=== PATIENT | male | born 1955 | race Caucasian/White ===

== ENCOUNTER 2020-08-25 07:53 | Outpatient (REF) | payer MEDICAID, SELFPAY ==
--- NOTE | 2020-08-25 | US_ITS ---
EXAMINATION: US ABDOMEN COMPLETE CLINICAL INFORMATION: Viral hepatitis C. COMPARISON: MRI abdomen without contrast dated 07/18/2016. CT abdomen with intravenous contrast dated 06/14/2016. Ultrasound abdomen complete dated 02/04/2016 and 06/11/2015. X-ray abdomen dated 10/22/2010. TECHNIQUE: Real-time imaging of the abdominal viscera. FINDINGS: PANCREAS: Normal. ABDOMINAL AORTA: The proximal, mid, and distal segments are normal in caliber. INFERIOR VENA CAVA: Visualized portions are normal. LIVER: There is a hypoechoic mass left lower lobe measuring 1.8 x 2.0 x 1.8 cm. There is anechoic cyst right lower lobe measuring 1.0 x 1.1 x 0.8 cm it The liver is normal in size. The liver contour is normal. There is no intrahepatic biliary duct dilatation seen. Normal hepatopedal flow seen in the portal vein. GALLBLADDER: Normal. The gallbladder is physiologically distended without evidence of stones, sludge, polyps, wall thickening or pericholecystic fluid. COMMON BILE DUCT: Normal in caliber measuring 0.35 cm in diameter. RIGHT KIDNEY: Normal. No hydronephrosis. No renal calculi or focal parenchymal lesions. The kidney measures 10.0 cm in maximum dimension. LEFT KIDNEY: There is an echogenic stone mid to lower pole measuring 0.7 x 0.6 x 0.4 cm. No hydronephrosis or focal parenchymal lesions. The kidney measures 10.1 cm in maximum dimension. SPLEEN: Normal. The spleen measures 12.7 cm in maximum dimension. FREE FLUID: None. US/US abdomen complete IMPRESSION: Left hepatic lobe mass measuring 2.0 cm. Also visualized is a small right hepatic lobe cyst. These 2 lesions were not seen on the previous CT abdomen exam from 06/14/2016. Recommend correlation with CT liver with and without contrast. Small echogenic nonobstructive stone mid to lower pole left kidney.
== END 2020-08-25 07:54 | disposition home or self-care (01) ==
LOC: HO.US 07:53
PROVIDERS: Visit Provider General Practice
DX: B18.2 Chronic viral hepatitis C (principal)
CPT/HCPCS: 76700

== ENCOUNTER 2020-09-22 10:20 | Outpatient (REF) | payer MEDICAID, SELFPAY ==
[2020-09-22 18:01] LABS: MANUAL DIFF FLAG NO
[2020-09-22 18:10] LABS: INTERNATIONAL NORM RATIO 1.1 (0.9-1.1); Prothrombin Time 13.4 SEC (10.8-13.0)
[2020-09-22 18:18] LABS: Basophils Absolute Auto 0.1 X10*3/uL (0.0-0.2); Basophils Percent Auto 1.4 % (0-2); Eosinophils Absolute Auto 0.6 X10*3/uL (0.0-0.4); Eosinophils Percent Auto 8.5 % (0-4); Hematocrit 39.5 % (42-52); Hemoglobin 13.4 g/dl (14.0-18.0); Imm Gran Abs Auto 0.03 X10*3/uL (0.00-0.03); Imm Gran Pct Auto 0.4 % (0.0-0.4); Lymphocytes Absolute Auto 2.2 X10*3/uL (1.2-4.9); Lymphocytes Percent Auto 30.5 % (20-40); Mean Corpuscular HGB Conc 33.9 g/dl (31.0-36.0); Mean Corpuscular Hemoglobin 31.8 pg (27.0-33.0); Mean Corpuscular Volume 93.6 fL (80-98); Mean Platelet Volume 12.3 fL (9.4-12.4); Monocytes Absolute Auto 0.7 X10*3/uL (0.1-1.2); Monocytes Percent Auto 9.6 % (2-11); Neutrophils Absolute Auto 3.5 X10*3/uL (2.0-8.3); Neutrophils Percent Auto 49.6 % (45-73); Red Blood Count 4.22 X10*6/uL (4.60-5.80); Red Cell Distribution Width 13.6 % (11.0-16.0); White Blood Count 7.1 X10*3/uL (4.8-10.8)
[2020-09-22 18:39] LABS: Platelet Count 94 X10*3/uL (160-400)
[2020-09-22 18:41] LABS: Alanine Aminotransferase 112 U/L (0-40); Albumin Level 3.1 g/dL (3.5-5.0); Alkaline Phosphatase 182 U/L (39-117); Anion Gap 9 (12-20); Aspartate Amino Transferase 117 U/L (5-37); Bilirubin Total 0.4 mg/dL (0.0-1.0); Blood Urea Nitrogen 13 mg/dL (9-16); Calcium 8.6 mg/dL (8.4-10.2); Carbon Dioxide 29 mmol/L (22-29); Chloride 106 mmol/L (96-108); Estimated Glomerular Filt Rate > 60; Glucose Random 120 mg/dL (60-115); Sodium 140 mmol/L (135-145)
[2020-09-22 18:47] LABS: Ferritin 177 ng/mL (20-250)
[2020-09-22 18:56] LABS: Gamma Glutamyl Transpeptidase 169 U/L (11-51)
[2020-09-23 09:51] LABS: HBS Num1 102.35 mIU/mL (0-7.99); HBc Num1 8.62 S/CO (0.00-0.79); Hepatitis A Antibody IgM 0.47 Index (0-0.79); Hepatitis B Surface Antigen Negative (Negative); ~Hepatitis A Antibody IgM Nonreactive (Nonreactive); ~Hepatitis B Surface Antibody REACTIVE (Nonreactive); ~Hepatitis C Antibody Reactive (Nonreactive)
[2020-09-23 11:32] LABS: Alpha Fetoprotein 25.7 ng/mL (<6.1)
[2020-09-23 12:39] LABS: HBc Num2 8.71 S/CO; HBc Num3 9.24 S/CO; Hepatitis B Core Antibody Reactive (Nonreactive)
[2020-09-23 12:42] LABS: Mitochondrial Antibodies NEGATIVE (NEGATIVE)
[2020-09-23 13:28] LABS: Anti Nuclear Antibody Screen NEGATIVE (NEGATIVE)
[2020-09-24 09:27] LABS: Hepatitis B Core Antibody IgM NON-REACTIVE (NON-REACTIVE)
[2020-09-25 00:27] LABS: Smooth Muscle Antibody <20 U (<20)
== END 2020-09-22 10:21 | disposition home or self-care (01) ==
LOC: HO.LAB 10:20
PROVIDERS: PCP General Practice; Referring Provider General Practice; Visit Provider Nurse Practitioner
DX: B19.20 Unspecified viral hepatitis C without hepatic coma (principal)
CPT/HCPCS: 36415; 80053; 82105; 82728; 82977; 85025; 85610; 86038; 86039; 86255; 86256; 86704; 86705; 86706; 86709; 86803; 87340; 87522

== ENCOUNTER 2020-11-12 09:29 | Outpatient (REF) | payer MEDICAID, SELFPAY ==
[2020-11-12 10:27] LABS: Blood Urea Nitrogen 13 mg/dL (9-16); Estimated Glomerular Filt Rate > 60
== END 2020-11-12 09:30 | disposition home or self-care (01) ==
LOC: HO.CT 09:29
PROVIDERS: PCP General Practice; Visit Provider General Practice
DX: B18.2 Chronic viral hepatitis C (principal); I10 Essential (primary) hypertension
CPT/HCPCS: 36415; 82565; 84520

== ENCOUNTER 2020-12-01 13:22 | Outpatient (REF) | payer MEDICAID, SELFPAY ==
--- NOTE | ~2020-12-01 | CT_ITS ---
EXAMINATION: CT ABDOMEN WITHOUT AND WITH CONTRAST CLINICAL INFORMATION: Hepatitis C. Liver mass. COMPARISON: Previous CT of the abdomen June 2016, MRI of the abdomen July 2016 and abdominal ultrasound August 2020 TECHNIQUE: Contiguous axial thin section helical images of the abdomen were performed before and after the administration of oral contrast and 85 mL of Omnipaque 350 intravenous contrast. The data set was reformatted in the coronal and sagittal planes and reviewed on an independent workstation. This CT examination was performed using dose optimization techniques as appropriate, variously including the following: *Automated exposure control *Adjustment of mA and/or kV according to patient size (this includes techniques or standardized protocols for targeted exams where dose is matched to indication/reason for exam; i.e. extremities or head) *Use of iterative reconstruction technique DLP: 1667 mGy-cm FINDINGS: LUNG BASES: There are small calcified pulmonary nodules that are stable. The lung bases are otherwise clear. LIVER, GALLBLADDER, AND BILIARY TREE: The liver is cirrhotic. There is a new lesion in the lateral segment of the left lobe of the liver. This is low attenuation precontrast. This demonstrates early arterial phase enhancement. This washes out with similar attenuation to the remainder of the liver on venous phase images. This area measures approximately 2 cm. Enhancement characteristics are suggestive of paraseptal or carcinoma. There is a second focus of early arterial phase enhancement seen at the junction of the medial segment of the left lobe and anterior segment of the right lobe. This is slightly low signal on T1-weighted sequences. This demonstrates early arterial phase enhancement. This washes out and is similar in attenuation to the remainder of the liver on out portal venous phase images. This area measures approximately 1 cm axial image 35 series 4. No other focal liver lesion is seen. The gallbladder is upper normal in size. No gallstones are seen. There is a stranding of the pericholecystic fat and small amount of fluid surrounding the gallbladder. There is uncertain whether this is related to liver disease. There is no biliary duct dilatation. PANCREAS: Unremarkable SPLEEN: Unremarkable ADRENAL GLANDS AND KIDNEYS: The adrenal glands are unremarkable. There were small bilateral renal stones, left greater than right. There is a 2 mm stone in the upper to mid right kidney. There are 5 small stones in the left kidney, largest measuring 3 mm in the upper pole. There are small low-attenuation bilateral renal lesions. These are too small to definitely characterize but probably represent small cysts. BOWEL LOOPS: There is diverticulosis of the colon. Visualized bowel is otherwise unremarkable. The appendix is unremarkable. The stomach is unremarkable. LYMPH NODES: There is no enlarged lymph nodes. VASCULAR: The portal veins and splenic vein are patent. There are upper abdominal and paraesophageal varices. There is a small amount of ascites. The abdominal aorta is calcified but normal in caliber. BONES: There is degenerative disc disease at L4-L5. CT/CT abdomen wo/w con IMPRESSION: Cirrhotic-appearing liver. 2 liver lesions suspicious for hepatocellular carcinoma measuring 2 cm in the lateral segment of the left lobe corresponding to abnormality seen by ultrasound and 1 cm in the peripheral medial segment of the left lobe near the junction of the anterior segment of the right lobe. Ascites and varices. Bilateral renal stones. Diverticulosis.
== END 2020-12-01 13:23 | disposition home or self-care (01) ==
LOC: HO.CT 13:22
PROVIDERS: Visit Provider General Practice
DX: B18.2 Chronic viral hepatitis C (principal)
CPT/HCPCS: 74170; Q9967

== ENCOUNTER → 2021-01-19 13:26 | Outpatient (BNVA) | payer MEDICAID, SELFPAY | PROVIDERS: Visit Provider Internal Medicine Gastroenterology ==

== ENCOUNTER 2021-04-23 18:23 | Emergency (ER) | payer MEDICAID, SELFPAY ==
[2021-04-23 18:50] VITALS: BP 138/86; PULSE 61; RESP 16; TEMP 36.1; O2SAT 100; BMI 35.4
[2021-04-23 19:24] LABS: MANUAL DIFF FLAG NO
[2021-04-23 19:26] LABS: Glucose Urine UA NEG (NEG); Leukocyte Esterase Urine 1+ (NEG); Nitrite Urine NEG (NEG); PH 6.5 (5.0-8.0); Specific Gravity - Urine 1.015 (1.005-1.025); UACC Culture Trigger YES; Urine Blood NEG (NEG); Urine Ketones NEG (NEG); Urine Protein NEG (NEG-TRACE)
[2021-04-23 19:27] LABS: Basophils Absolute Auto 0.1 X10*3/uL (0.0-0.2); Eosinophils Absolute Auto 0.5 X10*3/uL (0.0-0.4); Eosinophils Percent Auto 7.7 % (0-4); Hematocrit 38.6 % (42-52); Hemoglobin 12.8 g/dl (14.0-18.0); Imm Gran Abs Auto 0.02 X10*3/uL (0.00-0.03); Imm Gran Pct Auto 0.3 % (0.0-0.4); Lymphocytes Absolute Auto 1.7 X10*3/uL (1.2-4.9); Lymphocytes Percent Auto 26.1 % (20-40); Mean Corpuscular HGB Conc 33.2 g/dl (31.0-36.0); Mean Corpuscular Hemoglobin 31.2 pg (27.0-33.0); Mean Corpuscular Volume 94.1 fL (80-98); Mean Platelet Volume 11.2 fL (9.4-12.4); Monocytes Absolute Auto 0.8 X10*3/uL (0.1-1.2); Monocytes Percent Auto 11.7 % (2-11); Neutrophils Absolute Auto 3.4 X10*3/uL (2.0-8.3); Neutrophils Percent Auto 52.2 % (45-73); Platelet Count 114 X10*3/uL (160-400); Red Cell Distribution Width 14.2 % (11.0-16.0); White Blood Count 6.5 X10*3/uL (4.8-10.8)
[2021-04-23 19:42] LABS: Appearance Urine CLEAR; Color Urine YELLOW; RBC Urine 0-2 /HPF (0); Squamous Epithelial Cell Urine TRACE /LPF
[2021-04-23 19:48] LABS: Alanine Aminotransferase 56 U/L (0-40); Alkaline Phosphatase 170 U/L (39-117); Anion Gap 11 (12-20); Aspartate Amino Transferase 99 U/L (5-37); Bilirubin Direct 0.5 mg/dL (0.0-0.5); Bilirubin Total 1.2 mg/dL (0.0-1.0); Blood Urea Nitrogen 10 mg/dL (9-16); Carbon Dioxide 26 mmol/L (22-29); Chloride 105 mmol/L (96-108); Creatinine Clr Calc Pharmacy 104.4; Estimated Glomerular Filt Rate > 60; Glucose Random 103 mg/dL (60-115); Lipase 19 U/L (8-78); Potassium 4.5 mmol/L (3.3-5.1); Sodium 137 mmol/L (135-145); Total Protein 7.7 g/dL (6.5-8.0)
[2021-04-23 22:02] VITALS: BP 156/86; PULSE 60; RESP 20; TEMP 36.8; O2SAT 97
--- NOTE | 2021-04-23 22:13 | ED.ABDPAIN ---
HPI - Abdominal Pain General Chief Complaint: Abdominal Pain Stated Complaint: severe stomach pain Time Seen by Provider: 04/23/21 22:13 Source: patient Mode of arrival: ambulatory Limitations: no limitations History of Present Illness HPI narrative: 2 weeks of abdominal pain with swelling. Patient told that he has a problem with his liver. Patient has not been drained for ascites. Patient states he is on a diuretic. last CT in November showed cirrhosis and a liver mass. MD elicited complaint: abdominal pain Onset (ago): month(s) Pain Consistency: constant Associated symptoms: denies other symptoms Related Data Home Medications Medication Instructions Recorded Confirmed albuterol sulfate 90 mcg/actuation 2 puff INHALATION Q6H PRN 09/22/20 aerosol inhaler (ProAir HFA) cholecalciferol (vitamin D3) 25 25 mcg PO DAILY 09/22/20 mcg (1,000 unit) capsule levothyroxine 200 mcg capsule 200 mcg PO DAILY 09/22/20 lisinopril 10 mg tablet 10 mg PO DAILY 09/22/20 omeprazole 20 mg capsule,delayed 20 mg PO QAM cap 09/22/20 09/22/20 release Previous Rx's Medication Instructions Recorded polyethylene glycol 3350 17 238 g PO ONCE #238 g 01/19/21 gram/dose oral powder (Miralax) furosemide 20 mg tablet (Lasix) 20 mg PO DAILY #30 tab 04/23/21 spironolactone 50 mg tablet 50 mg PO DAILY #30 tab 04/23/21 (Aldactone) Allergies Allergy/AdvReac Type Severity Reaction Status Date / Time No Known Allergies Allergy Verified 09/22/20 10:21 [No Known Allergies*] Review of Systems Constitutional: Reports no additional constitutional complaints Eyes: Reports no additional eye complaints Denies dizziness Cardiovascular: Reports no additional cardiovascular complaints Respiratory: Reports as per HPI Gastrointestinal: Reports no additional gastrointestinal complaints Musculoskeletal: Reports no additional musculoskeletal complaints Skin/Breast: Denies rash Reports system reviewed and no additional complaints, except as documented, Denies dizziness and Denies Sensory deficit (Neuro) Psychiatric: Denies anxiety Physical Exam Vital Signs: Vital Signs: Last Vital Signs Temp 98.2 F 04/23/21 22:02 Pulse 60 04/23/21 22:02 Resp 20 04/23/21 22:02 BP 156/86 H 04/23/21 22:02 Pulse Ox 97 04/23/21 22:02 Body Mass Index 35.4 Const: Other: Male looking older than stated age, in no acute distress. Now with swollen abdomen. Nutritional Appearance: obese Orientation/consciousness: oriented to person and patient oriented x3 Limitations: no limitations HENMT: Head: Yes normal to inspection Ears: external ears normal General nose exam: Normal external nose present Mouth: Normal oral and palatal mucosa present and oropharynx normal Throat: Yes posterior oropharynx normal Eyes: General: appearance normal, both eyes and all related structures Neck: Other: supple Neck: Yes normal visual inspection Chest: Chest palpation & inspection: normal inspection of the chest Resp: Auscultation: clear to auscultation bilaterally Cardio: Jugular venous distension: no JVD Rate: regular rate Rhythm: regular rhythm Heart sounds: S1 normal heart sound present and S2 normal heart sound present GI: Other: large abdomen with ascites, fluid shift. Palpation (GI): Soft to palpation, nontender and No hepatosplenomegaly present Auscultation: normal bowel sounds : General: Yes no CVA tenderness Back/Spine/Pelvis: Back: no CVA tenderness Skin: General skin exam: no rashes or lesions noted Neuro: General: oriented to person and patient oriented x3 Cranial nerves: Yes CN's II-XII intact bilaterally Motor exam (neuro): 5/5 motor strength present throughout Sensory Exam: No Sensory deficit (Neuro) Extrem: General: Yes normal to inspection Psych: Appearance: grossly normal Course Reevaluation(s) Reevaluation #1: Bedside ultrasound shows ascites Time: 22:25 Reevaluation #2: will start patient on lasix and aldactone for his ascites Time: 22:26 Reevaluation #3: chronic liver inflammation will not start abx for 10-14 wbc, will allow urine to be cultured Time: 22:28 MDM - Abdominal Pain Lab Data Result diagrams: 04/23/21 19:18 04/23/21 19:18 Labs: Lab Results 04/23/21 04/23/21 04/23/21 Range/Units 19:18 19:18 19:18 WBC 6.5 (4.8-10.8) X10*3/uL RBC 4.10 L (4.60-5.80) X10*6/uL Hgb 12.8 L (14.0-18.0) g/dl Hct 38.6 L (42-52) % MCV 94.1 (80-98) fL MCH 31.2 (27.0-33.0) pg MCHC 33.2 (31.0-36.0) g/dl RDW 14.2 (11.0-16.0) % Plt Count 114 L (160-400) X10*3/uL MPV 11.2 (9.4-12.4) fL Immature Gran % (Auto) 0.3 (0.0-0.4) % Neut % (Auto) 52.2 (45-73) % Lymph % (Auto) 26.1 (20-40) % Stewart % (Auto) 11.7 H (2-11) % Eos % (Auto) 7.7 H (0-4) % Baso % (Auto) 2.0 (0-2) % Lymph # (Auto) 1.7 (1.2-4.9) X10*3/uL Stewart # (Auto) 0.8 (0.1-1.2) X10*3/uL Eos # (Auto) 0.5 H (0.0-0.4) X10*3/uL Baso # (Auto) 0.1 (0.0-0.2) X10*3/uL Abs Immat Gran (auto) 0.02 (0.00-0.03) X10*3/uL Absolute Neuts (auto) 3.4 (2.0-8.3) X10*3/uL Absolute Nucleated RBC 0.000 (0.0-0.012) X10*3/uL Nucleated RBC % (auto) 0.0 (0.0-0.2) /100WBC Sodium 137 (135-145) mmol/L Potassium 4.5 (3.3-5.1) mmol/L Chloride 105 (96-108) mmol/L Carbon Dioxide 26 (22-29) mmol/L Anion Gap 11 L (12-20) BUN 10 (9-16) mg/dL Creatinine 0.88 (0.5-1.4) mg/dL Estim Creat Clear Calc 104.4 Estimated GFR > 60 Random Glucose 103 (60-115) mg/dL Calcium 9.0 (8.4-10.2) mg/dL Total Bilirubin 1.2 H (0.0-1.0) mg/dL Direct Bilirubin 0.5 (0.0-0.5) mg/dL AST 99 H (5-37) U/L ALT 56 H (0-40) U/L Alkaline Phosphatase 170 H (39-117) U/L Total Protein 7.7 (6.5-8.0) g/dL Albumin 3.0 L (3.5-5.0) g/dL Lipase 19 (8-78) U/L Urine Color YELLOW Urine Appearance CLEAR Urine pH 6.5 (5.0-8.0) Ur Specific [place] 1.015 (1.005-1.025) Urine Protein NEG (NEG-TRACE) MG/DL Urine Glucose (UA) NEG (NEG) MG/DL Urine Ketones NEG (NEG) MG/DL Urine Blood NEG (NEG) Urine Nitrite NEG (NEG) Ur Leukocyte Esterase 1+ H (NEG) Urine RBC 0-2 (0) /HPF Urine WBC 10-14 H (0-4) /HPF Ur Squamous Epith Cells TRACE /LPF Urine Bacteria NONE /LPF Discharge Plan Discharge Clinical Impression: Liver mass Abdominal ascites Qualifiers: Ascites type: due to alcoholic cirrhosis Qualified Code(s): K70.31 - Alcoholic cirrhosis of liver with ascites Patient Disposition: Home, Self-Care Instructions: Ascites (ED) Prescriptions: New furosemide [Lasix] 20 mg tablet 20 mg PO DAILY Qty: 30 RF: 0 spironolactone [Aldactone] 50 mg tablet 50 mg PO DAILY Qty: 30 RF: 0 No Action polyethylene glycol 3350 [Miralax] 17 gram/dose powder 238 g PO ONCE Qty: 238 RF: 0 cholecalciferol (vitamin D3) 25 mcg (1,000 unit) capsule 25 mcg PO DAILY RF: 0 levothyroxine 200 mcg capsule 200 mcg PO DAILY RF: 0 lisinopril 10 mg tablet 10 mg PO DAILY RF: 0 omeprazole 20 mg capsule,delayed release(DR/EC) 20 mg PO QAM RF: 0 albuterol sulfate [ProAir HFA] 90 mcg/actuation HFA aerosol inhaler 2 puff inhalation Q6H PRNRF: 0 Referrals: Physician,Unknown [Primary Care Provider] - 5 days (Must follow up with [facility] for liver ascites and cirrhosis) [facility] Past Medical History Surgical History No history of previous surgery Family History Family History Other No known health problems Social History Social History Alcohol intake: current Alcohol intake frequency: does not drink Substance Use Type: Marijuana
== END 2021-04-23 23:34 | disposition home or self-care (01) ==
LOC: HO.ED 22:37
PROVIDERS: Emergency Provider Emergency Medicine
DX: K70.31 Alcoholic cirrhosis of liver with ascites (principal); R16.0 Hepatomegaly, not elsewhere classified; R10.9 Unspecified abdominal pain; I10 Essential (primary) hypertension; B19.20 Unspecified viral hepatitis C without hepatic coma; Z79.899 Other long term (current) drug therapy
CPT/HCPCS: 36415; 80053; 81001; 82248; 83690; 85025; 87086; 99283

== ENCOUNTER 2021-06-10 09:04 | Day surgery (SDC) | payer MEDICAID, SELFPAY ==
--- NOTE | 2021-06-09 10:33 | HO.ANESPROP2 ---
Documented by User: Ada Fonseca NP 06/09/21 10:36 HPI - Anesthesia Eval Consult details Narrative: 65yo M for Upper Endoscopy and Colonoscopy End Stage Liver Disease (ETOH, Hep C) - Transplant candidate per [facility] 05/2021 appt with cirrhosis, ascites, thrombocytopenia, possible hepatocellular carcinoma PMFSH Active Problems Active Problems: All Active Problems (Updated 06/04/21 @ 13:37 by Vy Jasso, RN) Hepatitis C (Acute) HTN (hypertension), benign (Acute) High cholesterol (Acute) Cardiac arrhythmia (Acute) Asthma (Acute) Hypothyroid (Acute) H/O ETOH abuse (Acute) Anemia (Acute) Liver mass (Acute) Past Medical History Medical History (Updated 06/04/21 @ 13:37 by Vy Jasso RN) Allergic rhinitis Anemia Asthma Cirrhosis GERD (gastroesophageal reflux disease) Hepatitis C History of alcohol abuse History of kidney stones HTN (hypertension) Hypothyroid Liver mass Family History Family History Other No known health problems Surgical History Surgical History No history of previous surgery Social History Social History Alcohol intake: current Alcohol intake frequency: does not drink Substance Use Type: Marijuana Advance Directives: No Advance Directives Information Provided: Yes Meds Allergies Allergy/AdvReac Type Severity Reaction Status Date / Time No Known Allergies Allergy Verified 06/04/21 13:39 [No Known Allergies*] Home Medications Medication Instructions Recorded Confirmed Last Taken Type albuterol sulfate 90 mcg/actuation 2 puff INHALATION Q6H PRN 09/22/20 06/04/21 Unknown History aerosol inhaler (ProAir HFA) cholecalciferol (vitamin D3) 25 25 mcg PO DAILY 09/22/20 06/04/21 Unknown History mcg (1,000 unit) capsule levothyroxine 200 mcg capsule 200 mcg PO DAILY 09/22/20 06/04/21 Unknown History lisinopril 10 mg tablet 10 mg PO DAILY 09/22/20 06/04/21 Unknown History omeprazole 20 mg capsule,delayed 20 mg PO QAM cap 09/22/20 06/04/21 Unknown History release Exam Exam Date and Time: June 09, 2021 1033 Pertinent Lab Results Pertinent Lab Results: Laboratory Tests 04/23/21 04/23/21 19:18 19:18 WBC 6.5 Hgb 12.8 L Hct 38.6 L Plt Count 114 L Sodium 137 Potassium 4.5 Chloride 105 Carbon Dioxide 26 BUN 10 Creatinine 0.88 Assessment and Plan Assessment Anesthesia Assessment: Chart Reviewed Documented by User: Gabbie Marcial MD 06/10/21 09:26 [facility] Past Medical History Medical History (Updated 06/04/21 @ 13:37 by Vy Jasso RN) Allergic rhinitis Anemia Asthma Cirrhosis GERD (gastroesophageal reflux disease) Hepatitis C History of alcohol abuse History of kidney stones HTN (hypertension) Hypothyroid Liver mass Family History Family History Other No known health problems Surgical History Surgical History No history of previous surgery Social History Social History Alcohol intake: current Alcohol intake frequency: does not drink Substance Use Type: Marijuana Advance Directives: No Advance Directives Information Provided: Yes Meds Allergies Allergy/AdvReac Type Severity Reaction Status Date / Time No Known Allergies Allergy Verified 06/04/21 13:39 [No Known Allergies*] Home Medications Medication Instructions Recorded Confirmed Last Taken Type albuterol sulfate 90 mcg/actuation 2 puff INHALATION Q6H PRN 09/22/20 06/04/21 Unknown History aerosol inhaler (ProAir HFA) cholecalciferol (vitamin D3) 25 25 mcg PO DAILY 09/22/20 06/04/21 Unknown History mcg (1,000 unit) capsule levothyroxine 200 mcg capsule 200 mcg PO DAILY 09/22/20 06/04/21 Unknown History lisinopril 10 mg tablet 10 mg PO DAILY 09/22/20 06/04/21 Unknown History omeprazole 20 mg capsule,delayed 20 mg PO QAM cap 09/22/20 06/04/21 Unknown History release Exam Airway Mallampati Class: II TM Dist: >3cm Neck ROM: Full Loose/Missing/Broken Teeth: Yes, Upper and Lower
[2021-06-10 09:41] VITALS: BP 161/90; PULSE 70; RESP 16; TEMP 36.6; O2SAT 97; BMI 34.7
--- NOTE | 2021-06-10 09:41 | MHC.SHP ---
Pre-Procedural Eval Section A Date of Service: 06/10/21 Section B Chief Complaint: hepatomegaly, Details of Present Illness: cirrhosis and colon screening Relevant Family History (Specify if Yes): No Relevant Social History: Alcohol Use (ex alcohol abuse) Present Medications: see Short Stay Collaborative assessment Medical History: Significant History (Allergic rhinitis Anemia Asthma Cirrhosis GERD (gastroesophageal reflux disease) Hepatitis C History of alcohol abuse History of kidney stones HTN (hypertension) Hypothyroid Liver mass) History of Previous Operations: No relevant previous surgery Allergies: Allergies Allergy/AdvReac Type Severity Reaction Status Date / Time No Known Allergies Allergy Verified 06/04/21 13:39 [No Known Allergies*] Review of Systems Sugical H&P ROS: Negative: Constitution, Cardiovascular, Respiratory, Neurological, Psychiatric, Hem-Onc, Allergic/Immunologic, Gastrointestinal, Genitourinary, Musculoskeletal, Integumentary, Endocrine and Eyes/Ears/Nose/Throat Exam Surgical H&P Exam: Normal: HEENT, Normal: Heart, Normal: Lungs, Normal: Extremities, Normal: Abdomen, Normal: Skin and Normal: Neurological Plan Diagnosis/Plan: Unchanged I have reviewed the history and physical and performed a pertinent physical examination on my patient. No changes have occurred unless specified.
--- NOTE | 2021-06-10 09:43 | P.OP_ITS ---
Operative Note Operative Note Date of Service: 06/10/21 Narrative: Operative Information Procedure Description: EGD, Colonoscopy FLEXIBLE TRANSORAL UPPER GASTROINTESTINAL ENDOSCOPY AND COLONOSCOPY PROCEDURE NOTE UPPER ENDOSCOPY Consent: Indications for the procedure and potential complications of bleeding, perforation, reaction to medications and missed diagnosis were discussed with the patient and informed consent was obtained. Instrument: Olympus GIF H 190 J mid size upper endoscope Monitoring: Vital signs and clinical assessment, continuous EKG monitoring, Pulse oximetry, Carbon Dioxide monitoring and blood pressure monitoring were done throughout the procedure. Procedure: The patient was placed in the left lateral decubitis position and pre-procedure medications were administered and a bite block was placed. The endoscope was inserted into the mouth and advanced under direct vision to the third part of duodenum. A careful inspection was made as the upper endoscope was withdrawn including a retroflexed examination of the proximal stomach; Findings and interventions are described below. Findings: Larynx:normal Esophagus: GE junction at 36 cm, diaphragm hiatus at 36 cm, x 2 large columns of grade III varices noted. no high risk stigmata noted x 4 bands were applied. Stomach: Mosaic pattern consistent with portal hypertensive gastropathy. Biopsies were obtained to exclude h pylori. Grade 2 flap valve on retroflexed examination of the cardia. No gastric varices seen. Duodenum: Normal bulb and descending duodenum, Intervention: Biopsies as noted above, variceal banding COLONOSCOPY Instrument: Olympus variable stiffness pediatric scope 190L Colonoscopy Monitoring: Vital signs and clinical assessment, continuous EKG monitoring, Pulse oximetry, Carbon Dioxide monitoring and blood pressure monitoring were done throughout the procedure. Colon withdrawal time was [] minutes. Procedure: The patient was placed in the left lateral decubitis position and pre-procedure medications were administered. After a digital rectal examination of the ano-rectum, the video colonoscope was inserted into the rectum and advanced through the colon to the cecum/TI. The colonoscope was slowly withdrawn in a retrograde panoramic fashion and the colon mucosa was carefully examined including a retroflexed view of the rectum. Findings and interventions are described below. Procedure Difficulty: Findings: Terminal Ileum-normal Severe mckinley diverticulosis thru out colon Cecum: x 2 sessile polyps 6-8 mm removed with forceps Ascending Colon: normal Transverse Colon -normal Descending Colon:normal Sigmoid Colon: 5-7 mm sessile polyp removed with forceps Rectum: Retroflexion with moderate sized internal hemorrhoids, grade II Anorectum - internal hemorrhoids seen at anal verge Colon preparation: [place] Bowel Preparation Scale Right colon; 2 Transverse colon: 2 Left colon; 2 (0 = Unprepared colon segment with mucosa not seen due to solid stool that c annot be cleared. 1 = Portion of mucosa of the colon segment seen, but other areas of the colon segment not well seen due to staining, residual stool and/or opaque liquid. 2 = Minor amount of residual staining, small fragments of stool and/or opaque liquid, but mucosa of colon segment seen well. 3 = Entire mucosa of colon segment seen well with no residual staining, small fragments of stool or opaque liquid) Impression and Post Procedure Diagnosis: Endoscopy Findings: esophageal varices portal hypertensive gastropathy Colonoscopy Findings: polyps internal hemorrhoids diverticular disease Plan: Await Pathology results Repeat Colonoscopy in 5 years if pre cancerous polyps, 10 yrs if benign or earlier if clinically indicated High fiber diet leaflet avoid straining at stool, epsom salts and sitz bath, anusol supps or cream repeat EGD in 2-4 weeks, hold on beta blockers due to asthma commence PPI and carafate to reduce risk of post banding ulceration if H pylori pos then treat Above findings were reviewed with the patient and relevant handouts were provided if indicated.
--- NOTE | 2021-06-10 09:43 | P.BOP_ITS ---
Brief Operative Note Date of Service: 06/10/21 Post-op diagnosis: same Procedure: see op note Surgeon: Luis F Ahuja MD Anesthesia: MAC Was an Printing Table Worker used for this Procedure?: No Estimated blood loss (mL): 0 Condition: stable Disposition: PACU
[2021-06-10] MEDS: Lactated Ringers 1,000 ML 50 ML IVCONT (09:47)
[2021-06-10 10:22] VITALS: BP 104/65; PULSE 76; RESP 18; TEMP 36.1; O2SAT 98
[2021-06-10 10:47] VITALS: BP 135/85; PULSE 64; RESP 16; TEMP 36.1; O2SAT 98
== END 2021-06-10 11:00 | disposition home or self-care (01) ==
PROVIDERS: PCP Internal Medicine; Visit Provider Internal Medicine Gastroenterology
PROC: (CPT 45380; principal; 2021-06-10 10:10)
DX: Z12.11 Encounter for screening for malignant neoplasm of colon (principal); K63.5 Polyp of colon; K57.30 Diverticulosis of large intestine without perforation or abscess without bleeding; K64.1 Second degree hemorrhoids; I85.00 Esophageal varices without bleeding; R16.0 Hepatomegaly, not elsewhere classified; K74.60 Unspecified cirrhosis of liver; B19.20 Unspecified viral hepatitis C without hepatic coma; K76.6 Portal hypertension; F10.10 Alcohol abuse, uncomplicated; K31.89 Other diseases of stomach and duodenum; K44.9 Diaphragmatic hernia without obstruction or gangrene; K21.9 Gastro-esophageal reflux disease without esophagitis; I10 Essential (primary) hypertension; J45.909 Unspecified asthma, uncomplicated; Z79.899 Other long term (current) drug therapy
CPT/HCPCS: 45380; 43244; 43239; 88305; 88342

== ENCOUNTER → 2021-06-15 11:52 | Outpatient (BNVA) | payer MEDICAID, SELFPAY | PROVIDERS: Visit Provider Internal Medicine Gastroenterology ==

== ENCOUNTER → 2021-08-05 09:55 | Day surgery (SDC) | payer MEDICAID, SELFPAY ==
[2021-07-27 15:22] VITALS: BMI 34.7
--- NOTE | 2021-08-04 10:11 | P.CONAN_ITS ---
HPI - Anesthesia Eval Consult details Narrative: Cancelled 08/05/21 - needs paracentesis 1-2 days prior to EGD 65yo M for Upper Endoscopy with Variceal Band s/p EGD and [place] 06/2021 with MAC End Stage Liver Disease (ETOH, Hep C) - Transplant candidate per [facility] 05/2021 appt with cirrhosis, ascites, thrombocytopenia, possible hepatocellular carcinoma PMFSH Active Problems Active Problems: All Active Problems (Updated 06/04/21 @ 13:37 by Vy Jasso RN) Hepatitis C (Acute) HTN (hypertension), benign (Acute) High cholesterol (Acute) Cardiac arrhythmia (Acute) Asthma (Acute) Hypothyroid (Acute) H/O ETOH abuse (Acute) Anemia (Acute) Liver mass (Acute) Past Medical History Medical History Allergic rhinitis Anemia Asthma Cirrhosis GERD (gastroesophageal reflux disease) Hepatitis C History of alcohol abuse History of kidney stones HTN (hypertension) Hypothyroid Liver mass Family History Family History Other No known health problems Surgical History Surgical History History of esophagogastroduodenoscopy (EGD) Hx of colonoscopy No history of previous surgery Social History Social History Alcohol intake: current Alcohol intake frequency: does not drink Patient Tobacco Use Status: Never used Tobacco Substance Use Type: Marijuana Advance Directives: No Advance Directives Information Provided: Yes Advance Directives on File: No Meds Allergies Allergy/AdvReac Type Severity Reaction Status Date / Time No Known Allergies Allergy Verified 08/05/21 10:16 [No Known Allergies*] Home Medications Medication Instructions Recorded Confirmed Last Taken Type albuterol sulfate 90 mcg/actuation 2 puff INHALATION Q6H PRN 09/22/20 06/18/21 Unknown History aerosol inhaler (ProAir HFA) cholecalciferol (vitamin D3) 25 25 mcg PO DAILY 09/22/20 06/18/21 Unknown History mcg (1,000 unit) capsule levothyroxine 200 mcg capsule 200 mcg PO DAILY 09/22/20 06/18/21 Unknown History lisinopril 10 mg tablet 10 mg PO DAILY 09/22/20 06/18/21 Unknown History omeprazole 20 mg capsule,delayed 20 mg PO QAM cap 09/22/20 06/18/21 Unknown History release Exam Exam Date and Time: August 04, 2021 1011 Height,Weight and Vital Signs: Height 5 ft 7 in Weight 100.698 kg Pertinent Lab Results Pertinent Lab Results: Laboratory Tests ? 04/23/21 04/23/21 ? 19:18 19:18 WBC ?6.5 ? Hgb ?12.8 L ? Hct ?38.6 L ? Plt Count ?114 L ? Sodium ? ?137 Potassium ? ?4.5 Chloride ? ?105 Carbon Dioxide ? ?26 BUN ? ?10 Creatinine ? ?0.88 Assessment and Plan Assessment Anesthesia Assessment: Chart Reviewed
[2021-08-05 10:27] VITALS: BP 136/93; PULSE 67; RESP 20; TEMP 36.6; O2SAT 97
== END ==
PROVIDERS: PCP Internal Medicine; Visit Provider Internal Medicine Gastroenterology
DX: I83.90 Asymptomatic varicose veins of unspecified lower extremity (principal); Z53.8 Procedure and treatment not carried out for other reasons

== ENCOUNTER 2021-08-13 16:47 | Emergency (ER) | payer MEDICAID, SELFPAY ==
--- NOTE | 2021-08-13 | ECG_ITS ---
Test Reason : ABDOMINAL PAIN Blood Pressure : / mmHG Vent. Rate : 058 BPM Atrial Rate : 058 BPM P-R Int : 180 ms QRS Dur : 096 ms QT Int : 502 ms P-R-T Axes : 098 -36 013 degrees QTc Int : 492 ms Sinus bradycardia Left axis deviation Pulmonary disease pattern Prolonged QT Abnormal ECG When compared with ECG of 22-JUN-2014 09:32, T wave amplitude has decreased in Anterolateral leads QT has lengthened Referred By: Generic ED Physician Electronically Signed By:Primo Guadarrama
--- NOTE | ~2021-08-13 | XR_ITS ---
EXAMINATION: XR chest 1V CLINICAL INFORMATION: Shortness of breath COMPARISON: 06/22/2014 TECHNIQUE: XR chest 1V Tubes and lines: None Lungs and pleura: Both lungs are clear. Heart and mediastinum: The mediastinum is within normal limits.. Bones/soft tissue: Skeletal structures included are normal for patient's age. XR/XR chest 1V IMPRESSION: No radiographic evidence of acute cardiopulmonary disease.
[2021-08-13 18:13] VITALS: BP 132/75; PULSE 62; RESP 20; O2SAT 100; BMI 30.7
--- NOTE | 2021-08-13 19:16 | ED_ITS ---
HPI - Abdominal Pain General Chief Complaint: Abdominal Pain Stated Complaint: Lower left sided abdominal pain Time Seen by Provider: 08/13/21 19:15 Source: patient and family Mode of arrival: ambulatory Limitations: no limitations History of Present Illness HPI narrative: Patient has alcoholic cirrhosis with ascites comes here for increased shortness of breath and increased abdominal distention for last few days patient on furosemide and spironolactone is not helping him patient never had paracentesis in the past no fever no chills no cough no melena no fever no chills Related Data Home Medications Medication Instructions Recorded Confirmed albuterol sulfate 90 mcg/actuation 2 puff INHALATION Q6H PRN 09/22/20 06/18/21 aerosol inhaler (ProAir HFA) cholecalciferol (vitamin D3) 25 25 mcg PO DAILY 09/22/20 06/18/21 mcg (1,000 unit) capsule levothyroxine 200 mcg capsule 200 mcg PO DAILY 09/22/20 06/18/21 lisinopril 10 mg tablet 10 mg PO DAILY 09/22/20 06/18/21 omeprazole 20 mg capsule,delayed 20 mg PO QAM cap 09/22/20 06/18/21 release Previous Rx's Medication Instructions Recorded furosemide 20 mg tablet (Lasix) 20 mg PO DAILY #30 tab 04/23/21 spironolactone 50 mg tablet 50 mg PO DAILY #30 tab 04/23/21 (Aldactone) bisacodyl 5 mg tablet,delayed 10 mg PO ONCE 1 Days #2 tab 06/09/21 release (Dulcolax (bisacodyl)) polyethylene glycol 3350 17 238 g PO ONCE 1 Days #238 g 06/09/21 gram/dose oral powder (Miralax) sucralfate 100 mg/mL oral 10 ml PO BID #420 ml 06/10/21 suspension (Carafate) Allergies Allergy/AdvReac Type Severity Reaction Status Date / Time No Known Allergies Allergy Verified 08/05/21 10:16 [No Known Allergies*] Review of Systems Review of Systems Yes all other systems are reviewed and are negative Physical Exam Vital Signs: Vital Signs: Last Vital Signs Pulse 63 08/13/21 22:45 Resp 16 08/13/21 22:00 BP 137/62 08/13/21 22:45 Pulse Ox 100 08/13/21 22:45 BMI result Body Mass Index 30.7 Appearance: Alert. Oriented X3. No acute distress. Eyes: No pallor or icterus ENT: Pharynx normal. Oral Mucosa moist Neck: Normal inspection. Neck supple. CVS: Normal heart rate and rhythm. Pulses normal. Respiratory: No respiratory distress. Equal air entry bilateral, no wheezing/rales/rhonchi Abdomen: Soft tense ascites no rebound tenderness or guarding Bowel sounds are present, no mass palpable, no CVA tenderness Skin: Skin warm and dry. Normal skin color. Normal skin turgor. Extremities: No lower extremity edema. No calf tenderness Neuro: Oriented X 3. No motor deficit. No sensory deficit Procedures Paracentesis Time Out Performed: Yes Indication: Ascites Procedure: therapeutic paracentesis Location: RLQ Local Anesthetic: lidocaine 2% Amount of anesthesia used (mL): 1 Bedside Ultrasound Used: yes, Ascites confirmed and location marked Preparation: sterile prep and drape Amount of fluid obtained (mL): 4,000 Fluid: clear and sent to lab for analysis Size of Needle Used: 7 Post Procedure Exam: awake, alert Patient Tolerated Procedure: well Complications: none MDM - Abdominal Pain MDM Narrative Medical decision making narrative: Patient with ascites secondary to alcoholic cirrhosis status post paracentesis 4 L was removed patient tolerated the procedure well feeling much better discharge the patient home Lab Data Attestation: I reviewed the patient's lab results. Result diagrams: 08/13/21 19:34 Labs: Lab Results 08/13/21 08/13/21 08/13/21 Range/Units 19:34 19:34 19:34 PT 13.1 H (9.9-13.0) SEC INR 1.2 H (0.9-1.1) APTT 38.6 H (24.1-38.0) SEC Sodium 134 L (135-145) mmol/L Potassium 3.6 (3.3-5.1) mmol/L Chloride 102 (96-108) mmol/L Carbon Dioxide 27 (22-29) mmol/L Anion Gap 9 L (12-20) BUN 10 (9-16) mg/dL Creatinine 1.06 (0.5-1.4) mg/dL Estim Creat Clear Calc 85.8 Estimated GFR > 60 Random Glucose 123 H (60-115) mg/dL Calcium 8.6 (8.4-10.2) mg/dL Total Bilirubin 0.6 (0.0-1.0) mg/dL Direct Bilirubin 0.4 (0.0-0.5) mg/dL AST 85 H (5-37) U/L ALT 45 H (0-40) U/L Alkaline Phosphatase 153 H (39-117) U/L B-Natriuretic Peptide 44 (<100) pg/mL Total Protein 7.2 (6.5-8.0) g/dL Albumin 2.5 L (3.5-5.0) g/dL Lipase 19 (8-78) U/L Urine Color Urine Appearance Urine pH (5.0-8.0) Ur Specific [place] (1.005-1.025) Urine Protein (NEG-TRACE) MG/DL Urine Glucose (UA) (NEG) MG/DL Urine Ketones (NEG) MG/DL Urine Blood (NEG) Urine Nitrite (NEG) Ur Leukocyte Esterase (NEG) Peritoneal WBC X10*3/uL Peritoneal RBC X10*6/uL [place] Neutrophils % Periton Lymphocytes % Peritoneal Monocytes % Peritoneal Other Cells % COVID-19 (JELANI) (Negative) COVID-19 Clin Com 08/13/21 08/13/21 08/13/21 Range/Units 19:35 19:36 20:42 PT (9.9-13.0) SEC INR (0.9-1.1) APTT (24.1-38.0) SEC Sodium (135-145) mmol/L Potassium (3.3-5.1) mmol/L Chloride (96-108) mmol/L Carbon Dioxide (22-29) mmol/L Anion Gap (12-20) BUN (9-16) mg/dL Creatinine (0.5-1.4) mg/dL Estim Creat Clear Calc Estimated GFR Random Glucose (60-115) mg/dL Calcium (8.4-10.2) mg/dL Total Bilirubin (0.0-1.0) mg/dL Direct Bilirubin (0.0-0.5) mg/dL AST (5-37) U/L ALT (0-40) U/L Alkaline Phosphatase (39-117) U/L B-Natriuretic Peptide (<100) pg/mL Total Protein (6.5-8.0) g/dL Albumin (3.5-5.0) g/dL Lipase (8-78) U/L Urine Color DK YELLOW Urine Appearance HAZY Urine pH 6.0 (5.0-8.0) Ur Specific [place] >= 1.030 H (1.005-1.025) Urine Protein TRACE (NEG-TRACE) MG/DL Urine Glucose (UA) NEG (NEG) MG/DL Urine Ketones 5 (NEG) MG/DL Urine Blood NEG (NEG) Urine Nitrite NEG (NEG) Ur Leukocyte Esterase NEG (NEG) Peritoneal WBC 0.338 X10*3/uL Peritoneal RBC 0.002 X10*6/uL [place] Neutrophils 6 % [place]iton Lymphocytes 76 % Peritoneal Monocytes 16 % Peritoneal Other Cells 2 % COVID-19 (JELANI) Negative (Negative) COVID-19 Clin Com See Note Discharge Plan Discharge Clinical Impression: Alcoholic cirrhosis of liver with ascites Patient Disposition: Home, Self-Care Instructions: Cirrhosis (ED), Ascites (ED) Additional Instructions: Continue taking medications and follow with community liaison officer as scheduled Prescriptions: No Action bisacodyl [Dulcolax (bisacodyl)] 5 mg tablet,delayed release (DR/EC) 10 mg PO ONCE 1 Days Qty: 2 RF: 0 polyethylene glycol 3350 [Miralax] 17 gram/dose powder 238 g PO ONCE 1 Days Qty: 238 RF: 0 furosemide [Lasix] 20 mg tablet 20 mg PO DAILY Qty: 30 RF: 0 spironolactone [Aldactone] 50 mg tablet 50 mg PO DAILY Qty: 30 RF: 0 sucralfate [Carafate] 100 mg/mL suspension 10 ml PO BID Qty: 420 RF: 0 cholecalciferol (vitamin D3) 25 mcg (1,000 unit) capsule 25 mcg PO DAILY RF: 0 levothyroxine 200 mcg capsule 200 mcg PO DAILY RF: 0 lisinopril 10 mg tablet 10 mg PO DAILY RF: 0 omeprazole 20 mg capsule,delayed release(DR/EC) 20 mg PO QAM RF: 0 albuterol sulfate [ProAir HFA] 90 mcg/actuation HFA aerosol inhaler 2 puff inhalation Q6H PRN (Reason: Wheezing) RF: 0 Interventions: ED Discharge Assessment Last Done: 08/13/21 22:33 Discharge Date/Time: 08/13/21 22:46 [facility] Past Medical History Medical History Allergic rhinitis Anemia Asthma Cirrhosis GERD (gastroesophageal reflux disease) Hepatitis C History of alcohol abuse History of kidney stones HTN (hypertension) Hypothyroid Liver mass Surgical History History of esophagogastroduodenoscopy (EGD) Hx of colonoscopy No history of previous surgery Family History Family History Other No known health problems Social History Social History Alcohol intake: current Alcohol intake frequency: does not drink Patient Tobacco Use Status: Never used Tobacco Substance Use Type: Marijuana Advance Directives: No Advance Directives Information Provided: Yes
[2021-08-13 19:46] LABS: Appearance Urine HAZY; Color Urine DK YELLOW; Glucose Urine UA NEG (NEG); Leukocyte Esterase Urine NEG (NEG); Nitrite Urine NEG (NEG); Specific Gravity - Urine >= 1.030 (1.005-1.025); Urine Blood NEG (NEG); Urine Ketones 5 MG/DL (NEG); Urine Protein TRACE MG/DL (NEG-TRACE)
[2021-08-13 19:53] LABS: INTERNATIONAL NORM RATIO 1.2 (0.9-1.1); Prothrombin Time 13.1 SEC (9.9-13.0)
[2021-08-13 19:55] LABS: Partial Thromboplastin Time 38.6 SEC (24.1-38.0)
[2021-08-13 20:00] VITALS: BP 143/62; PULSE 60; RESP 16; O2SAT 98
[2021-08-13 20:02] LABS: Alanine Aminotransferase 45 U/L (0-40); Albumin Level 2.5 g/dL (3.5-5.0); Alkaline Phosphatase 153 U/L (39-117); Anion Gap 9 (12-20); Aspartate Amino Transferase 85 U/L (5-37); Bilirubin Direct 0.4 mg/dL (0.0-0.5); Bilirubin Total 0.6 mg/dL (0.0-1.0); Blood Urea Nitrogen 10 mg/dL (9-16); Calcium 8.6 mg/dL (8.4-10.2); Carbon Dioxide 27 mmol/L (22-29); Chloride 102 mmol/L (96-108); Creatinine Clr Calc Pharmacy 85.8; Estimated Glomerular Filt Rate > 60; Glucose Random 123 mg/dL (60-115); Lipase 19 U/L (8-78); Potassium 3.6 mmol/L (3.3-5.1); Sodium 134 mmol/L (135-145); Total Protein 7.2 g/dL (6.5-8.0)
[2021-08-13 20:07] LABS: B Type Natriuretic Peptide 44 pg/mL (<100)
[2021-08-13 20:09] LABS: COVID-19 Test Negative (Negative); IDNOW Serial# 08D9AD1C
[2021-08-13] MEDS: Lidocaine HCl 2 % MPF 5 ML VIAL INFILTRATI (20:21)
[2021-08-13] MEDS: Albumin Human 25 % 100 ML IV ×2 (20:22→21:41)
--- NOTE | 2021-08-13 20:37 | PC.NURSE ---
Dr. White performed paracentesis at bedside with this nurse to assist. Patient and pt's daughter gave verbal consent to provider for procedure. This RN asking for written consent but none completed at this time. Patient tolerated well
[2021-08-13 20:55] LABS: MN% 85.5 %; PMN% 14.5 %; RBC Peritoneal Fluid 0.002 X10*6/uL; WBC Peritoneal Fluid 0.338 X10*3/uL
[2021-08-13 21:22] VITALS: BP 128/68; PULSE 61; RESP 16; O2SAT 99
--- NOTE | 2021-08-13 21:23 | PC.NURSE ---
total of 4 liters removed via paracentisis, patient requesting to go home. family at bedside, discussing disposition with provider
[2021-08-13 21:38] LABS: BF Shift QC OK YES; Lymphocyte Peritoneal Fl 76 %; Monocytes Peritoneal Fl 16 %; Neutrophils Peritoneal Fluid 6 %
[2021-08-13 21:39] LABS: Other Peritioneal Fl 2 %
[2021-08-13 22:00] VITALS: BP 128/67; PULSE 61; RESP 16; O2SAT 100
[2021-08-13 22:45] VITALS: BP 137/62; PULSE 63; O2SAT 100
[2021-08-14 07:44] LABS: Total Protein Peritoneal Fluid 1.8
== END 2021-08-13 22:46 | disposition home or self-care (01) ==
PROVIDERS: Emergency Provider Internal Medicine
DX: K70.31 Alcoholic cirrhosis of liver with ascites (principal); R10.32 Left lower quadrant pain; R06.02 Shortness of breath; F12.90 Cannabis use, unspecified, uncomplicated; Z20.822 Contact with and (suspected) exposure to COVID-19; Z79.899 Other long term (current) drug therapy
CPT/HCPCS: 36415; 49083; 71045; 80048; 80076; 81003; 83690; 83880; 84157; 85610; 85730; 87071; 87073; 87205; 87635; 89051; 93005; 96365; 96366; 99284; P9047

== ENCOUNTER 2021-08-26 13:19 | Emergency (ER) | payer MEDICAID, SELFPAY ==
--- NOTE | ~2021-08-26 | US_ITS ---
EXAMINATION: ULTRASOUND-GUIDED PARACENTESIS. Portable. CLINICAL INFORMATION: Large ascites. COMPARISON: None TECHNIQUE: Following explaining ultrasound guidance paracentesis procedure, benefits and risk, a written consent was obtained. Patient was placed supine on ED stretcher and preliminary ultrasound imaging was obtained. An optimal site was selected and marked along the right lower quadrant. The area marked was cleaned and draped in usual sterile manner. 1% lidocaine was injected at puncture site. Through a small skin incision a 5 [place] JamOrigineh catheter was advanced into the peritoneal space. After observing fluid return, stylet was withdrawn and catheter connected to vacuum bottle. After obtaining all fluid and observing no more fluid return, catheter was withdrawn and complete hemostasis achieved at puncture site. Patient tolerated procedure extremely well. FINDINGS: There is a large amount of ascites fluid seen in the abdomen. Approximately 12 L of clear yellowish fluid was drained from the right lower quadrant. Part of this fluid was sent to lab as per referring physician's orders. US/US paracentesis abd w/image IMPRESSION: Successful ultrasound-guided portable paracentesis performed without immediate complications.
[2021-08-26 13:38] VITALS: BP 164/101; BP 171/100; PULSE 84; PULSE 87; RESP 88; TEMP 36.8; O2SAT 100; O2SAT 99; BMI 35.5
--- NOTE | 2021-08-26 14:09 | ED.ABDPAIN ---
HPI - Abdominal Pain General Chief Complaint: Abdominal Pain Stated Complaint: ABDOMEN DISTENTION Time Seen by Provider: 08/26/21 14:07 Source: patient and EMS Mode of arrival: EMS Limitations: no limitations History of Present Illness HPI narrative: 66 yo male with history of hepatitis C/ETOH cirrhosis with ascites s/p large volume paracentesis here on 08/13 who presents back to the ER increasing abdominal distention and abdominal pain. He reports when he lays down he is short of breath because his abdomen goes up into his chest. He also reports the site where he was drained 2 weeks ago continues to leak intermittently. He denies any fever or chills. No pain in his abdomen when he walks. 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 MD elicited complaint: abdominal pain Pertinent past history: other (Liver cirrhosis with ascites) Onset (ago): day(s) Pain Consistency: constant Location: diffuse Severity: moderate Quality: aching Radiation: none Migration to: no migration Exacerbating factors: other (Lying down) Relieving factors: nothing Context: history of similar episodes Associated symptoms: denies other symptoms Related Data Home Medications Medication Instructions Recorded Confirmed albuterol sulfate 90 mcg/actuation 2 puff INHALATION Q6H PRN 09/22/20 06/18/21 aerosol inhaler (ProAir HFA) cholecalciferol (vitamin D3) 25 25 mcg PO DAILY 09/22/20 06/18/21 mcg (1,000 unit) capsule levothyroxine 200 mcg capsule 200 mcg PO DAILY 09/22/20 06/18/21 lisinopril 10 mg tablet 10 mg PO DAILY 09/22/20 06/18/21 omeprazole 20 mg capsule,delayed 20 mg PO QAM cap 09/22/20 06/18/21 release Previous Rx's Medication Instructions Recorded furosemide 20 mg tablet (Lasix) 20 mg PO DAILY #30 tab 04/23/21 spironolactone 50 mg tablet 50 mg PO DAILY #30 tab 04/23/21 (Aldactone) bisacodyl 5 mg tablet,delayed 10 mg PO ONCE 1 Days #2 tab 06/09/21 release (Dulcolax (bisacodyl)) polyethylene glycol 3350 17 238 g PO ONCE 1 Days #238 g 06/09/21 gram/dose oral powder (Miralax) sucralfate 100 mg/mL oral 10 ml PO BID #420 ml 06/10/21 suspension (Carafate) furosemide 40 mg tablet (Lasix) 40 mg PO DAILY #20 tab 08/26/21 Allergies Allergy/AdvReac Type Severity Reaction Status Date / Time No Known Allergies Allergy Verified 08/05/21 10:16 [No Known Allergies*] Review of Systems Review of Systems Constitutional: No Fever, No Chills ENT/Mouth: No sore throat, No Rhinorrhea, No Swallowing Difficulty Cardiovascular: No Chest Pain, No SOB, No Orthopnea, No Edema Respiratory: No Cough, No Sputum, No Wheezing, No dyspnea Gastrointestinal: No Nausea, No Vomiting, No Diarrhea, + abdominal Pain, No Hematochezia, No Melena Genitourinary: No Dysuria, No Urinary Frequency, No Hematuria Musculoskeletal: No joint pain, No Myalgias Skin: No Skin Lesions, No rash Neuro: No Weakness, No Numbness, No Dizziness, No Headache Psych: No Anxiety/Panic, No Depression Heme/Lymph: No Bruising, No Lymphadenopathy Endocrine: No Polyuria, No Polydipsia Physical Exam Vital Signs: Vital Signs: Last Vital Signs Temp 97.4 F 08/26/21 14:33 Pulse 87 08/26/21 14:33 Resp 13 08/26/21 14:33 BP 145/88 H 08/26/21 14:33 Pulse Ox 99 08/26/21 14:33 BMI result Body Mass Index 35.5 Appearance: Alert, appears older than stated age, cachectic. Oriented X3. No acute distress. Eyes: Pupils equal, round and reactive to light. ENT: Pharynx normal. Neck: Normal inspection. Neck supple. CVS: Normal heart rate and rhythm. Pulses normal. Respiratory: No respiratory distress. Breath sounds normal. Abdomen: Protuberant severely distended, firm abdomen that extends up into his chest. No exquisite tenderness, no guarding, no rebound. There is a punctate hole in the right lower quadrant where his previous paracentesis was performed with 1 drop of clear ascitic fluid is seen draining from it. No tenderness, no surrounding erythema or warmth. Skin: Skin warm and dry. Normal skin color. Normal skin turgor. No rashes. Extremities: No lower extremity edema. Thin and frail. Neuro: Oriented X 3. No motor deficit. No sensory deficit. Course Course Course Narrative: 66-year-old male with a history of cirrhosis (hep C and ETOH) with large volume ascites, esophageal varices who had a large volume paracentesis yielding 4 L of fluid on 08/13 presents to the ER with re-accumulation of the fluid. His abdomen is severely distended and tense. He has no peritoneal signs or concern for SBP. He needs a large volume therapeutic paracentesis today for shortness of breath and discomfort. Will consult IR. Will check coags and platelets. Reevaluation(s) Reevaluation #1: Coags are okay, and platelets are 158. to perform large volume paracentesis at the bedside, anticipates 8-10 L to be removed. 100g Albumin ordered. Attempted to call the son at 16:45 her request however there was no answer. Will try again later. Reevaluation #2: Dr. Lizarraga at the bedside to perform the procedure. IV albumin infusing. Will closely monitor hemodynamics while getting paracentesis. Fluid studies have been ordered. Signed out to night provider. Consultations Consultation #1: IR - Dr. Lizarraga MDM - Abdominal Pain Lab Data Result diagrams: 08/26/21 14:32 08/26/21 14:32 Labs: Lab Results 08/26/21 08/26/21 08/26/21 Range/Units 14:25 14:28 14:32 WBC 7.3 (4.8-10.8) X10*3/uL RBC 3.96 L (4.60-5.80) X10*6/uL Hgb 12.8 L (14.0-18.0) g/dl Hct 37.7 L (42.0-52.0) % MCV 95.2 (80.0-98.0) fL MCH 32.3 (27.0-33.0) pg MCHC 34.0 (31.0-36.0) g/dl RDW 13.9 (11.0-16.0) % Plt Count 158 L (160-400) X10*3/uL MPV 10.3 (9.4-12.4) fL Immature Gran % (Auto) 0.7 H (0.0-0.4) % Neut % (Auto) 63.4 (45-73) % Lymph % (Auto) 18.3 L (20-40) % [place] % (Auto) 12.4 H (2-11) % Eos % (Auto) 3.6 (0-4) % Baso % (Auto) 1.6 (0-2) % Lymph # (Auto) 1.3 (1.2-4.9) X10*3/uL [place] # (Auto) 0.9 (0.1-1.2) X10*3/uL Eos # (Auto) 0.3 (0.0-0.4) X10*3/uL Baso # (Auto) 0.1 (0.0-0.2) X10*3/uL Abs Immat Gran (auto) 0.05 H (0.00-0.03) X10*3/uL Absolute Neuts (auto) 4.6 (2.0-8.3) x10*3/uL Absolute Nucleated RBC 0.000 (0.0-0.012) X10*3/uL Nucleated RBC % (auto) 0.0 (0.0-0.2) /100WBC PT (9.9-13.0) SEC INR (0.9-1.1) APTT (24.1-38.0) SEC Sodium (135-145) mmol/L Potassium (3.3-5.1) mmol/L Chloride (96-108) mmol/L Carbon Dioxide (22-29) mmol/L Anion Gap (12-20) BUN (9-16) mg/dL Creatinine (0.5-1.4) mg/dL Estim Creat Clear Calc Estimated GFR Random Glucose (60-115) mg/dL Calcium (8.4-10.2) mg/dL Magnesium (1.6-2.6) mg/dL Total Bilirubin (0.0-1.0) mg/dL Direct Bilirubin (0.0-0.5) mg/dL AST (5-37) U/L ALT (0-40) U/L Alkaline Phosphatase (39-117) U/L Total Protein (6.5-8.0) g/dL Albumin (3.5-5.0) g/dL Urine Color YELLOW Urine Appearance CLEAR Urine pH 6.0 (5.0-8.0) Ur Specific [place] >= 1.030 H (1.005-1.025) Urine Protein TRACE (NEG-TRACE) MG/DL Urine Glucose (UA) NEG (NEG) MG/DL Urine Ketones NEG (NEG) MG/DL Urine Blood NEG (NEG) Urine Nitrite NEG (NEG) Ur Leukocyte Esterase NEG (NEG) COVID-19 (JELANI) Negative (Negative) COVID-19 Clin Com See Note 08/26/21 08/26/21 Range/Units 14:32 14:32 WBC (4.8-10.8) X10*3/uL RBC (4.60-5.80) X10*6/uL Hgb (14.0-18.0) g/dl Hct (42.0-52.0) % MCV (80.0-98.0) fL MCH (27.0-33.0) pg MCHC (31.0-36.0) g/dl RDW (11.0-16.0) % Plt Count (160-400) X10*3/uL MPV (9.4-12.4) fL Immature Gran % (Auto) (0.0-0.4) % Neut % (Auto) (45-73) % Lymph % (Auto) (20-40) % [place] % (Auto) (2-11) % Eos % (Auto) (0-4) % Baso % (Auto) (0-2) % Lymph # (Auto) (1.2-4.9) X10*3/uL [place] # (Auto) (0.1-1.2) X10*3/uL Eos # (Auto) (0.0-0.4) X10*3/uL Baso # (Auto) (0.0-0.2) X10*3/uL Abs Immat Gran (auto) (0.00-0.03) X10*3/uL Absolute Neuts (auto) (2.0-8.3) x10*3/uL Absolute Nucleated RBC (0.0-0.012) X10*3/uL Nucleated RBC % (auto) (0.0-0.2) /100WBC PT 12.9 (9.9-13.0) SEC INR 1.1 (0.9-1.1) APTT 37.5 (24.1-38.0) SEC Sodium 136 (135-145) mmol/L Potassium 3.7 (3.3-5.1) mmol/L Chloride 100 (96-108) mmol/L Carbon Dioxide 29 (22-29) mmol/L Anion Gap 11 L (12-20) BUN 12 (9-16) mg/dL Creatinine 0.90 (0.5-1.4) mg/dL Estim Creat Clear Calc 100.9 Estimated GFR > 60 Random Glucose 107 (60-115) mg/dL Calcium 9.2 D (8.4-10.2) mg/dL Magnesium 2.0 (1.6-2.6) mg/dL Total Bilirubin 1.1 H (0.0-1.0) mg/dL Direct Bilirubin 0.6 H (0.0-0.5) mg/dL AST 68 H (5-37) U/L ALT 36 (0-40) U/L Alkaline Phosphatase 140 H (39-117) U/L Total Protein 8.4 H (6.5-8.0) g/dL Albumin 3.0 L (3.5-5.0) g/dL Urine Color Urine Appearance Urine pH (5.0-8.0) Ur Specific [place] (1.005-1.025) Urine Protein (NEG-TRACE) MG/DL Urine Glucose (UA) (NEG) MG/DL Urine Ketones (NEG) MG/DL Urine Blood (NEG) Urine Nitrite (NEG) Ur Leukocyte Esterase (NEG) COVID-19 (JELANI) (Negative) COVID-19 Clin Com Discharge Plan Discharge Clinical Impression: Abdominal ascites Qualifiers: Ascites type: other type Qualified Code(s): R18.8 - Other ascites Patient Disposition: Home, Self-Care Instructions: Cirrhosis (ED), Ascites (ED), Paracentesis (DC) Additional Instructions: It is very important that you follow-up with your restaurant worker/liver doctor as soon as possible. Your ascitic abdominal fluid will most likely recollect. It is very important that you take your prescribed furosemide and spironolactone to help prevent fluid re-collection. Recommend increasing your furosemide dose to 40 mg per day. Prescription for this has been sent to your pharmacy. You may benefit from scheduled paracentesis/drainage procedures through your doctor. If you develop new or worsening symptoms call 911 or come back to the ER for further evaluation. Prescriptions: New furosemide [Lasix] 40 mg tablet 40 mg PO DAILY Qty: 20 RF: 0 No Action bisacodyl [Dulcolax (bisacodyl)] 5 mg tablet,delayed release (DR/EC) 10 mg PO ONCE 1 Days Qty: 2 RF: 0 polyethylene glycol 3350 [Miralax] 17 gram/dose powder 238 g PO ONCE 1 Days Qty: 238 RF: 0 furosemide [Lasix] 20 mg tablet 20 mg PO DAILY Qty: 30 RF: 0 spironolactone [Aldactone] 50 mg tablet 50 mg PO DAILY Qty: 30 RF: 0 sucralfate [Carafate] 100 mg/mL suspension 10 ml PO BID Qty: 420 RF: 0 cholecalciferol (vitamin D3) 25 mcg (1,000 unit) capsule 25 mcg PO DAILY RF: 0 levothyroxine 200 mcg capsule 200 mcg PO DAILY RF: 0 lisinopril 10 mg tablet 10 mg PO DAILY RF: 0 omeprazole 20 mg capsule,delayed release(DR/EC) 20 mg PO QAM RF: 0 albuterol sulfate [ProAir HFA] 90 mcg/actuation HFA aerosol inhaler 2 puff inhalation Q6H PRN (Reason: Wheezing) RF: 0 PMFSH Past Medical History Medical History Allergic rhinitis Anemia Asthma Cirrhosis GERD (gastroesophageal reflux disease) Hepatitis C History of alcohol abuse History of kidney stones HTN (hypertension) Hypothyroid Liver mass Surgical History History of esophagogastroduodenoscopy (EGD) Hx of colonoscopy No history of previous surgery Family History Family History Other No known health problems Social History Social History Alcohol intake: current Alcohol intake frequency: does not drink Patient Tobacco Use Status: Never used Tobacco Substance Use Type: Marijuana Advance Directives: No Advance Directives Information Provided: Yes
[2021-08-26 14:33] VITALS: BP 145/88; PULSE 87; RESP 13; TEMP 36.3; O2SAT 99
[2021-08-26 14:43] LABS: MANUAL DIFF FLAG NO
[2021-08-26 14:45] LABS: Appearance Urine CLEAR; Color Urine YELLOW; Glucose Urine UA NEG (NEG); Leukocyte Esterase Urine NEG (NEG); Nitrite Urine NEG (NEG); Specific Gravity - Urine >= 1.030 (1.005-1.025); Urine Blood NEG (NEG); Urine Ketones NEG (NEG); Urine Protein TRACE MG/DL (NEG-TRACE)
[2021-08-26 14:48] LABS: Basophils Absolute Auto 0.1 X10*3/uL (0.0-0.2); Basophils Percent Auto 1.6 % (0-2); Eosinophils Absolute Auto 0.3 X10*3/uL (0.0-0.4); Eosinophils Percent Auto 3.6 % (0-4); Hematocrit 37.7 % (42.0-52.0); Hemoglobin 12.8 g/dl (14.0-18.0); Imm Gran Abs Auto 0.05 X10*3/uL (0.00-0.03); Imm Gran Pct Auto 0.7 % (0.0-0.4); Lymphocytes Absolute Auto 1.3 X10*3/uL (1.2-4.9); Lymphocytes Percent Auto 18.3 % (20-40); Mean Corpuscular Hemoglobin 32.3 pg (27.0-33.0); Mean Corpuscular Volume 95.2 fL (80.0-98.0); Mean Platelet Volume 10.3 fL (9.4-12.4); Monocytes Absolute Auto 0.9 X10*3/uL (0.1-1.2); Monocytes Percent Auto 12.4 % (2-11); Neutrophils Absolute Auto 4.6 x10*3/uL (2.0-8.3); Neutrophils Percent Auto 63.4 % (45-73); Platelet Count 158 X10*3/uL (160-400); Red Blood Count 3.96 X10*6/uL (4.60-5.80); Red Cell Distribution Width 13.9 % (11.0-16.0); White Blood Count 7.3 X10*3/uL (4.8-10.8)
[2021-08-26 14:50] LABS: INTERNATIONAL NORM RATIO 1.1 (0.9-1.1); Prothrombin Time 12.9 SEC (9.9-13.0)
[2021-08-26 14:52] LABS: Partial Thromboplastin Time 37.5 SEC (24.1-38.0)
[2021-08-26 14:57] LABS: Alanine Aminotransferase 36 U/L (0-40); Alkaline Phosphatase 140 U/L (39-117); Anion Gap 11 (12-20); Aspartate Amino Transferase 68 U/L (5-37); Bilirubin Direct 0.6 mg/dL (0.0-0.5); Bilirubin Total 1.1 mg/dL (0.0-1.0); Blood Urea Nitrogen 12 mg/dL (9-16); Calcium 9.2 mg/dL (8.4-10.2); Carbon Dioxide 29 mmol/L (22-29); Chloride 100 mmol/L (96-108); Creatinine Clr Calc Pharmacy 100.9; Estimated Glomerular Filt Rate > 60; Glucose Random 107 mg/dL (60-115); Potassium 3.7 mmol/L (3.3-5.1); Sodium 136 mmol/L (135-145); Total Protein 8.4 g/dL (6.5-8.0)
[2021-08-26 15:00] LABS: COVID-19 Test Negative (Negative)
[2021-08-26] MEDS: Albumin Human 25 % 100 ML IV ×4 (16:31→21:29)
[2021-08-26] MEDS: Lidocaine HCl 1 % MPF 5 ML VIAL 6 ML SUBCUT (18:29)
[2021-08-26 18:43] LABS: MN% 89.8 %; PMN% 10.2 %; RBC Peritoneal Fluid < 0.002 X10*6/uL; WBC Peritoneal Fluid 0.289 X10*3/uL
[2021-08-26 19:25] LABS: Eosinophils Peritoneal Fl 1 %; Lymphocyte Peritoneal Fl 17 %; Monocytes Peritoneal Fl 72 %; Neutrophils Peritoneal Fluid 10 %
[2021-08-26 19:26] LABS: BF Shift QC OK YES; Other Peritioneal Fl 5 %
[2021-08-26 22:54] VITALS: BP 133/76; PULSE 68; RESP 18; TEMP 36.7; O2SAT 99
== END 2021-08-26 23:06 | disposition home or self-care (01) ==
PROVIDERS: Physician Assistant; Emergency Provider Emergency Medicine
DX: R18.8 Other ascites (principal); K74.60 Unspecified cirrhosis of liver; B19.20 Unspecified viral hepatitis C without hepatic coma; I10 Essential (primary) hypertension; Z20.822 Contact with and (suspected) exposure to COVID-19
CPT/HCPCS: 36415; 49083; 80048; 80076; 81003; 83735; 85025; 85610; 85730; 87071; 87073; 87205; 87635; 89051; 96365; 96366; 99284; P9047

== ENCOUNTER 2021-09-13 06:13 | Emergency (ER) | payer MEDICAID, SELFPAY ==
--- NOTE | 2021-09-13 | ECG_ITS ---
Test Reason : bradycardia Blood Pressure : / mmHG Vent. Rate : 043 BPM Atrial Rate : 043 BPM P-R Int : 172 ms QRS Dur : 096 ms QT Int : 540 ms P-R-T Axes : 090 -34 011 degrees QTc Int : 456 ms Artifact in tracing Marked sinus bradycardia Left axis deviation Abnormal ECG When compared with ECG of 13-AUG-2021 19:41, No significant change was found Referred By: Generic ED Physician Electronically Signed By:LUIS ALEX
[2021-09-13 06:26] VITALS: BP 142/82; PULSE 48; RESP 22; TEMP 36.9; O2SAT 100; BMI 31.5
--- NOTE | 2021-09-13 06:50 | ED.ABDPAIN ---
HPI - Abdominal Pain General Chief Complaint: Abdominal Pain Stated Complaint: abd pain Time Seen by Provider: 09/13/21 06:35 Source: patient Mode of arrival: ambulatory History of Present Illness HPI narrative: This is a very pleasant 66 years old the patient with history of alcoholic liver disease recurrent ascites, presented to emergency room with chief complaint of abdominal distention denies any fever chills vomiting Pertinent past history: other (alcoholic liver disease) Onset (ago): week(s) (1) Pain Consistency: constant Location: diffuse Quality: cramping Radiation: none Migration to: no migration Related Data Home Medications Medication Instructions Recorded Confirmed albuterol sulfate 90 mcg/actuation 2 puff INHALATION Q6H PRN 09/22/20 06/18/21 aerosol inhaler (ProAir HFA) cholecalciferol (vitamin D3) 25 25 mcg PO DAILY 09/22/20 06/18/21 mcg (1,000 unit) capsule levothyroxine 200 mcg capsule 200 mcg PO DAILY 09/22/20 06/18/21 lisinopril 10 mg tablet 10 mg PO DAILY 09/22/20 06/18/21 omeprazole 20 mg capsule,delayed 20 mg PO QAM cap 09/22/20 06/18/21 release Previous Rx's Medication Instructions Recorded furosemide 20 mg tablet (Lasix) 20 mg PO DAILY #30 tab 04/23/21 spironolactone 50 mg tablet 50 mg PO DAILY #30 tab 04/23/21 (Aldactone) bisacodyl 5 mg tablet,delayed 10 mg PO ONCE 1 Days #2 tab 06/09/21 release (Dulcolax (bisacodyl)) polyethylene glycol 3350 17 238 g PO ONCE 1 Days #238 g 06/09/21 gram/dose oral powder (Miralax) sucralfate 100 mg/mL oral 10 ml PO BID #420 ml 06/10/21 suspension (Carafate) furosemide 40 mg tablet (Lasix) 40 mg PO DAILY #20 tab 08/26/21 Allergies Allergy/AdvReac Type Severity Reaction Status Date / Time No Known Allergies Allergy Verified 08/05/21 10:16 [No Known Allergies*] Review of Systems Review of Systems Yes all other systems are reviewed and are negative Constitutional: Reports no additional constitutional complaints Cardiovascular: Reports no additional cardiovascular complaints Respiratory: Reports no additional respiratory complaints Gastrointestinal: Reports other (Abdominal distention, no vomiting no diarrhea) Physical Exam Vital Signs: Vital Signs: Last Vital Signs Temp 97.8 F 09/13/21 10:17 Pulse 52 09/13/21 10:17 Resp 18 09/13/21 10:17 BP 119/59 L 09/13/21 10:17 Pulse Ox 100 09/13/21 10:05 BMI result Body Mass Index 31.5 Const: Other: He looks well is not toxic-appearing General: cooperative Nutritional Appearance: well nourished Orientation/consciousness: oriented to person and patient oriented x3 Limitations: no limitations HENMT: Head: Yes normal to inspection Face and sinus: Yes normal facial exam Mouth: Normal oral and palatal mucosa present Throat: Yes posterior oropharynx normal Neck: Other: Neck is supple no stiffness Chest: Chest palpation & inspection: normal inspection of the chest Resp: Effort & Inspection: normal respiratory effort Auscultation: clear to auscultation bilaterally Cardio: Jugular venous distension: no JVD Rhythm: regular rhythm GI: Other: Ascites is present no tenderness no peritoneal signs Inspection: Yes other (Ascites) : General: Yes no CVA tenderness Back/Spine/Pelvis: Back: no CVA tenderness Skin: General skin exam: no rashes or lesions noted, elasticity normal, turgor normal and atrophy Lesions: no lesions Rashes: no rashes Neuro: General: oriented to person and patient oriented x3 Procedures Paracentesis Time Out Performed: Yes Indication: Ascites Procedure: therapeutic paracentesis Location: RLQ Local Anesthetic: lidocaine 2% Amount of anesthesia used (mL): 4 Fluid: clear Patient Tolerated Procedure: well Additional Comments: 5 Fr Yueh catheter inserted in the Rt lower quadrant under US guided curvilnear probe. Obtained 11 liter of ascitic fluids,will give pt IV albumin and monitor pt for few hours Course Reevaluation(s) Reevaluation #1: large volume paracentesis perfomed ,pt is feeling better,albumine given,BP OK,got up to the bathroom OK MDM - Abdominal Pain Lab Data Result diagrams: 09/13/21 06:51 09/13/21 06:51 Labs: Lab Results 09/13/21 09/13/21 09/13/21 Range/Units 06:51 06:51 06:51 WBC 7.4 (4.8-10.8) X10*3/uL RBC 3.78 L (4.60-5.80) X10*6/uL Hgb 12.0 L (14.0-18.0) g/dl Hct 34.8 L (42.0-52.0) % MCV 92.1 (80.0-98.0) fL MCH 31.7 (27.0-33.0) pg MCHC 34.5 (31.0-36.0) g/dl RDW 13.9 (11.0-16.0) % Plt Count 159 L (160-400) X10*3/uL MPV 10.5 (9.4-12.4) fL Immature Gran % (Auto) 0.8 H (0.0-0.4) % Neut % (Auto) 57.4 (45-73) % Lymph % (Auto) 19.7 L (20-40) % [place] % (Auto) 15.2 H (2-11) % Eos % (Auto) 4.6 H (0-4) % Baso % (Auto) 2.3 H (0-2) % Lymph # (Auto) 1.5 (1.2-4.9) X10*3/uL [place] # (Auto) 1.1 (0.1-1.2) X10*3/uL Eos # (Auto) 0.3 (0.0-0.4) X10*3/uL Baso # (Auto) 0.2 (0.0-0.2) X10*3/uL Abs Immat Gran (auto) 0.06 H (0.00-0.03) X10*3/uL Absolute Neuts (auto) 4.3 (2.0-8.3) x10*3/uL Absolute Nucleated RBC 0.000 (0.0-0.012) X10*3/uL Nucleated RBC % (auto) 0.0 (0.0-0.2) /100WBC PT 13.1 H (9.9-13.0) SEC INR 1.2 H (0.9-1.1) APTT 37.1 (24.1-38.0) SEC VBG pH (7.32-7.43) VBG pCO2 mmHg VBG pO2 mmHg VBG HCO3 (22-26) mmol/L VBG O2 Saturation % VBG Base Excess mmol/L Sodium 134 L (135-145) mmol/L Potassium 4.1 (3.3-5.1) mmol/L Chloride 100 (96-108) mmol/L Carbon Dioxide 30 H (22-29) mmol/L Anion Gap 8 L (12-20) BUN 19 H D (9-16) mg/dL Creatinine 1.34 (0.5-1.4) mg/dL Estim Creat Clear Calc 65.9 Estimated GFR 54 Random Glucose 115 (60-115) mg/dL Calcium 9.2 (8.4-10.2) mg/dL Magnesium 2.4 (1.6-2.6) mg/dL Total Bilirubin 0.8 (0.0-1.0) mg/dL AST 67 H (5-37) U/L ALT 39 (0-40) U/L Alkaline Phosphatase 131 H (39-117) U/L Ammonia (13-55) umol/L Total Protein 7.6 (6.5-8.0) g/dL Albumin 2.7 L (3.5-5.0) g/dL Peritoneal pH Peritoneal WBC X10*3/uL Peritoneal RBC X10*6/uL Periton Neutrophils % Periton Lymphocytes % Peritoneal Other Cells % Peritoneal Tot Protein Peritoneal Albumin Peritoneal LDH Peritoneal Glucose 09/13/21 09/13/21 09/13/21 Range/Units 06:54 07:31 07:31 WBC (4.8-10.8) X10*3/uL RBC (4.60-5.80) X10*6/uL Hgb (14.0-18.0) g/dl Hct (42.0-52.0) % MCV (80.0-98.0) fL MCH (27.0-33.0) pg MCHC (31.0-36.0) g/dl RDW (11.0-16.0) % Plt Count (160-400) X10*3/uL MPV (9.4-12.4) fL Immature Gran % (Auto) (0.0-0.4) % Neut % (Auto) (45-73) % Lymph % (Auto) (20-40) % [place] % (Auto) (2-11) % Eos % (Auto) (0-4) % Baso % (Auto) (0-2) % Lymph # (Auto) (1.2-4.9) X10*3/uL [place] # (Auto) (0.1-1.2) X10*3/uL Eos # (Auto) (0.0-0.4) X10*3/uL Baso # (Auto) (0.0-0.2) X10*3/uL Abs Immat Gran (auto) (0.00-0.03) X10*3/uL Absolute Neuts (auto) (2.0-8.3) x10*3/uL Absolute Nucleated RBC (0.0-0.012) X10*3/uL Nucleated RBC % (auto) (0.0-0.2) /100WBC PT (9.9-13.0) SEC INR (0.9-1.1) APTT (24.1-38.0) SEC VBG pH 7.42 (7.32-7.43) VBG pCO2 43 mmHg VBG pO2 36 mmHg VBG HCO3 28 H (22-26) mmol/L VBG O2 Saturation 51.0 % VBG Base Excess 3.9 mmol/L Sodium (135-145) mmol/L Potassium (3.3-5.1) mmol/L Chloride (96-108) mmol/L Carbon Dioxide (22-29) mmol/L Anion Gap (12-20) BUN (9-16) mg/dL Creatinine (0.5-1.4) mg/dL Estim Creat Clear Calc Estimated GFR Random Glucose (60-115) mg/dL Calcium (8.4-10.2) mg/dL Magnesium (1.6-2.6) mg/dL Total Bilirubin (0.0-1.0) mg/dL AST (5-37) U/L ALT (0-40) U/L Alkaline Phosphatase (39-117) U/L Ammonia (13-55) umol/L Total Protein (6.5-8.0) g/dL Albumin (3.5-5.0) g/dL Peritoneal pH Peritoneal WBC 0.360 X10*3/uL Peritoneal RBC < 0.002 X10*6/uL Periton Neutrophils 9 % Periton Lymphocytes 74 % Peritoneal Other Cells 17 % Peritoneal Tot Protein 1.5 Peritoneal Albumin 0.6 Peritoneal LDH 48 Peritoneal Glucose 114 01/10/22 01/10/22 Range/Units 07:31 07:44 WBC (4.8-10.8) X10*3/uL RBC (4.60-5.80) X10*6/uL Hgb (14.0-18.0) g/dl Hct (42.0-52.0) % MCV (80.0-98.0) fL MCH (27.0-33.0) pg MCHC (31.0-36.0) g/dl RDW (11.0-16.0) % Plt Count (160-400) X10*3/uL MPV (9.4-12.4) fL Immature Gran % (Auto) (0.0-0.4) % Neut % (Auto) (45-73) % Lymph % (Auto) (20-40) % [place] % (Auto) (2-11) % Eos % (Auto) (0-4) % Baso % (Auto) (0-2) % Lymph # (Auto) (1.2-4.9) X10*3/uL [place] # (Auto) (0.1-1.2) X10*3/uL Eos # (Auto) (0.0-0.4) X10*3/uL Baso # (Auto) (0.0-0.2) X10*3/uL Abs Immat Gran (auto) (0.00-0.03) X10*3/uL Absolute Neuts (auto) (2.0-8.3) x10*3/uL Absolute Nucleated RBC (0.0-0.012) X10*3/uL Nucleated RBC % (auto) (0.0-0.2) /100WBC PT (9.9-13.0) SEC INR (0.9-1.1) APTT (24.1-38.0) SEC VBG pH (7.32-7.43) VBG pCO2 mmHg VBG pO2 mmHg VBG HCO3 (22-26) mmol/L VBG O2 Saturation % VBG Base Excess mmol/L Sodium (135-145) mmol/L Potassium (3.3-5.1) mmol/L Chloride (96-108) mmol/L Carbon Dioxide (22-29) mmol/L Anion Gap (12-20) BUN (9-16) mg/dL Creatinine (0.5-1.4) mg/dL Estim Creat Clear Calc Estimated GFR Random Glucose (60-115) mg/dL Calcium (8.4-10.2) mg/dL Magnesium (1.6-2.6) mg/dL Total Bilirubin (0.0-1.0) mg/dL AST (5-37) U/L ALT (0-40) U/L Alkaline Phosphatase (39-117) U/L Ammonia 32 (13-55) umol/L Total Protein (6.5-8.0) g/dL Albumin (3.5-5.0) g/dL Peritoneal pH 7.62 Peritoneal WBC X10*3/uL Peritoneal RBC X10*6/uL Periton Neutrophils % Periton Lymphocytes % Peritoneal Other Cells % Peritoneal Tot Protein Peritoneal Albumin Peritoneal LDH Peritoneal Glucose Discharge Plan Discharge Clinical Impression: Ascites Patient Disposition: Home, Self-Care Instructions: Ascites (ED), Paracentesis (DC) Prescriptions: No Action bisacodyl [Dulcolax (bisacodyl)] 5 mg tablet,delayed release (DR/EC) 10 mg PO ONCE 1 Days Qty: 2 RF: 0 polyethylene glycol 3350 [Miralax] 17 gram/dose powder 238 g PO ONCE 1 Days Qty: 238 RF: 0 furosemide [Lasix] 20 mg tablet 20 mg PO DAILY Qty: 30 RF: 0 spironolactone [Aldactone] 50 mg tablet 50 mg PO DAILY Qty: 30 RF: 0 sucralfate [Carafate] 100 mg/mL suspension 10 ml PO BID Qty: 420 RF: 0 furosemide [Lasix] 40 mg tablet 40 mg PO DAILY Qty: 20 RF: 0 cholecalciferol (vitamin D3) 25 mcg (1,000 unit) capsule 25 mcg PO DAILY RF: 0 levothyroxine 200 mcg capsule 200 mcg PO DAILY RF: 0 lisinopril 10 mg tablet 10 mg PO DAILY RF: 0 omeprazole 20 mg capsule,delayed release(DR/EC) 20 mg PO QAM RF: 0 albuterol sulfate [ProAir HFA] 90 mcg/actuation HFA aerosol inhaler 2 puff inhalation Q6H PRN (Reason: Wheezing) RF: 0 Referrals: [facility] [Primary Care Provider] - 2 days Interventions: ED Discharge Assessment Last Done: 09/13/21 11:09 Discharge Date/Time: 09/13/21 11:10 PMFSH Past Medical History Medical History Allergic rhinitis Anemia Asthma Cirrhosis GERD (gastroesophageal reflux disease) Hepatitis C History of alcohol abuse History of kidney stones HTN (hypertension) Hypothyroid Liver mass Surgical History History of esophagogastroduodenoscopy (EGD) Hx of colonoscopy No history of previous surgery Family History Family History Other No known health problems Social History Social History Alcohol intake: former Patient Tobacco Use Status: Never used Tobacco Substance Use Type: Marijuana Advance Directives: No Advance Directives Information Provided: Yes
[2021-09-13 06:59] LABS: MANUAL DIFF FLAG NO
[2021-09-13 07:00] LABS: Venous Blood Gas Refer to POC result
[2021-09-13 07:01] LABS: VBG Base Excess 3.9 mmol/L; VBG HCO3 28 mmol/L (22-26); VBG pCO2 43 mmHg; VBG pH 7.42 (7.32-7.43); VBG pO2 36 mmHg
[2021-09-13 07:04] LABS: Basophils Absolute Auto 0.2 X10*3/uL (0.0-0.2); Basophils Percent Auto 2.3 % (0-2); Eosinophils Absolute Auto 0.3 X10*3/uL (0.0-0.4); Eosinophils Percent Auto 4.6 % (0-4); Hematocrit 34.8 % (42.0-52.0); Imm Gran Abs Auto 0.06 X10*3/uL (0.00-0.03); Imm Gran Pct Auto 0.8 % (0.0-0.4); Lymphocytes Absolute Auto 1.5 X10*3/uL (1.2-4.9); Lymphocytes Percent Auto 19.7 % (20-40); Mean Corpuscular HGB Conc 34.5 g/dl (31.0-36.0); Mean Corpuscular Hemoglobin 31.7 pg (27.0-33.0); Mean Corpuscular Volume 92.1 fL (80.0-98.0); Mean Platelet Volume 10.5 fL (9.4-12.4); Monocytes Absolute Auto 1.1 X10*3/uL (0.1-1.2); Monocytes Percent Auto 15.2 % (2-11); Neutrophils Absolute Auto 4.3 x10*3/uL (2.0-8.3); Neutrophils Percent Auto 57.4 % (45-73); Platelet Count 159 X10*3/uL (160-400); Red Blood Count 3.78 X10*6/uL (4.60-5.80); Red Cell Distribution Width 13.9 % (11.0-16.0); White Blood Count 7.4 X10*3/uL (4.8-10.8)
[2021-09-13 07:07] LABS: INTERNATIONAL NORM RATIO 1.2 (0.9-1.1); Prothrombin Time 13.1 SEC (9.9-13.0)
[2021-09-13] MEDS: Lidocaine HCl 2 % MPF 5 ML VIAL INFILTRATI (07:20)
[2021-09-13 07:21] LABS: Alanine Aminotransferase 39 U/L (0-40); Albumin Level 2.7 g/dL (3.5-5.0); Alkaline Phosphatase 131 U/L (39-117); Anion Gap 8 (12-20); Aspartate Amino Transferase 67 U/L (5-37); Bilirubin Total 0.8 mg/dL (0.0-1.0); Blood Urea Nitrogen 19 mg/dL (9-16); Calcium 9.2 mg/dL (8.4-10.2); Carbon Dioxide 30 mmol/L (22-29); Chloride 100 mmol/L (96-108); Creatinine Clr Calc Pharmacy 65.9; Estimated Glomerular Filt Rate 54; Glucose Random 115 mg/dL (60-115); Magnesium 2.4 mg/dL (1.6-2.6); Potassium 4.1 mmol/L (3.3-5.1); Sodium 134 mmol/L (135-145); Total Protein 7.6 g/dL (6.5-8.0)
[2021-09-13 07:41] LABS: Partial Thromboplastin Time 37.1 SEC (24.1-38.0)
[2021-09-13 07:42] LABS: MN% 90.5 %; PMN% 9.5 %
--- NOTE | 2021-09-13 07:43 | PC.NURSE ---
pt alert and oriented, afebrile. HR low to med 40s. pt unsure if bradycardia is new onset. Paracentesis done by Dr. Moran, fluid drainage without difficulty, pt tolerating well, he denies pain. will continue to monitor.
[2021-09-13 07:44] LABS: RBC Peritoneal Fluid < 0.002 X10*6/uL
[2021-09-13 08:00] VITALS: BP 119/62; PULSE 43; RESP 18; TEMP 36.5; O2SAT 100
[2021-09-13] MEDS: Albumin Human 25 % 100 ML IV ×2 (08:00→09:12)
[2021-09-13 08:02] LABS: Ammonia 32 umol/L (13-55)
[2021-09-13 08:05] LABS: BF Shift QC OK YES; Lymphocyte Peritoneal Fl 74 %; Neutrophils Peritoneal Fluid 9 %; Other Peritioneal Fl 17 %
--- NOTE | 2021-09-13 08:11 | PC.NURSE ---
pt's HR remains low to mid 40s, vss. denies pain, pt tolerating procedure well. will continue to monitor.
[2021-09-13 08:57] VITALS: BP 116/61; PULSE 49; RESP 16; O2SAT 100
[2021-09-13 09:38] VITALS: PULSE 56; RESP 17; O2SAT 100
[2021-09-13 10:05] VITALS: BP 122/56; PULSE 49; RESP 16; O2SAT 100
[2021-09-13 10:17] VITALS: BP 119/59; PULSE 52; RESP 18; TEMP 36.6
--- NOTE | 2021-09-13 11:02 | PC.NURSE ---
13L of fluid removed, pt's vss, HR 48-50, afebrile. denies pain. no complaints. pt medically cleared for discharge.
[2021-09-13 11:19] LABS: Albumin Peritoneal Fluid 0.6; LDH Peritoneal Fluid 48; Total Protein Peritoneal Fluid 1.5
[2021-09-13 11:20] LABS: Glucose Peritoneal Fluid 114; pH Peritoneal Fluid 7.62
== END 2021-09-13 11:10 | disposition home or self-care (01) ==
PROVIDERS: Student in an Organized Health Care Education/Training Program; Emergency Provider Emergency Medicine
DX: K70.31 Alcoholic cirrhosis of liver with ascites (principal); B19.20 Unspecified viral hepatitis C without hepatic coma; F10.21 Alcohol dependence, in remission
CPT/HCPCS: 36415; 49083; 80053; 82042; 82140; 82803; 82945; 83615; 83735; 83986; 84157; 85025; 85610; 85730; 87070; 87073; 87205; 89051; 93005; 96365; 96366; 99285; P9047

== ENCOUNTER → 2021-09-23 09:58 | Outpatient (BNVA) | payer MEDICAID, SELFPAY | PROVIDERS: Visit Provider Surgery | DX: K40.90 Unilateral inguinal hernia, without obstruction or gangrene, not specified as recurrent (principal) | CPT/HCPCS: 99202 ==

== ENCOUNTER 2021-09-24 12:05 | Day surgery (SDC) | payer MEDICAID, SELFPAY ==
--- NOTE | ~2021-09-24 | US_ITS ---
EXAMINATION: ULTRASOUND-GUIDED PARACENTESIS CLINICAL INFORMATION: Alcohol abuse. COMPARISON: None TECHNIQUE: Following explaining ultrasound-guided paracentesis procedure, benefits, risks, a written consent was obtained. Patient was placed supine on ultrasound stretcher and preliminary ultrasound imaging was obtained through the abdomen. An optimal site was selected along the right lower quadrant and marked. The marked site was cleaned and draped in usual sterile manner. 1% lidocaine was injected at puncture site. Through a small skin incision a 5-[place] DigitalVision catheter was advanced into the peritoneal space. After observing fluid return, stylet was withdrawn and catheter connected to vacuum bottle via connecting cannula. After obtaining 13.9 L of fluid, the needle was withdrawn and complete hemostasis achieved at puncture site. Patient tolerated procedure extremely well. FINDINGS: Large amount of free fluid in the pelvis. No solid lesions seen. Approximately 13.9 L of clear yellowish fluid was drained. US/US paracentesis abd w/image IMPRESSION: Successful ultrasound-guided therapeutic paracentesis performed with approximately 13.9 L of fluid removed. None of this fluid was sent to lab.
[2021-09-24 12:38] VITALS: BMI 33.4
[2021-09-24] MEDS: Lidocaine HCl 1 % MPF 5 ML VIAL 4 ML SUBCUT (15:03)
[2021-09-24 15:14] VITALS: BP 129/83; PULSE 93; RESP 18; O2SAT 100
[2021-09-24 15:27] VITALS: BP 124/90; PULSE 80; RESP 18; O2SAT 100
== END 2021-09-24 15:50 | disposition home or self-care (01) ==
PROVIDERS: Radiology Diagnostic Radiology; Visit Provider Internal Medicine Gastroenterology
DX: R18.8 Other ascites (principal); F10.11 Alcohol abuse, in remission; F12.90 Cannabis use, unspecified, uncomplicated; K74.69 Other cirrhosis of liver; B19.20 Unspecified viral hepatitis C without hepatic coma; K40.90 Unilateral inguinal hernia, without obstruction or gangrene, not specified as recurrent; I10 Essential (primary) hypertension; D64.9 Anemia, unspecified; E03.9 Hypothyroidism, unspecified; J45.909 Unspecified asthma, uncomplicated; K21.9 Gastro-esophageal reflux disease without esophagitis
CPT/HCPCS: 49083; P9047

== ENCOUNTER 2021-10-02 13:45 | Emergency (ER) | payer MEDICAID, SELFPAY ==
[2021-10-02] VITALS (8 sets, daily range): BP systolic 122–160; BP diastolic 67–85; PULSE 45–60; RESP 15–18; TEMP 36.7; O2SAT 98–100; BMI 30.7
--- NOTE | 2021-10-02 13:59 | ED_ITS ---
HPI - General Adult General Chief complaint: Abdominal Pain Stated complaint: abdominal distention Time Seen by Provider: 10/02/21 13:59 History of Present Illness HPI narrative: Patient with history of liver failure and multiple episodes of ascites requiring drainage presents for abdominal distension and discomfort and thinks he needs to get it drained again, there is no fever no vomiting no significant abdominal pain and it feels the same as it did in the past Related Data Home Medications Medication Instructions Recorded Confirmed albuterol sulfate 90 2 puff INHALATION Q6H PRN 09/22/20 09/23/21 mcg/actuation aerosol inhaler (ProAir HFA) cholecalciferol (vitamin D3) 25 mcg PO DAILY 09/22/20 09/23/21 25 mcg (1,000 unit) capsule levothyroxine 200 mcg capsule 200 mcg PO DAILY 09/22/20 09/23/21 lisinopril 10 mg tablet 10 mg PO DAILY 09/22/20 09/23/21 omeprazole 20 mg 20 mg PO QAM cap 09/22/20 09/23/21 capsule,delayed release Previous Rx's Medication Instructions Recorded furosemide 20 mg tablet (Lasix) 20 mg PO DAILY #30 tab 04/23/21 spironolactone 50 mg tablet 50 mg PO DAILY #30 tab 04/23/21 (Aldactone) bisacodyl 5 mg tablet,delayed 10 mg PO ONCE 1 Days #2 tab 06/09/21 release (Dulcolax (bisacodyl)) polyethylene glycol 3350 17 238 g PO ONCE 1 Days #238 g 06/09/21 gram/dose oral powder (Miralax) sucralfate 100 mg/mL oral 10 ml PO BID #420 ml 06/10/21 suspension (Carafate) furosemide 40 mg tablet (Lasix) 40 mg PO DAILY #20 tab 08/26/21 Allergies Allergy/AdvReac Type Severity Reaction Status Date / Time No Known Allergies Allergy Verified 09/23/21 10:13 [No Known Allergies*] Review of Systems Verdana 4l Review of Systems: Verdana 4d Verdana 4d Positive for abdominal distension and discomfort Negatives are no fever no chills no dizziness no weakness no vomiting no dysuria no chest pain no shortness of breath no headache Verdana 4d Yes all other systems are reviewed and are negativenegative [facility] Past Medical History Source: nursing notes reviewed Medical History (Updated 10/02/21 @ 17:34 by ALFONZO Rascon) Allergic rhinitis Anemia Asthma Cirrhosis Constipation GERD (gastroesophageal reflux disease) Hepatitis C History of alcohol abuse History of kidney stones HTN (hypertension) Hypothyroid Left inguinal hernia Liver mass Surgical History History of esophagogastroduodenoscopy (EGD) Hx of colonoscopy No history of previous surgery Family History Family History Other No known health problems Social History Social History Alcohol intake: former Patient Tobacco Use Status: Never used Tobacco Use of substances other than those prescribed or required for medical reasons: No Substance Use Type: Marijuana Advance Directives: No Advance Directives Information Provided: No Physical Exam Verdana 4l Vital Signs: Verdana 4d Verdana 4d Vital Signs: Verdana 4d Verdana 4Bd Last Vital Signs Verdana 4d Patient Accounts Manager New 4d Patient Accounts Manager New 4d Temp 98.1 F 10/02/21 15:47 Patient Accounts Manager New 4d Pulse 46 L 10/02/21 15:47 Patient Accounts Manager New 4d Resp 16 10/02/21 15:47 BP 122/67 10/02/21 15:47 Pulse Ox 99 10/02/21 15:47 BMI result Body Mass Index 30.7 General appearance is no acute distress the patient is A&O x3 and cooperative The head is normocephalic atraumatic Pupils equal round reactive to light Extraocular motions intact The neck is supple The pharynx mucous membranes are moist no redness swelling or exudate Neck is supple The chest is clear to auscultation The abdomen is distended but nontender no rebound no guarding Extremities full range of motion x4 Neuro interaction both expression and comprehension are normal, gait and balance are normal Course Course Course Narrative: Dr. Moran did the paracentesis of the ascites using ultrasound guidance in the right lower quadrant, he inserted of 5 Lao needle under ultrasound guidance and drained 10 L of fluid , there were no complications Coags were checked and were within normal limits, platelets were 180 within normal limits Creatinine was elevated at 1.45, bilirubin was normal Patient was able to ambulate comfortably after being observed for an hour and a half and was discharged Medical Decision Making Lab Data Result diagrams: 10/02/21 15:03 10/02/21 15:03 Labs: Lab Results 10/02/21 10/02/21 10/02/21 Range/Units 15:03 15:03 15:03 WBC 9.3 (4.8-10.8) X10*3/uL RBC 4.14 L (4.60-5.80) X10*6/uL Hgb 13.0 L (14.0-18.0) g/dl Hct 37.9 L (42.0-52.0) % MCV 91.5 (80.0-98.0) fL MCH 31.4 (27.0-33.0) pg MCHC 34.3 (31.0-36.0) g/dl RDW 14.6 (11.0-16.0) % Plt Count 180 (160-400) X10*3/uL MPV 10.4 (9.4-12.4) fL Immature Gran % (Auto) 1.2 H (0.0-0.4) % Neut % (Auto) 55.8 (45-73) % Lymph % (Auto) 23.0 (20-40) % [place] % (Auto) 13.7 H (2-11) % Eos % (Auto) 4.4 H (0-4) % Baso % (Auto) 1.9 (0-2) % Lymph # (Auto) 2.2 (1.2-4.9) X10*3/uL [place] # (Auto) 1.3 H (0.1-1.2) X10*3/uL Eos # (Auto) 0.4 (0.0-0.4) X10*3/uL Baso # (Auto) 0.2 (0.0-0.2) X10*3/uL Abs Immat Gran (auto) 0.11 H (0.00-0.03) X10*3/uL Absolute Neuts (auto) 5.2 (2.0-8.3) x10*3/uL Absolute Nucleated RBC 0.000 (0.0-0.012) X10*3/uL Nucleated RBC % (auto) 0.0 (0.0-0.2) /100WBC PT 12.0 (9.9-13.0) SEC INR 1.1 (0.9-1.1) APTT 35.1 (24.1-38.0) SEC Sodium 136 (135-145) mmol/L Potassium 4.4 (3.3-5.1) mmol/L Chloride 105 (96-108) mmol/L Carbon Dioxide 26 (22-29) mmol/L Anion Gap 9 L (12-20) BUN 24 H (9-16) mg/dL Creatinine 1.45 H (0.5-1.4) mg/dL Estim Creat Clear Calc 60.1 Estimated GFR 49 Random Glucose 105 (60-115) mg/dL Calcium 9.3 (8.4-10.2) mg/dL Total Bilirubin 0.8 (0.0-1.0) mg/dL Direct Bilirubin 0.4 (0.0-0.5) mg/dL AST 71 H (5-37) U/L ALT 45 H (0-40) U/L Alkaline Phosphatase 139 H (39-117) U/L Total Protein 7.4 (6.5-8.0) g/dL Albumin 2.5 L (3.5-5.0) g/dL Peritoneal WBC X10*3/uL Peritoneal RBC X10*6/uL Periton Neutrophils % Periton Lymphocytes % Peritoneal Monocytes % 10/02/21 Range/Units 16:14 WBC (4.8-10.8) X10*3/uL RBC (4.60-5.80) X10*6/uL Hgb (14.0-18.0) g/dl Hct (42.0-52.0) % MCV (80.0-98.0) fL MCH (27.0-33.0) pg MCHC (31.0-36.0) g/dl RDW (11.0-16.0) % Plt Count (160-400) X10*3/uL MPV (9.4-12.4) fL Immature Gran % (Auto) (0.0-0.4) % Neut % (Auto) (45-73) % Lymph % (Auto) (20-40) % [place] % (Auto) (2-11) % Eos % (Auto) (0-4) % Baso % (Auto) (0-2) % Lymph # (Auto) (1.2-4.9) X10*3/uL [place] # (Auto) (0.1-1.2) X10*3/uL Eos # (Auto) (0.0-0.4) X10*3/uL Baso # (Auto) (0.0-0.2) X10*3/uL Abs Immat Gran (auto) (0.00-0.03) X10*3/uL Absolute Neuts (auto) (2.0-8.3) x10*3/uL Absolute Nucleated RBC (0.0-0.012) X10*3/uL Nucleated RBC % (auto) (0.0-0.2) /100WBC PT (9.9-13.0) SEC INR (0.9-1.1) APTT (24.1-38.0) SEC Sodium (135-145) mmol/L Potassium (3.3-5.1) mmol/L Chloride (96-108) mmol/L Carbon Dioxide (22-29) mmol/L Anion Gap (12-20) BUN (9-16) mg/dL Creatinine (0.5-1.4) mg/dL Estim Creat Clear Calc Estimated GFR Random Glucose (60-115) mg/dL Calcium (8.4-10.2) mg/dL Total Bilirubin (0.0-1.0) mg/dL Direct Bilirubin (0.0-0.5) mg/dL AST (5-37) U/L ALT (0-40) U/L Alkaline Phosphatase (39-117) U/L Total Protein (6.5-8.0) g/dL Albumin (3.5-5.0) g/dL Peritoneal WBC 0.173 X10*3/uL Peritoneal RBC < 0.002 X10*6/uL Periton Neutrophils 8 % Periton Lymphocytes 75 % Peritoneal Monocytes 17 % Discharge Plan Discharge Clinical Impression: Ascites Patient Disposition: Home, Self-Care Additional Instructions: We drained fluid from your abdomen and you were very improved We checked labs and noticed that your creatinine which is a kidney test was mildly elevated 1.45, this should be recheck routinely with your doctor Return to the ER any time any worse condition or any concerns Follow with your clinical operations specialist and primary doctor for your ascites Date may be able to schedule you for drainage if this continues to happen frequently Prescriptions: No Action bisacodyl [Dulcolax (bisacodyl)] 5 mg tablet,delayed release (DR/EC) 10 mg PO ONCE 1 Days Qty: 2 0RF Rx Instructions: take orally as directed prior to colonoscopy polyethylene glycol 3350 [Miralax] 17 gram/dose powder 238 g PO ONCE 1 Days Qty: 238 0RF Rx Instructions: take orally as directed prior to colonoscopy furosemide [Lasix] 20 mg tablet 20 mg PO DAILY Qty: 30 0RF spironolactone [Aldactone] 50 mg tablet 50 mg PO DAILY Qty: 30 0RF sucralfate [Carafate] 100 mg/mL suspension 10 ml PO BID Qty: 420 0RF Rx Instructions: for 2 weeks furosemide [Lasix] 40 mg tablet 40 mg PO DAILY Qty: 20 0RF cholecalciferol (vitamin D3) 25 mcg (1,000 unit) capsule 25 mcg PO DAILY 0RF levothyroxine 200 mcg capsule 200 mcg PO DAILY 0RF lisinopril 10 mg tablet 10 mg PO DAILY 0RF omeprazole 20 mg capsule,delayed release(DR/EC) 20 mg PO QAM 0RF albuterol sulfate [ProAir HFA] 90 mcg/actuation HFA aerosol inhaler 2 puff inhalation Q6H PRN (Reason: Wheezing) 0RF
[2021-10-02 15:09] LABS: MANUAL DIFF FLAG NO
--- NOTE | 2021-10-02 15:10 | PC.NURSE ---
pt a&ox3, HR trending in 40s, other vss, attached awake overnight monitor, Dr Moran to bedside for paracentesis fluid draining from abdomen, pt toletrating well, will continue to monitor.
[2021-10-02 15:11] LABS: Basophils Absolute Auto 0.2 X10*3/uL (0.0-0.2); Basophils Percent Auto 1.9 % (0-2); Eosinophils Absolute Auto 0.4 X10*3/uL (0.0-0.4); Eosinophils Percent Auto 4.4 % (0-4); Hematocrit 37.9 % (42.0-52.0); Imm Gran Abs Auto 0.11 X10*3/uL (0.00-0.03); Imm Gran Pct Auto 1.2 % (0.0-0.4); Lymphocytes Absolute Auto 2.2 X10*3/uL (1.2-4.9); Mean Corpuscular HGB Conc 34.3 g/dl (31.0-36.0); Mean Corpuscular Hemoglobin 31.4 pg (27.0-33.0); Mean Corpuscular Volume 91.5 fL (80.0-98.0); Mean Platelet Volume 10.4 fL (9.4-12.4); Monocytes Absolute Auto 1.3 X10*3/uL (0.1-1.2); Monocytes Percent Auto 13.7 % (2-11); Neutrophils Absolute Auto 5.2 x10*3/uL (2.0-8.3); Neutrophils Percent Auto 55.8 % (45-73); Platelet Count 180 X10*3/uL (160-400); Red Blood Count 4.14 X10*6/uL (4.60-5.80); Red Cell Distribution Width 14.6 % (11.0-16.0); White Blood Count 9.3 X10*3/uL (4.8-10.8)
[2021-10-02] MEDS: Lidocaine HCl 1 % MPF 5 ML VIAL SUBCUT (15:19)
[2021-10-02 15:21] LABS: INTERNATIONAL NORM RATIO 1.1 (0.9-1.1)
[2021-10-02 15:23] LABS: Partial Thromboplastin Time 35.1 SEC (24.1-38.0)
[2021-10-02 15:32] LABS: Alanine Aminotransferase 45 U/L (0-40); Albumin Level 2.5 g/dL (3.5-5.0); Alkaline Phosphatase 139 U/L (39-117); Anion Gap 9 (12-20); Aspartate Amino Transferase 71 U/L (5-37); Bilirubin Direct 0.4 mg/dL (0.0-0.5); Bilirubin Total 0.8 mg/dL (0.0-1.0); Blood Urea Nitrogen 24 mg/dL (9-16); Calcium 9.3 mg/dL (8.4-10.2); Carbon Dioxide 26 mmol/L (22-29); Chloride 105 mmol/L (96-108); Creatinine Clr Calc Pharmacy 60.1; Estimated Glomerular Filt Rate 49; Glucose Random 105 mg/dL (60-115); Potassium 4.4 mmol/L (3.3-5.1); Sodium 136 mmol/L (135-145); Total Protein 7.4 g/dL (6.5-8.0)
[2021-10-02] MEDS: Albumin Human 25 % 100 ML IV (16:07)
[2021-10-02 16:22] LABS: MN% 90.7 %; PMN% 9.3 %; WBC Peritoneal Fluid 0.173 X10*3/uL
[2021-10-02 16:23] LABS: RBC Peritoneal Fluid < 0.002 X10*6/uL
[2021-10-02 17:19] LABS: BF Shift QC OK YES; Lymphocyte Peritoneal Fl 75 %; Man Diluent Bkgrd OK YES; Neutrophils Peritoneal Fluid 8 %
[2021-10-02 17:20] LABS: Monocytes Peritoneal Fl 17 %
== END 2021-10-02 17:50 | disposition home or self-care (01) ==
PROVIDERS: Physician Assistant Medical; Emergency Provider Emergency Medicine
DX: R18.8 Other ascites (principal); R14.0 Abdominal distension (gaseous); I10 Essential (primary) hypertension; E78.5 Hyperlipidemia, unspecified; F10.11 Alcohol abuse, in remission; B19.20 Unspecified viral hepatitis C without hepatic coma; K74.60 Unspecified cirrhosis of liver; F12.90 Cannabis use, unspecified, uncomplicated
CPT/HCPCS: 36415; 49083; 80048; 80076; 85025; 85610; 85730; 87070; 87073; 87205; 89051; 96365; 99284; 99285; P9047

== ENCOUNTER 2021-10-13 06:29 | Emergency (ER) | payer MEDICAID, SELFPAY ==
--- NOTE | 2021-10-13 06:38 | ED.GENADULT ---
HPI - General Adult General Chief complaint: Abdominal Pain Stated complaint: FLUIS IN ABD DUE TO ASCITES PER EMS,SOB Time Seen by Provider: 10/13/21 06:31 Source: patient and EMS Mode of arrival: EMS Limitations: no limitations History of Present Illness HPI narrative: Patient comes to the emergency room by ambulance complaining of ascites. Patient states that he gets his abdomen drained every 2 weeks. He is scheduled to get a paracentesis in 2 days. But overnight, patient states that he could not breathe due to the weight of the fluid in his abdomen. Otherwise, patient has no complaints, denies abdominal pain. Related Data Home Medications Medication Instructions Recorded Confirmed albuterol sulfate 90 mcg/actuation 2 puff INHALATION Q6H PRN 09/22/20 09/23/21 aerosol inhaler (ProAir HFA) cholecalciferol (vitamin D3) 25 25 mcg PO DAILY 09/22/20 09/23/21 mcg (1,000 unit) capsule levothyroxine 200 mcg capsule 200 mcg PO DAILY 09/22/20 09/23/21 lisinopril 10 mg tablet 10 mg PO DAILY 09/22/20 09/23/21 omeprazole 20 mg capsule,delayed 20 mg PO QAM cap 09/22/20 09/23/21 release Previous Rx's Medication Instructions Recorded furosemide 20 mg tablet (Lasix) 20 mg PO DAILY #30 tab 04/23/21 spironolactone 50 mg tablet 50 mg PO DAILY #30 tab 04/23/21 (Aldactone) bisacodyl 5 mg tablet,delayed 10 mg PO ONCE 1 Days #2 tab 06/09/21 release (Dulcolax (bisacodyl)) polyethylene glycol 3350 17 238 g PO ONCE 1 Days #238 g 06/09/21 gram/dose oral powder (Miralax) sucralfate 100 mg/mL oral 10 ml PO BID #420 ml 06/10/21 suspension (Carafate) furosemide 40 mg tablet (Lasix) 40 mg PO DAILY #20 tab 08/26/21 Allergies Allergy/AdvReac Type Severity Reaction Status Date / Time No Known Allergies Allergy Verified 09/23/21 10:13 [No Known Allergies*] Review of Systems Review of Systems: Constitutional : No Weight loss, No Fever, No Chills, No Night Sweats, No Fatigue, No Malaise ENT/Mouth : No Hearing loss, No Ear Pain, No Nasal Congestion, No Sinus Pain, No Hoarseness, No sore throat, No Rhinorrhea, No Swallowing Difficulty Eyes: No Eye Pain, No Swelling, No Redness, No Foreign Body, No Discharge, No Vision Changes Cardiovascular : No Chest Pain, No SOB, No Dyspnea on Exertion, No Orthopnea, No Edema, No Palpitations Respiratory : No Cough, No Sputum, No Wheezing, No Smoke Exposure, No Dyspnea Gastrointestinal : No Nausea, No Vomiting, No Diarrhea, No Constipation, complaining of abdominal distention/ascites, no pain, No Hematochezia, No Melena Genitourinary : no irregular bleeding, No Dysuria, No Urinary Frequency, No Hematuria, No Urinary Incontinence, No Urgency, No Flank Pain, No Urinary Flow Changes, No Hesitancy Musculoskeletal : No joint pain, No Myalgias, No Joint Swelling Skin : No Skin Lesions, No rash Neuro : No Weakness, No Numbness, No Paresthesias, No Loss of Consciousness, No Dizziness, No Headache Psych : No Anxiety/Panic, No Depression, No SI/HI/AH/VH, No Social Issues, Heme/Lymph: No Bruising, No Bleeding,No Lymphadenopathy Endocrine : No Polyuria, No Polydipsia, No Temperature Intolerance PMFSH Past Medical History Medical History Allergic rhinitis Anemia Asthma Cirrhosis Constipation GERD (gastroesophageal reflux disease) Hepatitis C History of alcohol abuse History of kidney stones HTN (hypertension) Hypothyroid Left inguinal hernia Liver mass Surgical History History of esophagogastroduodenoscopy (EGD) Hx of colonoscopy No history of previous surgery Family History Family History Other No known health problems Social History Social History Alcohol intake: former Patient Tobacco Use Status: Never used Tobacco Substance Use Type: Marijuana Advance Directives: No Advance Directives Information Provided: No Physical Exam Vital Signs: Vital Signs: Last Vital Signs Temp 98.4 F 10/13/21 06:43 Pulse 54 10/13/21 09:21 Resp 18 10/13/21 12:28 BP 131/72 10/13/21 12:28 Pulse Ox 100 02/09/22 09:21 BMI result Body Mass Index 34.0 Const: Other: Appearance: Alert. Oriented X3. No acute distress. Eyes: Pupils equal, round and reactive to light. ENT: Pharynx normal. Neck: Normal inspection. Neck supple. No lymph nodes noted. No crepitus CVS: Normal heart rate and rhythm. Pulses normal. Normal S1 and S2 Respiratory: No respiratory distress. Breath sounds normal. No Wheezing. No rales Abdomen: Distended, significant amount of ascites Skin: Skin warm and dry. Normal skin color. Normal skin turgor. Extremities: No lower extremity edema. No lower extremity edema. No Lacerations. No Rash Neuro: Oriented X 3. No motor deficit. No sensory deficit. Moving all extermities. No slurred speech. Course Course Course Narrative: 11 L were extracted (10 bottles, 1100mL each), patient was given 2 doses of albumin, blood pressure stable in the 130 systolic, patient is asymptomatic, states that he feels much better, no chest pain, no shortness of breath. Starting next week, patient will have paracentesis done every week Patient 8, good p.o. intake, tolerated well. Procedures Paracentesis Time Out Performed: Yes Indication: Ascites Procedure: therapeutic paracentesis Location: RLQ Local Anesthetic: lidocaine 2% Amount of anesthesia used (mL): 15 Bedside Ultrasound Used: yes, Ascites confirmed and location marked Preparation: sterile prep and drape Amount of fluid obtained (mL): 11,000 Fluid: clear Post Procedure Exam: awake, alert, normal BP, normal HR and normal SpO2 Patient Tolerated Procedure: well and no complications Complications: none Medical Decision Making Lab Data Result diagrams: 10/13/21 06:55 10/13/21 06:55 Labs: Lab Results 10/13/21 10/13/21 10/13/21 Range/Units 06:55 06:55 06:55 WBC 6.7 (4.8-10.8) X10*3/uL RBC 3.84 L (4.60-5.80) X10*6/uL Hgb 12.1 L (14.0-18.0) g/dl Hct 35.6 L (42.0-52.0) % MCV 92.7 (80.0-98.0) fL MCH 31.5 (27.0-33.0) pg MCHC 34.0 (31.0-36.0) g/dl RDW 14.8 (11.0-16.0) % Plt Count 118 L D (160-400) X10*3/uL MPV 10.7 (9.4-12.4) fL Immature Gran % (Auto) 0.9 H (0.0-0.4) % Neut % (Auto) 59.9 (45-73) % Lymph % (Auto) 18.5 L (20-40) % Esmeralda % (Auto) 12.5 H (2-11) % Eos % (Auto) 6.4 H (0-4) % Baso % (Auto) 1.8 (0-2) % Lymph # (Auto) 1.3 (1.2-4.9) X10*3/uL Esmeralda # (Auto) 0.8 (0.1-1.2) X10*3/uL Eos # (Auto) 0.4 (0.0-0.4) X10*3/uL Baso # (Auto) 0.1 (0.0-0.2) X10*3/uL Abs Immat Gran (auto) 0.06 H (0.00-0.03) X10*3/uL Absolute Neuts (auto) 4.0 (2.0-8.3) x10*3/uL Absolute Nucleated RBC 0.000 (0.0-0.012) X10*3/uL Nucleated RBC % (auto) 0.0 (0.0-0.2) /100WBC PT 12.6 (9.9-13.0) SEC INR 1.1 (0.9-1.1) Sodium 134 L (135-145) mmol/L Potassium 3.6 (3.3-5.1) mmol/L Chloride 104 (96-108) mmol/L Carbon Dioxide 25 (22-29) mmol/L Anion Gap 9 L (12-20) BUN 24 H (9-16) mg/dL Creatinine 1.21 (0.5-1.4) mg/dL Estim Creat Clear Calc 75.7 Estimated GFR > 60 Random Glucose 172 H D (60-115) mg/dL Calcium 8.8 (8.4-10.2) mg/dL Total Bilirubin 1.3 H (0.0-1.0) mg/dL Direct Bilirubin 0.5 (0.0-0.5) mg/dL AST 100 H (5-37) U/L ALT 61 H (0-40) U/L Alkaline Phosphatase 149 H (39-117) U/L Total Protein 7.2 (6.5-8.0) g/dL Albumin 2.5 L (3.5-5.0) g/dL Peritoneal WBC X10*3/uL Peritoneal RBC X10*6/uL Periton Neutrophils % Periton Lymphocytes % Peritoneal Monocytes % Peritoneal Other Cells % Peritoneal Tot Protein 10/13/21 10/13/21 10/13/21 Range/Units 06:55 12:23 12:23 WBC (4.8-10.8) X10*3/uL RBC (4.60-5.80) X10*6/uL Hgb (14.0-18.0) g/dl Hct (42.0-52.0) % MCV (80.0-98.0) fL MCH (27.0-33.0) pg MCHC (31.0-36.0) g/dl RDW (11.0-16.0) % Plt Count (160-400) X10*3/uL MPV (9.4-12.4) fL Immature Gran % (Auto) (0.0-0.4) % Neut % (Auto) (45-73) % Lymph % (Auto) (20-40) % Esmeralda % (Auto) (2-11) % Eos % (Auto) (0-4) % Baso % (Auto) (0-2) % Lymph # (Auto) (1.2-4.9) X10*3/uL Esmeralda # (Auto) (0.1-1.2) X10*3/uL Eos # (Auto) (0.0-0.4) X10*3/uL Baso # (Auto) (0.0-0.2) X10*3/uL Abs Immat Gran (auto) (0.00-0.03) X10*3/uL Absolute Neuts (auto) (2.0-8.3) x10*3/uL Absolute Nucleated RBC (0.0-0.012) X10*3/uL Nucleated RBC % (auto) (0.0-0.2) /100WBC PT (9.9-13.0) SEC INR (0.9-1.1) Sodium (135-145) mmol/L Potassium (3.3-5.1) mmol/L Chloride (96-108) mmol/L Carbon Dioxide (22-29) mmol/L Anion Gap (12-20) BUN (9-16) mg/dL Creatinine (0.5-1.4) mg/dL Estim Creat Clear Calc Estimated GFR Random Glucose 170 H (60-115) mg/dL Calcium (8.4-10.2) mg/dL Total Bilirubin (0.0-1.0) mg/dL Direct Bilirubin (0.0-0.5) mg/dL AST (5-37) U/L ALT (0-40) U/L Alkaline Phosphatase (39-117) U/L Total Protein (6.5-8.0) g/dL Albumin (3.5-5.0) g/dL Peritoneal WBC 0.212 X10*3/uL Peritoneal RBC < 0.002 X10*6/uL Periton Neutrophils 4 % Periton Lymphocytes 44 % Peritoneal Monocytes 5 % Peritoneal Other Cells 47 % Peritoneal Tot Protein Cancelled Discharge Plan Discharge Clinical Impression: Ascites Patient Disposition: Home, Self-Care Instructions: Ascites (ED), Paracentesis (DC) Additional Instructions: Please follow-up with your primary care physician tomorrow. If you have any worsening or new symptoms, please return to the emergency room or call 911 Prescriptions: No Action bisacodyl [Dulcolax (bisacodyl)] 5 mg tablet,delayed release (DR/EC) 10 mg PO ONCE 1 Days Qty: 2 0RF Rx Instructions: take orally as directed prior to colonoscopy polyethylene glycol 3350 [Miralax] 17 gram/dose powder 238 g PO ONCE 1 Days Qty: 238 0RF Rx Instructions: take orally as directed prior to colonoscopy furosemide [Lasix] 20 mg tablet 20 mg PO DAILY Qty: 30 0RF spironolactone [Aldactone] 50 mg tablet 50 mg PO DAILY Qty: 30 0RF sucralfate [Carafate] 100 mg/mL suspension 10 ml PO BID Qty: 420 0RF Rx Instructions: for 2 weeks furosemide [Lasix] 40 mg tablet 40 mg PO DAILY Qty: 20 0RF cholecalciferol (vitamin D3) 25 mcg (1,000 unit) capsule 25 mcg PO DAILY 0RF levothyroxine 200 mcg capsule 200 mcg PO DAILY 0RF lisinopril 10 mg tablet 10 mg PO DAILY 0RF omeprazole 20 mg capsule,delayed release(DR/EC) 20 mg PO QAM 0RF albuterol sulfate [ProAir HFA] 90 mcg/actuation HFA aerosol inhaler 2 puff inhalation Q6H PRN (Reason: Wheezing) 0RF
[2021-10-13 06:43] VITALS: BP 167/91; BP 170/90; PULSE 53; PULSE 88; RESP 18; TEMP 36.9; O2SAT 100; O2SAT 99; BMI 34.0
[2021-10-13 07:04] LABS: MANUAL DIFF FLAG NO
[2021-10-13 07:11] LABS: INTERNATIONAL NORM RATIO 1.1 (0.9-1.1); Prothrombin Time 12.6 SEC (9.9-13.0)
[2021-10-13 07:13] LABS: Glucose Random 170 mg/dL (60-115)
[2021-10-13 07:15] LABS: Basophils Absolute Auto 0.1 X10*3/uL (0.0-0.2); Basophils Percent Auto 1.8 % (0-2); Eosinophils Absolute Auto 0.4 X10*3/uL (0.0-0.4); Eosinophils Percent Auto 6.4 % (0-4); Hematocrit 35.6 % (42.0-52.0); Hemoglobin 12.1 g/dl (14.0-18.0); Imm Gran Abs Auto 0.06 X10*3/uL (0.00-0.03); Imm Gran Pct Auto 0.9 % (0.0-0.4); Lymphocytes Absolute Auto 1.3 X10*3/uL (1.2-4.9); Lymphocytes Percent Auto 18.5 % (20-40); Mean Corpuscular Hemoglobin 31.5 pg (27.0-33.0); Mean Corpuscular Volume 92.7 fL (80.0-98.0); Mean Platelet Volume 10.7 fL (9.4-12.4); Monocytes Absolute Auto 0.8 X10*3/uL (0.1-1.2); Monocytes Percent Auto 12.5 % (2-11); Neutrophils Percent Auto 59.9 % (45-73); Platelet Count 118 X10*3/uL (160-400); Red Blood Count 3.84 X10*6/uL (4.60-5.80); Red Cell Distribution Width 14.8 % (11.0-16.0); White Blood Count 6.7 X10*3/uL (4.8-10.8)
[2021-10-13 07:24] LABS: Alanine Aminotransferase 61 U/L (0-40); Albumin Level 2.5 g/dL (3.5-5.0); Alkaline Phosphatase 149 U/L (39-117); Anion Gap 9 (12-20); Aspartate Amino Transferase 100 U/L (5-37); Bilirubin Direct 0.5 mg/dL (0.0-0.5); Bilirubin Total 1.3 mg/dL (0.0-1.0); Blood Urea Nitrogen 24 mg/dL (9-16); Calcium 8.8 mg/dL (8.4-10.2); Carbon Dioxide 25 mmol/L (22-29); Chloride 104 mmol/L (96-108); Creatinine Clr Calc Pharmacy 75.7; Estimated Glomerular Filt Rate > 60; Glucose Random 172 mg/dL (60-115); Potassium 3.6 mmol/L (3.3-5.1); Sodium 134 mmol/L (135-145); Total Protein 7.2 g/dL (6.5-8.0)
[2021-10-13] MEDS: Lidocaine HCl 2 % MPF 5 ML VIAL 10 ML INFILTRATI (08:58)
[2021-10-13 09:21] VITALS: BP 159/90; PULSE 54; RESP 14; O2SAT 100
[2021-10-13] MEDS: Lidocaine HCl 1 % 20 ML VIAL SUBCUT (09:58)
[2021-10-13] MEDS: Albumin Human 25 % 100 ML IV ×2 (10:27→11:09)
[2021-10-13 12:28] VITALS: BP 131/72; RESP 18
[2021-10-13 13:24] LABS: MN% 91.6 %; PMN% 8.4 %; WBC Peritoneal Fluid 0.212 X10*3/uL
[2021-10-13 13:25] LABS: RBC Peritoneal Fluid < 0.002 X10*6/uL
[2021-10-13 13:59] LABS: BF Shift QC OK YES; Lymphocyte Peritoneal Fl 44 %; Monocytes Peritoneal Fl 5 %; Neutrophils Peritoneal Fluid 4 %; Other Peritioneal Fl 47 %
[2021-10-14 08:21] LABS: Total Protein Peritoneal Fluid 0.9
[2021-10-14 08:22] LABS: LDH Peritoneal Fluid 41
[2021-10-14 08:23] LABS: Glucose Peritoneal Fluid 121
== END 2021-10-13 14:36 | disposition home or self-care (01) ==
PROVIDERS: Emergency Provider Emergency Medicine
DX: R18.8 Other ascites (principal); I10 Essential (primary) hypertension; E78.5 Hyperlipidemia, unspecified; K74.60 Unspecified cirrhosis of liver; B19.20 Unspecified viral hepatitis C without hepatic coma; F10.11 Alcohol abuse, in remission; R16.0 Hepatomegaly, not elsewhere classified
CPT/HCPCS: 36415; 49083; 80048; 80076; 82945; 82947; 83615; 84157; 85025; 85610; 87071; 87073; 87205; 89051; 96365; 96366; 99284; 99285; P9047

== ENCOUNTER 2021-10-15 10:19 | Outpatient (REF) | payer MEDICAID, SELFPAY ==
[2021-10-15 10:43] LABS: COVID-19 Test Negative (Negative)
== END 2021-10-15 10:20 | disposition home or self-care (01) ==
LOC: HO.LAB 10:19
PROVIDERS: Visit Provider Internal Medicine
DX: Z20.822 Contact with and (suspected) exposure to COVID-19 (principal)
CPT/HCPCS: 87635; C9803

== ENCOUNTER 2021-10-22 10:23 | Day surgery (SDC) | payer MEDICAID, SELFPAY ==
--- NOTE | ~2021-10-22 | US_ITS ---
EXAMINATION: ULTRASOUND-GUIDED PARACENTESIS CLINICAL INFORMATION: Hepatic cirrhosis with ascites COMPARISON: September 24, 2021 TECHNIQUE: Paracentesis with ultrasound guidance FINDINGS: Informed consent was obtained from the patient prior to the procedure. During this process, the procedure and potential alternatives were explained, along with the intended outcome and benefits. The risks of the procedure, as well as the risk of not doing the procedure, were discussed. The patient was given the opportunity to ask questions regarding the procedure and appeared competent to make medical decisions. A signed consent form which documents this discussion was placed in the medical record. Using sterile technique and ultrasound guidance a 5 [place] Yueh needle was directed into the right. No space with a total of 8.2 L of clear yellow fluid being removed. Patient tolerated procedure without difficulty. US/US paracentesis abd w/image IMPRESSION: Paracentesis with removal of 8.2 L of clear yellow fluid.
[2021-10-22 10:29] VITALS: BMI 29.4
[2021-10-22 11:17] LABS: Albumin Level 2.9 g/dL (3.5-5.0)
[2021-10-22 11:21] LABS: Prothrombin Time 11.5 SEC (9.9-13.0)
[2021-10-22 11:24] LABS: Partial Thromboplastin Time 34.8 SEC (24.1-38.0)
[2021-10-22 11:26] LABS: Basophils Absolute Auto 0.2 X10*3/uL (0.0-0.2); Basophils Percent Auto 1.7 % (0-2); Eosinophils Absolute Auto 0.4 X10*3/uL (0.0-0.4); Eosinophils Percent Auto 4.5 % (0-4); Hematocrit 36.5 % (42.0-52.0); Hemoglobin 12.7 g/dl (14.0-18.0); Imm Gran Abs Auto 0.38 X10*3/uL (0.00-0.03); Imm Gran Pct Auto 4.1 % (0.0-0.4); Lymphocytes Absolute Auto 1.3 X10*3/uL (1.2-4.9); Lymphocytes Percent Auto 14.4 % (20-40); MANUAL DIFF FLAG SCAN; Mean Corpuscular HGB Conc 34.8 g/dl (31.0-36.0); Mean Corpuscular Hemoglobin 31.8 pg (27.0-33.0); Mean Corpuscular Volume 91.3 fL (80.0-98.0); Mean Platelet Volume 10.6 fL (9.4-12.4); Monocytes Absolute Auto 1.6 X10*3/uL (0.1-1.2); Monocytes Percent Auto 17.3 % (2-11); Neutrophils Absolute Auto 5.4 x10*3/uL (2.0-8.3); Platelet Count 155 X10*3/uL (160-400); SCAN SMEAR FLAG 1; White Blood Count 9.3 X10*3/uL (4.8-10.8)
[2021-10-22 12:04] LABS: SLIDE REVIEW VERIFIED
[2021-10-22] MEDS: Lidocaine HCl 1 % MPF 5 ML VIAL SUBCUT (14:04)
[2021-10-22 14:20] VITALS: BP 138/84; PULSE 66; RESP 16; TEMP 37.6; O2SAT 100
[2021-10-22 14:35] VITALS: BP 145/89; PULSE 66; RESP 16; O2SAT 100
[2021-10-22 14:50] VITALS: BP 143/84; PULSE 66; RESP 16; O2SAT 100
[2021-10-22 15:05] VITALS: BP 127/70; PULSE 69; RESP 16; O2SAT 100
[2021-10-22 15:20] VITALS: BP 133/80; PULSE 69; RESP 16; O2SAT 100
[2021-10-22 15:40] VITALS: BP 129/78; PULSE 69; RESP 16; TEMP 37.7; O2SAT 100
== END 2021-10-22 15:42 | disposition home or self-care (01) ==
PROVIDERS: PCP Internal Medicine; Visit Provider Radiology Diagnostic Radiology
DX: R18.8 Other ascites (principal); K74.60 Unspecified cirrhosis of liver; B19.20 Unspecified viral hepatitis C without hepatic coma; I10 Essential (primary) hypertension; J45.909 Unspecified asthma, uncomplicated; Z79.899 Other long term (current) drug therapy
CPT/HCPCS: 36415; 49083; 82040; 85025; 85610; 85730; P9047

== ENCOUNTER 2021-10-29 09:30 | Day surgery (SDC) | payer MEDICAID, SELFPAY ==
--- NOTE | ~2021-10-29 | US_ITS ---
EXAMINATION: US GUIDED PARACENTESIS ABDOMEN CLINICAL INFORMATION: Viral hepatitis C without hepatic coma. COMPARISON: None TECHNIQUE: Following explaining the ultrasound-guided paracentesis procedure, the benefits and risks, a written consent was obtained. The patient was placed supine on the ultrasound stretcher and preliminary ultrasound imaging was obtained through the abdomen. An optimal site was selected along the right lower quadrant and marked. The marked site was cleaned and draped in the usual sterile manner. 1% lidocaine was injected at the puncture site. Through a small skin incision, a 5-Azeri short Yueh catheter followed by a long Yueh catheter was inserted into the right lower quadrant peritoneal space. After observing fluid return, the stylet was withdrawn and the catheter connected to a vacuum bottle via a connecting cannula. After obtaining all the fluid and observing no more fluid remaining, the catheter was removed and complete hemostasis was achieved at the puncture site. A simple Band-Aid was applied post procedure. The patient tolerated the procedure extremely well. FINDINGS: On preliminary ultrasound imaging, there is moderate to large free fluid. 7.5 liters of clear, yellowish fluid was drained from the right lower quadrant initially with a short 5-Azeri 7 cm Yueh catheter followed by a 5-Azeri 10 cm long Yueh catheter. The patient did have moderate edema in the right lower abdomen hence the change. US/US paracentesis abd w/image IMPRESSION: Successful ultrasound-guided paracentesis performed with approximately 7.5 liters of clear, yellowish fluid drained.
[2021-10-29 09:47] VITALS: BMI 29.9
[2021-10-29] MEDS: Lidocaine HCl 1 % MPF 5 ML VIAL SUBCUT (12:12)
[2021-10-29 12:20] VITALS: BP 130/83; PULSE 70; RESP 18; TEMP 37.1; O2SAT 99
[2021-10-29 12:50] VITALS: BP 128/82; PULSE 67; RESP 20; O2SAT 100
[2021-10-29 13:20] VITALS: BP 136/86; PULSE 67; RESP 20; O2SAT 100
[2021-10-29 13:50] VITALS: BP 124/78; PULSE 68; RESP 18; O2SAT 100
[2021-10-29 14:25] VITALS: BP 135/84; PULSE 68; RESP 18; TEMP 36.9; O2SAT 100
== END 2021-10-29 14:37 | disposition home or self-care (01) ==
PROVIDERS: Radiology Diagnostic Radiology; PCP General Practice; Visit Provider Internal Medicine Gastroenterology
DX: R18.8 Other ascites (principal); R06.02 Shortness of breath; K74.60 Unspecified cirrhosis of liver; I10 Essential (primary) hypertension; J45.909 Unspecified asthma, uncomplicated; B19.20 Unspecified viral hepatitis C without hepatic coma; Z79.899 Other long term (current) drug therapy; F12.90 Cannabis use, unspecified, uncomplicated
CPT/HCPCS: 49083; C1729; P9047

== ENCOUNTER 2021-11-03 17:18 | Inpatient (IN) | payer MEDICAID, SELFPAY ==
--- NOTE | ~2021-11-03 | MR_ITS ---
EXAMINATION: MR BRAIN WITHOUT CONTRAST CLINICAL INFORMATION: Dizziness. COMPARISON: CT head from 11/03/2021. TECHNIQUE: MRI of the brain was obtained using routine sequences without contrast. FINDINGS: Moderately motion degraded exam. No focal restricted diffusion is demonstrated to suggest acute or subacute cerebral ischemia. No evidence of acute or chronic hemorrhagic products on heme-sensitive imaging. Basal ganglia mineralization. Scattered periventricular and deep white matter T2 FLAIR hyperintensities consistent with mild underlying microangiopathy. Proportional prominence of the ventricles and sulcal spaces without evidence of obstructive hydrocephalus. No abnormal mass effect. No midline shift. Normal appearance of the pituitary gland. Normal positioning of the cerebellar tonsils. Increased signal within the left ICA suggestive of slowed flow versus chronic occlusion. Otherwise, normal arterial and venous vascular flow voids are present. Normal, homogeneous marrow signal. Mild mucosal thickening of the paranasal sinuses. No signal abnormalities within the mastoids. MR/MR head/brain wo con IMPRESSION: 1. No acute intracranial abnormalities. 2. Mild underlying microangiopathy and generalized cerebral volume loss. 3. Lack of the normal flow-void within the left ICA suggestive of slowed flow versus chronic occlusion.
--- NOTE | ~2021-11-03 | US_ITS ---
EXAMINATION: US SCROTUM CLINICAL INFORMATION: Swelling. COMPARISON: None TECHNIQUE: A sonogram of the scrotum was performed assessing chicas-scale appearance and color Doppler flow. Spectral Doppler analysis of the arterial and venous flow were performed in the testes bilaterally. FINDINGS: RIGHT: Right testicle measures 3.1 x 3.3 x 3.2 cm, volume 17 mL. There are small calcifications. No focal testicular parenchymal lesions are visualized. Spectral Doppler analysis of the arterial and venous flow is normal in the right testis. There is a large right hydrocele. Right epididymal head is normal in size. No right varicocele is seen. Right epididymal Doppler flow is normal. LEFT: Left testicle measures 2.8 x 2.2 x 2.7 cm, volume 8.7 mL. There are small left calcifications No focal testicular parenchymal lesions are visualized. Spectral Doppler analysis of the arterial and venous flow is normal in the left testis. There is a large left hydrocele. Left epididymal head is normal in size. No left varicocele is seen. Left epididymal Doppler flow is normal. US/US scrotum IMPRESSION: Small bilateral testicular calcifications suggestive of microlithiasis. Large bilateral hydroceles.
--- NOTE | ~2021-11-03 | XR_ITS ---
EXAMINATION: XR CHEST CLINICAL INFORMATION: Dizziness COMPARISON: 08/13/2021 TECHNIQUE: Frontal view of the chest was obtained. FINDINGS: No significant abnormality is noted involving the heart, lungs, mediastinum, bony thorax or soft tissues. XR/XR chest 1V IMPRESSION: Unremarkable examination.
--- NOTE | ~2021-11-03 | US_ITS ---
EXAMINATION: ULTRASOUND-GUIDED PARACENTESIS CLINICAL INFORMATION: Ascites. COMPARISON: 10/29/2021. TECHNIQUE: Ultrasound-guided paracentesis. FINDINGS: Informed consent was obtained from the patient prior to the procedure. During this process, the procedure and potential alternatives were explained, along with the intended outcome and benefits. The risks of the procedure, as well as the risk of not doing the procedure, were discussed. The patient was given the opportunity to ask questions regarding the procedure and appeared competent to make medical decisions. A signed consent form which documents this discussion was placed in the medical record. Using sterile technique and ultrasound findings a spot in the right lower abdomen was identified with no evidence of inferior epigastric vessels being present. A 5 Kyr[place] Yueh catheter was then placed into the peritoneal space with a total of 8.5 L of clear yellow fluid being drained. Samples were sent for laboratory studies. Patient tolerated procedure without difficulty. US/US paracentesis abd w/image IMPRESSION: Paracentesis with removal of 8.5 L of clear yellow fluid.
--- NOTE | ~2021-11-03 | CT_ITS ---
EXAMINATION: CT HEAD WITHOUT CONTRAST CLINICAL INFORMATION: Dizziness COMPARISON: None TECHNIQUE: Contiguous axial imaging was performed from the skull base to vertex without intravenous administration of contrast. This CT examination was performed using dose optimization techniques as appropriate, variously including the following: *Automated exposure control *Adjustment of mA and/or kV according to patient size (this includes techniques or standardized protocols for targeted exams where dose is matched to indication/reason for exam; i.e. extremities or head) *Use of iterative reconstruction technique DLP: 602 mGy-cm FINDINGS: There is no evidence of acute intracranial hemorrhage or territorial infarction. No abnormal mass effect or midline shift is seen. [place] to white matter differentiation is well preserved. No extra-axial fluid collections are identified. The ventricles are normal in size. There is no abnormal attenuation within the brain parenchyma. The osseous structures and soft tissues are normal. The mastoid air cells and visualized portions of the paranasal sinuses are well aerated. CT/CT head/brain wo con IMPRESSION: No acute intracranial process seen.
[2021-11-03 17:26] VITALS: BP 133/76; PULSE 45; RESP 16; TEMP 36.6; O2SAT 100
[2021-11-03 17:29] VITALS: BP 116/69; BP 133/76; PULSE 45; PULSE 46; RESP 16; TEMP 36.7; O2SAT 100; O2SAT 95; BMI 30.3
--- NOTE | 2021-11-03 17:52 | ECG_ITS ---
Test Reason : DIZZY Blood Pressure : / mmHG Vent. Rate : 044 BPM Atrial Rate : 044 BPM P-R Int : 190 ms QRS Dur : 090 ms QT Int : 558 ms P-R-T Axes : 056 -41 -12 degrees QTc Int : 477 ms Marked sinus bradycardia Left axis deviation Minimal voltage criteria for LVH, may be normal variant ( R in aVL ) Abnormal ECG When compared with ECG of 13-SEP-2021 06:25, No significant change was found Referred By: Jamshid Zamorano Electronically Signed By:Primo Guadarrama
--- NOTE | 2021-11-03 17:55 | ED_ITS ---
HPI - Dizziness General Chief Complaint: Dizziness Stated Complaint: DIZZY X'S 2 DAYS Time Seen by Provider: 11/03/21 17:50 Source: patient and EMS Mode of arrival: EMS Limitations: no limitations History of Present Illness HPI Narrative: Came in for evaluation of vomiting for 3 days and dizziness for 1 day. This is a 66-year-old male with history of alcoholic liver cirrhosis and reoccurring ascites that require a weekly drainage, presented today for 3 days of vomiting, and today when he woke up was complaining of feeling dizzy and the room spinning around him and difficulty walking with balance gait. Patient otherwise declined headache, no blurry vision, no weakness, no numbness. Also decline abdominal pain, patient recently had paracenteses with removal of 8 L of fluid. Related Data Home Medications Medication Instructions Recorded Confirmed albuterol sulfate 90 mcg/actuation 2 puff INHALATION Q6H PRN 09/22/20 11/03/21 aerosol inhaler (ProAir HFA) levothyroxine 200 mcg capsule 200 mcg PO DAILY 09/22/20 11/03/21 lisinopril 10 mg tablet 10 mg PO DAILY 09/22/20 11/03/21 omeprazole 20 mg capsule,delayed 20 mg PO QAM cap 09/22/20 11/03/21 release ivermectin 3 mg tablet See Rx Instructions .ROUTE .COMPLEX 11/03/21 11/03/21 propranolol 60 mg capsule,24 1 cap PO BEDTIME 11/03/21 11/03/21 hr,extended release spironolactone 50 mg tablet 100 mg PO DAILY 11/03/21 11/03/21 (Aldactone) Previous Rx's Medication Instructions Recorded furosemide 40 mg tablet (Lasix) 40 mg PO DAILY #20 tab 08/26/21 Allergies Allergy/AdvReac Type Severity Reaction Status Date / Time No Known Allergies Allergy Verified 11/03/21 17:29 [No Known Allergies*] Review of Systems Review of Systems: All other systems are reviewed and are negative Constitutional: Reports as per HPI and Reports no additional constitutional complaints Eyes: Reports as per HPI and Reports no additional eye complaints Reports system reviewed and no additional complaints, except as documented Cardiovascular: Reports as per HPI and Reports no additional cardiovascular complaints Respiratory: Reports as per HPI and Reports no additional respiratory complaints Gastrointestinal: Reports as per HPI and Reports no additional gastrointestinal complaints Genitourinary: Reports no additional female genitourinary complaints Musculoskeletal: Reports no additional musculoskeletal complaints Skin/Breast: Reports system reviewed and no additional complaints, except as docu Psychiatric: Reports no additional psychiatric complaints Endocrine: Reports no additional endocrine complaints Hematologic/Lymphatic: Reports no additional hematologic/lymphatic complaints Allergic/Immunologic: Reports no additional allergic/immunologic complaints Reports system reviewed and no additional complaints, except as documented and Reports Abnormal speech present [facility] Past Medical History Medical History Allergic rhinitis Anemia Asthma Cirrhosis Constipation GERD (gastroesophageal reflux disease) Hepatitis C History of alcohol abuse History of kidney stones HTN (hypertension) Hypothyroid Left inguinal hernia Liver mass Surgical History History of esophagogastroduodenoscopy (EGD) Hx of colonoscopy No history of previous surgery Family History Family History Other No known health problems Social History Social History Alcohol intake: former Patient Tobacco Use Status: Never used Tobacco Substance Use Type: Marijuana Advance Directives: No Advance Directives Information Provided: No Physical Exam Vital Signs: Vital Signs: Last Vital Signs Temp 98.0 F 11/03/21 17:29 Pulse 58 11/03/21 21:42 Resp 16 11/03/21 21:42 BP 122/65 11/03/21 21:42 Pulse Ox 99 11/03/21 21:42 BMI result Body Mass Index 30.3 Vital signs have been reviewed as appeared to be correct. Blood pressure normal. Heart rate normal. Respiration rate normal. Temperature normal. Oxygen saturation normal. Appearance: Alert. Oriented X3. No acute distress. Head: Normal external exam. Normocephalic. Atraumatic. No Loya signs noted. No raccoon eyes noted Eyes: PERRLA. EOMI. Conjunctiva and sclera normal. Eyelids normal. ENT: TM's Normal. Pharynx normal. Uvula midline. Moist mucous membranes. No trismus noted. No drooling noted. No muffled voice noted. Neck: Normal inspection. Neck supple. FROM. No adenopathy. Thyroid Normal. No meningeal signs. No neck mass noted. CVS: Normal heart rate and rhythm. Heart sound normal. No murmurs noted. Pulses normal throughout. Respiratory: No respiratory distress. Painless inspiration. Breath sounds normal. No wheezes/rales/rhonchi noted. Chest nontender. No accessory muscle usage noted or decreased air movement noted. Abdomen: Soft and nontender. Bowel sounds normal in all 4 quadrants. No distention noted. No organomegaly noted. No visible injury noted. Back: No CVA tenderness. Full range of motion noted. Skin: Skin warm and dry. Normal skin color. Normal skin turgor. No rashes/lesions/lacerations noted. Extremities: No lower extremity edema. Extremities exhibit normal range of motion. Extremities nontender. Neuro: Oriented X 3. Cranial nerve exam: II-XII are grossly intact No motor deficit. No sensory deficit. Reflexes normal. NIH Stroke Scale Internal: Initial- Upon Arrival Time: 18:00 Level of Consciousness: Alert Level of Consciousness Questions: Answers both questions correctly Level of Consciousness Commands: Performs both tasks correctly Best Gaze: Normal Visual: No visual loss Facial Palsy: Normal Motor Arm (Right): No drift Motor Arm (Left): No drift Motor Leg (Right): No drift Motor Leg (Left): No drift Limb Ataxia: Absent Sensory: Normal Best Language: No aphasia Dysarthia: Normal Extinction and Inattention: No abnormality Score: 0 Course Course Course Narrative: Assessment and plan. 66 years old male came in with vertigo/dizziness, patient had a normal neuro exam, had CT/MRI of the brain which were unremarkable for acute posterior fossa stroke, patient found to be hyponatremic of 123, patient is known to have chron ic ascites with weekly drainage likely patient with hypovolemic hyponatremic, will start patient on normal saline at 100 cc/hour with a serial electrolytes check. Will admit the patient for further sodium monitoring. Patient also found to be bradycardic will monitor. [facility] - Dizziness Medical Records Attestation: I reviewed the patient's medical records. Lab Data Attestation: I reviewed the patient's lab results. Result diagrams: 11/03/21 18:04 11/03/21 18:04 Labs: Lab Results 11/03/21 11/03/21 11/03/21 Range/Units 18:04 18:04 18:04 WBC 10.7 (4.8-10.8) X10*3/uL RBC 3.92 L (4.60-5.80) X10*6/uL Hgb 12.5 L (14.0-18.0) g/dl Hct 34.9 L (42.0-52.0) % MCV 89.0 (80.0-98.0) fL MCH 31.9 (27.0-33.0) pg MCHC 35.8 (31.0-36.0) g/dl RDW 14.5 (11.0-16.0) % Plt Count 191 (160-400) X10*3/uL MPV 10.5 (9.4-12.4) fL Immature Gran % (Auto) Cancelled Neut % (Auto) Cancelled Lymph % (Auto) Cancelled [place] % (Auto) Cancelled Eos % (Auto) Cancelled Baso % (Auto) Cancelled Lymph # (Auto) Cancelled [place] # (Auto) Cancelled Eos # (Auto) Cancelled Baso # (Auto) Cancelled Abs Immat Gran (auto) Cancelled Absolute Neuts (auto) Cancelled Absolute Nucleated RBC 0.000 (0.0-0.012) X10*3/uL Nucleated RBC % (auto) 0.0 (0.0-0.2) /100WBC Neutrophils % (Manual) 66 (45-73) % Band Neutrophils % 3 (3-5) % Lymphocytes % (Manual) 9 L (20-40) % Atypical Lymphs % (Man) 2 (0-6) % Monocytes % (Manual) 11 (2-11) % Eosinophils % (Manual) 3 (0-4) % Basophils % (Manual) 1 (0-2) % Metamyelocytes % 3 % Myelocytes % 2 % Abs Neuts (Manual) 7.4 (2.0-8.3) X10*3/uL Lymphocytes # (Manual) 1.0 L (1.2-4.9) X10*3/uL Atyp Lymphs # (Manual) 0.2 x10*3/uL Monocytes # (Manual) 1.2 (0.1-1.2) X10*3/uL Eosinophils # (Manual) 0.3 (0.0-0.4) X10*3/uL Basophils # (Manual) 0.1 (0.0-0.2) X10*3/uL Metamyelocytes # 0.3 X10*3/uL Myelocytes # 0.2 X10*/uL Nucleated RBCs 1 H (0-0) /100WBC Smudge Cells PRESENT Toxic Vacuolation PRESENT Platelet Estimate DECREASED (NORMAL) Large Platelets PRESENT Plt Morphology Comment NOTED RBC Morphology NORMAL [place] Cells 2+ (3-5) /OIF Acanthocytes (Spur) 2+ (3-5) /OIF Sodium 123 L (135-145) mmol/L Potassium 5.0 D (3.3-5.1) mmol/L Chloride 93 L (96-108) mmol/L Carbon Dioxide 26 (22-29) mmol/L Anion Gap 9 L (12-20) BUN 38 H D (9-16) mg/dL Creatinine 1.83 H (0.5-1.4) mg/dL Estim Creat Clear Calc 47.4 Estimated GFR 37 Random Glucose 104 D (60-115) mg/dL Osmolality (281-305) mosm/kg Calcium 8.4 (8.4-10.2) mg/dL Total Bilirubin 0.9 (0.0-1.0) mg/dL Direct Bilirubin 0.4 (0.0-0.5) mg/dL AST 55 H (5-37) U/L ALT 34 (0-40) U/L Alkaline Phosphatase 143 H (39-117) U/L Troponin I High Sens 40.6 H (<3.5-35.0) ng/L B-Natriuretic Peptide 74 (<100) pg/mL Total Protein 6.7 (6.5-8.0) g/dL Albumin 2.4 L (3.5-5.0) g/dL Lipase 54 (8-78) U/L Urine Color Urine Appearance Urine pH (5.0-8.0) Ur Specific [place] (1.005-1.025) Urine Protein (NEG-TRACE) MG/DL Urine Glucose (UA) (NEG) MG/DL Urine Ketones (NEG) MG/DL Urine Blood (NEG) Urine Nitrite (NEG) Ur Leukocyte Esterase (NEG) Ur Random Sodium mmol/L Ur Random Potassium mmol/L COVID-19 (JELANI) (Negative) COVID-19 Clin Com 11/03/21 11/03/21 11/03/21 Range/Units 18:04 20:40 20:40 WBC (4.8-10.8) X10*3/uL RBC (4.60-5.80) X10*6/uL Hgb (14.0-18.0) g/dl Hct (42.0-52.0) % MCV (80.0-98.0) fL MCH (27.0-33.0) pg MCHC (31.0-36.0) g/dl RDW (11.0-16.0) % Plt Count (160-400) X10*3/uL MPV (9.4-12.4) fL Immature Gran % (Auto) Neut % (Auto) Lymph % (Auto) [place] % (Auto) Eos % (Auto) Baso % (Auto) Lymph # (Auto) [place] # (Auto) Eos # (Auto) Baso # (Auto) Abs Immat Gran (auto) Absolute Neuts (auto) Absolute Nucleated RBC (0.0-0.012) X10*3/uL Nucleated RBC % (auto) (0.0-0.2) /100WBC Neutrophils % (Manual) (45-73) % Band Neutrophils % (3-5) % Lymphocytes % (Manual) (20-40) % Atypical Lymphs % (Man) (0-6) % Monocytes % (Manual) (2-11) % Eosinophils % (Manual) (0-4) % Basophils % (Manual) (0-2) % Metamyelocytes % % Myelocytes % % Abs Neuts (Manual) (2.0-8.3) X10*3/uL Lymphocytes # (Manual) (1.2-4.9) X10*3/uL Atyp Lymphs # (Manual) x10*3/uL Monocytes # (Manual) (0.1-1.2) X10*3/uL Eosinophils # (Manual) (0.0-0.4) X10*3/uL Basophils # (Manual) (0.0-0.2) X10*3/uL Metamyelocytes # X10*3/uL Myelocytes # X10*/uL Nucleated RBCs (0-0) /100WBC Smudge Cells Toxic Vacuolation Platelet Estimate (NORMAL) Large Platelets Plt Morphology Comment RBC Morphology Cathy Cells /OIF Acanthocytes (Spur) /OIF Sodium (135-145) mmol/L Potassium (3.3-5.1) mmol/L Chloride (96-108) mmol/L Carbon Dioxide (22-29) mmol/L Anion Gap (12-20) BUN (9-16) mg/dL Creatinine (0.5-1.4) mg/dL Estim Creat Clear Calc Estimated GFR Random Glucose (60-115) mg/dL Osmolality 276 L (281-305) mosm/kg Calcium (8.4-10.2) mg/dL Total Bilirubin (0.0-1.0) mg/dL Direct Bilirubin (0.0-0.5) mg/dL AST (5-37) U/L ALT (0-40) U/L Alkaline Phosphatase (39-117) U/L Troponin I High Sens (<3.5-35.0) ng/L B-Natriuretic Peptide (<100) pg/mL Total Protein (6.5-8.0) g/dL Albumin (3.5-5.0) g/dL Lipase (8-78) U/L Urine Color YELLOW Urine Appearance CLEAR Urine pH 6.0 (5.0-8.0) Ur Specific [place] 1.020 (1.005-1.025) Urine Protein NEG (NEG-TRACE) MG/DL Urine Glucose (UA) NEG (NEG) MG/DL Urine Ketones NEG (NEG) MG/DL Urine Blood NEG (NEG) Urine Nitrite NEG (NEG) Ur Leukocyte Esterase NEG (NEG) Ur Random Sodium mmol/L Ur Random Potassium mmol/L COVID-19 (JELANI) Negative (Negative) COVID-19 Clin Com See Note 11/03/21 Range/Units 20:40 WBC (4.8-10.8) X10*3/uL RBC (4.60-5.80) X10*6/uL Hgb (14.0-18.0) g/dl Hct (42.0-52.0) % MCV (80.0-98.0) fL MCH (27.0-33.0) pg MCHC (31.0-36.0) g/dl RDW (11.0-16.0) % Plt Count (160-400) X10*3/uL MPV (9.4-12.4) fL Immature Gran % (Auto) Neut % (Auto) Lymph % (Auto) [place] % (Auto) Eos % (Auto) Baso % (Auto) Lymph # (Auto) [place] # (Auto) Eos # (Auto) Baso # (Auto) Abs Immat Gran (auto) Absolute Neuts (auto) Absolute Nucleated RBC (0.0-0.012) X10*3/uL Nucleated RBC % (auto) (0.0-0.2) /100WBC Neutrophils % (Manual) (45-73) % Band Neutrophils % (3-5) % Lymphocytes % (Manual) (20-40) % Atypical Lymphs % (Man) (0-6) % Monocytes % (Manual) (2-11) % Eosinophils % (Manual) (0-4) % Basophils % (Manual) (0-2) % Metamyelocytes % % Myelocytes % % Abs Neuts (Manual) (2.0-8.3) X10*3/uL Lymphocytes # (Manual) (1.2-4.9) X10*3/uL Atyp Lymphs # (Manual) x10*3/uL Monocytes # (Manual) (0.1-1.2) X10*3/uL Eosinophils # (Manual) (0.0-0.4) X10*3/uL Basophils # (Manual) (0.0-0.2) X10*3/uL Metamyelocytes # X10*3/uL Myelocytes # X10*/uL Nucleated RBCs (0-0) /100WBC Smudge Cells Toxic Vacuolation Platelet Estimate (NORMAL) Large Platelets Plt Morphology Comment RBC Morphology [place] Cells /OIF Acanthocytes (Spur) /OIF Sodium (135-145) mmol/L Potassium (3.3-5.1) mmol/L Chloride (96-108) mmol/L Carbon Dioxide (22-29) mmol/L Anion Gap (12-20) BUN (9-16) mg/dL Creatinine (0.5-1.4) mg/dL Estim Creat Clear Calc Estimated GFR Random Glucose (60-115) mg/dL Osmolality (281-305) mosm/kg Calcium (8.4-10.2) mg/dL Total Bilirubin (0.0-1.0) mg/dL Direct Bilirubin (0.0-0.5) mg/dL AST (5-37) U/L ALT (0-40) U/L Alkaline Phosphatase (39-117) U/L Troponin I High Sens (<3.5-35.0) ng/L B-Natriuretic Peptide (<100) pg/mL Total Protein (6.5-8.0) g/dL Albumin (3.5-5.0) g/dL Lipase (8-78) U/L Urine Color Urine Appearance Urine pH (5.0-8.0) Ur Specific [place] (1.005-1.025) Urine Protein (NEG-TRACE) MG/DL Urine Glucose (UA) (NEG) MG/DL Urine Ketones (NEG) MG/DL Urine Blood (NEG) Urine Nitrite (NEG) Ur Leukocyte Esterase (NEG) Ur Random Sodium < 20.0 mmol/L Ur Random Potassium 34.8 mmol/L COVID-19 (JELANI) (Negative) COVID-19 Clin Com Imaging Data Chest x-ray: Attestation: I personally reviewed and interpreted this imaging study as follows: Radiologist's impression: Unremarkable examination. CT scan - head: Attestation: I personally reviewed and interpreted this imaging study as follows: Radiologist's impression: No acute intracranial process seen. MRI of the brain: Attestation: I personally reviewed and interpreted this imaging study as follows: Radiologist's impression: 1. No acute intracranial abnormalities. 2. Mild underlying microangiopathy and generalized cerebral volume loss. 3. Lack of the normal flow-void within the left ICA suggestive of slowed flow versus chronic occlusion. ECG Data Attestation: I personally reviewed and interpreted this ECG as follows: Interpretation: Sinus bradycardia at 44 beats per minute, left axis deviation, nonspecific T- wave changes. Critical Care Time Critical Care Time Critical Care Time: Yes Total Critical Care Time: 45 Attestation: I spent 45 minutes providing critical care service to the patient, this including time spent at the bedside to evaluate the patient, reassess the patient, monitoring vital signs, review labs, and radiographic studies, counseling the patient/family, discussing the case with consultants, disposition the patient. Discharge Plan Discharge Clinical Impression: Acute hyponatremia, Dizziness, Bradycardia Patient Disposition: Admitted As Inpatient
[2021-11-03] MEDS: 0.9 % Sodium Chloride 1,000 ML 999 ML IV (18:14)
[2021-11-03] MEDS: Meclizine HCl 25 MG TABLET PO (18:14)
[2021-11-03 18:15] LABS: Hematocrit 34.9 % (42.0-52.0); Hemoglobin 12.5 g/dl (14.0-18.0); Mean Corpuscular HGB Conc 35.8 g/dl (31.0-36.0); Mean Corpuscular Hemoglobin 31.9 pg (27.0-33.0); Mean Platelet Volume 10.5 fL (9.4-12.4); Platelet Count 191 X10*3/uL (160-400); Red Blood Count 3.92 X10*6/uL (4.60-5.80); Red Cell Distribution Width 14.5 % (11.0-16.0); White Blood Count 10.7 X10*3/uL (4.8-10.8)
[2021-11-03 18:32] LABS: B Type Natriuretic Peptide 74 pg/mL (<100); Troponin-I High Sensitivity 40.6 ng/L (<3.5-35.0)
[2021-11-03 18:34] LABS: Alanine Aminotransferase 34 U/L (0-40); Albumin Level 2.4 g/dL (3.5-5.0); Alkaline Phosphatase 143 U/L (39-117); Anion Gap 9 (12-20); Aspartate Amino Transferase 55 U/L (5-37); Bilirubin Direct 0.4 mg/dL (0.0-0.5); Bilirubin Total 0.9 mg/dL (0.0-1.0); Blood Urea Nitrogen 38 mg/dL (9-16); Calcium 8.4 mg/dL (8.4-10.2); Carbon Dioxide 26 mmol/L (22-29); Chloride 93 mmol/L (96-108); Creatinine Clr Calc Pharmacy 47.4; Estimated Glomerular Filt Rate 37; Glucose Random 104 mg/dL (60-115); Lipase 54 U/L (8-78); Sodium 123 mmol/L (135-145); Total Protein 6.7 g/dL (6.5-8.0)
[2021-11-03 18:43] LABS: Atypical Lymph Absolute Manual 0.2 x10*3/uL; Atypical Lymphs Percent Manual 2 % (0-6); Band Neutrophils Percent 3 % (3-5); Basophils Abs Manual 0.1 X10*3/uL (0.0-0.2); Basophils Percent Manual 1 % (0-2); Eosinophils Absolute Manual 0.3 X10*3/uL (0.0-0.4); Eosinophils Percent Manual 3 % (0-4); Lymphocytes Percent Manual 9 % (20-40); Metamyelocytes Absolute 0.3 X10*3/uL; Metamyelocytes Percent 3 %; Monocytes Absolute Manual 1.2 X10*3/uL (0.1-1.2); Monocytes Percent Manual 11 % (2-11); Myelocytes Absolute 0.2 X10*/uL; Myelocytes Percent 2 %; Neutrophils Absolute Manual 7.4 X10*3/uL (2.0-8.3); Neutrophils Percent Manual 66 % (45-73); Nucleated Red Blood Cells 1 /100WBC (0-0)
[2021-11-03 18:44] LABS: Acanthocytes 2+ (3-5) /OIF; Burr Cells 2+ (3-5) /OIF; Large Platelet PRESENT; Platelet Estimate DECREASED (NORMAL); Platelet Morphology Comment NOTED; RBC Morphology NORMAL; Smudge Cells PRESENT; Toxic Vacuolation PRESENT
[2021-11-03] MEDS: LORazepam 2 MG/ML VIAL IVPUSH (19:10)
--- NOTE | 2021-11-03 19:13 | PC.NURSE ---
Report taken from nikolas Harman RN resuming care. cert pharmacy tech at bedside, pt reporting anxiety over MRI, MD aware, medicated with Ativan per MD. Pt off to MRI.
[2021-11-03 20:13] LABS: Osmolality, Serum 276 mosm/kg (281-305)
--- NOTE | 2021-11-03 20:46 | PC.NURSE ---
Pt unable to provide UA. Pt straight cathed for sample. UA and Covid obtained and sent. Pharmacy @ bedside for Med Rec.
[2021-11-03 20:55] LABS: Appearance Urine CLEAR; Color Urine YELLOW; Glucose Urine UA NEG (NEG); Leukocyte Esterase Urine NEG (NEG); Nitrite Urine NEG (NEG); Urine Blood NEG (NEG); Urine Ketones NEG (NEG); Urine Protein NEG (NEG-TRACE)
[2021-11-03] MEDS: 0.9 % Sodium Chloride 1,000 ML 100 ML IVCONT (20:59)
--- NOTE | 2021-11-03 21:03 | PC.NURSE ---
Hospitalist @ bedside, plan for admission. IVF infusing per MAR.
[2021-11-03 21:04] LABS: Potassium Urine Random 34.8 mmol/L; Sodium Urine Random < 20.0 mmol/L
[2021-11-03 21:07] LABS: COVID-19 Test Negative (Negative); IDNOW Serial# 55D5AD1C
--- NOTE | 2021-11-03 21:15 | PHA.MEDREC ---
Pharmacy Consult ? Medication Reconciliation Pharmacy has completed the medication reconciliation. Med rec done with patient's daughter nola. Ivermectin not started yet. This is the third course of treatment of ivermectin since may. Ivermectin order: 5.5 TABLETS (16.5MG) BY MOUTH DAILY FOR 2 DAYS. REPEAT IN 2 WEEKS Thanks Sharla Nuñez
[2021-11-03] MEDS: Enoxaparin Sodium 40 MG/0.4 ML SYRINGE SUBCUT (21:39)
--- NOTE | 2021-11-03 21:40 | PM.IMHP ---
History of Present Illness Date of Service: 11/03/21 Chief Complaint: Dizziness 66-year-old male with a past medical history of hypertension, hyperlipidemia, hypothyroidism, history of hepatitis-C, alcohol abuse, liver cirrhosis, ascites -receives frequent therapeutic paracentesis, history of liver mass, inguinal hernia; GERD, asthma, anemia; presented to the hospital with a chief complaint of dizziness. Patient reports that over the past few days he has been having nausea and vomiting. This morning he felt dizzy; hence presented to the ER for further evaluation. Patient is slightly drowsy at the time of my interview hence lead history is slightly limited. Patient received Ativan in the ER for MRI brain contributing to his drowsiness. Patient denies any fever chills cough. Denies any urinary symptoms. Denies any abdominal discomfort. Denies any chest pain palpitations. Mentions is dizziness improved currently. Patient reports he gets frequent therapeutic paracentesis - last received on October 18. Review of all other systems is negative except mentioned above ER course: Per ER team patient noted to have bradycardia on telemetry; CT head showed no acute findings; MRI brain was done which showed no acute findings. Patient received Ativan x2 for MRI brain. On labs noted to have hyponatremia to 123. Patient was started on normal saline at 100 cc, Given concerns for possible dehydration. [facility] Medical History Allergic rhinitis Anemia Asthma Cirrhosis Constipation GERD (gastroesophageal reflux disease) Hepatitis C History of alcohol abuse History of kidney stones HTN (hypertension) Hypothyroid Left inguinal hernia Liver mass Family History Other No known health problems Pertinent family history: pt unable to provide info. Surgical History History of esophagogastroduodenoscopy (EGD) Hx of colonoscopy No history of previous surgery Social History Alcohol intake: former Patient Tobacco Use Status: Never used Tobacco Substance Use Type: Marijuana Advance Directives: No Advance Directives Information Provided: No Meds Allergies Allergy/AdvReac Type Severity Reaction Status Date / Time No Known Allergies Allergy Verified 11/03/21 17:29 [No Known Allergies*] Active Medications: Current Medications Acetaminophen (Acetaminophen 325 Mg Tablet) 650 mg PO Q6H PRN PRN Reason: Pain, Mild (Pain Scale 1-3) Albuterol Sulfate (Albuterol Sulfate 90 Mcg 8 Gm Inhaler) 2 puff INHALE Q6H PRN PRN Reason: Wheezing Enoxaparin Sodium (Enoxaparin Sodium 40 Mg/0.4 Ml Syringe) 40 mg SUBCUT Q24H [facility] Last Admin: 11/03/21 21:39 Dose: 40 mg Documented by: Sodium Chloride (Ns) 1,000 mls @ 100 mls/hr IVCONT .Q10H STA Stop: 11/04/21 06:51 Last Admin: 11/03/21 20:59 Dose: 100 mls/hr Documented by: Levothyroxine Sodium (Levothyroxine Sodium 200 Mcg Tablet) 200 mcg PO DAILY@0600 [facility] Melatonin (Melatonin 3 Mg Tablet) 6 mg PO BEDTIME PRN PRN Reason: Insomnia Omeprazole (Omeprazole 20 Mg Capsule.Dr) 20 mg PO DAILY@0630 [facility] Pharmacy Consult (Consult Rx Perform Med Rec) 1 each MISCELLANE ONCE PRN PRN Reason: Consult order Propranolol HCl (Propranolol Hcl La 60 Mg Cap.Sa.24h) 60 mg PO BEDTIME [facility]; Protocol Senna (Sennosides 8.6 Mg Tablet) 17.2 mg PO BEDTIME PRN PRN Reason: Constipation Sodium Chloride (0.9 % Sodium Chloride Flush 3 Ml Syringe) 3 ml IVFLUSH QSHIFT [facility] Home Medications Medication Instructions Recorded Confirmed Last Taken Type albuterol sulfate 90 mcg/actuation 2 puff INHALATION Q6H PRN 09/22/20 11/03/21 Unknown History aerosol inhaler (ProAir HFA) levothyroxine 200 mcg capsule 200 mcg PO DAILY 09/22/20 11/03/21 11/03/21 History lisinopril 10 mg tablet 10 mg PO DAILY 09/22/20 11/03/21 11/03/21 History omeprazole 20 mg capsule,delayed 20 mg PO QAM cap 09/22/20 11/03/21 11/03/21 History release ivermectin 3 mg tablet See Rx Instructions .ROUTE .COMPLEX 11/03/21 11/03/21 Unknown History propranolol 60 mg capsule,24 1 cap PO BEDTIME 11/03/21 11/03/21 11/02/21 History hr,extended release spironolactone 50 mg tablet 100 mg PO DAILY 11/03/21 11/03/21 11/03/21 History (Aldactone) Physical Exam Vital Signs and Narrative: Vital Signs: Last Vital Signs Temp 98.0 F 11/03/21 17:29 Pulse 45 L 11/03/21 17:29 Resp 16 11/03/21 17:29 BP 133/76 11/03/21 17:29 Pulse Ox 95 11/03/21 17:29 BMI result Body Mass Index 30.3 Gen: Appears be in no acute distress HEENT: NCAT, dry mucosa. Pulmonary: Vesicular breath sounds, fair air entry CVS: Normal S1-S2 Abdomen: BS+, Soft, distended abdomen; Not tense; fluid thrill present. Non tender. Extremities: Warm well perfused Neuro: Alert and awake.moves all ext equally : noted scrotal swelling; non tender. Results Labs CBC and Chem 7: 11/03/21 18:04 11/03/21 18:04 Labs: Laboratory Results - last 24 hr 11/03/21 11/03/21 11/03/21 18:04 18:04 18:04 MCV 89.0 MCH 31.9 MCHC 35.8 RDW 14.5 Plt Count 191 MPV 10.5 Immature Gran % (Auto) Cancelled Neut % (Auto) Cancelled Lymph % (Auto) Cancelled Bullock % (Auto) Cancelled Eos % (Auto) Cancelled Baso % (Auto) Cancelled Lymph # (Auto) Cancelled Bullock # (Auto) Cancelled Eos # (Auto) Cancelled Baso # (Auto) Cancelled Abs Immat Gran (auto) Cancelled Absolute Neuts (auto) Cancelled Absolute Nucleated RBC 0.000 Nucleated RBC % (auto) 0.0 Neutrophils % (Manual) 66 Band Neutrophils % 3 Lymphocytes % (Manual) 9 L Atypical Lymphs % (Man) 2 Monocytes % (Manual) 11 Eosinophils % (Manual) 3 Basophils % (Manual) 1 Metamyelocytes % 3 Myelocytes % 2 Abs Neuts (Manual) 7.4 Lymphocytes # (Manual) 1.0 L Atyp Lymphs # (Manual) 0.2 Monocytes # (Manual) 1.2 Eosinophils # (Manual) 0.3 Basophils # (Manual) 0.1 Metamyelocytes # 0.3 Myelocytes # 0.2 Nucleated RBCs 1 H Smudge Cells PRESENT Toxic Vacuolation PRESENT Platelet Estimate DECREASED Large Platelets PRESENT Plt Morphology Comment NOTED RBC Morphology NORMAL Cathy Cells 2+ (3-5) Acanthocytes (Spur) 2+ (3-5) Anion Gap 9 L Estim Creat Clear Calc 47.4 Estimated GFR 37 Random Glucose 104 D Osmolality Calcium 8.4 Total Bilirubin 0.9 Direct Bilirubin 0.4 AST 55 H ALT 34 Alkaline Phosphatase 143 H B-Natriuretic Peptide 74 Total Protein 6.7 Albumin 2.4 L Lipase 54 Urine Color Urine Appearance Urine pH Ur Specific [place] Urine Protein Urine Glucose (UA) Urine Ketones Urine Blood Urine Nitrite Ur Leukocyte Esterase Ur Random Sodium Ur Random Potassium COVID-19 (JELANI) COVID-19 [employer] Com 11/03/21 11/03/21 11/03/21 18:04 20:40 20:40 MCV MCH MCHC RDW Plt Count MPV Immature Gran % (Auto) Neut % (Auto) Lymph % (Auto) Bullock % (Auto) Eos % (Auto) Baso % (Auto) Lymph # (Auto) Bullock # (Auto) Eos # (Auto) Baso # (Auto) Abs Immat Gran (auto) Absolute Neuts (auto) Absolute Nucleated RBC Nucleated RBC % (auto) Neutrophils % (Manual) Band Neutrophils % Lymphocytes % (Manual) Atypical Lymphs % (Man) Monocytes % (Manual) Eosinophils % (Manual) Basophils % (Manual) Metamyelocytes % Myelocytes % Abs Neuts (Manual) Lymphocytes # (Manual) Atyp Lymphs # (Manual) Monocytes # (Manual) Eosinophils # (Manual) Basophils # (Manual) Metamyelocytes # Myelocytes # Nucleated RBCs Smudge Cells Toxic Vacuolation Platelet Estimate Large Platelets Plt Morphology Comment RBC Morphology [place] Cells Acanthocytes (Spur) Anion Gap Estim Creat Clear Calc Estimated GFR Random Glucose Osmolality 276 L Calcium Total Bilirubin Direct Bilirubin AST ALT Alkaline Phosphatase B-Natriuretic Peptide Total Protein Albumin Lipase Urine Color YELLOW Urine Appearance CLEAR Urine pH 6.0 Ur Specific [place] 1.020 Urine Protein NEG Urine Glucose (UA) NEG Urine Ketones NEG Urine Blood NEG Urine Nitrite NEG Ur Leukocyte Esterase NEG Ur Random Sodium Ur Random Potassium COVID-19 (JELANI) Negative COVID-19 Clin Com See Note 11/03/21 20:40 MCV MCH MCHC RDW Plt Count MPV Immature Gran % (Auto) Neut % (Auto) Lymph % (Auto) [place] % (Auto) Eos % (Auto) Baso % (Auto) Lymph # (Auto) [place] # (Auto) Eos # (Auto) Baso # (Auto) Abs Immat Gran (auto) Absolute Neuts (auto) Absolute Nucleated RBC Nucleated RBC % (auto) Neutrophils % (Manual) Band Neutrophils % Lymphocytes % (Manual) Atypical Lymphs % (Man) Monocytes % (Manual) Eosinophils % (Manual) Basophils % (Manual) Metamyelocytes % Myelocytes % Abs Neuts (Manual) Lymphocytes # (Manual) Atyp Lymphs # (Manual) Monocytes # (Manual) Eosinophils # (Manual) Basophils # (Manual) Metamyelocytes # Myelocytes # Nucleated RBCs Smudge Cells Toxic Vacuolation Platelet Estimate Large Platelets Plt Morphology Comment RBC Morphology [place] Cells Acanthocytes (Spur) Anion Gap Estim Creat Clear Calc Estimated GFR Random Glucose Osmolality Calcium Total Bilirubin Direct Bilirubin AST ALT Alkaline Phosphatase B-Natriuretic Peptide Total Protein Albumin Lipase Urine Color Urine Appearance Urine pH Ur Specific [place] Urine Protein Urine Glucose (UA) Urine Ketones Urine Blood Urine Nitrite Ur Leukocyte Esterase Ur Random Sodium < 20.0 Ur Random Potassium 34.8 COVID-19 (JELANI) COVID-19 Clin Com Imaging Radiologist's Impressions: Impressions Chest X-Ray 11/03/21 18:23 IMPRESSION: Unremarkable examination. Brain MRI 11/03/21 18:30 IMPRESSION: 1. No acute intracranial abnormalities. 2. Mild underlying microangiopathy and generalized cerebral volume loss. 3. Lack of the normal flow-void within the left ICA suggestive of slowed flow versus chronic occlusion. Head CT 11/03/21 18:51 IMPRESSION: No acute intracranial process seen. Assessment and Plan (1) Acute hyponatremia: Status: Acute (2) Dizziness: Status: Acute (3) Bradycardia: Status: Acute Plan 66-year-old male with a past medical history of hypertension, hyperlipidemia, cardiac arrhythmia, hypothyroidism, alcohol abuse, liver cirrhosis presented to the hospital with a chief complaint of nausea/ vomiting / dizziness. Dizziness: Patient reports that he has been having nausea and vomiting for the past few days. On telemetry noted to be bradycardic to high 40s. Currently denies any dizziness. Reported to the ER team that he has room spinning. Supportive care. Fall precautions Monitor on telemetry EKG nonischemic Initial troponin 40.6-repeat troponin pending. Possible reduced clearance for renal insufficiency Patient denies any chest pain. MRI showed: Lack of the normal flow-void within the left ICA suggestive of slowed flow versus chronic occlusion. Neurology follow up. Hyponatremia: Patient noted to be in volume overload. As low chloride and on diuretics. Multifactorial. will urine lytes and Osm. Nephrology consult monitor sodium levels LEVI on CKD: Patient baseline creatinine is around 1.2. creatinine on presentation was 1.8; send urine lytes Patient started on gentle IV in the ER. Will hold fluids after finishing the current NS bag started in the ER. avoid nephrotoxins History of liver cirrhosis/ ascites: Patient receives frequent therapeutic paracentesis. Gastroenterology /IR follow-up in the morning for repeat therapeutic paracentesis. Last received on October 18 as per patient. Mentions plan was to get paracentesis every Monday held home diuretics given renal insufficiency. Scrotal swelling: Secondary to volume overload. Nontender. Srotal USG. patient/patient's family reports scrotal swelling is chronic. History of hypertension: Hold home lisinopril for now History of hypothyroidism: Continue home levothyroxine History of Strongyloidosis: Patient on ivermectin-> receives once every 2 weeks. DVT prophylaxis: Lovenox Code status: Full code Quality Stroke Does the patient have a stroke diagnosis?: No VTE Prior VTE?: No VTE Risk Level:: Medical - moderate - high VTE Device Contraindication: Treatment Not Indicated VTE Drug Contraindication: N/A - Med Ordered
[2021-11-03 21:42] VITALS: BP 122/65; PULSE 58; RESP 16; O2SAT 99
--- NOTE | 2021-11-03 21:44 | PC.NURSE ---
Pt unable to keep right arm straight, IVF having difficulty infusing despite constant reminders to keep arm straight. Second IV established to LFA to facilitate infusion of IVF. Pt resting comfortably in bed at this time. This RN calling [facility] to give report.
--- NOTE | 2021-11-03 21:59 | PC.NURSE ---
Lab calling regarding order for urine urea. Per lab, urine must be collected for 24 hours to run test. Hospitalist contacted and notified that the lab is not able to run random urine urea testing. Per hospitalist, does not want 24 hour urine collection, order to be cancelled. Primary nurse in [facility] notified.
[2021-11-03 22:06] LABS: Osmolality Urine 448 mosm/kg (373-1093)
[2021-11-03 22:38] LABS: Troponin-I High Sensitivity 36.3 ng/L (<3.5-35.0)
[2021-11-04 00:43] LABS: Chloride Urine Random < 20.0 mmol/L
[2021-11-04 05:10] VITALS: BP 128/66; PULSE 48; RESP 16; TEMP 36.6; O2SAT 100
[2021-11-04 06:11] LABS: Hematocrit 35.3 % (42.0-52.0); Hemoglobin 12.3 g/dl (14.0-18.0); Mean Corpuscular HGB Conc 34.8 g/dl (31.0-36.0); Mean Corpuscular Hemoglobin 31.4 pg (27.0-33.0); Mean Corpuscular Volume 90.1 fL (80.0-98.0); Mean Platelet Volume 10.8 fL (9.4-12.4); Platelet Count 142 X10*3/uL (160-400); Red Blood Count 3.92 X10*6/uL (4.60-5.80); Red Cell Distribution Width 14.5 % (11.0-16.0); White Blood Count 8.1 X10*3/uL (4.8-10.8)
[2021-11-04 06:50] LABS: Anion Gap 11 (12-20); Blood Urea Nitrogen 33 mg/dL (9-16); Carbon Dioxide 18 mmol/L (22-29); Chloride 100 mmol/L (96-108); Creatinine Clr Calc Pharmacy 68.8; Estimated Glomerular Filt Rate 58; Glucose Random 76 mg/dL (60-115); Potassium 5.6 mmol/L (3.3-5.1); Sodium 123 mmol/L (135-145)
[2021-11-04 07:34] LABS: Band Neutrophils Percent 5 % (3-5); Basophils Abs Manual 0.1 X10*3/uL (0.0-0.2); Basophils Percent Manual 1 % (0-2); Eosinophils Absolute Manual 0.2 X10*3/uL (0.0-0.4); Eosinophils Percent Manual 3 % (0-4); Lymphocytes Absolute Manual 1.2 X10*3/uL (1.2-4.9); Lymphocytes Percent Manual 15 % (20-40); Metamyelocytes Absolute 0.2 X10*3/uL; Metamyelocytes Percent 3 %; Monocytes Absolute Manual 0.9 X10*3/uL (0.1-1.2); Monocytes Percent Manual 11 % (2-11); Myelocytes Absolute 0.2 X10*/uL; Myelocytes Percent 2 %; Neutrophils Absolute Manual 5.3 X10*3/uL (2.0-8.3); Neutrophils Percent Manual 60 % (45-73)
[2021-11-04 07:35] LABS: RBC Morphology NOTED
[2021-11-04 07:36] LABS: Burr Cells 1+ (0-2) /OIF; Platelet Estimate SLIGHTLY DECREASED (NORMAL); Platelet Morphology Comment NORMAL
[2021-11-04] MEDS: Omeprazole 20 MG CAPSULE.DR PO (08:33)
[2021-11-04] MEDS: Levothyroxine Sodium 200 MCG TABLET PO (08:34)
[2021-11-04 08:55] VITALS: BP 114/75; PULSE 56; RESP 20; O2SAT 97
--- NOTE | 2021-11-04 09:35 | MHC.CM.PN ---
M CALLED PTS DAUGHTER, JAMES ([phone]) WHO REPORTS POT LIVES WITH HER AND IS MOSTLY INDEPENDENT WITH SELF CARE SHE REPORTS HE DOES NOT USE DME BUT DOES HAVE A WALKING STICK HE USES WHEN GOING OUT. SHE REPORTS HE DOES NOT HAVE ANY SERVICES. SHE DID DISCUSS [employer] HELPER SERVICES WITH HIS CRITICAL CARE TECHNICIAN AT [facility] HOWEVER THEY DID NOT FEEL HE QUALIFIED. LUX REQUESTS A REFERRAL TO [facility] SHE DOES NOT FEEL THEY ASSESSED THE PT ENOUGH TO DETERMINE [employer] HELPER ELIGIBILITY SHE REPORTS THE PT GOES TO [facility] FOR PRIMARY CARE, SHE IS UNSURE OF THE PCP NAME PT HAS A HCP ON FILE PER DAUGHTER, PT HAS RECEIVED THE COVID-19 VACCINES BUT HAS NOT YET RECEIVED THE BOOSTER. CURRENT DC PLAN IS HOME WITH REFERRAL TO [facility] FAMILY TO TRANSPORT
--- NOTE | 2021-11-04 09:53 | MHC.CM.PN ---
CM CALLED PTS DAUGHTER, JAMES ([phone]) WHO REPORTS PT LIVES WITH HER AND IS MOSTLY INDEPENDENT WITH SELF CARE SHE REPORTS HE DOES NOT USE DME BUT DOES HAVE A WALKING STICK HE USES WHEN GOING OUT. SHE REPORTS HE DOES NOT HAVE ANY SERVICES. SHE DID DISCUSS COMPARATIVE SOCIOLOGY PROFESSOR SERVICES WITH HIS MANHOLE STRIPPER AT [facility] HOWEVER THEY DID NOT FEEL HE QUALIFIED. LUX REQUESTS A REFERRAL TO [facility] SHE DOES NOT FEEL THEY ASSESSED THE PT ENOUGH TO DETERMINE COMPARATIVE SOCIOLOGY PROFESSOR ELIGIBILITY SHE REPORTS THE PT GOES TO [facility] FOR PRIMARY CARE, SHE IS UNSURE OF THE PCP NAME PT HAS A HCP ON FILE PER DAUGHTER, PT HAS RECEIVED THE COVID-19 VACCINES BUT HAS NOT YET RECEIVED THE BOOSTER. CURRENT DC PLAN IS HOME WITH REFERRAL TO [facility] FAMILY TO TRANSPORT
--- NOTE | 2021-11-04 10:01 | PM.GICN ---
History of Present Illness Data of Consult Service Date: 11/04/21 Requesting physician: Lina Gooden Primary Care Provider: [facility] Reason for consult: Cirrhosis/ascites/scrotal swelling 66 YM with end-stage liver disease (due to ETOH abuse and Hep C) complicated by ascites presented to [facility] ED on 11/03/2021 with dizziness: ? 66-year-old male with a past medical history of hypertension, hyperlipidemia, hypothyroidism, history of hepatitis-C, alcohol abuse, liver cirrhosis, ascites -receives frequent therapeutic paracentesis, history of liver mass, inguinal hernia; GERD, asthma, anemia; presented to the hospital with a chief complaint of dizziness.? Patient reports that over the past few days he has been having nausea and vomiting.? This morning he felt dizzy; hence presented to the ER for further evaluation.? Patient was slightly drowsy at the time of my interview and history is somewhat limited.? Patient received Ativan in the ER for MRI brain contributing to his drowsiness.? Patient denies any fever chills cough.? Denies any urinary symptoms.? Denies any abdominal discomfort.? Denies any chest pain palpitations.? Mentions is dizziness improved currently.? Patient reports he gets frequent therapeutic paracentesis - every one to two weeks - last received on October 29.? ER course: Per ER team patient noted to have bradycardia on telemetry; CT head showed no acute findings; MRI brain was done which showed no acute findings.? Patient received Ativan x2 for MRI brain.? On labs noted to have hyponatremia to 123.? Patient was started on normal saline at 100 cc, Given concerns for possible dehydration. ENDOSCOPIC STUDIES: EGD/colonoscopy: 06/10/21 Endoscopy Findings: esophageal varices portal hypertensive gastropathy Colonoscopy Findings: polyps internal hemorrhoids diverticular disease Review of Systems Review of Systems: No recent cold or flu-like illness or trauma. [facility] Past Medical History Medical History (Updated 11/17/21 @ 10:40 by Danielle Becerra RN) Allergic rhinitis Anemia Anemia Asthma Cirrhosis Constipation GERD (gastroesophageal reflux disease) H/O ETOH abuse Hepatitis C Hepatitis C History of alcohol abuse History of kidney stones HTN (hypertension) Hypothyroid Left inguinal hernia Liver mass Family History Family History Other No known health problems Surgical History Surgical History History of esophagogastroduodenoscopy (EGD) Hx of colonoscopy No history of previous surgery Social History Social History Household Members: Family Housing: House Do you presently have visiting nurse or other home services: No Alcohol intake: former Patient Tobacco Use Status: Never used Tobacco Substance Use Type: Marijuana Advance Directives Date on File: 11/04/21 service: No Current occupational status: unemployed Meds Allergies Allergy/AdvReac Type Severity Reaction Status Date / Time No Known Allergies Allergy Verified 11/26/21 10:10 [No Known Allergies*] Active Medications: Current Medications Acetaminophen (Acetaminophen 325 Mg Tablet) 650 mg PO Q6H PRN PRN Reason: Pain, Mild (Pain Scale 1-3) Albuterol Sulfate (Albuterol Sulfate 90 Mcg 8 Gm Inhaler) 2 puff INHALE Q6H PRN PRN Reason: Wheezing Enoxaparin Sodium (Enoxaparin Sodium 40 Mg/0.4 Ml Syringe) 40 mg SUBCUT Q24H [facility] Last Admin: 11/04/21 08:35 Dose: Not Given Documented by: Lactulose (Lactulose 20 Gm/30 Ml Solution) 30 gm PO TID [facility] Levothyroxine Sodium (Levothyroxine Sodium 200 Mcg Tablet) 200 mcg PO DAILY@0600 [facility] Last Admin: 11/04/21 08:34 Dose: 200 mcg Documented by: Melatonin (Melatonin 3 Mg Tablet) 6 mg PO BEDTIME PRN PRN Reason: Insomnia Omeprazole (Omeprazole 20 Mg Capsule.) 20 mg PO DAILY@0630 [facility] Last Admin: 11/04/21 08:33 Dose: 20 mg Documented by: Pharmacy Consult (Consult Rx Perform Med Rec) 1 each MISCELLANE ONCE PRN PRN Reason: Consult order Propranolol HCl (Propranolol Hcl La 60 Mg Cap.Sa.24h) 60 mg PO BEDTIME [facility]; Protocol Rifaximin (Rifaximin 550 Mg Tablet) 550 mg PO BID [facility] Senna (Sennosides 8.6 Mg Tablet) 17.2 mg PO BEDTIME PRN PRN Reason: Constipation Sodium Chloride (0.9 % Sodium Chloride Flush 3 Ml Syringe) 3 ml IVFLUSH QSHIFT [facility] Last Admin: 11/04/21 08:36 Dose: Not Given Documented by: Home Medications Medication Instructions Recorded Confirmed Last Taken Type albuterol sulfate 90 mcg/actuation 2 puff INHALATION Q6H PRN 09/22/20 11/03/21 Unknown History aerosol inhaler (ProAir HFA) levothyroxine 200 mcg capsule 200 mcg PO DAILY 09/22/20 11/03/21 11/03/21 History omeprazole 20 mg capsule,delayed 20 mg PO QAM cap 09/22/20 11/03/21 11/03/21 History release ivermectin 3 mg tablet See Rx Instructions .ROUTE .COMPLEX 11/03/21 11/03/21 Unknown History propranolol 60 mg capsule,24 1 cap PO BEDTIME 11/03/21 11/03/21 11/02/21 History hr,extended release spironolactone 50 mg tablet 100 mg PO DAILY 11/03/21 11/03/21 11/03/21 History (Aldactone) Physical Exam Vital Signs: Vital Signs: Last Vital Signs Temp 97.9 F 11/04/21 05:10 Pulse 56 11/04/21 08:55 Resp 20 11/04/21 08:55 BP 114/75 11/04/21 08:55 Pulse Ox 97 11/04/21 08:55 BMI result Body Mass Index 30.3 Const: General: no acute distress and ill appearing Nutritional Appearance: obese Orientation/consciousness: patient oriented x3 Limitations: no limitations HENMT: Head: Yes normal to inspection Ears: hearing grossly normal bilaterally Mouth: Normal oral and palatal mucosa present Eyes: Sclerae: sclerae normal Pupils: Equal, round and reactive pupils present Neck: Neck: Yes normal visual inspection Chest: Chest palpation & inspection: normal inspection of the chest Resp: Effort & Inspection: normal respiratory effort Auscultation: clear to auscultation bilaterally Cardio: Palpation: normal PMI Rate: regular rate Rhythm: regular rhythm Heart sounds: S1 normal heart sound present, S2 normal heart sound present and no murmurs GI: Inspection: Yes distended Palpation (GI): Soft to palpation, nontender and No hepatosplenomegaly present Auscultation: normal bowel sounds Rectal Exam - Male: Yes deferred Skin: General skin exam: no rashes or lesions noted and spider nevi (On anterior chest) Neuro: General: patient oriented x3, gait normal and moves all extremities Cranial nerves: Yes Equal, round and reactive pupils present Extrem: General: Yes other (bilateral asterixis and Dupytren's contractures) Psych: Appearance: grossly normal Mental Status: mental status grossly normal Results Labs CBC & Chem 7: 11/05/21 06:20 11/07/21 06:33 Labs: Short CBC 11/03/21 11/04/21 Range/Units 18:04 05:30 WBC 10.7 8.1 (4.8-10.8) X10*3/uL Hgb 12.5 L 12.3 L (14.0-18.0) g/dl Hct 34.9 L 35.3 L (42.0-52.0) % Plt Count 191 142 L D (160-400) X10*3/uL BMP 11/03/21 11/04/21 18:04 05:30 Sodium 123 L 123 L Potassium 5.0 D 5.6 H Chloride 93 L 100 Carbon Dioxide 26 18 L BUN 38 H D 33 H Creatinine 1.83 H 1.26 Calcium 8.4 8.0 L Liver Function 11/03/21 Range/Units 18:04 Total Bilirubin 0.9 (0.0-1.0) mg/dL Direct Bilirubin 0.4 (0.0-0.5) mg/dL AST 55 H (5-37) U/L ALT 34 (0-40) U/L Alkaline Phosphatase 143 H (39-117) U/L Albumin 2.4 L (3.5-5.0) g/dL Urine 11/03/21 Range/Units 20:40 Urine Color YELLOW Urine Appearance CLEAR Urine pH 6.0 (5.0-8.0) Ur Specific [place] 1.020 (1.005-1.025) Urine Protein NEG (NEG-TRACE) MG/DL Urine Glucose (UA) NEG (NEG) MG/DL Assessment and Plan (1) Hepatitis C: (2) Cirrhosis: Status: Acute (3) Anemia: (4) H/O ETOH abuse: (5) Encephalopathy: Status: Resolved Plan 66 YM with end-stage liver disease complicated by ascites presented to [facility] ED on 11/03/2021 with dizziness. Past evaluation with [facility], AMA, ASMA was negative. Hepatitis serologies showed positive hepatitis C antibody and immunity to hepatitis-B. MELD score is 9 Small foci of HCC on imaging not meeting JOSEPHINE criteria right now, being seen at [facility] for transplant evaluation He was placed on the liver transplant list in 08/2021 Labs showed serum sodium of 123 which is likely source of his dizziness. RECOMMENDATIONS: 1. Agree with lactulose and Rifaximin for hepatic encephalopathy. 2. Correction of hyponatremia as per Nephrology recommendations 3. Hold diuretics and manage ascites by large volume paracentesis - pt is scheduled for weekly paracentesis as an outpatient. FU with Dr Ahuja after discharge Procedures Date of Service Date of Service: 11/04/21
--- NOTE | 2021-11-04 11:37 | CONS_ITS ---
DATE OF SERVICE: 11/04/2021 REASON FOR CONSULTATION: I was called to see this patient to assist in management of hyponatremia and acute kidney injury. HISTORY OF PRESENT ILLNESS: To summarize, Usman is a 66-year-old man with a history of hepatitis C and cirrhosis of the liver in the setting of alcohol abuse. He was brought in because of dizziness, he was found to have serum sodium 123, which is the new. He also had acute kidney injury with a creatinine of 1.5. Since admission, he has been using IV fluids and serum creatinine is marginally improved. No change in serum sodium. This consultation requested for management of the hyponatremia and acute kidney injury. Past and ongoing medical problems include asthma, cirrhosis, hepatitis C, alcohol abuse, history of kidney stones, hypertension, hypothyroidism, history of liver mass, inguinal hernia. FAMILY HISTORY: Noncontributory to admission. PAST SURGICAL HISTORY: Includes EGD, colonoscopies. SOCIAL HISTORY: History of alcohol abuse, history of use of marijuana. He does not smoke at present. ALLERGIES: NO KNOWN DRUG ALLERGIES. MEDICATIONS: At time of admission include albuterol, levothyroxine, lisinopril, omeprazole, ivermectin, propranolol, and spironolactone. REVIEW OF SYSTEMS: No headache, nausea, vomiting, or dizziness. No abdominal pain or constipation. No polyuria or polydipsia. All other systems were reviewed. PHYSICAL EXAMINATION: GENERAL: Usman is a middle-aged man, he appears ill. HEENT: Mucosa is dry. NECK: Supple. No JVD. LUNGS: Air entry equal. No rales. HEART: S1, S2 heard. No gallop. ABDOMEN: Distended, soft, nontender. NEURO: Arousable, awake. No focal motor deficits. EXTREMITIES: Trace edema. No rash. No clubbing. VITAL SIGNS: Blood pressure was 114/75, pulse 56 per minute. LABS: Sodium 122, potassium 5.6, CO2 of 18, BUN 30, creatinine 1.26; on admission, BUN was 38, creatinine 1.83. Troponin 36.3, albumin 2.4, hemoglobin 12.2, and platelets 142,000. Urine specific gravity was 1.020. Urine sodium less than 20. Urine osmolality 448. Serum osmolality was 276. PROBLEMS: 1. Hyponatremia in the setting of cirrhosis with a low urine sodium. I suspect he has hypovolemic, hyponatremia. 2. Acute kidney injury due to hypoperfusion from volume depletion. 3. Mild hyperkalemia in the setting of acute kidney injury and the use of spironolactone. RECOMMENDATION: My recommendation will be to hold these spironolactone. Agree with IV hydration with IV normal saline at 80 cc/hour. Restrict oral free water intake and hypotonic fluids to correct the hyponatremia. Goal is to cut the serum sodium at a rate of 0.5 mmol/L per hour and not exceed more than 8 to 10 millimoles in a 24 hours. Keep him on a low-potassium diet. Monitor serum sodium every 2 to 4 hours and avoid rapid correction. There is no indication for hypertonic saline or urea at this time. We will follow him along with the team. Dawit Soria MD BPA/MODL / [id number]
[2021-11-04] MEDS: Lactulose 20 GM/30 ML SOLUTION 30 GM PO ×3 (12:32→20:41)
[2021-11-04] MEDS: Sodium Zirconium Cyclosilicate 10 GM POWD.PACK PO (12:32)
[2021-11-04 13:12] VITALS: BP 109/74; PULSE 59; RESP 18; TEMP 36.2; O2SAT 98
--- NOTE | 2021-11-04 14:14 | HO.PM.IMPN ---
Subjective Subjective Date of Service: 11/04/21 Interval History: No dizziness Somewhat consufed Review of Systems Review of Systems: Yes all other systems are reviewed and are negative Physical Exam Vital Signs: Vital Signs: Last Vital Signs Temp 97.1 F 11/04/21 13:12 Pulse 59 11/04/21 13:12 Resp 18 11/04/21 13:12 BP 109/74 11/04/21 13:12 Pulse Ox 98 11/04/21 13:12 BMI result Body Mass Index 30.3 Gen: chronically ill-appearing HEENT: sclera anicteric, moist mucus membranes Neck: supple Lungs: clear to auscultation bilaterally Heart: regular rate and rhythm, no murmurs Abd: distended, fluid wave, non-tender Ext: no edema Skin: warm/well-perfused Neuro: alert, asterixis present Psych: appropriate affect Objective Data Active Medications Acetaminophen (Acetaminophen 325 Mg Tablet) 650 mg PO Q6H PRN PRN Reason: Pain, Mild (Pain Scale 1-3) Albuterol Sulfate (Albuterol Sulfate 90 Mcg 8 Gm Inhaler) 2 puff INHALE Q6H PRN PRN Reason: Wheezing Enoxaparin Sodium (Enoxaparin Sodium 40 Mg/0.4 Ml Syringe) 40 mg SUBCUT Q24H [facility] Last Admin: 11/04/21 08:35 Dose: Not Given Documented by: NATHALY Non-Admin Reason: IV Running Lactulose (Lactulose 20 Gm/30 Ml Solution) 30 gm PO TID [facility] Last Admin: 11/04/21 12:32 Dose: 30 gm Documented by: NATHALY Levothyroxine Sodium (Levothyroxine Sodium 200 Mcg Tablet) 200 mcg PO DAILY@0600 [facility] Last Admin: 11/04/21 08:34 Dose: 200 mcg Documented by: NATHALY Melatonin (Melatonin 3 Mg Tablet) 6 mg PO BEDTIME PRN PRN Reason: Insomnia Omeprazole (Omeprazole 20 Mg Capsule.) 20 mg PO DAILY@0630 [facility] Last Admin: 11/04/21 08:33 Dose: 20 mg Documented by: NATHALY Pharmacy Consult (Consult Rx Perform Med Rec) 1 each MISCELLANE ONCE PRN PRN Reason: Consult order Propranolol HCl (Propranolol Hcl La 60 Mg Cap.Sa.24h) 60 mg PO BEDTIME [facility]; Protocol Rifaximin (Rifaximin 550 Mg Tablet) 550 mg PO BID [facility] Senna (Sennosides 8.6 Mg Tablet) 17.2 mg PO BEDTIME PRN PRN Reason: Constipation Sodium Chloride (0.9 % Sodium Chloride Flush 3 Ml Syringe) 3 ml IVFLUSH QSHIFT [facility] Last Admin: 11/04/21 08:36 Dose: Not Given Documented by: NATHALY Non-Admin Reason: IV Running Labs CBC & Chem 7: 11/04/21 05:30 11/04/21 05:30 Labs: Laboratory Results - last 24 hr 11/03/21 11/03/21 11/03/21 18:04 18:04 18:04 MCV 89.0 MCH 31.9 MCHC 35.8 RDW 14.5 Plt Count 191 MPV 10.5 Immature Gran % (Auto) Cancelled Neut % (Auto) Cancelled Lymph % (Auto) Cancelled [facility] % (Auto) Cancelled Eos % (Auto) Cancelled Baso % (Auto) Cancelled Lymph # (Auto) Cancelled [facility] [place] [facility] # (Auto) Cancelled Eos # (Auto) Cancelled Baso # (Auto) Cancelled Abs Immat Gran (auto) Cancelled Absolute Neuts (auto) Cancelled Absolute Nucleated RBC 0.000 Nucleated RBC % (auto) 0.0 Neutrophils % (Manual) 66 Band Neutrophils % 3 Lymphocytes % (Manual) 9 L Atypical Lymphs % (Man) 2 Monocytes % (Manual) 11 Eosinophils % (Manual) 3 Basophils % (Manual) 1 Metamyelocytes % 3 Myelocytes % 2 Abs Neuts (Manual) 7.4 Lymphocytes # (Manual) 1.0 L Atyp Lymphs # (Manual) 0.2 Monocytes # (Manual) 1.2 Eosinophils # (Manual) 0.3 Basophils # (Manual) 0.1 Metamyelocytes # 0.3 Myelocytes # 0.2 Nucleated RBCs 1 H Smudge Cells PRESENT Toxic Vacuolation PRESENT Platelet Estimate DECREASED Large Platelets PRESENT Plt Morphology Comment NOTED RBC Morphology NORMAL [place] Cells 2+ (3-5) Acanthocytes (Spur) 2+ (3-5) Smear Path Review SEE NOTE Anion Gap 9 L Estim Creat Clear Calc 47.4 Estimated GFR 37 Random Glucose 104 D Osmolality Calcium 8.4 Total Bilirubin 0.9 Direct Bilirubin 0.4 AST 55 H ALT 34 Alkaline Phosphatase 143 H B-Natriuretic Peptide 74 Total Protein 6.7 Albumin 2.4 L Lipase 54 Urine Color Urine Appearance Urine pH Ur Specific Carey Urine Protein Urine Glucose (UA) Urine Ketones Urine Blood Urine Nitrite Ur Leukocyte Esterase Urine Osmolality Ur Random Sodium Ur Random Potassium Ur Random Chloride COVID-19 ([facility]) COVID-19 Clin Com 11/03/21 11/03/21 11/03/21 18:04 20:40 20:40 MCV MCH MCHC RDW Plt Count MPV Immature Gran % (Auto) Neut % (Auto) Lymph % (Auto) [facility] [place] % (Auto) Eos % (Auto) Baso % (Auto) Lymph # (Auto) [facility] [place] [facility] # (Auto) Eos # (Auto) Baso # (Auto) Abs Immat Gran (auto) Absolute Neuts (auto) Absolute Nucleated RBC Nucleated RBC % (auto) Neutrophils % (Manual) Band Neutrophils % Lymphocytes % (Manual) Atypical Lymphs % (Man) Monocytes % (Manual) Eosinophils % (Manual) Basophils % (Manual) Metamyelocytes % Myelocytes % Abs Neuts (Manual) Lymphocytes # (Manual) Atyp Lymphs # (Manual) Monocytes # (Manual) Eosinophils # (Manual) Basophils # (Manual) Metamyelocytes # Myelocytes # Nucleated RBCs Smudge Cells Toxic Vacuolation Platelet Estimate Large Platelets Plt Morphology Comment RBC Morphology Cathy Cells Acanthocytes (Spur) Smear Path Review Anion Gap Estim Creat Clear Calc Estimated GFR Random Glucose Osmolality 276 L Calcium Total Bilirubin Direct Bilirubin AST ALT Alkaline Phosphatase B-Natriuretic Peptide Total Protein Albumin Lipase Urine Color YELLOW Urine Appearance CLEAR Urine pH 6.0 Ur Specific Carey 1.020 Urine Protein NEG Urine Glucose (UA) NEG Urine Ketones NEG Urine Blood NEG Urine Nitrite NEG Ur Leukocyte Esterase NEG Urine Osmolality Ur Random Sodium Ur Random Potassium Ur Random Chloride COVID-19 (JELANI) Negative COVID-19 Clin Com See Note 11/03/21 11/03/21 11/04/21 20:40 20:40 05:30 MCV 90.1 MCH 31.4 MCHC 34.8 RDW 14.5 Plt Count 142 L D MPV 10.8 Immature Gran % (Auto) Cancelled Neut % (Auto) Cancelled Lymph % (Auto) Cancelled [facility] [place] [facility] % (Auto) Cancelled Eos % (Auto) Cancelled Baso % (Auto) Cancelled Lymph # (Auto) Cancelled [facility] # (Auto) Cancelled Eos # (Auto) Cancelled Baso # (Auto) Cancelled Abs Immat Gran (auto) Cancelled Absolute Neuts (auto) Cancelled Absolute Nucleated RBC 0.000 Nucleated RBC % (auto) 0.0 Neutrophils % (Manual) 60 Band Neutrophils % 5 Lymphocytes % (Manual) 15 L Atypical Lymphs % (Man) Monocytes % (Manual) 11 Eosinophils % (Manual) 3 Basophils % (Manual) 1 Metamyelocytes % 3 Myelocytes % 2 Abs Neuts (Manual) 5.3 Lymphocytes # (Manual) 1.2 Atyp Lymphs # (Manual) Monocytes # (Manual) 0.9 Eosinophils # (Manual) 0.2 Basophils # (Manual) 0.1 Metamyelocytes # 0.2 Myelocytes # 0.2 Nucleated RBCs Smudge Cells Toxic Vacuolation Platelet Estimate SLIGHTLY DECREASED Large Platelets Plt Morphology Comment NORMAL RBC Morphology NOTED Cathy Cells 1+ (0-2) Acanthocytes (Spur) Smear Path Review Anion Gap Estim Creat Clear Calc Estimated GFR Random Glucose Osmolality Calcium Total Bilirubin Direct Bilirubin AST ALT Alkaline Phosphatase B-Natriuretic Peptide Total Protein Albumin Lipase Urine Color Urine Appearance Urine pH Ur Specific Carey Urine Protein Urine Glucose (UA) Urine Ketones Urine Blood Urine Nitrite Ur Leukocyte Esterase Urine Osmolality 448 Ur Random Sodium < 20.0 Ur Random Potassium 34.8 Ur Random Chloride < 20.0 COVID-19 ([facility]ELANI) COVID-19 Clin Com 11/04/21 05:30 MCV MCH MCHC RDW Plt Count MPV Immature Gran % (Auto) Neut % (Auto) Lymph % (Auto) [facility] [place] % (Auto) Eos % (Auto) Baso % (Auto) Lymph # (Auto) [facility] # (Auto) Eos # (Auto) Baso # (Auto) Abs Immat Gran (auto) Absolute Neuts (auto) Absolute Nucleated RBC Nucleated RBC % (auto) Neutrophils % (Manual) Band Neutrophils % Lymphocytes % (Manual) Atypical Lymphs % (Man) Monocytes % (Manual) Eosinophils % (Manual) Basophils % (Manual) Metamyelocytes % Myelocytes % Abs Neuts (Manual) Lymphocytes # (Manual) Atyp Lymphs # (Manual) Monocytes # (Manual) Eosinophils # (Manual) Basophils # (Manual) Metamyelocytes # Myelocytes # Nucleated RBCs Smudge Cells Toxic Vacuolation Platelet Estimate Large Platelets Plt Morphology Comment RBC Morphology Cathy Cells Acanthocytes (Spur) Smear Path Review Anion Gap 11 L Estim Creat Clear Calc 68.8 Estimated GFR 58 Random Glucose 76 Osmolality Calcium 8.0 L Total Bilirubin Direct Bilirubin AST ALT Alkaline Phosphatase B-Natriuretic Peptide Total Protein Albumin Lipase Urine Color Urine Appearance Urine pH Ur Specific Carey Urine Protein Urine Glucose (UA) Urine Ketones Urine Blood Urine Nitrite Ur Leukocyte Esterase Urine Osmolality Ur Random Sodium Ur Random Potassium Ur Random Chloride COVID-19 ([facility]ELANI) COVID-19 Clin Com Assessment and Plan (1) Acute hyponatremia: Status: Acute Plan hospital d#2 66yo M with cirrhosis, HTN, hypothyroidism presenting with dizziness, N/V admitted for acute hyponatremia # hepatic encephaloapthy - start lactulose + rifaximin # hyponatremia # LEVI - likely hypovolemic, replace volume gradually, monitor Na, Nephrology following # hyperkalemia - hold spironolactone + lisinopril, give SZC, recheck in AM # ascites - paracentesis in AM- therapeutic- gets every Monday # esophageal varices - continue propranolol # HTN - continue propranolol, hold lisinopril # hypothyroidism - continue LT4 # hx strongyloidosis - ivermectin # VTE ppx - LMWH Quality Stroke Does the patient have a stroke diagnosis?: No VTE Prior VTE?: No VTE Risk Level:: Medical - moderate - high VTE Device Contraindication: Treatment Not Indicated VTE Drug Contraindication: N/A - Med Ordered
--- NOTE | 2021-11-04 14:26 | P.CNNE_ITS ---
History of Present Illness Data of Consult Service Date: 11/04/21 Primary Care Provider: [employer] Reason for consult: Dizziness 66-year-old male with a past medical history of hypertension, hyperlipidemia, hypothyroidism, history of hepatitis-C, alcohol abuse, liver cirrhosis, ascites -receives frequent therapeutic paracentesis, history of liver mass, inguinal hernia; GERD, asthma, anemia; presented to the hospital with a chief complaint of dizziness.? His son was with him when I saw him. Apparently he was complaining of being dizzy and unsteady and shaky. There was no complaint of pain. Review of Systems Review of Systems: No recent cold or flu-like illness or trauma. [facility] Past Medical History Medical History (Updated 11/04/21 @ 14:28 by Tali Judd MD) Allergic rhinitis Anemia Asthma Cirrhosis Constipation GERD (gastroesophageal reflux disease) Hepatitis C History of alcohol abuse History of kidney stones HTN (hypertension) Hypothyroid Left inguinal hernia Liver mass Family History Family History Other No known health problems Surgical History Surgical History History of esophagogastroduodenoscopy (EGD) Hx of colonoscopy No history of previous surgery Social History Social History Alcohol intake: former Patient Tobacco Use Status: Never used Tobacco Substance Use Type: Marijuana Advance Directives: Yes Advance Directives on File: Yes Advance Directives Date on File: 11/04/21 service: No Current occupational status: unemployed Meds Allergies Allergy/AdvReac Type Severity Reaction Status Date / Time No Known Allergies Allergy Verified 11/03/21 17:29 [No Known Allergies*] Active Medications: Current Medications Acetaminophen (Acetaminophen 325 Mg Tablet) 650 mg PO Q6H PRN PRN Reason: Pain, Mild (Pain Scale 1-3) Albuterol Sulfate (Albuterol Sulfate 90 Mcg 8 Gm Inhaler) 2 puff INHALE Q6H PRN PRN Reason: Wheezing Enoxaparin Sodium (Enoxaparin Sodium 40 Mg/0.4 Ml Syringe) 40 mg SUBCUT Q24H [facility] Last Admin: 11/04/21 08:35 Dose: Not Given Documented by: Sodium Chloride (Ns) 1,000 mls @ 80 mls/hr IVCONT .[id number] [facility] Lactulose (Lactulose 20 Gm/30 Ml Solution) 30 gm PO TID [facility] Last Admin: 11/04/21 12:32 Dose: 30 gm Documented by: Levothyroxine Sodium (Levothyroxine Sodium 200 Mcg Tablet) 200 mcg PO DAILY@0600 [facility] Last Admin: 11/04/21 08:34 Dose: 200 mcg Documented by: Melatonin (Melatonin 3 Mg Tablet) 6 mg PO BEDTIME PRN PRN Reason: Insomnia Omeprazole (Omeprazole 20 Mg Capsule.Dr) 20 mg PO DAILY@0630 [facility] Last Admin: 11/04/21 08:33 Dose: 20 mg Documented by: Pharmacy Consult (Consult Rx Perform Med Rec) 1 each MISCELLANE ONCE PRN PRN Reason: Consult order Propranolol HCl (Propranolol Hcl La 60 Mg Cap.Sa.24h) 60 mg PO BEDTIME [facility]; P rotocol Rifaximin (Rifaximin 550 Mg Tablet) 550 mg PO BID [facility] Senna (Sennosides 8.6 Mg Tablet) 17.2 mg PO BEDTIME PRN PRN Reason: Constipation Sodium Chloride (0.9 % Sodium Chloride Flush 3 Ml Syringe) 3 ml IVFLUSH QSHIFT [facility] Last Admin: 11/04/21 08:36 Dose: Not Given Documented by: Home Medications Medication Instructions Recorded Confirmed Last Taken Type albuterol sulfate 90 mcg/actuation 2 puff INHALATION Q6H PRN 09/22/20 11/03/21 Unknown History aerosol inhaler (ProAir HFA) levothyroxine 200 mcg capsule 200 mcg PO DAILY 09/22/20 11/03/21 11/03/21 History lisinopril 10 mg tablet 10 mg PO DAILY 09/22/20 11/03/21 11/03/21 History omeprazole 20 mg capsule,delayed 20 mg PO QAM cap 09/22/20 11/03/21 11/03/21 History release ivermectin 3 mg tablet See Rx Instructions .ROUTE .COMPLEX 11/03/21 11/03/21 Unknown History propranolol 60 mg capsule,24 1 cap PO BEDTIME 11/03/21 11/03/21 11/02/21 History hr,extended release spironolactone 50 mg tablet 100 mg PO DAILY 11/03/21 11/03/2111/03/22 History (Aldactone) Physical Exam Vital Signs: Vital Signs: Last Vital Signs Temp 97.1 F 11/04/21 13:12 Pulse 59 11/04/21 13:12 Resp 18 11/04/21 13:12 BP 109/74 11/04/21 13:12 Pulse Ox 98 11/04/21 13:12 BMI result Body Mass Index 30.3 Neuro: Other: Drowsy but able to make a conversation follow commands and answer simple questions. He has moderate asterisks in both hands. Deep tendon reflexes are absent. Belly is quite prominent. Face is symmetrical. There is no nystagmus. Visual south are full. Speech is okay. Results Labs CBC & Chem 7: 11/04/21 05:30 11/04/21 05:30 Labs: Short CBC 11/03/21 11/04/21 Range/Units 18:04 05:30 WBC 10.7 8.1 (4.8-10.8) X10*3/uL Hgb 12.5 L 12.3 L (14.0-18.0) g/dl Hct 34.9 L 35.3 L (42.0-52.0) % Plt Count 191 142 L D (160-400) X10*3/uL BMP 11/03/21 11/04/21 18:04 05:30 Sodium 123 L 123 L Potassium 5.0 D 5.6 H Chloride 93 L 100 Carbon Dioxide 26 18 L BUN 38 H D 33 H Creatinine 1.83 H 1.26 Calcium 8.4 8.0 L Liver Function 11/03/21 Range/Units 18:04 Total Bilirubin 0.9 (0.0-1.0) mg/dL Direct Bilirubin 0.4 (0.0-0.5) mg/dL AST 55 H (5-37) U/L ALT 34 (0-40) U/L Alkaline Phosphatase 143 H (39-117) U/L Albumin 2.4 L (3.5-5.0) g/dL Urine 11/03/21 Range/Units 20:40 Urine Color YELLOW Urine Appearance CLEAR Urine pH 6.0 (5.0-8.0) Ur Specific [place] 1.020 (1.005-1.025) Urine Protein NEG (NEG-TRACE) MG/DL Urine Glucose (UA) NEG (NEG) MG/DL Noncontrast MRI revealed mild microvascular ischemic changes but no acute lesion. Assessment and Plan (1) Encephalopathy: Status: Acute Multifactorial metabolic toxic encephalopathy resulting from liver failure and hyponatremia. There was no indication of any focal lesion and overall history was not suggestive of seizure disorder. Mainstay of management is adjustment of metabolic numbers and treatment of liver disease. Procedures Date of Service Date of Service: 11/04/21
--- NOTE | 2021-11-04 15:09 | PC.NURSE ---
Pt Alert, oriented x4 at this time. No complaints of pain. LCA, warm and well perfused at this time, SB on the monitor in the 50's, c/o dizziness and lightheadedness with sitting up and ambulation. Pt medicated as per MAR orders, PO intake with no N/V at this time. Abd is large, round and distended at this time, plan for paracentisis tomorrow AM. Son at bedside, all questions answered at this time. Call conway within reach, will continue to monitor.
[2021-11-04 15:52] LABS: Anion Gap 8 (12-20); Blood Urea Nitrogen 31 mg/dL (9-16); Calcium 8.5 mg/dL (8.4-10.2); Carbon Dioxide 25 mmol/L (22-29); Chloride 98 mmol/L (96-108); Creatinine Clr Calc Pharmacy 63.7; Estimated Glomerular Filt Rate 53; Glucose Random 137 mg/dL (60-115); Potassium 5.1 mmol/L (3.3-5.1); Sodium 126 mmol/L (135-145)
[2021-11-04] MEDS: 0.9 % Sodium Chloride 1,000 ML 80 ML IVCONT (16:37)
[2021-11-04] MEDS: 0.9 % Sodium Chloride Flush 3 ML SYRINGE IVFLUSH ×2 (17:14→20:42)
[2021-11-04 17:15] VITALS: BP 104/62; PULSE 61; RESP 18; TEMP 36.6; O2SAT 100
[2021-11-04 17:19] LABS: Glucose, Whole Blood 135 mg/dL (60-115)
[2021-11-04 19:04] VITALS: BP 122/80; PULSE 61; RESP 18; TEMP 37.2; O2SAT 99
[2021-11-04 19:20] LABS: Sodium 127 mmol/L (135-145)
--- NOTE | 2021-11-04 19:42 | PC.NURSE ---
Pt came to floor from ED overflow at 4:50pm
[2021-11-04] MEDS: rifAXIMin 550 MG TABLET PO (20:41)
[2021-11-04] MEDS: Propranolol HCL LA 60 MG CAP.SA.24H PO (20:41)
[2021-11-05] VITALS (8 sets, daily range): BP systolic 97–118; BP diastolic 54–80; PULSE 53–64; RESP 16–20; TEMP 36.2–37.1; O2SAT 96–100; BMI 30.3
[2021-11-05] MEDS: Levothyroxine Sodium 200 MCG TABLET PO (04:17)
[2021-11-05] MEDS: 0.9 % Sodium Chloride 1,000 ML 80 ML IVCONT ×2 (04:17→15:33)
[2021-11-05] MEDS: Omeprazole 20 MG CAPSULE.DR PO (04:17)
[2021-11-05 06:48] LABS: Hematocrit 34.3 % (42.0-52.0); Hemoglobin 11.7 g/dl (14.0-18.0); Mean Corpuscular HGB Conc 34.1 g/dl (31.0-36.0); Mean Corpuscular Hemoglobin 31.9 pg (27.0-33.0); Mean Corpuscular Volume 93.5 fL (80.0-98.0); Mean Platelet Volume 10.3 fL (9.4-12.4); Platelet Count 162 X10*3/uL (160-400); Red Blood Count 3.67 X10*6/uL (4.60-5.80); Red Cell Distribution Width 14.6 % (11.0-16.0); White Blood Count 10.7 X10*3/uL (4.8-10.8)
[2021-11-05 06:51] LABS: Prothrombin Time 11.4 SEC (9.9-13.0)
[2021-11-05 07:19] LABS: Anion Gap 9 (12-20); Blood Urea Nitrogen 27 mg/dL (9-16); Calcium 8.4 mg/dL (8.4-10.2); Carbon Dioxide 21 mmol/L (22-29); Chloride 100 mmol/L (96-108); Creatinine Clr Calc Pharmacy 84.2; Estimated Glomerular Filt Rate > 60; Glucose Random 89 mg/dL (60-115); Potassium 4.7 mmol/L (3.3-5.1); Sodium 125 mmol/L (135-145)
[2021-11-05] MEDS: Lactulose 20 GM/30 ML SOLUTION 30 GM PO ×3 (08:06→20:49)
[2021-11-05] MEDS: rifAXIMin 550 MG TABLET PO ×2 (08:06→20:50)
[2021-11-05 10:48] LABS: Ammonia 93 umol/L (13-55)
--- NOTE | 2021-11-05 11:16 | MHC.CM.PN ---
Per ROUNDS discussion, Patient's Na is low and he is getting a paracentesis today. Home is the goal for dc and CM will follow for possible need to adjust the dc plan.
[2021-11-05 11:26] LABS: Thyroid Stimulating Hormone 11.11 uIU/mL (0.32-4.0)
--- NOTE | 2021-11-05 11:54 | PM.PNNEP ---
Subjective Subjective Date of Service: 12/27/21 Interval history: No dizziness Somewhat consufed Physical Exam Vital Signs: Vital Signs: Last Vital Signs Temp 97.6 F 11/05/21 07:55 Pulse 58 11/05/21 07:55 Resp 18 11/05/21 07:55 BP 118/78 11/05/21 07:55 Pulse Ox 97 11/05/21 07:55 BMI result Body Mass Index 30.3 Const: General: no acute distress and ill appearing Nutritional Appearance: obese Orientation/consciousness: patient oriented x3 Limitations: no limitations HENMT: Head: Yes normal to inspection Ears: hearing grossly normal bilaterally Mouth: Normal oral and palatal mucosa present Eyes: Sclerae: sclerae normal Pupils: Equal, round and reactive pupils present Neck: Neck: Yes normal visual inspection Chest: Chest palpation & inspection: normal inspection of the chest Resp: Effort & Inspection: normal respiratory effort Auscultation: clear to auscultation bilaterally Cardio: Palpation: normal PMI Rate: regular rate Rhythm: regular rhythm Heart sounds: S1 normal heart sound present, S2 normal heart sound present and no murmurs GI: Inspection: Yes distended Palpation (GI): Soft to palpation, nontender and No hepatosplenomegaly present Auscultation: normal bowel sounds Rectal Exam - Male: Yes deferred Skin: General skin exam: no rashes or lesions noted and spider nevi (On anterior chest) Neuro: Other: Drowsy but able to make a conversation follow commands and answer simple questions. He has moderate asterisks in both hands. Deep tendon reflexes are absent. Belly is quite prominent. Face is symmetrical. There is no nystagmus. Visual south are full. Speech is okay. General: patient oriented x3, gait normal and moves all extremities Cranial nerves: Yes Equal, round and reactive pupils present Extrem: General: Yes other (bilateral asterixis and Dupytren's contractures) Psych: Appearance: grossly normal Mental Status: mental status grossly normal Objective Data Labs CBC & Chem 7: 11/05/21 06:20 11/07/21 06:33 Labs: Laboratory Results - last 24 hr 11/04/21 11/04/21 11/04/21 14:42 17:13 18:58 WBC RBC Hgb Hct MCV MCH MCHC RDW Plt Count MPV Absolute Nucleated RBC Nucleated RBC % (auto) PT INR Sodium 126 L 127 L Potassium 5.1 Chloride 98 Carbon Dioxide 25 Anion Gap 8 L BUN 31 H Creatinine 1.36 Estim Creat Clear Calc 63.7 Estimated GFR 53 POC Glucose 135 H Random Glucose 137 H D Calcium 8.5 D Ammonia TSH 11/05/21 11/05/21 11/05/21 06:20 06:20 06:20 WBC 10.7 RBC 3.67 L Hgb 11.7 L Hct 34.3 L MCV 93.5 MCH 31.9 MCHC 34.1 RDW 14.6 Plt Count 162 MPV 10.3 Absolute Nucleated RBC 0.000 Nucleated RBC % (auto) 0.0 PT 11.4 INR 1.0 Sodium 125 L Potassium 4.7 Chloride 100 Carbon Dioxide 21 L Anion Gap 9 L BUN 27 H Creatinine 1.03 Estim Creat Clear Calc 84.2 Estimated GFR > 60 POC Glucose Random Glucose 89 D Calcium 8.4 Ammonia TSH 11/05/21 11/05/21 10:21 10:21 WBC RBC Hgb Hct MCV MCH MCHC RDW Plt Count MPV Absolute Nucleated RBC Nucleated RBC % (auto) PT INR Sodium Potassium Chloride Carbon Dioxide Anion Gap BUN Creatinine Estim Creat Clear Calc Estimated GFR POC Glucose Random Glucose Calcium Ammonia 93 H TSH 11.11 H Procedures Date of Service Date of Service: 11/05/21 Assessment & Plan Assessment and plan (1) Hepatitis C: (2) Cirrhosis: Status: Acute (3) Anemia: (4) H/O ETOH abuse: (5) Encephalopathy: Status: Resolved Plan Hyponatrmeia in a setting of cirrhosis Keep PO water restriction Goal pNa < 130 Regular diet Await paracenthesis Time Spent With Patient Time: Total time spent is greater than 50% in coordination of care (as documented) at patient's floor/unit and/or counseling patient: Time with patient: 15 - 24 minutes Progress Note: Quality Stroke Does the patient have a stroke diagnosis?: No
--- NOTE | 2021-11-05 13:24 | P.PNIM_ITS ---
Subjective Subjective Date of Service: 11/05/21 Interval History: Awake alert , complaining of abdominal distension and discomfort, slow to respond, less confuse since yesterday,persistent hyponatremia sodium 125. Review of Systems Review of Systems: Yes all other systems are reviewed and are negative Physical Exam Vital Signs: Vital Signs: Last Vital Signs Temp 97.1 F 11/05/21 12:00 Pulse 55 11/05/21 12:00 Resp 20 11/05/21 12:00 BP 104/65 11/05/21 12:00 Pulse Ox 99 11/05/21 12:00 BMI result Body Mass Index 30.3 Const: Other: Gen: Awake alert, no acute distress, slow to respond HEENT: sclera anicteric, moist mucus membranes Neck: supple, no JVD Lungs: clear to auscultation bilaterally Heart: regular rate and rhythm, no murmurs Abd: distended, non-tender, bowel sounds audible Ext: no edema Skin: warm/well-perfused Neuro: alert, asterixis present Psych: appropriate affect Objective Data Active Medications Acetaminophen (Acetaminophen 325 Mg Tablet) 650 mg PO Q6H PRN PRN Reason: Pain, Mild (Pain Scale 1-3) Albuterol Sulfate (Albuterol Sulfate 90 Mcg 8 Gm Inhaler) 2 puff INHALE Q6H PRN PRN Reason: Wheezing Enoxaparin Sodium (Enoxaparin Sodium 40 Mg/0.4 Ml Syringe) 40 mg SUBCUT Q24H [facility] Last Admin: 11/04/21 08:35 Dose: Not Given Documented by: NATHALY Non-Admin Reason: IV Running Sodium Chloride (Ns) 1,000 mls @ 80 mls/hr IVCONT .[id number] [facility] Last Admin: 11/05/21 04:17 Dose: 80 mls/hr Documented by: TOBIN Lactulose (Lactulose 20 Gm/30 Ml Solution) 30 gm PO TID [facility] Last Admin: 11/05/21 08:06 Dose: 30 gm Documented by: FRANK Levothyroxine Sodium (Levothyroxine Sodium 200 Mcg Tablet) 200 mcg PO DAILY@0600 [facility] Last Admin: 11/05/21 04:17 Dose: 200 mcg Documented by: TOBIN Melatonin (Melatonin 3 Mg Tablet) 6 mg PO BEDTIME PRN PRN Reason: Insomnia Omeprazole (Omeprazole 20 Mg Capsule.) 20 mg PO DAILY@0630 [facility] Last Admin: 11/05/21 04:17 Dose: 20 mg Documented by: TOBIN Pharmacy Consult (Consult Rx Perform Med Rec) 1 each MISCELLANE ONCE PRN PRN Reason: Consult order Propranolol HCl (Propranolol Hcl La 60 Mg Cap.Sa.24h) 60 mg PO BEDTIME [facility]; Protocol Last Admin: 11/04/21 20:41 Dose: 60 mg Documented by: TOBIN Rifaximin (Rifaximin 550 Mg Tablet) 550 mg PO BID [facility] Last Admin: 11/05/21 08:06 Dose: 550 mg Documented by: FRANK Senna (Sennosides 8.6 Mg Tablet) 17.2 mg PO BEDTIME PRN PRN Reason: Constipation Sodium Chloride (0.9 % Sodium Chloride Flush 3 Ml Syringe) 3 ml IVFLUSH QSHIFT [facility] Last Admin: 11/05/21 08:10 Dose: Not Given Documented by: FRANK Non-Admin Reason: IV Running Labs CBC & Chem 7: 11/05/21 06:20 11/05/21 06:20 Labs: Laboratory Results - last 24 hr 11/04/21 11/04/21 11/05/21 14:42 17:13 06:20 MCV 93.5 MCH 31.9 MCHC 34.1 RDW 14.6 Plt Count 162 MPV 10.3 Absolute Nucleated RBC 0.000 Nucleated RBC % (auto) 0.0 PT INR Anion Gap 8 L Estim Creat Clear Calc 63.7 Estimated GFR 53 POC Glucose 135 H Random Glucose 137 H D Calcium 8.5 D Ammonia TSH 11/05/21 11/05/21 11/05/21 06:20 06:20 10:21 MCV MCH MCHC RDW Plt Count MPV Absolute Nucleated RBC Nucleated RBC % (auto) PT 11.4 INR 1.0 Anion Gap 9 L Estim Creat Clear Calc 84.2 Estimated GFR > 60 POC Glucose Random Glucose 89 D Calcium 8.4 Ammonia 93 H TSH 11/05/21 10:21 MCV MCH MCHC RDW Plt Count MPV Absolute Nucleated RBC Nucleated RBC % (auto) PT INR Anion Gap Estim Creat Clear Calc Estimated GFR POC Glucose Random Glucose Calcium Ammonia TSH 11.11 H Assessment and Plan (1) Acute hyponatremia: Status: Acute Plan hospital d#3 66yo M with cirrhosis, HTN, hypothyroidism presenting with dizziness, N/V,admitted for acute hyponatremia # acute hepatic encephaloapthy - less confused this morning, having 2 bowel movements ammonia 93, continue lactulose + rifaximin, follow ammonia level, no infection or GI bleed noted MRI brain showed mild underlying microangiopathy and generalized cerebral volume loss, # hyponatremia Dizziness resolved, hyponatremia due to cirrhosis/diuretic, will place on fluid restriction 1200 mL per day, DC low-sodium diet follow electrolytes case d iscussed with Nephrology goal of sodium 130 # LEVI - renal function normalized was likely pre renal # hyperkalemia - resolved was likely due to spironolactone + lisinopril # ascites - paracentesis is scheduled for today, gets paracentesis on Fridays On Lasix 40 mg and spironolactone 100 mg by mouth daily, will discuss medication dosages with Nephrology to avoid recurrent hyperkalemia and hypo natremia. 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 # bradycardia related to propranolol patient asymptomatic, continue to follow # scrotal swelling, scrotal ultrasound showed small bilateral testicular calcifications suggestive of microlithiasis and large bilateral hydroceles, no urological intervention needed # VTE ppx - LMWH Patient qualifies for inpatient hospitalization due to persistent hepatic encephalopathy, and hyponatremia will need medication adjustment and close follow-up on labs and clinical status Quality Stroke Does the patient have a stroke diagnosis?: No VTE Prior VTE?: No VTE Risk Level:: Medical - moderate - high VTE Device Contraindication: Treatment Not Indicated VTE Drug Contraindication: N/A - Med Ordered
[2021-11-05] MEDS: Lidocaine HCl 1 % MPF 5 ML VIAL SUBCUT (15:24)
[2021-11-05] MEDS: 0.9 % Sodium Chloride Flush 3 ML SYRINGE IVFLUSH ×2 (15:32→20:50)
[2021-11-05] MEDS: Propranolol HCL LA 60 MG CAP.SA.24H PO (20:50)
[2021-11-06 03:41] VITALS: BP 102/51; PULSE 63; RESP 16; TEMP 36.9; O2SAT 98
[2021-11-06] MEDS: Levothyroxine Sodium 200 MCG TABLET PO (05:45)
[2021-11-06] MEDS: Omeprazole 20 MG CAPSULE.DR PO (05:45)
[2021-11-06] MEDS: 0.9 % Sodium Chloride 1,000 ML 80 ML IVCONT (05:46)
[2021-11-06 06:27] LABS: Albumin Peritoneal Fluid 0.5
[2021-11-06 06:43] LABS: Anion Gap 8 (12-20); Blood Urea Nitrogen 19 mg/dL (9-16); Calcium 8.9 mg/dL (8.4-10.2); Carbon Dioxide 27 mmol/L (22-29); Chloride 101 mmol/L (96-108); Creatinine Clr Calc Pharmacy 89.4; Estimated Glomerular Filt Rate > 60; Glucose Random 94 mg/dL (60-115); Potassium 5.4 mmol/L (3.3-5.1); Sodium 131 mmol/L (135-145)
[2021-11-06 06:46] LABS: Ammonia 56 umol/L (13-55)
[2021-11-06 07:47] VITALS: BP 111/70; PULSE 60; RESP 18; TEMP 36.6; O2SAT 100
[2021-11-06] MEDS: rifAXIMin 550 MG TABLET PO ×2 (09:13→19:54)
[2021-11-06] MEDS: Lactulose 20 GM/30 ML SOLUTION 30 GM PO ×3 (09:13→19:54)
--- NOTE | 2021-11-06 10:05 | PM.PNNEP ---
Subjective Subjective Date of Service: 12/27/21 Interval history: Events noted Awake Family at bedisde Physical Exam Vital Signs: Vital Signs: Last Vital Signs Temp 97.8 F 11/06/21 07:47 Pulse 60 11/06/21 07:47 Resp 18 11/06/21 07:47 BP 111/70 11/06/21 07:47 Pulse Ox 100 11/06/21 07:47 BMI result Body Mass Index 30.3 Const: General: no acute distress and ill appearing Nutritional Appearance: obese Orientation/consciousness: patient oriented x3 Limitations: no limitations HENMT: Head: Yes normal to inspection Ears: hearing grossly normal bilaterally Mouth: Normal oral and palatal mucosa present Eyes: Sclerae: sclerae normal Pupils: Equal, round and reactive pupils present Neck: Neck: Yes normal visual inspection Chest: Chest palpation & inspection: normal inspection of the chest Resp: Effort & Inspection: normal respiratory effort Auscultation: clear to auscultation bilaterally Cardio: Palpation: normal PMI Rate: regular rate Rhythm: regular rhythm Heart sounds: S1 normal heart sound present, S2 normal heart sound present and no murmurs GI: Inspection: Yes distended Palpation (GI): Soft to palpation, nontender and No hepatosplenomegaly present Auscultation: normal bowel sounds Rectal Exam - Male: Yes deferred Skin: General skin exam: no rashes or lesions noted and spider nevi (On anterior chest) Neuro: Other: Drowsy but able to make a conversation follow commands and answer simple questions. He has moderate asterisks in both hands. Deep tendon reflexes are absent. Belly is quite prominent. Face is symmetrical. There is no nystagmus. Visual south are full. Speech is okay. General: patient oriented x3, gait normal and moves all extremities Cranial nerves: Yes Equal, round and reactive pupils present Extrem: General: Yes other (bilateral asterixis and Dupytren's contractures) Psych: Appearance: grossly normal Mental Status: mental status grossly normal Objective Data Labs CBC & Chem 7: 11/05/21 06:20 11/07/21 06:33 Labs: Laboratory Results - last 24 hr 11/05/21 11/05/21 11/05/21 10:21 10:21 14:25 Sodium Potassium Chloride Carbon Dioxide Anion Gap BUN Creatinine Estim Creat Clear Calc Estimated GFR Random Glucose Calcium Ammonia 93 H TSH 11.11 H Peritoneal Albumin 0.5 11/06/21 11/06/21 05:59 06:33 Sodium 131 L Potassium 5.4 H Chloride 101 Carbon Dioxide 27 Anion Gap 8 L BUN 19 H Creatinine 0.97 Estim Creat Clear Calc 89.4 Estimated GFR > 60 Random Glucose 94 Calcium 8.9 Ammonia 56 H TSH Peritoneal Albumin Microbiology Microbiology Results: Microbiology 11/05/21 14:25 Ascites Fluid Gram Stain - Final Procedures Date of Service Date of Service: 11/06/21 Assessment & Plan Assessment and plan (1) Hepatitis C: (2) Cirrhosis: Status: Acute (3) Anemia: (4) H/O ETOH abuse: (5) Encephalopathy: Status: Resolved Plan Hyponatremia in a setting of cirrhosis Keep PO water restriction of 1.2 L per 24 hrs Goal pNa < 130 Regular diet Rate of correction acceptable Back on Lasix and Spironolactone at 50 mg. No need for Lisinopril Time Spent With Patient Time: Total time spent is greater than 50% in coordination of care (as documented) at patient's floor/unit and/or counseling patient: Time with patient: 15 - 24 minutes Progress Note: Quality Stroke Does the patient have a stroke diagnosis?: No
--- NOTE | 2021-11-06 10:24 | P.PNIM_ITS ---
Subjective Subjective Date of Service: 11/06/21 Interval History: Patient awake alert, son at bedside assisted in history providing, patient recently underwent surgery at [facility] for removal of liver mass, has a follow-up appointment on 09 November with hepatology, at present patient denies abdominal pain complaining of generalized weakness denies nausea vomiting or dizziness. Review of Systems Review of Systems: Yes all other systems are reviewed and are negative Physical Exam Vital Signs: Vital Signs: Last Vital Signs Temp 97.8 F 11/06/21 07:47 Pulse 60 11/06/21 07:47 Resp 18 11/06/21 07:47 BP 111/70 11/06/21 07:47 Pulse Ox 100 11/06/21 07:47 BMI result Body Mass Index 30.3 Const: Other: Gen:? Awake alert, no acute distress HEENT: sclera anicteric, moist mucus membranes Neck: supple, no JVD Lungs: clear to auscultation bilaterally Heart: regular rate and rhythm, no murmurs Abd: distended, non-tender, bowel sounds audible Ext: no edema Skin: warm/well-perfused Neuro: Awake, alert x3, no asterixis Psych: appropriate affect Objective Data Active Medications Acetaminophen (Acetaminophen 325 Mg Tablet) 650 mg PO Q6H PRN PRN Reason: Pain, Mild (Pain Scale 1-3) Albuterol Sulfate (Albuterol Sulfate 90 Mcg 8 Gm Inhaler) 2 puff INHALE Q6H PRN PRN Reason: Wheezing Enoxaparin Sodium (Enoxaparin Sodium 40 Mg/0.4 Ml Syringe) 40 mg SUBCUT Q24H [facility] Last Admin: 11/04/21 08:35 Dose: Not Given Documented by: NATHALY Non-Admin Reason: IV Running Sodium Chloride (Ns) 1,000 mls @ 80 mls/hr IVCONT .[id number] [facility] Last Admin: 11/06/21 05:46 Dose: 80 mls/hr Documented by: TIFF Lactulose (Lactulose 20 Gm/30 Ml Solution) 30 gm PO TID [facility] Last Admin: 11/06/21 09:13 Dose: 30 gm Documented by: VALENTINE Levothyroxine Sodium (Levothyroxine Sodium 200 Mcg Tablet) 200 mcg PO DAILY@0600 [facility] Last Admin: 11/06/21 05:45 Dose: 200 mcg Documented by: TIFF Melatonin (Melatonin 3 Mg Tablet) 6 mg PO BEDTIME PRN PRN Reason: Insomnia Omeprazole (Omeprazole 20 Mg Capsule.) 20 mg PO DAILY@0630 [facility] Last Admin: 11/06/21 05:45 Dose: 20 mg Documented by: TIFF Pharmacy Consult (Consult Rx Perform Med Rec) 1 each MISCELLANE ONCE PRN PRN Reason: Consult order Propranolol HCl (Propranolol Hcl La 60 Mg Cap.Sa.24h) 60 mg PO BEDTIME [facility]; Protocol Last Admin: 11/05/21 20:50 Dose: 60 mg Documented by: TIFF Rifaximin (Rifaximin 550 Mg Tablet) 550 mg PO BID [facility] Last Admin: 11/06/21 09:13 Dose: 550 mg Documented by: VALENTINE Senna (Sennosides 8.6 Mg Tablet) 17.2 mg PO BEDTIME PRN PRN Reason: Constipation Sodium Chloride (0.9 % Sodium Chloride Flush 3 Ml Syringe) 3 ml IVFLUSH QSHIFT [facility] Last Admin: 11/06/21 09:15 Dose: Not Given Documented by: VALENTINE Non-Admin Reason: IV Running Labs CBC & Chem 7: 11/05/21 06:20 11/06/21 05:59 Labs: Laboratory Results - last 24 hr 11/05/21 11/05/21 11/05/21 10:21 10:21 14:25 Anion Gap Estim Creat Clear Calc Estimated GFR Random Glucose Calcium Ammonia 93 H TSH 11.11 H Peritoneal Albumin 0.5 11/06/21 11/06/21 05:59 06:33 Anion Gap 8 L Estim Creat Clear Calc 89.4 Estimated GFR > 60 Random Glucose 94 Calcium 8.9 Ammonia 56 H TSH Peritoneal Albumin Microbiology Microbiology Results: Microbiology 11/05/21 14:25 Gram Stain - Final Ascites Fluid Assessment and Plan (1) Acute hyponatremia: Status: Acute Plan hospital d#3 66yo M with cirrhosis, HTN, hypothyroidism presenting with dizziness, N/V,admitted for acute hyponatremia # acute hepatic encephaloapthy - resolved, ammonia improved from 93 to 56, will continue lactulose + rifaximin, patient does not take lactulose at home, no precipitating factor of infection or GI bleed noted MRI brain showed mild underlying microangiopathy and generalized cerebral volume loss, Recommend ambulation and close follow-up at [facility] # hyponatremia Sodium improved to 131, Dizziness resolved, persistent weakness, hyponatremia due to cirrhosis/diuretic, continue fluid restriction 1200 mL per day, DC IV fluid case discussed with Nephrology # LEVI - renal function normalized was likely pre renal # hyperkalemia - recurrent mild hyperkalemia likely due to use of spironolactone + lisinopril, will DC lisinopril and resume spironolactone # ascites - status post paracentesis on November 05, 8.5 L of clear yellow fluid was removed, gets paracentesis on Fridays On Lasix 40 mg and spironolactone 100 mg by mouth daily, currently on hold will resume both medications today and follow electrolytes at a.m. 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 if remains stable discharged in next 24 hours Quality Stroke Does the patient have a stroke diagnosis?: No VTE Prior VTE?: No VTE Risk Level:: Medical - moderate - high VTE Device Contraindication: Treatment Not Indicated VTE Drug Contraindication: N/A - Med Ordered
[2021-11-06 11:46] VITALS: BP 98/63; PULSE 65; RESP 20; TEMP 36.4; O2SAT 100
[2021-11-06] MEDS: Furosemide 40 MG TABLET PO (13:07)
[2021-11-06] MEDS: Albumin Human 25 % 100 ML IV ×2 (13:08→14:55)
[2021-11-06 15:07] VITALS: BP 97/55; PULSE 66; RESP 16; TEMP 36.6; O2SAT 100
[2021-11-06 19:34] VITALS: BP 126/66; PULSE 71; RESP 18; TEMP 36.1; O2SAT 100
[2021-11-06] MEDS: Propranolol HCL LA 60 MG CAP.SA.24H PO (19:54)
[2021-11-06] MEDS: 0.9 % Sodium Chloride Flush 3 ML SYRINGE IVFLUSH (19:54)
[2021-11-06] MEDS: Enoxaparin Sodium 40 MG/0.4 ML SYRINGE SUBCUT (19:54)
[2021-11-06 23:46] VITALS: BP 115/69; PULSE 69; RESP 18; TEMP 37.7; O2SAT 98
[2021-11-07 03:19] VITALS: BP 102/59; PULSE 71; RESP 18; TEMP 37.5; O2SAT 97
[2021-11-07] MEDS: Omeprazole 20 MG CAPSULE.DR PO (05:00)
[2021-11-07] MEDS: Levothyroxine Sodium 200 MCG TABLET PO (05:00)
[2021-11-07 07:13] LABS: Anion Gap 11 (12-20); Blood Urea Nitrogen 19 mg/dL (9-16); Calcium 8.7 mg/dL (8.4-10.2); Carbon Dioxide 22 mmol/L (22-29); Chloride 100 mmol/L (96-108); Creatinine Clr Calc Pharmacy 88.5; Estimated Glomerular Filt Rate > 60; Glucose Random 93 mg/dL (60-115); Potassium 4.3 mmol/L (3.3-5.1); Sodium 129 mmol/L (135-145)
[2021-11-07 08:00] VITALS: BP 124/66; PULSE 66; RESP 16; TEMP 36.9; O2SAT 99
[2021-11-07] MEDS: Furosemide 40 MG TABLET PO (08:29)
[2021-11-07] MEDS: Spironolactone 25 MG TABLET 50 MG PO (08:29)
[2021-11-07] MEDS: rifAXIMin 550 MG TABLET PO (08:30)
[2021-11-07] MEDS: Lactulose 20 GM/30 ML SOLUTION 30 GM PO (08:30)
[2021-11-07] MEDS: 0.9 % Sodium Chloride Flush 3 ML SYRINGE IVFLUSH (08:31)
--- NOTE | 2021-11-07 10:10 | PM.PNNEP ---
Subjective Subjective Date of Service: 12/27/21 Interval history: Events noted no new complaints Physical Exam Vital Signs: Vital Signs: Last Vital Signs Temp 98.5 F 11/07/21 08:00 Pulse 66 11/07/21 08:00 Resp 16 11/07/21 08:00 BP 124/66 11/07/21 08:00 Pulse Ox 99 11/07/21 08:00 BMI result Body Mass Index 30.3 Const: General: no acute distress and ill appearing Nutritional Appearance: obese Orientation/consciousness: patient oriented x3 Limitations: no limitations HENMT: Head: Yes normal to inspection Ears: hearing grossly normal bilaterally Mouth: Normal oral and palatal mucosa present Eyes: Sclerae: sclerae normal Pupils: Equal, round and reactive pupils present Neck: Neck: Yes normal visual inspection Chest: Chest palpation & inspection: normal inspection of the chest Resp: Effort & Inspection: normal respiratory effort Auscultation: clear to auscultation bilaterally Cardio: Palpation: normal PMI Rate: regular rate Rhythm: regular rhythm Heart sounds: S1 normal heart sound present, S2 normal heart sound present and no murmurs GI: Inspection: Yes distended Palpation (GI): Soft to palpation, nontender and No hepatosplenomegaly present Auscultation: normal bowel sounds Rectal Exam - Male: Yes deferred Skin: General skin exam: no rashes or lesions noted and spider nevi (On anterior chest) Neuro: Other: Drowsy but able to make a conversation follow commands and answer simple questions. He has moderate asterisks in both hands. Deep tendon reflexes are absent. Belly is quite prominent. Face is symmetrical. There is no nystagmus. Visual south are full. Speech is okay. General: patient oriented x3, gait normal and moves all extremities Cranial nerves: Yes Equal, round and reactive pupils present Extrem: General: Yes other (bilateral asterixis and Dupytren's contractures) Psych: Appearance: grossly normal Mental Status: mental status grossly normal Objective Data Labs CBC & Chem 7: 11/05/21 06:20 11/07/21 06:33 Labs: Laboratory Results - last 24 hr 11/07/21 06:33 Sodium 129 L Potassium 4.3 D Chloride 100 Carbon Dioxide 22 Anion Gap 11 L BUN 19 H Creatinine 0.98 Estim Creat Clear Calc 88.5 Estimated GFR > 60 Random Glucose 93 Calcium 8.7 Free T4 1.30 Microbiology Microbiology Results: Microbiology 11/05/21 14:25 Ascites Fluid Gram Stain - Final 11/05/21 14:25 Ascites Fluid Anaerobic Culture - Preliminary No growth to date. 11/05/21 14:25 Ascites Fluid Body Fluid Culture - Preliminary No growth to date. Procedures Date of Service Date of Service: 11/07/21 Assessment & Plan Assessment and plan (1) Hepatitis C: (2) Cirrhosis: Status: Acute (3) Anemia: (4) H/O ETOH abuse: (5) Encephalopathy: Status: Resolved Plan Hyponatremia in a setting of cirrhosis Keep PO water restriction Goal pNa < 130 Regular diet Rate of correction acceptable Time Spent With Patient Time: Total time spent is greater than 50% in coordination of care (as documented) at patient's floor/unit and/or counseling patient: Progress Note: Quality Stroke Does the patient have a stroke diagnosis?: No
--- NOTE | 2021-11-07 10:18 | PM.DS ---
DS: Providers Provider Date of Service: 11/07/21 Date of admission: 11/03/21 21:19 Primary care physician: [facility] Consults: 11/03/21 21:15 Consult to Gastroenterology Routine Consulting Provider: Anupam Malone Reason for consultation: Cirrhosis/ascites/scrotal swelling Consult to Nephrology Routine Consulting Provider: Seamus Navarro Reason for consultation: hyponatremia 11/03/21 21:54 Consult to Neurology Routine Consulting Provider: [facility] Reason for consultation: dizziness; chronic left ICU occlusion DS: Diagnosis Discharge Diagnosis (1) Hepatitis C: Status: Acute (2) Cirrhosis: Status: Acute (3) Anemia: Status: Acute (4) H/O ETOH abuse: Status: Acute (5) Encephalopathy: Status: Acute DS: Summary Hospital Course Hospital Course: Chief Complaint: Dizziness ?66-year-old male with a past medical history of hypertension, hyperlipidemia, hypothyroidism, history of hepatitis-C, alcohol abuse, liver cirrhosis, ascites -receives frequent therapeutic paracentesis, history of liver mass, inguinal hernia; GERD, asthma, anemia; presented to the hospital with a chief complaint of dizziness.? Patient reports that over the past few days he has been having nausea and vomiting.? This morning he felt dizzy; hence presented to the ER for further evaluation.? Patient is slightly drowsy at the time of my interview hence lead history is slightly limited.? Patient received Ativan in the ER for MRI brain contributing to his drowsiness.? Patient denies any fever chills cough.? Denies any urinary symptoms.? Denies any abdominal discomfort.? Denies any chest pain palpitations.? Mentions is dizziness improved currently.? Patient reports he gets frequent therapeutic paracentesis - last received on October 18.? ER course: Per ER team patient noted to have bradycardia on telemetry; CT head showed no acute findings; MRI brain was done which showed no acute findings.? Patient received Ativan x2 for MRI brain.? On labs noted to have hyponatremia to 123.? Patient was started on normal saline at 100 cc, Given concerns for possible dehydration. Hospital course 66yo M with cirrhosis, HTN, hypothyroidism presenting with dizziness, N/V,admitted for acute hyponatremia and acute hepatic encephalopathy. # acute hepatic encephaloapthy patient treated with lactulose and rifaximin, ammonia improved from 93-56 confusion resolved, patient was not taking lactulose at home therefore recommended to use lactulose twice daily and hold for more than 2 bowel movement per day, patient underwent extensive workup in the emergency room including an MRI brain that showed mild underlying microangiopathy and generalized cerebral volume loss otherwise showed no acute infarction, no breath sedating factor including infection or GI bleed was noted, since patient is back to baseline he is being discharged home with recommendation to Follow-up with gastroenterology at [facility] # hyponatremia likely related to cirrhosis sodium improved from 123 to 129 recommend to continue fluid restriction, dizziness resolved was likely due to hyponatremia. ?? # LEVI with hyperkalemia noted to have elevated creatinine 1.83 on admission improved to 0.98, Salvador inhibitors has been discontinued, potassium normalized. # cirrhosis of liver with recurrent ascites patient underwent paracentesis on November 05, 8.5 L of clear yellow fluid was removed, fluid g stain culture sensitivity showed no gets paracentesis on Fridays ? Recommend to continue Lasix 40 mg and spironolactone 100 mg by mouth daily with close follow-up of electrolytes. Continue propranolol for esophageal varices noted to have mild bradycardia while sleeping likely related to beta-blockers patient remained asymptomatic, patient also noted to have scrotal swelling and ultrasound showed small bilateral testicular calcifications suggestive of microlithiasis and large bilateral hydrocele likely related to ascites no urological intervention was required. # HTN continue propranolol and lisinopril discontinued due to hyperkalemia and borderline low blood pressures # hypothyroidism continue levothyroxine TSH mildly elevated 11.11 T4 within normal range # hx strongyloidosis continue ivermectin Time Spent with Patient Time attestation: Total time spent providing and/or coordinating discharge services: Discharge coordination time: Greater than 30 minutes Quality: Stroke Does the patient have a stroke diagnosis?: No Physical Exam Vital Signs: Vital Signs: Last Vital Signs Temp 98.5 F 11/07/21 08:00 Pulse 66 11/07/21 08:00 Resp 16 11/07/21 08:00 BP 124/66 11/07/21 08:00 Pulse Ox 99 11/07/21 08:00 BMI result Body Mass Index 30.3 Const: Other: Gen:? Awake alert, no acute distress HEENT: sclera anicteric, moist mucus membranes Neck: supple, no JVD Lungs: clear to auscultation bilaterally Heart: regular rate and rhythm, no murmurs Abd: distended, non-tender, bowel sounds audible Ext: no edema Skin: warm/well-perfused Neuro:? Awake, alert x3, no asterixis Psych: appropriate affect DS: Data Data Completed and Pending Labs on day of discharge: Laboratory Results - last 24 hr 11/07/21 06:33 Sodium 129 L Potassium 4.3 D Chloride 100 Carbon Dioxide 22 Anion Gap 11 L BUN 19 H Creatinine 0.98 Estim Creat Clear Calc 88.5 Estimated GFR > 60 Random Glucose 93 Calcium 8.7 Free T4 1.30 Preliminary micro results at discharge 11/05/21 14:25 Anaerobic Culture - Preliminary Ascites Fluid No growth to date. Discharge Plan Discharge Patient Disposition: Home, Self-Care Discharge Diagnosis: Acute hepatic encephalopathy Hyponatremia Acute renal failure Hyperkalemia Ascites Referrals: [place] [Primary Care Provider] - 1 Week Discharge Medications: New lactulose 20 gram/30 mL Solution 30 g PO BID Qty: 2000 0RF Continued furosemide [Lasix] 40 mg tablet 40 mg PO DAILY Qty: 20 0RF propranolol 60 mg capsule,extended release 24 hr 1 cap PO BEDTIME 0RF spironolactone [Aldactone] 50 mg tablet 100 mg PO DAILY 0RF ivermectin 3 mg tablet See Rx Instructions .ROUTE .COMPLEX 0RF Rx Instructions: 5.5 TABLETS (16.5MG) BY MOUTH DAILY FOR 2 DAYS. REPEAT IN 2 WEEKS levothyroxine 200 mcg capsule 200 mcg PO DAILY 0RF omeprazole 20 mg capsule,delayed release(DR/EC) 20 mg PO QAM 0RF albuterol sulfate [ProAir HFA] 90 mcg/actuation HFA aerosol inhaler 2 puff inhalation Q6H PRN (Reason: Wheezing) 0RF Discontinued lisinopril 10 mg tablet 10 mg PO DAILY 0RF Discharge Orders: Discharge Order (Routine); Ordered 11/07/21 Ordered By: Alise White Diet: advance to usual diet Activity on Discharge: As tolerated Stand Alone Forms: Patient Portal Discharge page Care Plan Goals: Hepatic encephalopathy resolved use lactulose twice daily hold for greater than 2 bowel movements a day, continue Q weekly paracentesis as previously recommended Lisinopril discontinued due to hyperkalemia and low blood pressure Health Concerns: Continue home medications as before is stop lisinopril Plan of Treatment: Outpatient follow-up with primary care physician and hepatology at [facility] as previously planned Assessment: Per discharge summary
--- NOTE | 2021-11-07 10:40 | MHC.CM.PN ---
PT TO DC HOME TODAY WITH A REFERRAL TO [facility] FOR PT TO BE ASSESSED FOR HOME CARE ELIGIBILITY FAMILY TO TRANSPORT
== END 2021-11-07 12:07 | disposition home or self-care (01) | DRG 280 ==
LOC: HO.ED 21:04 → HO.EDOVER 21:27 → HO.IMC 11-04 16:04
PROVIDERS: Family Medicine; Admitting Provider Hospitalist; Emergency Provider Emergency Medicine; PCP General Practice; Visit Provider Hospitalist
DX: K70.31 Alcoholic cirrhosis of liver with ascites (principal); K70.40 Alcoholic hepatic failure without coma; G92.8 Other toxic encephalopathy; N17.9 Acute kidney failure, unspecified; E87.1 Hypo-osmolality and hyponatremia; B78.9 Strongyloidiasis, unspecified; D63.1 Anemia in chronic kidney disease; I85.10 Secondary esophageal varices without bleeding; I12.9 Hypertensive chronic kidney disease with stage 1 through stage 4 chronic kidney disease, or unspecified chronic kidney disease; E87.5 Hyperkalemia; N43.3 Hydrocele, unspecified; E03.9 Hypothyroidism, unspecified; E78.5 Hyperlipidemia, unspecified; Z86.19 Personal history of other infectious and parasitic diseases; Z20.822 Contact with and (suspected) exposure to COVID-19; Z79.890 Hormone replacement therapy; Z79.899 Other long term (current) drug therapy
CPT/HCPCS: 36415; 49083; 70450; 70551; 71045; 76870; 80048; 80076; 81003; 82042; 82140; 82436; 82947; 83690; 83880; 83930; 83935; 84133; 84295; 84300; 84439; 84443; 84484; 85007; 85027; 85610; 87070; 87073; 87205; 87635; 93005; 96361; 96374; 99285; 99291; J1650; J2060; P9047

== ENCOUNTER 2021-11-12 11:16 | Day surgery (SDC) | payer MEDICAID, SELFPAY ==
--- NOTE | ~2021-11-12 | US_ITS ---
EXAMINATION: ULTRASOUND-GUIDED PARACENTESIS CLINICAL INFORMATION: Ascites. Unspecified viral hepatitis C without hepatic coma. COMPARISON: 10/29/2021 and 11/05/2021. TECHNIQUE: Ultrasound-guided paracentesis. FINDINGS: Informed consent was obtained from the patient prior to the procedure. During this process, the procedure and potential alternatives were explained, along with the intended outcome and benefits. The risks of the procedure, as well as the risk of not doing the procedure, were discussed. The patient was given the opportunity to ask questions regarding the procedure and appeared competent to make medical decisions. A signed consent form which documents this discussion was placed in the medical record. SITE MARKING: As part of the preprocedure verification policy, a site marking procedure was initiated. Due to the nature the procedure, the insertion site could not be predetermined thus invoking the policy of exemption to site laterality and marking. Insertion site marking was performed in the procedure room in conjunction with imaging confirmation. All elements of maximal sterile barrier technique followed including use of cap, mask, sterile gown, sterile gloves, a sterile full body drape and hand hygiene. Also followed skin preparation with 2% chlorhexidine for cutaneous antisepsis, and sterile ultrasound preparation with sterile gel and probe cover when applicable. Using sterile technique and ultrasound findings a spot in the right lower abdomen was identified with no evidence of inferior epigastric vessels being present. A 5 Mohawk Yueh catheter was then placed into the peritoneal space with a total of 6.9 L of clear yellow fluid being drained. Samples were sent for laboratory studies. Patient tolerated procedure without difficulty. A sterile dressing was placed. The patient was discharged in good condition with written instructions. Complications: None. US/US paracentesis abd w/image IMPRESSION: 1. Successful paracentesis with removal of 6.9 L of clear yellow fluid.
[2021-11-12 11:41] VITALS: BP 127/79; PULSE 54; RESP 20; TEMP 36.9; O2SAT 99; BMI 29.9
[2021-11-12 14:05] VITALS: BP 105/67; PULSE 56; RESP 19; TEMP 37.1; O2SAT 100
[2021-11-12] MEDS: Lidocaine HCl 1 % MPF 5 ML VIAL SUBCUT (14:07)
[2021-11-12 14:35] VITALS: BP 113/61; PULSE 56; RESP 18; O2SAT 100
[2021-11-12 15:00] VITALS: BP 113/63; PULSE 59; RESP 18; TEMP 37.1; O2SAT 100
== END 2021-11-12 15:03 | disposition home or self-care (01) ==
PROVIDERS: Radiology Diagnostic Radiology; PCP General Practice; Visit Provider Internal Medicine Gastroenterology
DX: R18.8 Other ascites (principal); B19.20 Unspecified viral hepatitis C without hepatic coma; F10.10 Alcohol abuse, uncomplicated; K74.60 Unspecified cirrhosis of liver; I10 Essential (primary) hypertension; D64.9 Anemia, unspecified; E78.5 Hyperlipidemia, unspecified; E03.9 Hypothyroidism, unspecified; J45.909 Unspecified asthma, uncomplicated; Z79.899 Other long term (current) drug therapy; Z86.19 Personal history of other infectious and parasitic diseases; Z87.898 Personal history of other specified conditions
CPT/HCPCS: 49083; C1729

== ENCOUNTER 2021-11-19 09:18 | Day surgery (SDC) | payer MEDICAID, SELFPAY ==
--- NOTE | ~2021-11-19 | US_ITS ---
EXAMINATION: ULTRASOUND-GUIDED PARACENTESIS. CLINICAL INFORMATION: Recurrent ascites. COMPARISON: None TECHNIQUE: After explaining the ultrasound-guided paracentesis procedure, benefits and risks, a written consent was obtained. Patient was placed supine on an ultrasound stretcher and preliminary ultrasound imaging was obtained. An optimal site was selected, marked and draped in usual sterile manner along the left lower quadrant. 1% lidocaine was injected along the left lower quadrant marked site. Through a small skin incision, a 5 Frisian RealCrowdeh catheter was advanced into the peritoneal space. After observing fluid return, the stylet was withdrawn and catheter connected to vacuum bottle. After obtaining all fluid and observing no more fluid remaining, the catheter was withdrawn and complete hemostasis achieved at the puncture site. Patient tolerated the procedure extremely well. Sterile dressing applied postprocedure. FINDINGS: On preliminary ultrasound imaging, there is large amount of ascites seen. Approximately 9.2 L of clear yellowish fluid was drained from the left lower quadrant. US/US paracentesis abd w/image IMPRESSION: Successful fluoroscopy-guided paracentesis performed with approximately 9.2 L of clear yellowish fluid drained from the left lower quadrant. None of this fluid was sent to the lab.
[2021-11-19 10:07] VITALS: BMI 29.9
[2021-11-19] MEDS: Lidocaine HCl 1 % MPF 5 ML VIAL SUBCUT (12:09)
[2021-11-19 12:17] VITALS: BP 118/76; PULSE 58; RESP 20; TEMP 36.6; O2SAT 100
[2021-11-19 12:30] VITALS: BP 118/76; PULSE 59; RESP 16; O2SAT 100
[2021-11-19 13:00] VITALS: BP 124/80; PULSE 56; RESP 16; O2SAT 100
[2021-11-19 13:30] VITALS: BP 116/62; PULSE 56; RESP 16; O2SAT 100
[2021-11-19 14:00] VITALS: BP 120/75; PULSE 59; RESP 16; TEMP 36.6; O2SAT 100
== END 2021-11-19 14:04 | disposition home or self-care (01) ==
PROVIDERS: Radiology Diagnostic Radiology; PCP General Practice; Visit Provider Internal Medicine Gastroenterology
DX: R18.8 Other ascites (principal); K74.60 Unspecified cirrhosis of liver; B19.20 Unspecified viral hepatitis C without hepatic coma; I10 Essential (primary) hypertension; E78.5 Hyperlipidemia, unspecified; J45.909 Unspecified asthma, uncomplicated; E03.9 Hypothyroidism, unspecified; Z79.899 Other long term (current) drug therapy; F12.90 Cannabis use, unspecified, uncomplicated
CPT/HCPCS: 49083

== ENCOUNTER 2021-11-26 09:30 | Day surgery (SDC) | payer MEDICAID, SELFPAY ==
--- NOTE | ~2021-11-26 | US_ITS ---
PROCEDURE: ULTRASOUND-GUIDED PARACENTESIS WITH IMAGING CLINICAL INFORMATION: Cirrhosis. COMPARISON: Previous exams most recent 11/19/2021. TECHNIQUE: Procedure and risks and benefits including bleeding, infection and low blood pressure were discussed with the patient and informed consent was obtained. The right lower quadrant was prepped and draped in the usual sterile fashion. The skin and soft tissues were anesthetized with 1% lidocaine plain. Using ultrasound guidance and a 5 Greek Rapid centesis catheter, access to the ascitic fluid was obtained. 10.3 L of clear yellow fluid was removed. No diagnostic specimen was sent. Patient received 50 g of intravenous albumin. FINDINGS: There is a large amount of ascites. US/US paracentesis abd w/image IMPRESSION: Ultrasound-guided paracentesis.
[2021-11-26 09:38] VITALS: BP 184/113; PULSE 82; RESP 19; TEMP 36.9; O2SAT 98
[2021-11-26 09:43] VITALS: BMI 29.9
[2021-11-26] MEDS: Lidocaine HCl 1 % MPF 5 ML VIAL SUBCUT (12:17)
--- NOTE | 2021-11-26 12:18 | HO.RADPN ---
RADIOLOGY Narrative Narrative: RLQ paracentesis using 5 fr catheter. L clear fluid removed. No specimen sent. Patient received 50g IV albumin.
[2021-11-26 12:20] VITALS: BP 122/79; PULSE 71; RESP 18; TEMP 37.2; O2SAT 100
[2021-11-26] MEDS: Albumin Human 25 % 100 ML IV (12:26)
[2021-11-26 12:35] VITALS: BP 132/70; PULSE 68; RESP 18; O2SAT 100
[2021-11-26 13:05] VITALS: BP 137/70; PULSE 71; RESP 18; O2SAT 100
[2021-11-26 13:12] VITALS: BP 120/66; PULSE 69; RESP 18; TEMP 37.1; O2SAT 100
== END 2021-11-26 13:49 | disposition home or self-care (01) ==
PROVIDERS: Radiology Diagnostic Radiology; PCP General Practice; Visit Provider Internal Medicine Gastroenterology
DX: R18.8 Other ascites (principal); K74.60 Unspecified cirrhosis of liver; F10.10 Alcohol abuse, uncomplicated; K75.9 Inflammatory liver disease, unspecified; I10 Essential (primary) hypertension; E78.5 Hyperlipidemia, unspecified; E03.9 Hypothyroidism, unspecified; B19.20 Unspecified viral hepatitis C without hepatic coma
CPT/HCPCS: 49083

== ENCOUNTER 2021-11-29 07:59 | Outpatient (REF) | payer MEDICAID, SELFPAY ==
--- NOTE | ~2021-11-29 | CT_ITS ---
EXAMINATION: CT ABDOMEN WITHOUT AND WITH CONTRAST CLINICAL INFORMATION: Liver cell carcinoma. COMPARISON: Ultrasound abdomen. TECHNIQUE: Contiguous axial thin section helical images of the abdomen were performed before and after the administration of oral contrast and 85 mL of Omnipaque 350 intravenous contrast. The data set was reformatted in the coronal and sagittal planes and reviewed on an independent workstation. This CT examination was performed using dose optimization techniques as appropriate, variously including the following: *Automated exposure control *Adjustment of mA and/or kV according to patient size (this includes techniques or standardized protocols for targeted exams where dose is matched to indication/reason for exam; i.e. extremities or head) *Use of iterative reconstruction technique DLP: 1184 mGy-cm FINDINGS: LUNG BASES: There is a small 3 mm nodule peripherally based right lower lobe axial image 4/9. LIVER, GALLBLADDER, AND BILIARY TREE: The liver is of small size with lobulated contour and hypodense. There is a large perihepatic fluid collection. There is a subtle nonenhancing hypodensity segment 6/7 measuring 3.64 cm located peripherally on axial image 20/3. There is a small enhancing 1.3 cm lesion in the right hepatic lobe question hemangioma or enhancing adenoma. There is no intrahepatic ductal dilatation. PANCREAS: The pancreas is homogeneous in density and appears unremarkable. SPLEEN: The spleen is normal size. ADRENAL GLANDS AND KIDNEYS: Bilateral adrenal glands are unremarkable. 4 mm radiopaque calculi upper pole left kidney and 2 mm radiopaque calculi midpole right kidney. No caliectasis or hydronephrosis seen. BOWEL LOOPS: There is scattered stool and gas seen throughout the colon without any significant distention. The appendix is not seen. There is moderate ascites. No peritoneal lymph nodes or nodules visualized. LYMPH NODES: Normal. VASCULAR: The abdominal aorta is atherosclerotic and nondilated. BONES: Unremarkable. CT/CT abdomen wo/w con IMPRESSION: Diffuse ascites. There is a hypodense nonenhancing moderate size mass right hepatic lobe peripherally based. The lesion is suspicious for hepatoma. There is a enhancing small 1.3 cm nodule right hepatic lobe question hemangioma versus hepatic trauma. Bilateral nonobstructive radiopaque calculi. No hydronephrosis. Correlation with MRI liver can be performed. No peritoneal or retroperitoneal lymph node seen. Fleischner guidelines were followed.
[2021-11-29] MEDS: iohexoL 350 MG/ML 100 ML INFUS..BTL 85 ML IV (08:42)
[2021-11-29 09:25] LABS: MANUAL DIFF FLAG NO
[2021-11-29 09:51] LABS: Basophils Absolute Auto 0.1 X10*3/uL (0.0-0.2); Basophils Percent Auto 1.7 % (0-2); Eosinophils Absolute Auto 0.4 X10*3/uL (0.0-0.4); Eosinophils Percent Auto 5.7 % (0-4); Hematocrit 37.5 % (42.0-52.0); Hemoglobin 12.5 g/dl (14.0-18.0); Imm Gran Abs Auto 0.22 X10*3/uL (0.00-0.03); Imm Gran Pct Auto 2.9 % (0.0-0.4); Lymphocytes Absolute Auto 1.5 X10*3/uL (1.2-4.9); Lymphocytes Percent Auto 19.5 % (20-40); Mean Corpuscular HGB Conc 33.3 g/dl (31.0-36.0); Mean Corpuscular Hemoglobin 31.9 pg (27.0-33.0); Mean Corpuscular Volume 95.7 fL (80.0-98.0); Mean Platelet Volume 9.9 fL (9.4-12.4); Monocytes Absolute Auto 0.9 X10*3/uL (0.1-1.2); Monocytes Percent Auto 11.7 % (2-11); Neutrophils Absolute Auto 4.4 x10*3/uL (2.0-8.3); Neutrophils Percent Auto 58.5 % (45-73); Platelet Count 154 X10*3/uL (160-400); Red Blood Count 3.92 X10*6/uL (4.60-5.80); Red Cell Distribution Width 14.6 % (11.0-16.0); White Blood Count 7.5 X10*3/uL (4.8-10.8)
[2021-11-29 09:57] LABS: INTERNATIONAL NORM RATIO 1.1 (0.9-1.1); Prothrombin Time 12.2 SEC (9.9-13.0)
[2021-11-29 10:27] LABS: Alanine Aminotransferase 46 U/L (0-40); Alkaline Phosphatase 133 U/L (39-117); Anion Gap 9 (12-20); Aspartate Amino Transferase 78 U/L (5-37); Bilirubin Total 1.2 mg/dL (0.0-1.0); Blood Urea Nitrogen 19 mg/dL (9-16); Calcium 9.2 mg/dL (8.4-10.2); Carbon Dioxide 26 mmol/L (22-29); Chloride 101 mmol/L (96-108); Estimated Glomerular Filt Rate > 60; Glucose Random 120 mg/dL (60-115); Potassium 4.8 mmol/L (3.3-5.1); Sodium 131 mmol/L (135-145); Total Protein 7.2 g/dL (6.5-8.0)
[2021-12-01 12:22] LABS: Alpha Fetoprotein 8.9 ng/mL (<6.1)
== END 2021-11-29 08:00 | disposition home or self-care (01) ==
LOC: HO.CT 07:59
PROVIDERS: PCP General Practice; Visit Provider Nurse Practitioner
DX: C22.0 Liver cell carcinoma (principal); Z76.82 Awaiting organ transplant status
CPT/HCPCS: 36415; 74170; 80053; 82105; 85025; 85610; Q9967

== ENCOUNTER 2021-12-03 09:26 | Day surgery (SDC) | payer MEDICAID, SELFPAY ==
--- NOTE | ~2021-12-03 | US_ITS ---
EXAMINATION: ULTRASOUND-GUIDED PARACENTESIS CLINICAL INFORMATION: Ascites COMPARISON: Previous exams recent 11/26/[address] of the abdomen and pelvis 11/29/2021 TECHNIQUE: Procedure and risks and benefits including bleeding, infection and low blood pressure were discussed with the patient and informed consent was obtained. The left lower quadrant was prepped and draped in the usual sterile fashion. The skin and soft tissues were anesthetized with 1% lidocaine plain. Using ultrasound guidance and a 5 Luxembourgish rapid centesis catheter, access to the ascitic fluid was obtained. 7.2 L of clear yellow fluid was removed. No diagnostic was sent. Patient received 25 g of intravenous albumin. FINDINGS: There is a large amount of ascites. US/US paracentesis abd w/image IMPRESSION: Ultrasound-guided paracentesis.
[2021-12-03 09:55] VITALS: BMI 29.9
[2021-12-03 10:06] LABS: MANUAL DIFF FLAG NO
[2021-12-03 10:11] LABS: Basophils Absolute Auto 0.2 X10*3/uL (0.0-0.2); Basophils Percent Auto 1.8 % (0-2); Eosinophils Absolute Auto 0.6 X10*3/uL (0.0-0.4); Eosinophils Percent Auto 6.4 % (0-4); Hematocrit 36.2 % (42.0-52.0); Hemoglobin 12.1 g/dl (14.0-18.0); Imm Gran Abs Auto 0.36 X10*3/uL (0.00-0.03); Imm Gran Pct Auto 4.1 % (0.0-0.4); Lymphocytes Absolute Auto 1.6 X10*3/uL (1.2-4.9); Lymphocytes Percent Auto 17.8 % (20-40); Mean Corpuscular HGB Conc 33.4 g/dl (31.0-36.0); Mean Corpuscular Hemoglobin 31.7 pg (27.0-33.0); Mean Corpuscular Volume 94.8 fL (80.0-98.0); Mean Platelet Volume 9.6 fL (9.4-12.4); Monocytes Absolute Auto 1.2 X10*3/uL (0.1-1.2); Monocytes Percent Auto 13.2 % (2-11); Neutrophils Absolute Auto 4.9 x10*3/uL (2.0-8.3); Neutrophils Percent Auto 56.7 % (45-73); Platelet Count 157 X10*3/uL (160-400); Red Blood Count 3.82 X10*6/uL (4.60-5.80); Red Cell Distribution Width 14.6 % (11.0-16.0); White Blood Count 8.7 X10*3/uL (4.8-10.8)
[2021-12-03 10:14] LABS: Prothrombin Time 11.7 SEC (9.9-13.0)
[2021-12-03] MEDS: Lidocaine HCl 1 % MPF 5 ML VIAL SUBCUT (12:32)
[2021-12-03 12:34] VITALS: BP 112/64; PULSE 60; RESP 16; TEMP 36.7; O2SAT 100
[2021-12-03 12:50] VITALS: BP 113/68; PULSE 64; RESP 16; O2SAT 100
[2021-12-03 13:04] VITALS: BP 119/68; PULSE 63; RESP 16; O2SAT 100
[2021-12-03 13:20] VITALS: BP 113/75; PULSE 65; RESP 16; O2SAT 100
[2021-12-03 13:34] VITALS: BP 109/63; PULSE 67; RESP 16; TEMP 36.7; O2SAT 100
--- NOTE | 2021-12-03 13:58 | HO.RADPN ---
RADIOLOGY Narrative Narrative: LLQ paracentesis using 5 fr catheter. 7.2 L clear yellow fluid removed. No specimen sent. Albumin given.
== END 2021-12-03 13:37 | disposition home or self-care (01) ==
PROVIDERS: Radiology Diagnostic Radiology; PCP General Practice; Visit Provider Internal Medicine Gastroenterology
DX: R18.8 Other ascites (principal); K74.60 Unspecified cirrhosis of liver; B19.20 Unspecified viral hepatitis C without hepatic coma; I10 Essential (primary) hypertension
CPT/HCPCS: 36415; 49083; 85025; 85610; 85730; P9047

== ENCOUNTER 2021-12-10 09:19 | Day surgery (SDC) | payer MEDICAID, SELFPAY ==
--- NOTE | ~2021-12-10 | US_ITS ---
EXAMINATION: US GUIDED PARACENTESIS CLINICAL INFORMATION: Hepatitis C without hepatic coma. COMPARISON: Previous ultrasound 12/03/2021. TECHNIQUE: Following explaining ultrasound-guided paracentesis procedure, benefits and risk, a written consent was obtained. Patient was placed supine and preliminary ultrasound imaging was obtained. An optimal site was selected, marked, cleaned and draped in usual sterile manner. 1% lidocaine was injected at puncture site. Through a small skin incision, a 5-Azerbaijani Parceleh catheter was advanced into the peritoneal space. After observing fluid return, the stylet was removed and after observing no more fluid return, the catheter was withdrawn and complete hemostasis achieved at puncture site. Sterile dressing applied postprocedure. Patient tolerated procedure extremely well. FINDINGS: On preliminary ultrasound imaging, there is a large amount of free fluid seen. Approximately 8 mL of ascitic fluid was removed. None of this fluid was sent to lab. US/US paracentesis abd w/image IMPRESSION: Successful ultrasound-guided paracentesis performed.
[2021-12-10 09:41] VITALS: BMI 32.3
[2021-12-10] MEDS: Lidocaine HCl 1 % MPF 5 ML VIAL 10 ML SUBCUT (12:33)
[2021-12-10 12:45] VITALS: BP 120/66; PULSE 57; RESP 19; TEMP 36.7; O2SAT 98
[2021-12-10 13:00] VITALS: BP 140/68; PULSE 60; RESP 19; O2SAT 98
[2021-12-10 13:15] VITALS: BP 138/73; PULSE 78; RESP 18; O2SAT 100
[2021-12-10 13:45] VITALS: BP 134/77; PULSE 62; RESP 18; O2SAT 100
[2021-12-10 14:15] VITALS: BP 125/73; PULSE 57; RESP 18; O2SAT 100
[2021-12-10 14:45] VITALS: BP 132/77; PULSE 59; RESP 18; TEMP 36.6; O2SAT 100
== END 2021-12-10 15:05 | disposition home or self-care (01) ==
PROVIDERS: Radiology Diagnostic Radiology; PCP General Practice; Visit Provider Internal Medicine Gastroenterology
DX: R18.8 Other ascites (principal); B19.20 Unspecified viral hepatitis C without hepatic coma; K74.60 Unspecified cirrhosis of liver; R16.0 Hepatomegaly, not elsewhere classified; F10.11 Alcohol abuse, in remission; I10 Essential (primary) hypertension
CPT/HCPCS: 49083

== ENCOUNTER 2021-12-17 09:24 | Day surgery (SDC) | payer MEDICAID, SELFPAY ==
--- NOTE | ~2021-12-17 | US_ITS ---
EXAMINATION: ULTRASOUND-GUIDED PARACENTESIS CLINICAL INFORMATION: Hepatitis C with hepatic insufficiency. COMPARISON: December 10, 2021 TECHNIQUE: Ultrasound-guided paracentesis FINDINGS: Informed consent was obtained from the patient prior to the procedure. During this process, the procedure and potential alternatives were explained, along with the intended outcome and benefits. The risks of the procedure, as well as the risk of not doing the procedure, were discussed. The patient was given the opportunity to ask questions regarding the procedure and appeared competent to make medical decisions. A signed consent form which documents this discussion was placed in the medical record. Using sterile technique and ultrasound guidance a 5 Belarusian Yueh needle was directed into the abdominal cavity and right lower quadrant. A total of 10.2 L of clear yellow fluid were drained without difficulty. US/US paracentesis abd w/image IMPRESSION: Paracentesis with removal of 10.2 L of clear yellow fluid.
[2021-12-17 09:34] VITALS: BMI 31.5
[2021-12-17 09:53] LABS: Glucose, Whole Blood 149 mg/dL (60-115)
[2021-12-17 12:20] VITALS: BP 134/85; PULSE 70; RESP 20; TEMP 36.7; O2SAT 100
[2021-12-17] MEDS: Lidocaine HCl 1 % MPF 5 ML VIAL SUBCUT (12:23)
[2021-12-17 12:38] VITALS: BP 140/87; PULSE 72; RESP 20; TEMP 36.4; O2SAT 100
== END 2021-12-17 13:06 | disposition home or self-care (01) ==
PROVIDERS: Radiology Diagnostic Radiology; PCP General Practice; Visit Provider Internal Medicine Gastroenterology
DX: R18.8 Other ascites (principal); B19.20 Unspecified viral hepatitis C without hepatic coma; K72.90 Hepatic failure, unspecified without coma; K74.60 Unspecified cirrhosis of liver; F10.10 Alcohol abuse, uncomplicated; I10 Essential (primary) hypertension
CPT/HCPCS: 49083; 82947

== ENCOUNTER 2021-12-23 20:28 | Inpatient (IN) | payer MEDICAID, SELFPAY ==
--- NOTE | ~2021-12-23 | US_ITS ---
EXAMINATION: ULTRASOUND-GUIDED PARACENTESIS. CLINICAL INFORMATION: Abdominal ascites COMPARISON: None TECHNIQUE: Following explaining ultrasound-guided paracentesis procedure, benefits and risk, a written consent was obtained. Patient was placed supine on ultrasound stretcher and preliminary ultrasound imaging was obtained. An optimal site was selected along the right lower quadrant and marked. The marked site was cleaned and draped in usual sterile manner. 1% lidocaine was injected at puncture site. Through a small skin incision a 5 Salvadorean Yueh catheter was inserted through a small skin incision into the peritoneal space. After observing fluid return stylet was withdrawn and catheter connected to vacuum bottle via connecting cannula. After obtaining all fluid and observing no more fluid remaining, catheter was withdrawn and complete hemostasis achieved at puncture site. Patient tolerated procedure extremely well. FINDINGS: On preliminary ultrasound imaging there is moderate free fluid seen with echogenic debris within. Approximately 7.6 L of cloudy yellow fluid was drained from the right lower quadrant. US/US paracentesis abd w/image IMPRESSION: Successful ultrasound-guided paracentesis performed. 7.6 L of fluid was drained. On previous ultrasound 12/17/2021 approximately 10.2 L of fluid was drained.
--- NOTE | ~2021-12-23 | XR_ITS ---
EXAMINATION: XR CHEST CLINICAL INFORMATION: Shortness of breath. COMPARISON: 11/04/2021 TECHNIQUE: Frontal view of the chest was obtained. FINDINGS: New, patchy airspace opacities are evident in the left upper lobe. Right lung appears clear by comparison. No pneumothorax or pleural effusion. Cardiac and mediastinal contours are normal. No acute osseous findings XR/XR chest 1V IMPRESSION: New patchy airspace opacities in the left upper lobe, concerning for pneumonia.
[2021-12-23 20:38] VITALS: BP 129/63; BP 96/62; PULSE 100; PULSE 45; RESP 16; TEMP 37; O2SAT 100; BMI 32.3
[2021-12-23 20:53] VITALS: BP 96/62; PULSE 47; RESP 13; O2SAT 100
--- NOTE | 2021-12-23 20:54 | PC.NURSE ---
pt a&ox3, vss - sinus lesley/afib, monitor technician applied. pt experienced shortness of breath this morning, worsening throughout the day. hx of asthma - breathing treatment done this morning, used inhalers with some relief. pt speaking in full sentences, no shortness of breath noted at this time. pt denies chest pain. family tested + for flu, pt had similar symptoms until last Monday. pending ED provider.
[2021-12-23 21:31] VITALS: BP 106/67; PULSE 45; RESP 13; TEMP 36.9; O2SAT 100
--- NOTE | 2021-12-23 21:31 | ECG_ITS ---
Test Reason : DYSPNEA Blood Pressure : / mmHG Vent. Rate : 046 BPM Atrial Rate : 046 BPM P-R Int : 174 ms QRS Dur : 092 ms QT Int : 560 ms P-R-T Axes : 066 -41 024 degrees QTc Int : 490 ms Sinus bradycardia Left axis deviation Prolonged QT Abnormal ECG When compared with ECG of 03-NOV-2021 18:08, No significant change was found Referred By: Anne Pagan Electronically Signed By:MICHAEL HUYNH MD
--- NOTE | 2021-12-23 21:33 | ED_ITS ---
HPI - SOB/Dyspnea General Chief Complaint: Dyspnea Stated Complaint: dyspnea Time Seen by Provider: 12/23/21 21:23 Source: patient Mode of arrival: ambulatory Limitations: no limitations History of Present Illness HPI Narrative: Patient comes to emergency room complaining of shortness of breath. Patient is known to have asthma. Patient states that he used his albuterol yesterday. This afternoon prior to calling the ambulance. Patient borrowed his nieces corticosteroid inhaler. Patient did not try albuterol before coming. Also, patient is known to have shortness of breath secondary to ascites. Patient is due for a tap tomorrow. Patient denies abdominal pain. Patient had influenza last week and is recovering. Related Data Home Medications Medication Instructions Recorded Confirmed albuterol sulfate 90 mcg/actuation 2 puff INHALATION Q6H PRN 09/22/20 11/03/21 aerosol inhaler (ProAir HFA) levothyroxine 200 mcg capsule 200 mcg PO DAILY 09/22/20 11/03/21 omeprazole 20 mg capsule,delayed 20 mg PO QAM cap 09/22/20 11/03/21 release ivermectin 3 mg tablet See Rx Instructions .ROUTE .COMPLEX 11/03/21 11/03/21 propranolol 60 mg capsule,24 1 cap PO BEDTIME 11/03/21 11/03/21 hr,extended release spironolactone 50 mg tablet 100 mg PO DAILY 11/03/21 11/03/21 (Aldactone) albuterol sulfate 90 mcg/actuation 2 puff PO QID 12/16/21 12/16/21 aerosol inhaler (ProAir HFA) cetirizine 10 mg tablet 1 tab PO DAILY 12/16/21 12/16/21 lactulose 10 gram/15 mL oral 45 ml PO TID 12/16/21 12/16/21 solution lisinopril 10 mg tablet 1 tab PO DAILY 12/16/21 12/16/21 oxycodone 5 mg tablet 1 tab PO Q6H PRN 12/16/21 12/16/21 Previous Rx's Medication Instructions Recorded furosemide 40 mg tablet (Lasix) 40 mg PO DAILY #20 tab 08/26/21 lactulose 20 gram/30 mL oral 30 g (45 mL) PO BID #2000 ml 11/07/21 solution Allergies Allergy/AdvReac Type Severity Reaction Status Date / Time No Known Allergies Allergy Verified 12/23/21 20:38 [No Known Allergies*] Review of Systems Review of Systems: Constitutional : No Weight loss, No Fever, No Chills, No Night Sweats, No Fatigue, No Malaise ENT/Mouth : No Hearing loss, No Ear Pain, No Nasal Congestion, No Sinus Pain, No Hoarseness, No sore throat, No Rhinorrhea, No Swallowing Difficulty Eyes: No Eye Pain, No Swelling, No Redness, No Foreign Body, No Discharge, No Vision Changes Cardiovascular : No Chest Pain, no palpitations, complaining of mild orthopnea Respiratory : No Cough, No Sputum, complaining of wheezing, shortness of breath Gastrointestinal : No Nausea, No Vomiting, No Diarrhea, No Constipation, No abdominal Pain, No Hematochezia, No Melena, complaining of abdominal distension due to fluid Genitourinary : no irregular bleeding, No Dysuria, No Urinary Frequency, No Hematuria, No Urinary Incontinence, No Urgency, No Flank Pain, No Urinary Flow Changes, No Hesitancy Musculoskeletal : No joint pain, No Myalgias, No Joint Swelling Skin : No Skin Lesions, No rash Neuro : No Weakness, No Numbness, No Paresthesias, No Loss of Consciousness, No Dizziness, No Headache Psych : No Anxiety/Panic, No Depression, No SI/HI/AH/VH, No Social Issues, Heme/Lymph: No Bruising, No Bleeding,No Lymphadenopathy Endocrine : No Polyuria, No Polydipsia, No Temperature Intolerance PMFSH Past Medical History Medical History Allergic rhinitis Anemia Anemia Asthma Cirrhosis Constipation GERD (gastroesophageal reflux disease) H/O ETOH abuse Hepatitis C Hepatitis C History of alcohol abuse History of kidney stones HTN (hypertension) Hypothyroid Left inguinal hernia Liver mass Surgical History History of esophagogastroduodenoscopy (EGD) Hx of colonoscopy No history of previous surgery Family History Family History Other No known health problems Social History Social History Household Members: Family Housing: House Do you presently have visiting nurse or other home services: No Alcohol intake: never Patient Tobacco Use Status: Never used Tobacco Use of substances other than those prescribed or required for medical reasons: Yes Substance Use Type: Marijuana Substance Use Frequency: Occasionally Last Used Substance: Weeks (ago) Advance Directives: Yes Advance Directives on File: Yes Advance Directives Date on File: 11/04/21 service: No Current occupational status: unemployed Physical Exam Vital Signs: Vital Signs: Last Vital Signs Temp 98.4 F 12/23/21 21:31 Pulse 45 L 12/23/21 22:42 Resp 12 12/23/21 22:42 BP 106/67 12/23/21 21:31 Pulse Ox 100 12/23/21 21:31 BMI result Body Mass Index 32.3 Course Course Course Narrative: Although patient's oxygen is 100%, patient still feels significantly short of breath. Likely due to the combination of pneumonia pneumonia and abdominal pressure from ascites. Patient also has acute kidney injury. Also, it was noted that patient is bradycardic. Usually patient's heart rate does not go below 50s, patient has been in the mid 40s. EKG shows sinus bradycardia, QTC of 490. Patient will be admitted. I discussed the patient with Dr. George TREVINO - SOB/Dyspnea Lab Data Result diagrams: 12/23/21 22:12 12/23/21 22:12 Labs: Lab Results 12/23/21 12/23/21 12/23/21 Range/Units 22:11 22:12 22:12 WBC 11.4 H (4.8-10.8) X10*3/uL RBC 4.13 L (4.60-5.80) X10*6/uL Hgb 12.9 L (14.0-18.0) g/dl Hct 37.6 L (42.0-52.0) % MCV 91.0 (80.0-98.0) fL MCH 31.2 (27.0-33.0) pg MCHC 34.3 (31.0-36.0) g/dl RDW 14.0 (11.0-16.0) % Plt Count 172 (160-400) X10*3/uL MPV 10.1 (9.4-12.4) fL Immature Gran % (Auto) Cancelled Neut % (Auto) Cancelled Lymph % (Auto) Cancelled [place] % (Auto) Cancelled Eos % (Auto) Cancelled Baso % (Auto) Cancelled Lymph # (Auto) Cancelled [place] # (Auto) Cancelled Eos # (Auto) Cancelled Baso # (Auto) Cancelled Abs Immat Gran (auto) Cancelled Absolute Neuts (auto) Cancelled Absolute Nucleated RBC 0.000 (0.0-0.012) X10*3/uL Nucleated RBC % (auto) 0.0 (0.0-0.2) /100WBC Neutrophils % (Manual) 52 (45-73) % Band Neutrophils % 3 (3-5) % Lymphocytes % (Manual) 22 (20-40) % Monocytes % (Manual) 15 H (2-11) % Eosinophils % (Manual) 4 (0-4) % Basophils % (Manual) 2 (0-2) % Metamyelocytes % 1 % Myelocytes % 1 % Abs Neuts (Manual) 6.3 (2.0-8.3) X10*3/uL Lymphocytes # (Manual) 2.5 (1.2-4.9) X10*3/uL Monocytes # (Manual) 1.7 H (0.1-1.2) X10*3/uL Eosinophils # (Manual) 0.5 H (0.0-0.4) X10*3/uL Basophils # (Manual) 0.2 (0.0-0.2) X10*3/uL Metamyelocytes # 0.1 X10*3/uL Myelocytes # 0.1 X10*/uL Smudge Cells PRESENT Toxic Granulation PRESENT Platelet Estimate SLIGHTLY DECREASED (NORMAL) Plt Morphology Comment NORM RBC Morphology NOTED Polychromasia 1+ (0-2) /OIF Microcytosis 1+ (5-14) /OIF Macrocytosis 2+ (15-30) /OIF Cathy Cells 1+ (0-2) /OIF Schistocytes 1+ (0-2) /OIF PT (9.9-13.0) SEC INR (0.9-1.1) Sodium (135-145) mmol/L Potassium (3.3-5.1) mmol/L Chloride (96-108) mmol/L Carbon Dioxide (22-29) mmol/L Anion Gap (12-20) BUN (9-16) mg/dL Creatinine (0.5-1.4) mg/dL Estim Creat Clear Calc Estimated GFR Random Glucose (60-115) mg/dL Calcium (8.4-10.2) mg/dL Total Bilirubin (0.0-1.0) mg/dL Direct Bilirubin (0.0-0.5) mg/dL AST (5-37) U/L ALT (0-40) U/L Alkaline Phosphatase (39-117) U/L B-Natriuretic Peptide (<100) pg/mL Total Protein (6.5-8.0) g/dL Albumin (3.5-5.0) g/dL COVID-19 (JELANI) Negative (Negative) COVID-19 Clin Com See Note Influenza Type A (RYAN) Negative (Negative) Influenza Type B (RYAN) Negative (Negative) Influenza A & B Note See Note 12/23/21 12/23/21 12/23/21 Range/Units 22:12 22:12 22:12 WBC (4.8-10.8) X10*3/uL RBC (4.60-5.80) X10*6/uL Hgb (14.0-18.0) g/dl Hct (42.0-52.0) % MCV (80.0-98.0) fL MCH (27.0-33.0) pg MCHC (31.0-36.0) g/dl RDW (11.0-16.0) % Plt Count (160-400) X10*3/uL MPV (9.4-12.4) fL Immature Gran % (Auto) Neut % (Auto) Lymph % (Auto) [place] % (Auto) Eos % (Auto) Baso % (Auto) Lymph # (Auto) [place] # (Auto) Eos # (Auto) Baso # (Auto) Abs Immat Gran (auto) Absolute Neuts (auto) Absolute Nucleated RBC (0.0-0.012) X10*3/uL Nucleated RBC % (auto) (0.0-0.2) /100WBC Neutrophils % (Manual) (45-73) % Band Neutrophils % (3-5) % Lymphocytes % (Manual) (20-40) % Monocytes % (Manual) (2-11) % Eosinophils % (Manual) (0-4) % Basophils % (Manual) (0-2) % Metamyelocytes % % Myelocytes % % Abs Neuts (Manual) (2.0-8.3) X10*3/uL Lymphocytes # (Manual) (1.2-4.9) X10*3/uL Monocytes # (Manual) (0.1-1.2) X10*3/uL Eosinophils # (Manual) (0.0-0.4) X10*3/uL Basophils # (Manual) (0.0-0.2) X10*3/uL Metamyelocytes # X10*3/uL Myelocytes # X10*/uL Smudge Cells Toxic Granulation Platelet Estimate (NORMAL) Plt Morphology Comment RBC Morphology Polychromasia /OIF Microcytosis /OIF Macrocytosis /OIF Cathy Cells /OIF Schistocytes /OIF PT 11.5 (9.9-13.0) SEC INR 1.0 (0.9-1.1) Sodium 133 L (135-145) mmol/L Potassium 4.8 (3.3-5.1) mmol/L Chloride 102 (96-108) mmol/L Carbon Dioxide 27 (22-29) mmol/L Anion Gap 9 L (12-20) BUN 32 H D (9-16) mg/dL Creatinine 1.95 H (0.5-1.4) mg/dL Estim Creat Clear Calc 45.8 Estimated GFR 35 Random Glucose 103 (60-115) mg/dL Calcium 8.7 (8.4-10.2) mg/dL Total Bilirubin 0.5 (0.0-1.0) mg/dL Direct Bilirubin 0.3 (0.0-0.5) mg/dL AST 87 H (5-37) U/L ALT 44 H (0-40) U/L Alkaline Phosphatase 177 H D (39-117) U/L B-Natriuretic Peptide 43 (<100) pg/mL Total Protein 7.0 (6.5-8.0) g/dL Albumin 2.4 L (3.5-5.0) g/dL COVID-19 (JELANI) (Negative) COVID-19 Clin Com Influenza Type A (RYAN) (Negative) Influenza Type B (RYAN) (Negative) Influenza A & B Note Discharge Plan Discharge Clinical Impression: Pneumonia, LEVI (acute kidney injury), Bradycardia Prescriptions: No Action furosemide [Lasix] 40 mg tablet 40 mg PO DAILY Qty: 20 0RF propranolol 60 mg capsule,extended release 24 hr 1 cap PO BEDTIME 0RF spironolactone [Aldactone] 50 mg tablet 100 mg PO DAILY 0RF ivermectin 3 mg tablet See Rx Instructions .ROUTE .COMPLEX 0RF Rx Instructions: 5.5 TABLETS (16.5MG) BY MOUTH DAILY FOR 2 DAYS. REPEAT IN 2 WEEKS lactulose 20 gram/30 mL Solution 30 g PO BID Qty: 2000 0RF cetirizine 10 mg tablet 1 tab PO DAILY 0RF lisinopril 10 mg tablet 1 tab PO DAILY 0RF lactulose 10 gram/15 mL solution 45 ml PO TID 0RF oxycodone 5 mg tablet 1 tab PO Q6H PRN (Reason: pain) 0RF albuterol sulfate [ProAir HFA] 90 mcg/actuation HFA aerosol inhaler 2 puff PO QID 0RF levothyroxine 200 mcg capsule 200 mcg PO DAILY 0RF omeprazole 20 mg capsule,delayed release(DR/EC) 20 mg PO QAM 0RF albuterol sulfate [ProAir HFA] 90 mcg/actuation HFA aerosol inhaler 2 puff inhalation Q6H PRN (Reason: Wheezing) 0RF
--- NOTE | 2021-12-23 22:12 | PC.NURSE ---
labs drawn, 20G IV placed left AC. pending breathing treatment.
[2021-12-23 22:19] LABS: Hematocrit 37.6 % (42.0-52.0); Hemoglobin 12.9 g/dl (14.0-18.0); Mean Corpuscular HGB Conc 34.3 g/dl (31.0-36.0); Mean Corpuscular Hemoglobin 31.2 pg (27.0-33.0); Mean Platelet Volume 10.1 fL (9.4-12.4); Platelet Count 172 X10*3/uL (160-400); Red Blood Count 4.13 X10*6/uL (4.60-5.80); White Blood Count 11.4 X10*3/uL (4.8-10.8)
[2021-12-23 22:28] LABS: Prothrombin Time 11.5 SEC (9.9-13.0)
[2021-12-23 22:36] LABS: Alanine Aminotransferase 44 U/L (0-40); Albumin Level 2.4 g/dL (3.5-5.0); Alkaline Phosphatase 177 U/L (39-117); Anion Gap 9 (12-20); Aspartate Amino Transferase 87 U/L (5-37); Bilirubin Direct 0.3 mg/dL (0.0-0.5); Bilirubin Total 0.5 mg/dL (0.0-1.0); Blood Urea Nitrogen 32 mg/dL (9-16); Calcium 8.7 mg/dL (8.4-10.2); Carbon Dioxide 27 mmol/L (22-29); Chloride 102 mmol/L (96-108); Creatinine Clr Calc Pharmacy 45.8; Estimated Glomerular Filt Rate 35; Glucose Random 103 mg/dL (60-115); Potassium 4.8 mmol/L (3.3-5.1); Sodium 133 mmol/L (135-145)
[2021-12-23] MEDS: methylPREDNISolone Sod Succ 125 MG/2 ML VIAL IVPUSH (22:37)
[2021-12-23 22:38] LABS: IDNOW Serial# 16C4AD1C; Influenza A Negative (Negative); Influenza B2 Negative (Negative)
[2021-12-23 22:38] LABS: COVID-19 Test Negative (Negative)
--- NOTE | 2021-12-23 22:38 | PC.NURSE ---
medicated per provider order, resp notified re updraft.
[2021-12-23 22:40] LABS: B Type Natriuretic Peptide 43 pg/mL (<100)
[2021-12-23] MEDS: Albuterol Sulfate (0.083%) 2.5 MG/3 ML VIAL.NEB 5 MG INHALE (22:41)
[2021-12-23 22:42] VITALS: PULSE 45; RESP 12; O2SAT 100
[2021-12-23 22:50] LABS: Band Neutrophils Percent 3 % (3-5); Basophils Abs Manual 0.2 X10*3/uL (0.0-0.2); Basophils Percent Manual 2 % (0-2); Eosinophils Absolute Manual 0.5 X10*3/uL (0.0-0.4); Eosinophils Percent Manual 4 % (0-4); Lymphocytes Absolute Manual 2.5 X10*3/uL (1.2-4.9); Lymphocytes Percent Manual 22 % (20-40); Metamyelocytes Absolute 0.1 X10*3/uL; Metamyelocytes Percent 1 %; Monocytes Absolute Manual 1.7 X10*3/uL (0.1-1.2); Monocytes Percent Manual 15 % (2-11); Myelocytes Absolute 0.1 X10*/uL; Myelocytes Percent 1 %; Neutrophils Absolute Manual 6.3 X10*3/uL (2.0-8.3); Neutrophils Percent Manual 52 % (45-73)
[2021-12-23 22:51] LABS: RBC Morphology NOTED
[2021-12-23 22:52] LABS: Macrocytosis 2+ (15-30) /OIF
[2021-12-23 22:53] LABS: Microcytosis 1+ (5-14) /OIF; Platelet Estimate SLIGHTLY DECREASED (NORMAL); Schistocytes 1+ (0-2) /OIF
[2021-12-23 22:54] LABS: Platelet Morphology Comment NORM
[2021-12-23 22:55] LABS: Burr Cells 1+ (0-2) /OIF; Polychromasia 1+ (0-2) /OIF; Smudge Cells PRESENT; Toxic Granulation PRESENT
[2021-12-23] MEDS: cefTRIAXone sodium 1 GM in 0.9 % Sodium Chloride 50 ML IV (23:26)
[2021-12-23] MEDS: Azithromycin 500 MG in 0.9 % Sodium Chloride 250 ML 125 MG IV (23:29)
[2021-12-23 23:49] LABS: TSH reflex Free T4 51.36 uIU/mL (0.32-4.0)
[2021-12-24] VITALS (10 sets, daily range): BP systolic 118–162; BP diastolic 68–87; PULSE 47–71; RESP 16–19; TEMP 36–36.6; O2SAT 98–100; BMI 32.3
--- NOTE | 2021-12-24 | P.HPHOSP_ITS ---
History of Present Illness Date of Service: 12/23/21 Chief Complaint: sob [age] male with past medical history liver cirrhosis secondary to hepatitis C, asthma, hypertension, hypothyroidism, malignant liver mass per daughter who presents to the hospital with complaints of shortness of breath cough, and upper respiratory symptoms for the past 1 week. Patient and daughter at bedside reports that his symptoms started after his whole family got sick with the flu. He has been coughing, having sputum production, and dyspnea on minimal exertion. He has no fever but has been feeling chills. He denies any chest pain, no abdominal pain, no nausea or vomiting, no diarrhea constipation, and no urinary symptoms. He has been eating and drinking less than usual. On arrival to the ED patient was found to have bradycardia with a heart rate in the 40s otherwise asymptomatic. Patient denies any dizziness, no chest pain, palpitations, no double vision. On arrival to the ED patient labs are significant for WBC count of 11.4, hemoglobin of 12.9, sodium 133, creatinine of 1.95 with a baseline of around 1, AST of 87, ALT of 44, alk-phos of 177 which is all chronically elevated, TSH of 51.36, pt and daughter report compliance with levothyroxine meds Chest x-ray shows new patchy airspace opacities in the left upper lobe concerning for pneumonia Patient also reports that he gets paracentesis biweekly, he is due for paracentesis on 12/24 COVID and influenza negative Patient will be admitted for further management Review of Systems Review of Systems: Yes all other systems are reviewed and are negative [facility] Medical History Allergic rhinitis Anemia Anemia Asthma Cirrhosis Constipation GERD (gastroesophageal reflux disease) H/O ETOH abuse Hepatitis C Hepatitis C History of alcohol abuse History of kidney stones HTN (hypertension) Hypothyroid Left inguinal hernia Liver mass Family History Other No known health problems Surgical History History of esophagogastroduodenoscopy (EGD) Hx of colonoscopy No history of previous surgery Social History Household Members: Family Housing: House Do you presently have visiting nurse or other home services: No Alcohol intake: never Patient Tobacco Use Status: Never used Tobacco Use of substances other than those prescribed or required for medical reasons: Yes Substance Use Type: Marijuana Substance Use Frequency: Weekly Last Used Substance: Weeks (ago) Last Used Substance Other:: 12/21/21 Currently Displaying Signs/Symptoms of Drug Intoxication Withdrawal: No Have you been hit, kicked, punched, or otherwise hurt by someone within the past year? If so, by whom?: No Do you feel safe in your current relationship?: No Current Relationship Is there a partner from a previous relationship who is making you feel unsafe now?: No Are you made to feel afraid or neglected: No Advance Directives: Yes Advance Directives on File: Yes Advance Directives Date on File: 11/04/21 Do you have thoughts of harming others: None Do you have a plan to hurt others: No Plan Recently lost weight without trying: Unsure Nutrition Risks: No Nutritional Risk Poor oral hygiene: No service: No Current occupational status: unemployed Meds Allergies Allergy/AdvReac Type Severity Reaction Status Date / Time No Known Allergies Allergy Verified 12/23/21 20:38 [No Known Allergies*] Active Medications: Current Medications Acetaminophen (Acetaminophen 325 Mg Tablet) 650 mg PO Q12H PRN PRN Reason: Pain, Mild (Pain Scale 1-3) Heparin Sodium (Porcine) (Heparin Sodium,Porcine 5,000 Unit/Ml Vial) 5,000 unit SUBCUT Q12H DONATO Azithromycin 500 mg/ Sodium (Chloride) 250 mls @ 125 mls/hr IV ONCE ONE Stop: 12/24/21 01:04 Last Admin: 12/23/21 23:29 Dose: 125 mls/hr Documented by: Ceftriaxone Sodium 1 gm/ (Sodium Chloride) 50 mls @ 100 mls/hr IV Q24H DONATO Azithromycin 500 mg/ Sodium (Chloride) 250 mls @ 125 mls/hr IV Q24H DONATO Sodium Chloride (Ns) 1,000 mls @ 100 mls/hr IVCONT .Q10H DONATO Ondansetron HCl (Ondansetron Hcl 4 Mg/2 Ml Vial) 4 mg IVPUSH Q8H PRN PRN Reason: Nausea and Vomiting Home Medications Medication Instructions Recorded Confirmed Last Taken Type albuterol sulfate 90 mcg/actuation 2 puff INHALATION Q6H PRN 09/22/20 11/03/21 Unknown History aerosol inhaler (ProAir HFA) levothyroxine 200 mcg capsule 200 mcg PO DAILY 09/22/20 11/03/21 11/03/21 History omeprazole 20 mg capsule,delayed 20 mg PO QAM cap 09/22/20 11/03/21 11/03/21 History release ivermectin 3 mg tablet See Rx Instructions .ROUTE .COMPLEX 11/03/21 11/03/21 Unknown History propranolol 60 mg capsule,24 1 cap PO BEDTIME 11/03/21 11/03/21 11/02/21 History hr,extended release spironolactone 50 mg tablet 100 mg PO DAILY 11/03/21 11/03/21 11/03/21 History (Aldactone) albuterol sulfate 90 mcg/actuation 2 puff PO QID 12/16/21 12/16/21 Unknown History aerosol inhaler (ProAir HFA) cetirizine 10 mg tablet 1 tab PO DAILY 12/16/21 12/16/21 Unknown History lactulose 10 gram/15 mL oral 45 ml PO TID 12/16/21 12/16/21 Unknown History solution lisinopril 10 mg tablet 1 tab PO DAILY 12/16/21 12/16/21 Unknown History oxycodone 5 mg tablet 1 tab PO Q6H PRN 12/16/21 12/16/21 Unknown History Physical Exam Vital Signs and Narrative: Vital Signs: Last Vital Signs Temp 98.4 F 12/23/21 21:31 Pulse 45 L 12/23/21 22:42 Resp 12 12/23/21 22:42 BP 106/67 12/23/21 21:31 Pulse Ox 100 12/23/21 21:31 BMI result Body Mass Index 32.3 Const: General: cooperative and no acute distress Orientation/consci ousness: patient oriented x3 Eyes: General: appearance normal, both eyes and all related structures Pupils: Equal, round and reactive pupils present Resp: Effort & Inspection: normal respiratory effort Auscultation: clear to auscultation bilaterally Cardio: Rate: regular rate Rhythm: regular rhythm GI: Other: Abdominal distension Palpation (GI): Soft to palpation Auscultation: normal bowel sounds Skin: General skin exam: no rashes or lesions noted Neuro: General: patient oriented x3 Cranial nerves: Yes Equal, round and reactive pupils present Cognition (Neuro): normal cognition Extrem: General: Yes normal to inspection and Yes no pedal edema Results Labs CBC and Chem 7: 12/24/21 05:49 12/23/21 22:12 Labs: Laboratory Results - last 24 hr 12/23/21 12/23/21 12/23/21 22:11 22:12 22:12 MCV 91.0 MCH 31.2 MCHC 34.3 RDW 14.0 Plt Count 172 MPV 10.1 Immature Gran % (Auto) Cancelled Neut % (Auto) Cancelled Lymph % (Auto) Cancelled [place] % (Auto) Cancelled Eos % (Auto) Cancelled Baso % (Auto) Cancelled Lymph # (Auto) Cancelled [place] # (Auto) Cancelled Eos # (Auto) Cancelled Baso # (Auto) Cancelled Abs Immat Gran (auto) Cancelled Absolute Neuts (auto) Cancelled Absolute Nucleated RBC 0.000 Nucleated RBC % (auto) 0.0 Neutrophils % (Manual) 52 Band Neutrophils % 3 Lymphocytes % (Manual) 22 Monocytes % (Manual) 15 H Eosinophils % (Manual) 4 Basophils % (Manual) 2 Metamyelocytes % 1 Myelocytes % 1 Abs Neuts (Manual) 6.3 Lymphocytes # (Manual) 2.5 Monocytes # (Manual) 1.7 H Eosinophils # (Manual) 0.5 H Basophils # (Manual) 0.2 Metamyelocytes # 0.1 Myelocytes # 0.1 Smudge Cells PRESENT Toxic Granulation PRESENT Platelet Estimate SLIGHTLY DECREASED Plt Morphology Comment NORM RBC Morphology NOTED Polychromasia 1+ (0-2) Microcytosis 1+ (5-14) Macrocytosis 2+ (15-30) Cathy Cells 1+ (0-2) Schistocytes 1+ (0-2) PT INR Anion Gap Creatinine Estim Creat Clear Calc Estimated GFR Random Glucose Calcium Total Bilirubin Direct Bilirubin AST ALT Alkaline Phosphatase B-Natriuretic Peptide Total Protein Albumin TSH COVID-19 (JELANI) Negative COVID-19 Clin Com See Note Influenza Type A (RYAN) Negative Influenza Type B (RYAN) Negative Influenza A & B Note See Note 12/23/21 12/23/21 12/23/21 22:12 22:12 22:12 MCV MCH MCHC RDW Plt Count MPV Immature Gran % (Auto) Neut % (Auto) Lymph % (Auto) [place] % (Auto) Eos % (Auto) Baso % (Auto) Lymph # (Auto) [place] # (Auto) Eos # (Auto) Baso # (Auto) Abs Immat Gran (auto) Absolute Neuts (auto) Absolute Nucleated RBC Nucleated RBC % (auto) Neutrophils % (Manual) Band Neutrophils % Lymphocytes % (Manual) Monocytes % (Manual) Eosinophils % (Manual) Basophils % (Manual) Metamyelocytes % Myelocytes % Abs Neuts (Manual) Lymphocytes # (Manual) Monocytes # (Manual) Eosinophils # (Manual) Basophils # (Manual) Metamyelocytes # Myelocytes # Smudge Cells Toxic Granulation Platelet Estimate Plt Morphology Comment RBC Morphology Polychromasia Microcytosis Macrocytosis Cathy Cells Schistocytes PT 11.5 INR 1.0 Anion Gap 9 L Creatinine 1.95 H Estim Creat Clear Calc 45.8 Estimated GFR 35 Random Glucose 103 Calcium 8.7 Total Bilirubin 0.5 Direct Bilirubin 0.3 AST 87 H ALT 44 H Alkaline Phosphatase 177 H D B-Natriuretic Peptide 43 Total Protein 7.0 Albumin 2.4 L TSH 51.36 H COVID-19 (JELANI) COVID-19 Clin Com Influenza Type A (RYAN) Influenza Type B (RYAN) Influenza A & B Note Imaging Radiologist's Impressions: Impressions Chest X-Ray 12/23/21 21:37 IMPRESSION: New patchy airspace opacities in the left upper lobe, concerning for pneumonia. Assessment and Plan (1) Pneumonia: Status: Acute (2) Acute asthma exacerbation: Status: Acute (3) LEVI (acute kidney injury): Status: Acute (4) Bradycardia: Status: Acute (5) Cirrhosis: Status: Acute Plan 66-year-old male with past medical history of liver cirrhosis secondary to hep C, comes into the hospital shortness of breath found to have pneumonia as well as asthma exacerbation # community-acquired pneumonia - chest x-ray showing infiltrate - patient has leukocytosis, hemodynamically stable otherwise - will treat with IV antibiotics - follow cultures - monitor respiratory status # asthma exacerbation - acute - will treat with IV Solu-Medrol, DuoNeb - monitor respiratory status # LEVI - likely secondary to acute infection on poor oral intake - will treat with IV fluids - follow BMP # bradycardia - asymptomatic - secondary to hypothyroidism - currently on 200 mg of levothyroxine, reports compliance - spoke to Pharmacy, will increase his dose to 225, - patient will need follow-up TSH check 3-4 weeks and 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 # cirrhosis with ascites - undergoes paracentesis regularly -will consult IR for his scheduled paracentesis Pending med review by pharmacy DVT prophylaxis: Heparin subQ Given pneumonia, asthma exacerbation, LEVI patient will need a medically n [facility] hospital stay of 2 nights for further management as well as monitoring as he will do very poorly outpatient given his baseline health Quality Stroke Does the patient have a stroke diagnosis?: No VTE Prior VTE?: No VTE Risk Level:: Medical - moderate - high VTE Device Contraindication: N/A - Device Ordered VTE Drug Contraindication: N/A - Med Ordered
[2021-12-24] MEDS: Heparin Sodium,Porcine 5,000 UNIT/ML VIAL 5000 UNIT SUBCUT ×3 (00:36→23:42)
[2021-12-24] MEDS: 0.9 % Sodium Chloride 1,000 ML 100 ML IVCONT ×2 (00:39→13:21)
[2021-12-24] MEDS: methylPREDNISolone Sod Succ 40 MG/ML VIAL IVPUSH (00:46)
[2021-12-24 03:02] LABS: Free T4 (Free Thyroxine) 0.99 ng/dL (0.71-1.85)
[2021-12-24 06:09] LABS: Hematocrit 35.3 % (42.0-52.0); Hemoglobin 12.1 g/dl (14.0-18.0); Mean Corpuscular HGB Conc 34.3 g/dl (31.0-36.0); Mean Corpuscular Hemoglobin 31.1 pg (27.0-33.0); Mean Corpuscular Volume 90.7 fL (80.0-98.0); Mean Platelet Volume 10.3 fL (9.4-12.4); Platelet Count 150 X10*3/uL (160-400); Red Blood Count 3.89 X10*6/uL (4.60-5.80); Red Cell Distribution Width 13.9 % (11.0-16.0); White Blood Count 7.6 X10*3/uL (4.8-10.8)
[2021-12-24 06:38] LABS: Anion Gap 10 (12-20); Blood Urea Nitrogen 33 mg/dL (9-16); Calcium 8.5 mg/dL (8.4-10.2); Carbon Dioxide 25 mmol/L (22-29); Chloride 102 mmol/L (96-108); Estimated Glomerular Filt Rate 46; Glucose Random 149 mg/dL (60-115); Potassium 4.5 mmol/L (3.3-5.1); Sodium 132 mmol/L (135-145)
[2021-12-24 06:50] LABS: Band Neutrophils Percent 5 % (3-5); Lymphocytes Absolute Manual 0.3 X10*3/uL (1.2-4.9); Lymphocytes Percent Manual 4 % (20-40); Metamyelocytes Absolute 0.3 X10*3/uL; Metamyelocytes Percent 4 %; Monocytes Absolute Manual 0.1 X10*3/uL (0.1-1.2); Monocytes Percent Manual 1 % (2-11); Myelocytes Absolute 0.1 X10*/uL; Myelocytes Percent 1 %; Neutrophils Absolute Manual 6.8 X10*3/uL (2.0-8.3); Neutrophils Percent Manual 85 % (45-73)
[2021-12-24 06:51] LABS: Platelet Estimate NORMAL (NORMAL); Platelet Morphology Comment NORMAL; RBC Morphology NOTED; Rouleau PRESENT
[2021-12-24] MEDS: Albuterol/Iprat 2.5/0.5MG 3 ML AMPUL.NEB INHALE ×4 (08:18→19:52)
--- NOTE | 2021-12-24 08:25 | PHA.MEDREC ---
Pharmacy Consult ? Medication Reconciliation Pharmacy has completed the medication reconciliation.Spoke with patient who called his daughter. His daughter was able to tell me all medications. The patient is no longer taking lisinopril or cetirizine.
--- NOTE | 2021-12-24 09:41 | MHC.CM.PN ---
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
[2021-12-24] MEDS: Lactulose 20 GM/30 ML SOLUTION 30 GM PO ×3 (10:19→21:40)
[2021-12-24] MEDS: Levothyroxine Sodium 75 MCG TABLET 225 MCG PO (10:23)
--- NOTE | 2021-12-24 11:03 | HO.PM.IMPN ---
Subjective Subjective Date of Service: 12/24/21 Interval History: seen and examined this morning, history obtained with the assistance of a certified court/medical interpreter Follow-up for pneumonia, bradycardia reports improvement in his breathing, denies any significant cough, fever, chills denies chest pain, dizziness Review of Systems Review of Systems: Yes all other systems are reviewed and are negative Constitutional Constitutional: Denies chills and Denies fever(s) Cardiovascular Cardiovascular: Denies chest pain and Denies palpitations Respiratory Respiratory: Denies cough Gastrointestinal Gastrointestinal: Denies abdominal pain, Denies nausea and Denies vomiting Endocrine Endocrine: Denies palpitations Physical Exam Vital Signs: Vital Signs: Last Vital Signs Temp 96.8 F 12/24/21 07:39 Pulse 71 12/24/21 08:20 Resp 16 12/24/21 08:20 BP 131/75 12/24/21 07:39 Pulse Ox 100 12/24/21 07:39 BMI result Body Mass Index 32.3 Const: General: cooperative, comfortable, no acute distress, alert and awake Nutritional Appearance: average body habitus Orientation/consciousness: patient oriented x3 Resp: Effort & Inspection: normal respiratory effort and able to speak in complete sentences Auscultation: clear to auscultation bilaterally Cardio: Rate: bradycardic Heart sounds: S1 normal heart sound present and S2 normal heart sound present GI: Palpation (GI): Soft to palpation and nontender Percussion: Yes Fluid wave present Neuro: General: patient oriented x3 Extrem: General: Yes no pedal edema Objective Data Active Medications Acetaminophen (Acetaminophen 325 Mg Tablet) 650 mg PO Q12H PRN PRN Reason: Pain, Mild (Pain Scale 1-3) Albuterol Sulfate (Albuterol Sulfate 90 Mcg 8 Gm Inhaler) 2 puff INHALE QID PRN PRN Reason: Wheezing Albuterol/Ipratropium (Albuterol/Iprat 2.5/0.5mg 3 Ml Ampul.Neb) 3 ml INHALE RQ4H PRN PRN Reason: Shortness of Breath/Wheezing Albuterol/Ipratropium (Albuterol/Iprat 2.5/0.5mg 3 Ml Ampul.Neb) 3 ml INHALE RQ4H WHILE AWAKE DONATO Last Admin: 12/24/21 08:18 Dose: 3 ml Documented by: DAVID Heparin Sodium (Porcine) (Heparin Sodium,Porcine 5,000 Unit/Ml Vial) 5,000 unit SUBCUT Q12H [facility] Last Admin: 12/24/21 00:36 Dose: 5,000 unit Documented by: PACO Ceftriaxone Sodium 1 gm/ (Sodium Chloride) 50 mls @ 100 mls/hr IV Q24H [facility] Azithromycin 500 mg/ Sodium (Chloride) 250 mls @ 125 mls/hr IV Q24H [facility] Sodium Chloride (Ns) 1,000 mls @ 100 mls/hr IVCONT .Q10H [facility] Last Admin: 12/24/21 09:57 Dose: Not Given Documented by: LAUREANO Non-Admin Reason: IV Running Lactulose (Lactulose 20 Gm/30 Ml Solution) 30 gm PO TID [facility] Last Admin: 12/24/21 10:19 Dose: 30 gm Documented by: LAUREANO Comments: Levothyroxine Sodium (Levothyroxine Sodium 75 Mcg Tablet) 225 mcg PO DAILY@0600 [facility] Last Admin: 12/24/21 10:23 Dose: 225 mcg Documented by: LAUREANO Methylprednisolone Sodium Succinate (Methylprednisolone Sod Succ 40 Mg/Ml Vial) 40 mg IVPUSH Q12H [facility] Last Admin: 12/24/21 00:46 Dose: 40 mg Documented by: PACO Omeprazole (Omeprazole 20 Mg Capsule.Dr) 20 mg PO DAILY@0630 [facility] Ondansetron HCl (Ondansetron Hcl 4 Mg/2 Ml Vial) 4 mg IVPUSH Q8H PRN PRN Reason: Nausea and Vomiting Pharmacy Consult (Consult Rx Perform Med Rec) 1 each MISCELLANE ONCE PRN PRN Reason: Consult order Propranolol HCl (Propranolol Hcl 10 Mg Tablet) 15 mg PO BID [facility]; Protocol Last Admin: 12/24/21 10:23 Dose: Not Given Documented by: LAUREANO Non-Admin Reason: Decreased Heart Rate Labs CBC & Chem 7: 12/24/21 05:49 12/24/21 05:49 Labs: Laboratory Results - last 24 hr 12/23/21 12/23/21 12/23/21 22:11 22:12 22:12 MCV 91.0 MCH 31.2 MCHC 34.3 RDW 14.0 Plt Count 172 MPV 10.1 Immature Gran % (Auto) Cancelled Neut % (Auto) Cancelled Lymph % (Auto) Cancelled [place] % (Auto) Cancelled Eos % (Auto) Cancelled Baso % (Auto) Cancelled Lymph # (Auto) Cancelled [place] # (Auto) Cancelled Eos # (Auto) Cancelled Baso # (Auto) Cancelled Abs Immat Gran (auto) Cancelled Absolute Neuts (auto) Cancelled Absolute Nucleated RBC 0.000 Nucleated RBC % (auto) 0.0 Neutrophils % (Manual) 52 Band Neutrophils % 3 Lymphocytes % (Manual) 22 Monocytes % (Manual) 15 H Eosinophils % (Manual) 4 Basophils % (Manual) 2 Metamyelocytes % 1 Myelocytes % 1 Abs Neuts (Manual) 6.3 Lymphocytes # (Manual) 2.5 Monocytes # (Manual) 1.7 H Eosinophils # (Manual) 0.5 H Basophils # (Manual) 0.2 Metamyelocytes # 0.1 Myelocytes # 0.1 Smudge Cells PRESENT Toxic Granulation PRESENT Platelet Estimate SLIGHTLY DECREASED Plt Morphology Comment NORM RBC Morphology NOTED Polychromasia 1+ (0-2) Microcytosis 1+ (5-14) Macrocytosis 2+ (15-30) Cathy Cells 1+ (0-2) Rouleaux Schistocytes 1+ (0-2) PT INR Anion Gap Estim Creat Clear Calc Estimated GFR Random Glucose Calcium Total Bilirubin Direct Bilirubin AST ALT Alkaline Phosphatase B-Natriuretic Peptide Total Protein Albumin TSH Free T4 COVID-19 (JELANI) Negative COVID-19 Clin Com See Note Influenza Type A (RYAN) Negative Influenza Type B (RYAN) Negative Influenza A & B Note See Note 12/23/21 12/23/21 12/23/21 22:12 22:12 22:12 MCV MCH MCHC RDW Plt Count MPV Immature Gran % (Auto) Neut % (Auto) Lymph % (Auto) [place] % (Auto) Eos % (Auto) Baso % (Auto) Lymph # (Auto) [place] # (Auto) Eos # (Auto) Baso # (Auto) Abs Immat Gran (auto) Absolute Neuts (auto) Absolute Nucleated RBC Nucleated RBC % (auto) Neutrophils % (Manual) Band Neutrophils % Lymphocytes % (Manual) Monocytes % (Manual) Eosinophils % (Manual) Basophils % (Manual) Metamyelocytes % Myelocytes % Abs Neuts (Manual) Lymphocytes # (Manual) Monocytes # (Manual) Eosinophils # (Manual) Basophils # (Manual) Metamyelocytes # Myelocytes # Smudge Cells Toxic Granulation Platelet Estimate Plt Morphology Comment RBC Morphology Polychromasia Microcytosis Macrocytosis [place] Cells Rouleaux Schistocytes PT 11.5 INR 1.0 Anion Gap 9 L Estim Creat Clear Calc 45.8 Estimated GFR 35 Random Glucose 103 Calcium 8.7 Total Bilirubin 0.5 Direct Bilirubin 0.3 AST 87 H ALT 44 H Alkaline Phosphatase 177 H D B-Natriuretic Peptide 43 Total Protein 7.0 Albumin 2.4 L TSH 51.36 H Free T4 0.99 COVID-19 (JELANI) COVID-19 Clin Com Influenza Type A (RYAN) Influenza Type B (RYAN) Influenza A & B Note 12/24/21 12/24/21 05:49 05:49 MCV 90.7 MCH 31.1 MCHC 34.3 RDW 13.9 Plt Count 150 L MPV 10.3 Immature Gran % (Auto) Cancelled Neut % (Auto) Cancelled Lymph % (Auto) Cancelled [place] % (Auto) Cancelled Eos % (Auto) Cancelled Baso % (Auto) Cancelled Lymph # (Auto) Cancelled [place] # (Auto) Cancelled Eos # (Auto) Cancelled Baso # (Auto) Cancelled Abs Immat Gran (auto) Cancelled Absolute Neuts (auto) Cancelled Absolute Nucleated RBC 0.000 Nucleated RBC % (auto) 0.0 Neutrophils % (Manual) 85 H Band Neutrophils % 5 Lymphocytes % (Manual) 4 L Monocytes % (Manual) 1 L Eosinophils % (Manual) Basophils % (Manual) Metamyelocytes % 4 Myelocytes % 1 Abs Neuts (Manual) 6.8 Lymphocytes # (Manual) 0.3 L Monocytes # (Manual) 0.1 Eosinophils # (Manual) Basophils # (Manual) Metamyelocytes # 0.3 Myelocytes # 0.1 Smudge Cells Toxic Granulation Platelet Estimate NORMAL Plt Morphology Comment NORMAL RBC Morphology NOTED Polychromasia Microcytosis Macrocytosis Cathy Cells Rouleaux PRESENT Schistocytes PT INR Anion Gap 10 L Estim Creat Clear Calc 58.0 Estimated GFR 46 Random Glucose 149 H D Calcium 8.5 Total Bilirubin Direct Bilirubin AST ALT Alkaline Phosphatase B-Natriuretic Peptide Total Protein Albumin TSH Free T4 COVID-19 (JELANI) COVID-19 Clin Com Influenza Type A (RYAN) Influenza Type B (RYAN) Influenza A & B Note Assessment and Plan (1) Pneumonia: Status: Acute (2) Bradycardia: Status: Acute Plan 66-year-old male with past medical history of liver cirrhosis secondary to hep C, comes into the hospital shortness of breath found to have pneumonia as well as asthma exacerbation community-acquired pneumonia chest x-ray showing infiltrate left upper lobe - continue IV ceftriaxone, azithromycin acute asthma exacerbation -will change IV Solu-Medrol to oral prednisone -continue DuoNebs LEVI Creatinine down to 1.54 from 1.95 (baseline around 1) - likely secondary to acute infection - continue IV fluids - follow BMP - hold Aldactone, Lasix bradycardia asymptomatic. seems chronic, previous EKG showing sinus bradycardia as well. 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 Soto patient requires ongoing inpatient hospitalization secondary to LEVI requiring IV fluid and pneumonia requiring IV antibiotics Quality Stroke Does the patient have a stroke diagnosis?: No VTE Prior VTE?: No VTE Risk Level:: Medical - moderate - high VTE Device Contraindication: N/A - Device Ordered VTE Drug Contraindication: N/A - Med Ordered
--- NOTE | 2021-12-24 12:10 | MHC.CM.PN ---
PER PHYSICIAN ROUNDS, PLAN IS DC HOME MONDAY.
[2021-12-24] MEDS: Propranolol HCL 10 MG TABLET 15 MG PO (21:32)
[2021-12-24] MEDS: cefTRIAXone sodium 1 GM in 0.9 % Sodium Chloride 50 ML IV (23:37)
[2021-12-25] MEDS: Azithromycin 500 MG in 0.9 % Sodium Chloride 250 ML 125 MG IV (00:16)
[2021-12-25 04:00] VITALS: BP 124/77; PULSE 72; RESP 18; TEMP 36.3; O2SAT 99
[2021-12-25] MEDS: 0.9 % Sodium Chloride 1,000 ML 100 ML IVCONT (06:00)
[2021-12-25] MEDS: Omeprazole 20 MG CAPSULE.DR PO (06:00)
[2021-12-25] MEDS: Levothyroxine Sodium 75 MCG TABLET 225 MCG PO (06:00)
[2021-12-25 06:49] LABS: Anion Gap 7 (12-20); Blood Urea Nitrogen 29 mg/dL (9-16); Calcium 8.5 mg/dL (8.4-10.2); Carbon Dioxide 24 mmol/L (22-29); Chloride 106 mmol/L (96-108); Creatinine Clr Calc Pharmacy 64.7; Estimated Glomerular Filt Rate 52; Glucose Random 132 mg/dL (60-115); Potassium 3.8 mmol/L (3.3-5.1); Sodium 133 mmol/L (135-145)
[2021-12-25 06:59] VITALS: BP 132/74; PULSE 52; RESP 18; TEMP 36.1; O2SAT 100
[2021-12-25 08:13] VITALS: BP 140/86; PULSE 50
[2021-12-25] MEDS: Lactulose 20 GM/30 ML SOLUTION 30 GM PO (08:17)
[2021-12-25] MEDS: predniSONE 20 MG TABLET 40 MG PO (08:17)
[2021-12-25] MEDS: Albuterol/Iprat 2.5/0.5MG 3 ML AMPUL.NEB INHALE (08:36)
[2021-12-25 08:39] VITALS: PULSE 50; RESP 18; O2SAT 100
--- NOTE | 2021-12-25 09:05 | PM.DS ---
DS: Providers Provider Date of Service: 12/25/21 Date of admission: 12/23/21 23:57 Date of discharge: 12/25/21 Primary care physician: [facility] Attending physician on discharge: Nickolas Aguirre Discharging clinician: Lesley Gracia DS: Diagnosis Discharge Diagnosis (1) Pneumonia: Status: Acute (2) Bradycardia: Status: Acute (3) LEVI (acute kidney injury): Status: Acute (4) Cirrhosis: Status: Acute DS: Summary Hospital Course Hospital Course: From H&P on day of admission [age] male with past medical history liver cirrhosis secondary to hepatitis C, asthma, hypertension, hypothyroidism, malignant liver mass per daughter who presents to the hospital with complaints of shortness of breath cough, and upper respiratory symptoms for the past 1 week.? Patient and daughter at bedside reports that his symptoms started after his whole family got sick with the flu.? He has been coughing, having sputum production, and dyspnea on minimal exertion.? He has no fever but has been feeling chills.? He denies any chest pain, no abdominal pain, no nausea or vomiting, no diarrhea constipation, and no urinary symptoms. He has been eating and drinking less than usual. On arrival to the ED patient was found to have bradycardia with a heart rate in the 40s otherwise asymptomatic.? Patient denies any dizziness, no chest pain, palpitations, no double vision.? On arrival to the ED patient labs are significant for WBC count of 11.4, hemoglobin of 12.9, sodium 133, creatinine of 1.95 with a baseline of around 1, AST of 87, ALT of 44, alk-phos of 177 which is all chronically elevated, TSH of 51.36, pt and daughter report compliance with levothyroxine meds Chest x-ray shows new patchy airspace opacities in the left upper lobe concerning for pneumonia Patient also reports that he gets paracentesis biweekly, he is due for paracentesis on 12/24 COVID and influenza negative Patient will be admitted for further management Discharge diagnosis: community-acquired pneumonia acute kidney injury hypothyroidism liver cirrhosis with ascites bradycardia Hospital Course by Problem: Patient presented with shortness of breath and was found to have. community-acquired pneumonia. chest x-ray showed infiltrate in the left upper lobe. Flu A/B, and Covid 19 were checked and were negative. He was started on IV ceftriaxone and azithromycin. He has remained afebrile since admission. His respiratory status improved and he is not requiring supplemental oxygen. He will be discharged home to complete course of oral antibiotics. LEVI. On arrival creatinine was elevated at 1.95. His Aldactone and Lasix were placed on hold. He was treated with gentle IV fluid. Creatinine improved to 1.38 on the day of discharge. He will be instructed to hold his Lasix until Monday, Aldactone can be resumed. Recommend repeat BMP in 1 week. Sinus bradycardia. Although patient was asymptomatic, heart rate was persistently in the 40s. His dose of propanolol was decreased by half. His heart rate has improved to the 50s/ 60s. hypothyroidism. TSH elevated at 51.36. Dose of synthroid was increased to 225 mcg. patient will need follow-up TSH check in 3-4 weeks cirrhosis with ascites/ esophageal varices/ thrombocytopenia. undergoes paracentesis regularly -had regularly scheduled paracentesis on 12/24 with 7.6L of fluid removed. Time Spent with Patient Time attestation: Total time spent providing and/or coordinating discharge services: Discharge coordination time: Greater than 30 minutes Quality: Safe Use of Opioids Does Pt have an Active Cancer Diagnosis on the Problem List?: Yes Opioid Measure Date for [facility] Report: 11/25/21 Opioid Measure Time for [facility] Report: 14:55 Quality: Stroke Does the patient have a stroke diagnosis?: No Physical Exam Vital Signs: Vital Signs: Last Vital Signs Temp 97 F 12/25/21 06:59 Pulse 50 12/25/21 08:39 Resp 18 12/25/21 08:39 BP 140/86 H 12/25/21 08:13 Pulse Ox 100 12/25/21 06:59 BMI result Body Mass Index 32.3 Const: General: cooperative, comfortable, no acute distress, alert and awake Nutritional Appearance: average body habitus Orientation/consciousness: patient oriented x3 Resp: Effort & Inspection: normal respiratory effort and able to speak in complete sentences Auscultation: clear to auscultation bilaterally Cardio: Rate: bradycardic Heart sounds: S1 normal heart sound present and S2 normal heart sound present GI: Palpation (GI): Soft to palpation and nontender Neuro: General: patient oriented x3 Extrem: Other: moving all 4 extremities spontaneously DS: Data Data Completed and Pending Completed studies during hospitalization [Text1]: Procedures Drainage of Peritoneal Cavity, Percutaneous Approach (11/03/21) Labs on day of discharge: Laboratory Results - last 24 hr 12/25/21 05:56 Sodium 133 L Potassium 3.8 Chloride 106 Carbon Dioxide 24 Anion Gap 7 L BUN 29 H Creatinine 1.38 Estim Creat Clear Calc 64.7 Estimated GFR 52 Random Glucose 132 H Calcium 8.5 Discharge Plan Discharge Patient Disposition: Home, Self-Care Discharge Diagnosis: Pneumonia Hypothyroidism LEVI Bradycardia Referrals: [place] [Primary Care Provider] - 1 Week Discharge Medications: New azithromycin 250 mg tablet 250 mg PO DAILY 3 Days Qty: 3 0RF cefuroxime axetil 500 mg tablet 500 mg PO BID 3 Days Qty: 6 0RF propranolol 10 mg tablet 15 mg PO BID 30 Days Qty: 90 0RF levothyroxine [Synthroid] 75 mcg tablet 225 mcg PO DAILY 30 Days Qty: 90 0RF Continued lactulose 10 gram/15 mL solution 45 ml PO TID 0RF spironolactone 100 mg Tablet 100 mg PO DAILY 0RF omeprazole 20 mg capsule,delayed release(DR/EC) 20 mg PO DAILY@0630 0RF albuterol sulfate [ProAir HFA] 90 mcg/actuation HFA aerosol inhaler 2 puff inhalation QID PRN (Reason: Wheezing) 0RF Held furosemide [Lasix] 40 mg tablet 40 mg PO DAILY Qty: 20 0RF Hold Instructions: Resume on 12/27/21. Discontinued propranolol 60 mg capsule,extended release 24 hr 1 cap PO BEDTIME 0RF levothyroxine 200 mcg capsule 200 mcg PO DAILY@0630 0RF Discharge Orders: Discharge Order (Routine); Ordered 12/25/21 Ordered By: Lesley Gracia Activity on Discharge: As tolerated Stand Alone Forms: Patient Portal Discharge page Other Ambulatory Orders: Basic Metabolic Panel (Routine) Timeframe: 20211231 Facility: [facility] - Location: Laboratory Ordered By: Lesley Gracia Care Plan Goals: see below Health Concerns: Pneumonia Hypothyroidism LEVI Plan of Treatment: Complete course of antibiotics as prescribed for pneumonia Your dose of propranolol has been decreased due to your low heart rate. Your dose of synthroid has been increased Repeat your kidney function labs in one week Do not take lasix until Wednesday 12/27 Call to schedule follow up appointment with PCP - you will need repeat thyroid function labs in 3-4 weeks Assessment: see discharge summary Discharge Date/Time: 12/25/21 11:07
--- NOTE | 2021-12-25 09:15 | MHC.CM.PN ---
PT TO BE DISCHARGED HOME TODAY WITH RESUMPTION OF [facility] [employer] [facility] TO TRANSPORT
== END 2021-12-25 11:07 | disposition home or self-care (01) | DRG 139 ==
LOC: HO.ED 21:23 → HO.EDOVER 12-24 00:06 → HO.S3 12-24 00:35
PROVIDERS: Radiology Diagnostic Radiology; Admitting Provider Internal Medicine; Emergency Provider Emergency Medicine; Visit Provider Physician Assistant Medical
PROC: 0W9G3ZZ Drainage of Peritoneal Cavity, Percutaneous Approach (ICD-10-PCS; principal; 2021-12-24 11:00)
DX: J18.9 Pneumonia, unspecified organism (principal); N17.9 Acute kidney failure, unspecified; I85.10 Secondary esophageal varices without bleeding; D69.6 Thrombocytopenia, unspecified; J45.901 Unspecified asthma with (acute) exacerbation; R18.8 Other ascites; R00.1 Bradycardia, unspecified; K74.60 Unspecified cirrhosis of liver; E03.9 Hypothyroidism, unspecified; Z86.19 Personal history of other infectious and parasitic diseases; Z20.822 Contact with and (suspected) exposure to COVID-19; Z87.442 Personal history of urinary calculi; Z79.890 Hormone replacement therapy; Z79.899 Other long term (current) drug therapy
CPT/HCPCS: 36415; 49083; 71045; 80048; 80076; 83880; 84439; 84443; 85007; 85025; 85027; 85610; 87502; 87635; 93005; 94640; 94644; 94664; 96365; 96367; 96375; 99285; J0456; J0696; J2920; J2930

== ENCOUNTER 2021-12-31 09:30 | Day surgery (SDC) | payer MEDICAID, SELFPAY ==
[2021-12-31] VITALS (7 sets, daily range): BP systolic 119–148; BP diastolic 74–90; PULSE 77–93; RESP 16; TEMP 36.8–36.9; O2SAT 99–100; BMI 31.8
--- NOTE | ~2021-12-31 | US_ITS ---
EXAMINATION: US PARACENTESIS CLINICAL INFORMATION: Cirrhosis. Ascites. COMPARISON: None TECHNIQUE: Following explaining ultrasound-guided paracentesis procedure, benefits and risk, a written consent was obtained. Preliminary ultrasound imaging was obtained through the abdomen and optimal site was selected in the right lower quadrant. The area was marked, cleaned and draped in the usual sterile manner. 1% lidocaine was injected at puncture site. Through a small skin incision a 5-Cam[place]onian Owlin catheter was advanced into the peritoneal space. After observing fluid return, stylet was withdrawn and catheter connected to vacuum bottle via connecting cannula. After removing all fluid and observing normal fluid return, catheter was withdrawn and complete hemostasis achieved at puncture site. Sterile Band-Aid applied postprocedure. Patient tolerated procedure extremely well. FINDINGS: On preliminary ultrasound imaging there is a large amount of free fluid in the abdomen. Approximately 10.5 L of clear yellowish fluid drained from the right lower quadrant for therapeutic purposes. US/US paracentesis abd w/image IMPRESSION: Successful ultrasound-guided paracentesis performed without immediate complications.
--- NOTE | 2021-12-31 10:49 | PC.NURSE ---
no labs needed per rad nurse
[2021-12-31] MEDS: Lidocaine HCl 1 % MPF 5 ML VIAL SUBCUT (12:28)
== END 2021-12-31 14:30 | disposition home or self-care (01) ==
PROVIDERS: Radiology Diagnostic Radiology; PCP General Practice; Visit Provider Internal Medicine Gastroenterology
DX: R18.8 Other ascites (principal); B19.20 Unspecified viral hepatitis C without hepatic coma
CPT/HCPCS: 49083

== ENCOUNTER 2022-01-07 11:35 | Day surgery (SDC) | payer MEDICAID, SELFPAY ==
[2022-01-07] VITALS (7 sets, daily range): BP systolic 126–144; BP diastolic 71–81; PULSE 75–88; RESP 18–20; TEMP 36.7–36.8; O2SAT 100; BMI 31.8
--- NOTE | ~2022-01-07 | US_ITS ---
EXAMINATION: ULTRASOUND-GUIDED PARACENTESIS. CLINICAL INFORMATION: Widely hepatitis C without hepatic coma COMPARISON: None TECHNIQUE: Following explaining ultrasound-guided paracentesis procedure, benefits and risk, a written consent was obtained. Patient was placed supine on fluoroscopy table and preliminary ultrasound imaging was obtained through the abdomen. An optimal site was selected and marked on the left lower quadrant. The marked site was cleaned and draped in usual sterile manner. 1% lidocaine was injected puncture site. Through a small skin incision a 5 Congolese [place]oe[place] catheter was advanced into the peritoneal space. After observing fluid return stylet was withdrawn and catheter connected to vacuum bottle via connecting cannula. After obtaining all fluid and observing normal fluid return, catheter was withdrawn and complete hemostasis achieved at puncture site. Patient tolerated procedure extremely well. FINDINGS: On preliminary ultrasound imaging there is large amount of ascites fluid seen most localized in right lower quadrant. Approximately 9.5 L of clear yellowish fluid was drained from right lower quadrant. US/US paracentesis abd w/image IMPRESSION: Successful fluoroscopy-guided paracentesis with approximately 9.5 L of clear yellowish fluid drained.
[2022-01-07] MEDS: Lidocaine HCl 1 % MPF 5 ML VIAL SUBCUT (14:41)
== END 2022-01-07 16:35 | disposition home or self-care (01) ==
PROVIDERS: Radiology Diagnostic Radiology; Visit Provider Internal Medicine Gastroenterology
DX: R18.8 Other ascites (principal); B19.20 Unspecified viral hepatitis C without hepatic coma
CPT/HCPCS: 49083; P9047

== ENCOUNTER 2022-01-13 08:16 | Emergency (ER) | payer MEDICAID, SELFPAY ==
--- NOTE | ~2022-01-13 | CT_ITS ---
EXAMINATION: CT ABDOMEN AND PELVIS WITHOUT CONTRAST CLINICAL INFORMATION: Abdominal distention COMPARISON: CT abdomen from 11/21/2021 TECHNIQUE: Multidetector volumetric imaging was performed from the superior aspect of the liver through the pubic symphysis. Sagittal and coronal reformatted images were obtained on the technologist's workstation. This CT examination was performed using dose optimization techniques as appropriate, variously including the following: *Automated exposure control *Adjustment of mA and/or kV according to patient size (this includes techniques or standardized protocols for targeted exams where dose is matched to indication/reason for exam; i.e. extremities or head) *Use of iterative reconstruction technique DLP: 1211 mGy-cm FINDINGS: LUNG BASES: Left chest gynecomastia. Bibasilar atelectasis. Heart is not enlarged. Coronary artery calcifications are noted. No pericardial effusion. No large pleural effusion. LIVER, GALLBLADDER, AND BILIARY TREE: Liver demonstrates a nodular cirrhotic morphology. Redemonstration of a hypodense focus in the lateral aspect of the right hepatic lobe incompletely evaluated without contrast measuring approximately 3.7 cm. Previously identified enhancing focus in the right hepatic lobe is less apparent without contrast. The gallbladder is unremarkable with no evidence of radiopaque gallstones, gallbladder wall thickening, or obvious pericholecystic inflammatory changes. PANCREAS: Unremarkable. SPLEEN: Unremarkable. ADRENAL GLANDS: Unremarkable. KIDNEYS AND URETERS: Right-sided nephrolithiasis measuring up to 3 mm without hydronephrosis. Left-sided nephrolithiasis measuring up to 5 mm without hydronephrosis. BLADDER: Unremarkable. GASTROINTESTINAL TRACT: Small hiatal hernia. Large fecal loading in the rectal vault without pericolonic inflammatory changes to suggest stercoral colitis at this time. The small and large bowel are otherwise unremarkable. The appendix is not definitively visualized. No secondary signs of appendicitis. MESENTERY: Large volume ascites throughout the abdomen. ABDOMINAL WALL: Left inguinal hernia containing loops of sigmoid and descending colon without evidence of obstruction. Ascitic fluid is also noted in the left inguinal hernia which tracks down the left hemiscrotum. LYMPH NODES: No enlarged lymph nodes per size criteria. VASCULAR: Abdominal aorta is nonaneurysmal. Atherosclerotic calcifications of the abdominal aorta and its branches. PELVIC VISCERA: Unremarkable. OSSEOUS STRUCTURES: Osteopenia. Grade 1 retrolisthesis of L4 on L5 and L5 on S1. Multilevel degenerative changes of the thoracolumbar and lumbosacral spine. No large lytic or blastic lesions are noted. CT/CT abdomen pelvis wo con IMPRESSION: 1. Large fecal loading in the rectal vault without pericolonic inflammatory changes to suggest stercoral colitis at this time. 2. Large volume ascites throughout the abdomen. 3. Left inguinal hernia containing loops of sigmoid and descending colon without evidence of obstruction.Ascitic fluid is also noted in the left inguinal hernia which tracks down the left hemiscrotum. 4. Cirrhotic morphology of the liver with hypodense focus redemonstrated in the lateral aspect of the right hepatic lobe, incompletely characterized. Previously identified patchy focus in the right hepatic lobe is not well visualized on noncontrast imaging. 5. Bilateral nephrolithiasis without hydronephrosis. 6. Small hiatal hernia. 7. Osteopenia. 8. Grade 1 retrolisthesis of L4 on L5 and L5 on S1.
[2022-01-13 08:25] VITALS: BP 139/91; PULSE 89; RESP 18; TEMP 36.7; O2SAT 100
[2022-01-13 08:37] VITALS: BP 138/91; BP 145/93; PULSE 88; PULSE 94; RESP 18; TEMP 36.4; O2SAT 100; BMI 34.1
--- NOTE | 2022-01-13 08:47 | ED.MALEGU ---
HPI - Male Genitourinary General Chief complaint: Urogenital-Male Stated complaint: UNABLE TO VOID FOR DAYS Time Seen by Provider: 01/13/22 08:43 Source: patient and EMS Mode of arrival: EMS Limitations: no limitations History of Present Illness HPI Narrative: 66 years old male history of alcoholic liver disease with recurrent ascites that required paracentesis once weekly patient is due for paracentesis tomorrow came in concerned of no bowel movement for the past 5 days but able to pass flatus, patient declined any surgery in the past. Patient has no problem with urination. Patient otherwise declined abdominal tenderness or pain, no nausea, no vomiting current. Related Data Home Medications Medication Instructions Recorded Confirmed albuterol sulfate 90 mcg/actuation 2 puff INHALATION QID PRN 09/22/20 12/24/21 aerosol inhaler (ProAir HFA) omeprazole 20 mg capsule,delayed 20 mg PO DAILY@0630 cap 09/22/20 12/24/21 release lactulose 10 gram/15 mL oral 45 ml PO TID 12/16/21 12/24/21 solution spironolactone 100 mg tablet 100 mg PO DAILY 12/24/21 12/24/21 Previous Rx's Medication Instructions Recorded furosemide 40 mg tablet (Lasix) 40 mg PO DAILY #20 tab 08/26/21 azithromycin 250 mg tablet 250 mg PO DAILY 3 Days #3 tab 12/25/21 cefuroxime axetil 500 mg tablet 500 mg PO BID 3 Days #6 tab 12/25/21 levothyroxine 75 mcg tablet 225 mcg PO DAILY 30 Days #90 tab 12/25/21 (Synthroid) propranolol 10 mg tablet 15 mg PO BID 30 Days #90 tab 12/25/21 Allergies Allergy/AdvReac Type Severity Reaction Status Date / Time No Known Allergies Allergy Verified 12/23/21 20:38 [No Known Allergies*] Review of Systems Review of Systems: All other systems are reviewed and are negative Constitutional: Reports as per HPI and Reports no additional constitutional complaints Eyes: Reports as per HPI and Reports no additional eye complaints Reports system reviewed and no additional complaints, except as documented Cardiovascular: Reports as per HPI and Reports no additional cardiovascular complaints Respiratory: Reports as per HPI and Reports no additional respiratory complaints Gastrointestinal: Reports as per HPI and Reports no additional gastrointestinal complaints Genitourinary: Reports no additional female genitourinary complaints Musculoskeletal: Reports no additional musculoskeletal complaints Skin/Breast: Reports system reviewed and no additional complaints, except as docu Psychiatric: Reports no additional psychiatric complaints Endocrine: Reports no additional endocrine complaints Hematologic/Lymphatic: Reports no additional hematologic/lymphatic complaints Allergic/Immunologic: Reports no additional allergic/immunologic complaints Reports system reviewed and no additional complaints, except as documented and Reports Abnormal speech present [facility] Past Medical History Medical History Allergic rhinitis Anemia Anemia Asthma Cirrhosis Constipation GERD (gastroesophageal reflux disease) H/O ETOH abuse Hepatitis C Hepatitis C History of alcohol abuse History of kidney stones HTN (hypertension) Hypothyroid Left inguinal hernia Liver mass Surgical History History of esophagogastroduodenoscopy (EGD) Hx of colonoscopy No history of previous surgery Family History Family History Other No known health problems Social History Social History Household Members: Family Housing: House Do you presently have visiting nurse or other home services: No Alcohol intake: never Patient Tobacco Use Status: Never used Tobacco Use of substances other than those prescribed or required for medical reasons: No Substance Use Type: Marijuana Advance Directives: No Advance Directives Information Provided: Yes Advance Directives Date on File: 11/04/21 service: No Current occupational status: unemployed Physical Exam Vital Signs: Vital Signs: Last Vital Signs Temp 97.6 F 01/13/22 08:37 Pulse 88 01/13/22 08:37 Resp 18 01/13/22 08:37 BP 138/91 H 01/13/22 08:37 Pulse Ox 100 01/13/22 08:37 BMI result Body Mass Index 34.1 Vital signs have been reviewed as appeared to be correct. Blood pressure normal. Heart rate normal. Respiration rate normal. Temperature normal. Oxygen saturation normal. Appearance: Alert. Oriented X3. No acute distress. Head: Normal external exam. Normocephalic. Atraumatic. No Loya signs noted. No raccoon eyes noted Eyes: PERRLA. EOMI. Conjunctiva and sclera normal. Eyelids normal. ENT: TM's Normal. Pharynx normal. Uvula midline. Moist mucous membranes. No trismus noted. No drooling noted. No muffled voice noted. Neck: Normal inspection. Neck supple. FROM. No adenopathy. Thyroid Normal. No meningeal signs. No neck mass noted. CVS: Normal heart rate and rhythm. Heart sound normal. No murmurs noted. Pulses normal throughout. Respiratory: No respiratory distress. Painless inspiration. Breath sounds normal. No wheezes/rales/rhonchi noted. Chest nontender. No accessory muscle usage noted or decreased air movement noted. Abdomen: Distended with diffuse ascites Bowel sounds normal in all 4 quadrants. No distention noted. No organomegaly noted. No visible injury noted. Rectal exam: Hard stool in the vault with attempt for partial disimpaction. Back: No CVA tenderness. Full range of motion noted. Skin: Skin warm and dry. Normal skin color. Normal skin turgor. No rashes/lesions/lacerations noted. Extremities: No lower extremity edema. Extremities exhibit normal range of motion. Extremities nontender. Neuro: Oriented X 3. Cranial nerve exam: II-XII are grossly intact No motor deficit. No sensory deficit. Reflexes normal. Course Course Course Narrative: Assessment and plan. 66-year-old male came in for evaluation of no bowel movement for the past 5 days, physical exam/CT of the abdomen/labs are consistent with constipation. Patient also is known history of alcoholic liver disease with ascites and weekly paracentesis he is due tomorrow today has no symptoms related to ascites in particular no shortness of breath or abdominal pain. [facility] - Male Genitourinary Lab Data Attestation: I reviewed the patient's lab results. Result diagrams: 01/13/22 09:07 01/13/22 09:08 Labs: Lab Results 01/13/22 01/13/22 Range/Units 09:07 09:08 WBC 6.8 (4.8-10.8) X10*3/uL RBC 3.72 L (4.60-5.80) X10*6/uL Hgb 11.7 L (14.0-18.0) g/dl Hct 34.3 L (42.0-52.0) % MCV 92.2 (80.0-98.0) fL MCH 31.5 (27.0-33.0) pg MCHC 34.1 (31.0-36.0) g/dl RDW 14.5 (11.0-16.0) % Plt Count 193 D (160-400) X10*3/uL MPV 9.9 (9.4-12.4) fL Immature Gran % (Auto) 1.8 H (0.0-0.4) % Neut % (Auto) 61.9 (45-73) % Lymph % (Auto) 17.9 L (20-40) % Long % (Auto) 11.9 H (2-11) % Eos % (Auto) 4.6 H (0-4) % Baso % (Auto) 1.9 (0-2) % Lymph # (Auto) 1.2 (1.2-4.9) X10*3/uL Long # (Auto) 0.8 (0.1-1.2) X10*3/uL Eos # (Auto) 0.3 (0.0-0.4) X10*3/uL Baso # (Auto) 0.1 (0.0-0.2) X10*3/uL Abs Immat Gran (auto) 0.12 H (0.00-0.03) X10*3/uL Absolute Neuts (auto) 4.2 (2.0-8.3) x10*3/uL Absolute Nucleated RBC 0.000 (0.0-0.012) X10*3/uL Nucleated RBC % (auto) 0.0 (0.0-0.2) /100WBC Sodium 132 L (135-145) mmol/L Potassium 4.1 (3.3-5.1) mmol/L Chloride 100 (96-108) mmol/L Carbon Dioxide 25 (22-29) mmol/L Anion Gap 11 L (12-20) BUN 30 H (9-16) mg/dL Creatinine 1.56 H (0.5-1.4) mg/dL Estim Creat Clear Calc 58.8 Estimated GFR 45 Random Glucose 174 H (60-115) mg/dL Calcium 9.4 D (8.4-10.2) mg/dL Total Bilirubin 1.3 H (0.0-1.0) mg/dL Direct Bilirubin 0.6 H (0.0-0.5) mg/dL AST 96 H (5-37) U/L ALT 56 H (0-40) U/L Alkaline Phosphatase 188 H (39-117) U/L Total Protein 7.2 (6.5-8.0) g/dL Albumin 2.6 L (3.5-5.0) g/dL Lipase 43 (8-78) U/L Imaging Data CT scan - abdomen: Attestation: I personally reviewed and interpreted this imaging study as follows: Radiologist's impression: 1.? Large fecal loading in the rectal vault without pericolonic inflammatory changes to suggest stercoral colitis at this time. 2.? Large volume ascites throughout the abdomen. 3.? Left inguinal hernia containing loops of sigmoid and descending colon without evidence of obstruction.Ascitic fluid is also noted in the left inguinal hernia which tracks down the left hemiscrotum.? 4.? Cirrhotic morphology of the liver with hypodense focus redemonstrated in the lateral aspect of the right hepatic lobe, incompletely characterized. Previously identified patchy focus in the right hepatic lobe is not well visualized on noncontrast imaging. 5.? Bilateral nephrolithiasis without hydronephrosis. 6.? Small hiatal hernia. 7.? Osteopenia. 8.? Grade 1 retrolisthesis of L4 on L5 and L5 on S1. Discharge Plan Discharge Clinical Impression: Constipation, Ascites Patient Disposition: Home, Self-Care Instructions: Constipation (ED) Additional Instructions: Keep your appointment tomorrow for the abdominal fluid drainage as was scheduled. Prescriptions: No Action furosemide [Lasix] 40 mg tablet 40 mg PO DAILY Qty: 20 0RF Hold Instructions: Resume on 12/27/21. lactulose 10 gram/15 mL solution 45 ml PO TID 0RF spironolactone 100 mg Tablet 100 mg PO DAILY 0RF azithromycin 250 mg tablet 250 mg PO DAILY 3 Days Qty: 3 0RF cefuroxime axetil 500 mg tablet 500 mg PO BID 3 Days Qty: 6 0RF propranolol 10 mg tablet 15 mg PO BID 30 Days Qty: 90 0RF levothyroxine [Synthroid] 75 mcg tablet 225 mcg PO DAILY 30 Days Qty: 90 0RF omeprazole 20 mg capsule,delayed release(DR/EC) 20 mg PO DAILY@0630 0RF albuterol sulfate [ProAir HFA] 90 mcg/actuation HFA aerosol inhaler 2 puff inhalation QID PRN (Reason: Wheezing) 0RF Referrals: Shayy Sears MD [Primary Care Provider] -
[2022-01-13 09:12] LABS: MANUAL DIFF FLAG NO
[2022-01-13 09:20] LABS: Basophils Absolute Auto 0.1 X10*3/uL (0.0-0.2); Basophils Percent Auto 1.9 % (0-2); Eosinophils Absolute Auto 0.3 X10*3/uL (0.0-0.4); Eosinophils Percent Auto 4.6 % (0-4); Hematocrit 34.3 % (42.0-52.0); Hemoglobin 11.7 g/dl (14.0-18.0); Imm Gran Abs Auto 0.12 X10*3/uL (0.00-0.03); Imm Gran Pct Auto 1.8 % (0.0-0.4); Lymphocytes Absolute Auto 1.2 X10*3/uL (1.2-4.9); Lymphocytes Percent Auto 17.9 % (20-40); Mean Corpuscular HGB Conc 34.1 g/dl (31.0-36.0); Mean Corpuscular Hemoglobin 31.5 pg (27.0-33.0); Mean Corpuscular Volume 92.2 fL (80.0-98.0); Mean Platelet Volume 9.9 fL (9.4-12.4); Monocytes Absolute Auto 0.8 X10*3/uL (0.1-1.2); Monocytes Percent Auto 11.9 % (2-11); Neutrophils Absolute Auto 4.2 x10*3/uL (2.0-8.3); Neutrophils Percent Auto 61.9 % (45-73); Platelet Count 193 X10*3/uL (160-400); Red Blood Count 3.72 X10*6/uL (4.60-5.80); Red Cell Distribution Width 14.5 % (11.0-16.0); White Blood Count 6.8 X10*3/uL (4.8-10.8)
[2022-01-13 09:28] LABS: Alanine Aminotransferase 56 U/L (0-40); Albumin Level 2.6 g/dL (3.5-5.0); Alkaline Phosphatase 188 U/L (39-117); Anion Gap 11 (12-20); Aspartate Amino Transferase 96 U/L (5-37); Bilirubin Direct 0.6 mg/dL (0.0-0.5); Bilirubin Total 1.3 mg/dL (0.0-1.0); Blood Urea Nitrogen 30 mg/dL (9-16); Calcium 9.4 mg/dL (8.4-10.2); Carbon Dioxide 25 mmol/L (22-29); Chloride 100 mmol/L (96-108); Creatinine Clr Calc Pharmacy 58.8; Estimated Glomerular Filt Rate 45; Glucose Random 174 mg/dL (60-115); Lipase 43 U/L (8-78); Potassium 4.1 mmol/L (3.3-5.1); Sodium 132 mmol/L (135-145); Total Protein 7.2 g/dL (6.5-8.0)
--- NOTE | 2022-01-13 11:31 | PC.NURSE ---
Pt able to void. Will return tomorrow for paracentesis as scheduled
== END 2022-01-13 11:32 | disposition home or self-care (01) ==
PROVIDERS: Emergency Provider Emergency Medicine; PCP General Practice
DX: K59.00 Constipation, unspecified (principal); K70.31 Alcoholic cirrhosis of liver with ascites; I10 Essential (primary) hypertension; J45.909 Unspecified asthma, uncomplicated
CPT/HCPCS: 36415; 74176; 80048; 80076; 83690; 85025; 99284

== ENCOUNTER 2022-01-14 09:29 | Day surgery (SDC) | payer MEDICAID, SELFPAY ==
--- NOTE | ~2022-01-14 | US_ITS ---
PROCEDURE: US-GUIDED PARACENTESIS CLINICAL INFORMATION: Ascites and cirrhosis. COMPARISON: None TECHNIQUE: Following explaining ultrasound-guided paracentesis procedure, benefits and risk, a written consent was obtained. Patient was placed supine on ultrasound stretcher and preliminary ultrasound imaging was obtained through the abdomen. An optimal site was selected through the right lower quadrant. The site was marked, cleaned and draped in usual sterile manner. 1% lidocaine was injected at puncture site. Through a small skin incision a 5 [employer] catheter was advanced into the peritoneal space. After observing fluid return, stylet was withdrawn and catheter connected to vacuum bottle via connecting cannula. After obtaining all fluid and observing no more fluid remaining, the catheter was withdrawn and complete hemostasis achieved at puncture site. Sterile dressing applied postprocedure. Patient tolerated procedure extremely well. Patient was monitored by IR nursing during the exam. FINDINGS: On preliminary ultrasound imaging there is a large amount of ascites seen. Approximately 9 L of cloudy yellowish fluid drained from the right lower quadrant. None of this fluid was sent to lab. US/US paracentesis abd w/image IMPRESSION: Successful ultrasound-guided therapeutic paracentesis without immediate complications.
[2022-01-14 10:06] VITALS: BMI 31.5
[2022-01-14] MEDS: Lidocaine HCl 1 % MPF 5 ML VIAL SUBCUT (12:26)
[2022-01-14 12:36] VITALS: BP 126/75; PULSE 82; RESP 18; TEMP 37.1; O2SAT 100
[2022-01-14 12:51] VITALS: BP 129/85; PULSE 92; RESP 18; TEMP 36.7; O2SAT 99
== END 2022-01-14 12:56 | disposition home or self-care (01) ==
PROVIDERS: Radiology Diagnostic Radiology; PCP General Practice; Visit Provider Internal Medicine Gastroenterology
DX: R18.8 Other ascites (principal); K74.60 Unspecified cirrhosis of liver; F10.10 Alcohol abuse, uncomplicated; B19.20 Unspecified viral hepatitis C without hepatic coma; J45.909 Unspecified asthma, uncomplicated; D64.9 Anemia, unspecified
CPT/HCPCS: 49083

== ENCOUNTER 2022-01-16 16:42 | Inpatient (IN) | payer MEDICAID, SELFPAY ==
[2022-01-16] VITALS (7 sets, daily range): BP systolic 92–116; BP diastolic 58–75; PULSE 51–66; RESP 15–20; TEMP 36.3–36.7; O2SAT 98–100; BMI 32.1
--- NOTE | ~2022-01-16 | XR_ITS ---
EXAMINATION: XR CHEST CLINICAL INFORMATION: Shortness of breath COMPARISON: Chest 12/23/2021 TECHNIQUE: 2 views of the chest were obtained. FINDINGS: The lungs are hypoexpanded but clear of acute process. The heart size and progress clarities normal. No gross bony abnormality seen. XR/XR chest 2V IMPRESSION: Unremarkable chest exam. Previously seen left upper lobe patchy opacity has improved.
--- NOTE | ~2022-01-16 | CT_ITS ---
EXAMINATION: CT ABDOMEN AND PELVIS WITHOUT CONTRAST CLINICAL INFORMATION: Shortness of breath. Abdominal distention. COMPARISON: CT abdomen and pelvis of 01/13/2022, 11/29/2021, 12/01/2020. TECHNIQUE: Multidetector volumetric imaging was performed from the superior aspect of the liver through the pubic symphysis. Sagittal and coronal reformatted images were obtained on the technologist's workstation. This CT examination was performed using dose optimization techniques as appropriate, variously including the following: *Automated exposure control. *Adjustment of mA and/or kV according to patient size (this includes techniques or standardized protocols for targeted exams where dose is matched to indication/reason for exam; i.e. extremities or head). *Use of iterative reconstruction technique. DLP: 1027 mGy-cm FINDINGS: LUNG BASES: The visualized lung bases are unremarkable. Moderate left gynecomastia is partially visualized. LIVER, GALLBLADDER, AND BILIARY TREE: Small somewhat shrunken cirrhotic liver is again noted. A 2.7 x 3.7 cm mildly hypodense lesion is noted at the junction of hepatic segment 8 and 5 in the subcapsular region (series 3 image 20), previously 3.8 x 2.8 (11/29/2021). An ill-defined hypoattenuation measuring approximately 2.5 cm is noted in the hepatic segment 4A (series 3 image 14). The gallbladder is unremarkable with no evidence of radiopaque gallstones, gallbladder wall thickening, or obvious pericholecystic inflammatory changes. No intrahepatic or extrahepatic biliary ductal dilatation. PANCREAS: Unremarkable. SPLEEN: Unremarkable. ADRENAL GLANDS: Unremarkable. KIDNEYS AND URETERS: The kidneys are normal in size, shape, and attenuation. No hydroureteronephrosis. There is a 0.4 cm nonobstructing calculus in the lower pole of the left kidney and a punctate nonobstructing calculus in the upper to mid left kidney. Three to four 0.2 cm nonobstructing calculi are noted scattered in the right kidney. No perinephric stranding. BLADDER: The bladder is underdistended and, therefore, not optimally evaluated. No radiopaque calculi are noted. GASTROINTESTINAL TRACT: Small hiatal hernia. Stomach is decompressed. No abnormal small or large bowel dilatation is noted. OMENTUM, MESENTERY AND PERITONEAL CAVITY: Diffuse mesenteric stranding is noted. Moderate volume ascites. No free intraperitoneal air. ABDOMINAL WALL: Small umbilical hernia containing fluid is noted. Partially visualized left inguinal scrotal hernia containing nonobstructed bowel loops and fluid. LYMPH NODES: Normal. VASCULAR: The aortoiliac vessels are normal in caliber. Scattered calcific atherosclerosis of the aortoiliac vessels. PELVIC VISCERA: Unremarkable. OSSEOUS STRUCTURES: Acute or suspicious osseous lesion. Vacuum disc phenomena is noted at L4-L5 disc level. CT/CT abdomen pelvis wo con IMPRESSION: 1. Known cirrhotic morphology of the liver. A 3.7 x 2.7 cm subcapsular hypodense lesion in the liver at the junction of hepatic segment 8 and 5 is again noted, without significant interval change compared to previous CT of 11/29/2021. Findings is highly concerning for hepatocellular carcinoma. Mild faint hypoattenuation within the hepatic segment 4A subcapsular region is not clearly seen on the previous CT of 11/29/2021, a nonspecific finding. 2. Moderate volume ascites. 3. No evidence of abnormal bowel dilatation or bowel obstruction. 4. Several bilateral small nonobstructing renal calculi. Fleischner guidelines were followed.
--- NOTE | 2022-01-16 16:56 | ECG_ITS ---
Test Reason : DYSPNEA Blood Pressure : / mmHG Vent. Rate : 052 BPM Atrial Rate : 052 BPM P-R Int : 172 ms QRS Dur : 088 ms QT Int : 516 ms P-R-T Axes : 068 -33 039 degrees QTc Int : 479 ms Sinus bradycardia Left axis deviation Prolonged QT Abnormal ECG When compared with ECG of 23-DEC-2021 22:24, No significant changes seen Referred By: Shira Brewer Electronically Signed By:LUIS ALEX
[2022-01-16 17:26] LABS: Hematocrit 33.6 % (42.0-52.0); Hemoglobin 11.8 g/dl (14.0-18.0); Mean Corpuscular HGB Conc 35.1 g/dl (31.0-36.0); Mean Corpuscular Hemoglobin 31.5 pg (27.0-33.0); Mean Corpuscular Volume 89.6 fL (80.0-98.0); Platelet Count 170 X10*3/uL (160-400); Red Blood Count 3.75 X10*6/uL (4.60-5.80); Red Cell Distribution Width 13.9 % (11.0-16.0); White Blood Count 8.6 X10*3/uL (4.8-10.8)
[2022-01-16 17:29] LABS: Appearance Urine CLEAR; Color Urine YELLOW; Glucose Urine UA NEG (NEG); Leukocyte Esterase Urine NEG (NEG); Nitrite Urine NEG (NEG); Urine Blood NEG (NEG); Urine Ketones NEG (NEG); Urine Protein NEG (NEG-TRACE)
[2022-01-16 17:38] LABS: Prothrombin Time 11.7 SEC (9.9-13.0)
[2022-01-16 17:42] LABS: COVID-19 Test Negative (Negative); IDNOW Serial# 16C4AD1C; Influenza A Negative (Negative); Influenza B2 Negative (Negative)
[2022-01-16 17:43] LABS: Alanine Aminotransferase 40 U/L (0-40); Albumin Level 2.4 g/dL (3.5-5.0); Alkaline Phosphatase 194 U/L (39-117); Anion Gap 10 (12-20); Aspartate Amino Transferase 72 U/L (5-37); Bilirubin Total 0.8 mg/dL (0.0-1.0); Blood Urea Nitrogen 38 mg/dL (9-16); Calcium 8.6 mg/dL (8.4-10.2); Carbon Dioxide 21 mmol/L (22-29); Chloride 97 mmol/L (96-108); Estimated Glomerular Filt Rate 43; Glucose Random 127 mg/dL (60-115); Magnesium 2.2 mg/dL (1.6-2.6); Potassium 4.4 mmol/L (3.3-5.1); Sodium 124 mmol/L (135-145); Total Protein 6.5 g/dL (6.5-8.0)
--- NOTE | 2022-01-16 17:43 | ED.SOB ---
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 Reports that he had a paracentesis on Monday. He denies any alcohol drinking for approximately 2-3 years. He denies any fevers, chills, dizziness, headaches, neck pain/ stiffness, trouble swallowing, chest pain, back pain, cough, dysuria, hematuria, nausea/ vomiting/ diarrhea constipation, black or bloody stools, recent travel or sick contacts, lower extremity edema or calf tenderness or any other symptoms complaints or concerns at this time. patient has been admitted multiple times for same complaint requiring paracentesis. He reports that he just had an ultrasound-guided paracentesis on Monday on 01/14/2022 where they removed 9 bottles of cloudy yellow fluids and it does not appear that they sent any cultures of this cloudy yellow fluid. MD elicited complaint: shortness of breath Pertinent past history: other ( see above) Onset (ago): hour(s) ( Started today) Timing: constant and progressively worsening Severity: moderate Exacerbating factors: lying flat, exertion, movement, inspiration and talking Relieving factors: nothing Known history of: other ( see above) Associated symptoms: other ( abdominal distension) Treatment prior to arrival: none Related Data Home oxygen amount: none Home Medications Medication Instructions Recorded Confirmed albuterol sulfate 90 mcg/actuation 2 puff INHALATION QID PRN 09/22/20 01/16/22 aerosol inhaler (ProAir HFA) omeprazole 20 mg capsule,delayed 20 mg PO DAILY@0630 cap 09/22/20 01/16/22 release lactulose 10 gram/15 mL oral 45 ml PO TID 12/16/21 01/16/22 solution spironolactone 100 mg tablet 100 mg PO DAILY 12/24/21 12/24/21 propranolol 10 mg tablet 10 mg PO BID 01/16/22 01/16/22 simethicone 125 mg chewable tablet 1 tab PO BID PRN 01/16/22 01/16/22 Previous Rx's Medication Instructions Recorded furosemide 40 mg tablet (Lasix) 40 mg PO DAILY #20 tab 08/26/21 levothyroxine 75 mcg tablet 225 mcg PO DAILY 30 Days #90 tab 12/25/21 (Synthroid) Allergies Allergy/AdvReac Type Severity Reaction Status Date / Time No Known Allergies Allergy Verified 01/16/22 17:07 [No Known Allergies*] Review of Systems Review of Systems: Constitutional : No Weight loss, No Fever, No Chills, No Night Sweats, No Fatigue, No Malaise ENT/Mouth : No Hearing loss, No Ear Pain, No Nasal Congestion, No Sinus Pain, No Hoarseness, No sore throat, No Rhinorrhea, No Swallowing Difficulty Eyes: No Eye Pain, No Swelling, No Redness, No Foreign Body, No Discharge, No Vision Changes Cardiovascular : + shortness of breath/dyspnea on exertion/ orthopnea, No Chest Pain, No Edema, No Palpitations Respiratory : No Cough, No Sputum, No Wheezing, No Smoke Exposure, + Dyspnea Gastrointestinal : + abdominal distention, No Nausea, No Vomiting, No Diarrhea, No Constipation, No abdominal Pain, No Hematochezia, No Melena Genitourinary : no irregular bleeding, No Dysuria, No Urinary Frequency, No Hematuria, No Urinary Incontinence, No Urgency, No Flank Pain, No Urinary Flow Changes, No Hesitancy Musculoskeletal : No joint pain, No Myalgias, No Joint Swelling Skin : No Skin Lesions, No rash Neuro : No Weakness, No Numbness, No Paresthesias, No Loss of Consciousness, No Dizziness, No Headache Psych : No Anxiety/Panic, No Depression, No SI/HI/AH/VH, No Social Issues, Heme/Lymph: No Bruising, No Bleeding,No Lymphadenopathy Endocrine : No Polyuria, No Polydipsia, No Temperature Intolerance Yes all other systems are reviewed and are negative [facility] Past Medical History Attestation statement: The following information was validated with the patient. Medical History Allergic rhinitis Anemia Anemia Asthma Cirrhosis Constipation GERD (gastroesophageal reflux disease) H/O ETOH abuse Hepatitis C Hepatitis C History of alcohol abuse History of kidney stones HTN (hypertension) Hypothyroid Left inguinal hernia Liver mass Surgical History History of esophagogastroduodenoscopy (EGD) Hx of colonoscopy No history of previous surgery Family History Family History Other No known health problems Social History Social History Household Members: Family Housing: House Do you presently have visiting nurse or other home services: No Alcohol intake: never Patient Tobacco Use Status: Never used Tobacco Substance Use Type: Marijuana Advance Directives: No Advance Directives Information Provided: No Advance Directives Date on File: 11/04/21 service: No Current occupational status: unemployed Physical Exam Vital Signs: Vital Signs: Last Vital Signs Temp 97.6 F 01/16/22 18:56 Pulse 51 01/16/22 18:56 Resp 17 01/16/22 18:56 BP 114/73 01/16/22 18:56 Pulse Ox 99 01/16/22 18:56 BMI result Body Mass Index 32.1 vital signs have been reviewed as normal and appeared to be correct. Blood pressure normal. Heart rate normal. Respiration rate normal. Temperature normal. Oxygen saturation normal. Appearance: Alert. Oriented X3. No acute distress. Head: Normal external exam. Normocephalic. Atraumatic. Eyes: PERRLA. EOMI. Conjunctiva and sclera normal. Eyelids normal. ENT: Pharynx normal. Uvula midline. Moist mucous membranes. No lesions/ulcerations or masses noted on the tongue. Normal voice. No trismus noted. No drooling noted. No muffled voice noted. Neck: Normal inspection. Neck supple. FROM. No adenopathy. Thyroid Normal. No tracheal deviation noted. No crepitus is noted. No meningeal signs. No neck mass noted. No signs of trauma noted. CVS: Normal heart rate and rhythm. Heart sound normal. Pulses normal throughout. No murmurs/rales/gallops. Respiratory: No respiratory distress. Painless inspiration. Breath sounds normal. No wheezes/rales/rhonchi noted. Chest nontender. No crepitus is noted. No signs of trauma noted. No accessory muscle usage noted or decreased air movement noted. No signs of trauma. Abdomen: Soft and nontender. Bowel sounds normal in all 4 quadrants. patient noted to have moderate distention/ascites. No organomegaly noted. No visible injury noted. Back: No CVA tenderness. Full range of motion noted. Nontender. No signs of trauma. Patient neuro intact bilaterally and distally on all 4 extremities. Patient's reflexes intact bilaterally and distally on all 4 extremities. No rashes/lesion/induration/fluctuance or signs of infection noted. Skin: Skin warm and dry. Normal skin color. Normal skin turgor. No rashes/lesions/lacerations noted. Extremities: No lower extremity edema. No calf tenderness is noted. Extremities exhibit normal range of motion and nontender. Neuro: Oriented X 3. No motor deficit. No sensory deficit. Reflexes normal. Normal steady gait. No focal neuro deficits noted. CN's II-XII intact bilaterally? Vascular: + radial pulses/+ 2 distal pedal pulses/+2 dorsalis pedis b/l. Normal cap refill. No cyanosis noted to upper extremity nails and lower extremity toes nails. 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 Patient has been admitted multiple times for same complaint requiring paracentesis. He reports that he just had an ultrasound-guided paracentesis on Monday on 01/14/2022 where they removed 9 bottles of cloudy yellow fluids and it does not appear that they sent any cultures of this cloudy yellow fluid. Plan: Will obtain labs, EKG, chest x-ray, CT scan abdomen pelvis with IV contrast then re-evaluate. Reevaluation(s) Reevaluation #1: - Labs reviewed patient with a mild baseline anemia similar compared to prior. Sodium 124 which is worse when compared to prior his baseline appears to be in the 130s. Anion gap 10. Carbon dioxide 21. BUN/ creatinine 38/1.6 to this is acute on chronic although he has been worse in the past. Random glucose 127. AST 72. Alkaline phosphate 194. Troponin 13.7. BNP 53. Albumin 2.4. Otherwise all other labs are within normal limits. UA within normal limits no evidence of UTI. Patient negative for COVID. - Chest x-ray within normal limits no acute processes noted and improved when compared to prior. - CT scan abdomen pelvis without IV contrast revealed chronic changes such as hepatic carcinoma which patient is aware of along with moderate volume ascites and several bilateral small nonobstructing renal calculi otherwise no other acute processes. - I performed the paracentesis sent for Gram staining due to patient had yellow cloudy fluid therefore at this time blood cultures and lactic acid were ordered and patient will be given IV antibiotics and patient will be admitted for worsening hyponatremia and ascites with LEVI. Patient and daughter at bedside understand agree this plan. I also filled out a molst form and patient decided that he would want to be full code. Time: 20:00 MDM - SOB/Dyspnea Medical Records Attestation: I reviewed the patient's medical records. Lab Data Attestation: I reviewed the patient's lab results. Result diagrams: 01/16/22 17:18 01/16/22 17:18 Labs: Lab Results 01/16/22 01/16/22 01/16/22 Range/Units 17:18 17:18 17:18 WBC 8.6 (4.8-10.8) X10*3/uL RBC 3.75 L (4.60-5.80) X10*6/uL Hgb 11.8 L (14.0-18.0) g/dl Hct 33.6 L (42.0-52.0) % MCV 89.6 (80.0-98.0) fL MCH 31.5 (27.0-33.0) pg MCHC 35.1 (31.0-36.0) g/dl RDW 13.9 (11.0-16.0) % Plt Count 170 (160-400) X10*3/uL MPV 10.0 (9.4-12.4) fL Immature Gran % (Auto) Cancelled Neut % (Auto) Cancelled Lymph % (Auto) Cancelled [place] % (Auto) Cancelled Eos % (Auto) Cancelled Baso % (Auto) Cancelled Lymph # (Auto) Cancelled [place] # (Auto) Cancelled Eos # (Auto) Cancelled Baso # (Auto) Cancelled Abs Immat Gran (auto) Cancelled Absolute Neuts (auto) Cancelled Absolute Nucleated RBC 0.000 (0.0-0.012) X10*3/uL Nucleated RBC % (auto) 0.0 (0.0-0.2) /100WBC Neutrophils % (Manual) 66 (45-73) % Band Neutrophils % 2 L (3-5) % Lymphocytes % (Manual) 13 L (20-40) % Atypical Lymphs % (Man) 1 (0-6) % Monocytes % (Manual) 8 (2-11) % Eosinophils % (Manual) 4 (0-4) % Basophils % (Manual) 2 (0-2) % Metamyelocytes % 1 % Myelocytes % 1 % Promyelocytes % 2 % Abs Neuts (Manual) 5.8 (2.0-8.3) X10*3/uL Lymphocytes # (Manual) 1.1 L (1.2-4.9) X10*3/uL Atyp Lymphs # (Manual) 0.1 x10*3/uL Monocytes # (Manual) 0.7 (0.1-1.2) X10*3/uL Eosinophils # (Manual) 0.3 (0.0-0.4) X10*3/uL Basophils # (Manual) 0.2 (0.0-0.2) X10*3/uL Metamyelocytes # 0.1 X10*3/uL Myelocytes # 0.1 X10*/uL Promyelocytes # 0.2 X10*3/uL Smudge Cells PRESENT Toxic Vacuolation PRESENT Platelet Estimate DECREASED (NORMAL) Large Platelets PRESENT Giant Platelets PRESENT Plt Morphology Comment NOTED RBC Morphology NORMAL Tear Drop Cells 2+ (3-5) /OIF Ovalocytes 1+ (5-14) /OIF [place] Cells 2+ (3-5) /OIF Hold Purple Top SEE NOTE PT 11.7 (9.9-13.0) SEC INR 1.0 (0.9-1.1) Sodium (135-145) mmol/L Potassium (3.3-5.1) mmol/L Chloride (96-108) mmol/L Carbon Dioxide (22-29) mmol/L Anion Gap (12-20) BUN (9-16) mg/dL Creatinine (0.5-1.4) mg/dL Estim Creat Clear Calc Estimated GFR Random Glucose (60-115) mg/dL Calcium (8.4-10.2) mg/dL Magnesium (1.6-2.6) mg/dL Total Bilirubin (0.0-1.0) mg/dL AST (5-37) U/L ALT (0-40) U/L Alkaline Phosphatase (39-117) U/L Troponin I High Sens (<3.5-35.0) ng/L B-Natriuretic Peptide (<100) pg/mL Total Protein (6.5-8.0) g/dL Albumin (3.5-5.0) g/dL Urine Color Urine Appearance Urine pH (5.0-8.0) Ur Specific [place] (1.005-1.025) Urine Protein (NEG-TRACE) MG/DL Urine Glucose (UA) (NEG) MG/DL Urine Ketones (NEG) MG/DL Urine Blood (NEG) Urine Nitrite (NEG) Ur Leukocyte Esterase (NEG) COVID-19 (JELANI) (Negative) COVID-19 Clin Com Influenza Type A (RYAN) (Negative) Influenza Type B (RYAN) (Negative) Influenza A & B Note 01/16/22 01/16/22 01/16/22 Range/Units 17:18 17:18 17:18 WBC (4.8-10.8) X10*3/uL RBC (4.60-5.80) X10*6/uL Hgb (14.0-18.0) g/dl Hct (42.0-52.0) % MCV (80.0-98.0) fL MCH (27.0-33.0) pg MCHC (31.0-36.0) g/dl RDW (11.0-16.0) % Plt Count (160-400) X10*3/uL MPV (9.4-12.4) fL Immature Gran % (Auto) Neut % (Auto) Lymph % (Auto) [place] % (Auto) Eos % (Auto) Baso % (Auto) Lymph # (Auto) [place] # (Auto) Eos # (Auto) Baso # (Auto) Abs Immat Gran (auto) Absolute Neuts (auto) Absolute Nucleated RBC (0.0-0.012) X10*3/uL Nucleated RBC % (auto) (0.0-0.2) /100WBC Neutrophils % (Manual) (45-73) % Band Neutrophils % (3-5) % Lymphocytes % (Manual) (20-40) % Atypical Lymphs % (Man) (0-6) % Monocytes % (Manual) (2-11) % Eosinophils % (Manual) (0-4) % Basophils % (Manual) (0-2) % Metamyelocytes % % Myelocytes % % Promyelocytes % % Abs Neuts (Manual) (2.0-8.3) X10*3/uL Lymphocytes # (Manual) (1.2-4.9) X10*3/uL Atyp Lymphs # (Manual) x10*3/uL Monocytes # (Manual) (0.1-1.2) X10*3/uL Eosinophils # (Manual) (0.0-0.4) X10*3/uL Basophils # (Manual) (0.0-0.2) X10*3/uL Metamyelocytes # X10*3/uL Myelocytes # X10*/uL Promyelocytes # X10*3/uL Smudge Cells Toxic Vacuolation Platelet Estimate (NORMAL) Large Platelets Giant Platelets Plt Morphology Comment RBC Morphology Tear Drop Cells /OIF Ovalocytes /OIF [place] Cells /OIF Hold Purple Top PT (9.9-13.0) SEC INR (0.9-1.1) Sodium 124 L (135-145) mmol/L Potassium 4.4 (3.3-5.1) mmol/L Chloride 97 (96-108) mmol/L Carbon Dioxide 21 L (22-29) mmol/L Anion Gap 10 L (12-20) BUN 38 H (9-16) mg/dL Creatinine 1.62 H (0.5-1.4) mg/dL Estim Creat Clear Calc 55.0 Estimated GFR 43 Random Glucose 127 H (60-115) mg/dL Calcium 8.6 D (8.4-10.2) mg/dL Magnesium 2.2 (1.6-2.6) mg/dL Total Bilirubin 0.8 (0.0-1.0) mg/dL AST 72 H (5-37) U/L ALT 40 (0-40) U/L Alkaline Phosphatase 194 H (39-117) U/L Troponin I High Sens 13.7 D (<3.5-35.0) ng/L B-Natriuretic Peptide 53 (<100) pg/mL Total Protein 6.5 (6.5-8.0) g/dL Albumin 2.4 L (3.5-5.0) g/dL Urine Color Urine Appearance Urine pH (5.0-8.0) Ur Specific [place] (1.005-1.025) Urine Protein (NEG-TRACE) MG/DL Urine Glucose (UA) (NEG) MG/DL Urine Ketones (NEG) MG/DL Urine Blood (NEG) Urine Nitrite (NEG) Ur Leukocyte Esterase (NEG) COVID-19 (JELANI) (Negative) COVID-19 Clin Com Influenza Type A (RYAN) Negative (Negative) Influenza Type B (RYAN) Negative (Negative) Influenza A & B Note See Note 01/16/22 01/16/22 Range/Units 17:18 17:18 WBC (4.8-10.8) X10*3/uL RBC (4.60-5.80) X10*6/uL Hgb (14.0-18.0) g/dl Hct (42.0-52.0) % MCV (80.0-98.0) fL MCH (27.0-33.0) pg MCHC (31.0-36.0) g/dl RDW (11.0-16.0) % Plt Count (160-400) X10*3/uL MPV (9.4-12.4) fL Immature Gran % (Auto) Neut % (Auto) Lymph % (Auto) [place] % (Auto) Eos % (Auto) Baso % (Auto) Lymph # (Auto) [place] # (Auto) Eos # (Auto) Baso # (Auto) Abs Immat Gran (auto) Absolute Neuts (auto) Absolute Nucleated RBC (0.0-0.012) X10*3/uL Nucleated RBC % (auto) (0.0-0.2) /100WBC Neutrophils % (Manual) (45-73) % Band Neutrophils % (3-5) % Lymphocytes % (Manual) (20-40) % Atypical Lymphs % (Man) (0-6) % Monocytes % (Manual) (2-11) % Eosinophils % (Manual) (0-4) % Basophils % (Manual) (0-2) % Metamyelocytes % % Myelocytes % % Promyelocytes % % Abs Neuts (Manual) (2.0-8.3) X10*3/uL Lymphocytes # (Manual) (1.2-4.9) X10*3/uL Atyp Lymphs # (Manual) x10*3/uL Monocytes # (Manual) (0.1-1.2) X10*3/uL Eosinophils # (Manual) (0.0-0.4) X10*3/uL Basophils # (Manual) (0.0-0.2) X10*3/uL Metamyelocytes # X10*3/uL Myelocytes # X10*/uL Promyelocytes # X10*3/uL Smudge Cells Toxic Vacuolation Platelet Estimate (NORMAL) Large Platelets Giant Platelets Plt Morphology Comment RBC Morphology Tear Drop Cells /OIF Ovalocytes /OIF [place] Cells /OIF Hold Purple Top PT (9.9-13.0) SEC INR (0.9-1.1) Sodium (135-145) mmol/L Potassium (3.3-5.1) mmol/L Chloride (96-108) mmol/L Carbon Dioxide (22-29) mmol/L Anion Gap (12-20) BUN (9-16) mg/dL Creatinine (0.5-1.4) mg/dL Estim Creat Clear Calc Estimated GFR Random Glucose (60-115) mg/dL Calcium (8.4-10.2) mg/dL Magnesium (1.6-2.6) mg/dL Total Bilirubin (0.0-1.0) mg/dL AST (5-37) U/L ALT (0-40) U/L Alkaline Phosphatase (39-117) U/L Troponin I High Sens (<3.5-35.0) ng/L B-Natriuretic Peptide (<100) pg/mL Total Protein (6.5-8.0) g/dL Albumin (3.5-5.0) g/dL Urine Color YELLOW Urine Appearance CLEAR Urine pH 6.0 (5.0-8.0) Ur Specific [place] 1.010 (1.005-1.025) Urine Protein NEG (NEG-TRACE) MG/DL Urine Glucose (UA) NEG (NEG) MG/DL Urine Ketones NEG (NEG) MG/DL Urine Blood NEG (NEG) Urine Nitrite NEG (NEG) Ur Leukocyte Esterase NEG (NEG) COVID-19 (JELANI) Negative (Negative) COVID-19 Clin Com See Note Influenza Type A (RYAN) (Negative) Influenza Type B (RYAN) (Negative) Influenza A & B Note Imaging Data Chest x-ray: Attestation: I personally reviewed and interpreted this imaging study as follows: Radiologist's impression: FINDINGS: The lungs are hypoexpanded but clear of acute process. The heart size and progress clarities normal. No gross bony abnormality seen. XR/XR chest 2V IMPRESSION: Unremarkable chest exam. Previously seen left upper lobe patchy opacity has improved. CT scan abdomen pelvis without IV contrast: Attestation: I personally reviewed and interpreted this imaging study as follows: Radiologist's impression: FINDINGS: LUNG BASES: The visualized lung bases are unremarkable. Moderate left gynecomastia is partially visualized. LIVER, GALLBLADDER, AND BILIARY TREE: Small somewhat shrunken cirrhotic liver is again noted. A 2.7 x 3.7 cm mildly hypodense lesion is noted at the junction of hepatic segment 8 and 5 in the subcapsular region (series 3 image 20), previously 3.8 x 2.8 (11/29/2021). An ill-defined hypoattenuation measuring approximately 2.5 cm is noted in the hepatic segment 4A (series 3 image 14). The gallbladder is unremarkable with no evidence of radiopaque gallstones, gallbladder wall thickening, or obvious pericholecystic inflammatory changes. No intrahepatic or extrahepatic biliary ductal dilatation. PANCREAS: Unremarkable.? SPLEEN: Unremarkable.? ADRENAL GLANDS: Unremarkable.? KIDNEYS AND URETERS: The kidneys are normal in size, shape, and attenuation. No hydroureteronephrosis. There is a 0.4 cm nonobstructing calculus in the lower pole of the left kidney and a punctate nonobstructing calculus in the upper to mid left kidney. Three to four 0.2 cm nonobstructing calculi are noted scattered in the right kidney. No perinephric stranding. ? BLADDER: The bladder is underdistended and, therefore, not optimally evaluated. No radiopaque calculi are noted. GASTROINTESTINAL TRACT: Small hiatal hernia. Stomach is decompressed. No abnormal small or large bowel dilatation is noted. OMENTUM, MESENTERY AND PERITONEAL CAVITY: Diffuse mesenteric stranding is noted. Moderate volume ascites. No free intraperitoneal air.? ABDOMINAL WALL: Small umbilical hernia containing fluid is noted. Partially visualized left inguinal scrotal hernia containing nonobstructed bowel loops and fluid. LYMPH NODES: Normal. VASCULAR: The aortoiliac vessels are normal in caliber. Scattered calcific atherosclerosis of the aortoiliac vessels. PELVIC VISCERA: Unremarkable.? OSSEOUS STRUCTURES: Acute or suspicious osseous lesion. Vacuum disc phenomena is noted at L4-L5 disc level.? CT/CT abdomen pelvis wo con IMPRESSION: 1. Known cirrhotic morphology of the liver. A 3.7 x 2.7 cm subcapsular hypodense lesion in the liver at the junction of hepatic segment 8 and 5 is again noted, without significant interval change compared to previous CT of 11/29/2021. Findings is highly concerning for hepatocellular carcinoma. Mild faint hypoattenuation within the hepatic segment 4A subcapsular region is not clearly seen on the previous CT of 11/29/2021, a nonspecific finding. ? 2. Moderate volume ascites. ? 3. No evidence of abnormal bowel dilatation or bowel obstruction. ? 4. Several bilateral small nonobstructing renal calculi. ? Fleischner guidelines were followed. ECG Data Attestation: I personally reviewed and interpreted this ECG as follows: ECG interpretation date: 01/16/22 ECG interpretation time: 17:00 Interpretation: EKG sinus bradycardia with ventricular rate of 52 with left axis deviation no acute ischemic change are noted similar compared to prior EKG 12/23/2021 Critical Care Time Critical Care Time Critical Care Time: Yes Total Critical Care Time: 60 Attestation: I personally attest to this time spent taking care of the patient Discharge Plan Discharge Clinical Impression: Acute hyponatremia, LEVI (acute kidney injury), Abdominal ascites Patient Disposition: Admitted As Inpatient
[2022-01-16 17:47] LABS: B Type Natriuretic Peptide 53 pg/mL (<100)
[2022-01-16 18:13] LABS: Atypical Lymph Absolute Manual 0.1 x10*3/uL; Atypical Lymphs Percent Manual 1 % (0-6); Band Neutrophils Percent 2 % (3-5); Basophils Abs Manual 0.2 X10*3/uL (0.0-0.2); Basophils Percent Manual 2 % (0-2); Eosinophils Absolute Manual 0.3 X10*3/uL (0.0-0.4); Eosinophils Percent Manual 4 % (0-4); Giant Platelet PRESENT; Large Platelet PRESENT; Lymphocytes Absolute Manual 1.1 X10*3/uL (1.2-4.9); Lymphocytes Percent Manual 13 % (20-40); Metamyelocytes Absolute 0.1 X10*3/uL; Metamyelocytes Percent 1 %; Monocytes Absolute Manual 0.7 X10*3/uL (0.1-1.2); Monocytes Percent Manual 8 % (2-11); Myelocytes Absolute 0.1 X10*/uL; Myelocytes Percent 1 %; Neutrophils Absolute Manual 5.8 X10*3/uL (2.0-8.3); Neutrophils Percent Manual 66 % (45-73); Ovalocytes 1+ (5-14) /OIF; Platelet Estimate DECREASED (NORMAL); Platelet Morphology Comment NOTED; Promyelocytes Absolute 0.2 X10*3/uL; Promyelocytes Percent 2 %; RBC Morphology NORMAL; Tear Drop Cells 2+ (3-5) /OIF
[2022-01-16 18:14] LABS: Burr Cells 2+ (3-5) /OIF; Smudge Cells PRESENT; Toxic Vacuolation PRESENT
[2022-01-16 18:16] LABS: Troponin-I High Sensitivity 13.7 ng/L (<3.5-35.0)
[2022-01-16] MEDS: ondansetron HCL 4 MG/2 ML VIAL IVPUSH (18:17)
[2022-01-16] MEDS: Albumin Human 25 % 100 ML IV ×2 (18:58→20:24)
--- NOTE | 2022-01-16 20:11 | PM.IMHP ---
History of Present Illness Date of Service: 01/16/22 Chief Complaint: shortness of breath 66-year-old male with a past medical history of liver cirrhosis/ hepatitis-C / a malignant liver mass/ ascites status post therapeutic paracentesis on last Monday ( receives biweekly therapeutic tap); history of asthma, hypertension, hypothyroidism, bradycardia; presented to the hospital today with a chief complaint of shortness of breath. Patient reported that over the past few days he has been having shortness of breath which has been gradually worsening. Denies any chest pain or palpitations. Denies any fever chills cough. Denies any nausea vomiting or diarrhea. Mentions his abdomen has been gradually is a swelling of since last therapeutic tap. Review of all other systems is negative except mentioned above ER course: Per ER team patient exam is normal; shortness of breath is presumed to be secondary to the worsening arthritis. On labs noted to have hyponatremia-reported patient has not been complaint with water restriction at home. ER team did therapeutic paracentesis status post 5 L taken out. Plan to take another 2lits. given albumin. Admitted for further management. [facility] Medical History Allergic rhinitis Anemia Anemia Asthma Cirrhosis Constipation GERD (gastroesophageal reflux disease) H/O ETOH abuse Hepatitis C Hepatitis C History of alcohol abuse History of kidney stones HTN (hypertension) Hypothyroid Left inguinal hernia Liver mass Family History Other No known health problems Surgical History History of esophagogastroduodenoscopy (EGD) Hx of colonoscopy No history of previous surgery Social History Household Members: Family Housing: House Do you presently have visiting nurse or other home services: No Alcohol intake: never Patient Tobacco Use Status: Never used Tobacco Substance Use Type: Marijuana Advance Directives: No Advance Directives Information Provided: No Advance Directives Date on File: 11/04/21 service: No Current occupational status: unemployed Meds Allergies Allergy/AdvReac Type Severity Reaction Status Date / Time No Known Allergies Allergy Verified 01/16/22 17:07 [No Known Allergies*] Active Medications: Current Medications Acetaminophen (Acetaminophen 325 Mg Tablet) 650 mg PO Q6H PRN PRN Reason: Pain, Mild (Pain Scale 1-3) Heparin Sodium (Porcine) (Heparin Sodium,Porcine 5,000 Unit/Ml Vial) 5,000 unit SUBCUT Q8H [facility] Melatonin (Melatonin 3 Mg Tablet) 6 mg PO BEDTIME PRN PRN Reason: Insomnia Pharmacy Consult (Consult Rx Perform Med Rec) 1 each MISCELLANE ONCE PRN PRN Reason: Consult order Senna (Sennosides 8.6 Mg Tablet) 17.2 mg PO BEDTIME PRN PRN Reason: Constipation Sodium Chloride (0.9 % Sodium Chloride Flush 3 Ml Syringe) 3 ml IVFLUSH QSHIFT [facility] Home Medications Medication Instructions Recorded Confirmed Last Taken Type albuterol sulfate 90 mcg/actuation 2 puff INHALATION QID PRN 09/22/20 01/16/22 01/16/22 History aerosol inhaler (ProAir HFA) omeprazole 20 mg capsule,delayed 20 mg PO DAILY@0630 cap 09/22/20 01/16/22 01/16/22 History release lactulose 10 gram/15 mL oral 45 ml PO TID 12/16/21 01/16/22 01/16/22 History solution spironolactone 100 mg tablet 100 mg PO DAILY 12/24/21 01/16/22 01/16/22 History propranolol 10 mg tablet 10 mg PO BID 01/16/22 01/16/22 01/16/22 History simethicone 125 mg chewable tablet 1 tab PO BID PRN 01/16/22 01/16/22 01/16/22 History Physical Exam Vital Signs and Narrative: Vital Signs: Last Vital Signs Temp 97.6 F 01/16/22 18:56 Pulse 51 01/16/22 18:56 Resp 17 01/16/22 18:56 BP 114/73 01/16/22 18:56 Pulse Ox 99 01/16/22 18:56 BMI result Body Mass Index 32.1 Gen: Appears be in no acute distress HEENT: NCAT, Moist mucosa. Pulmonary: Vesicular breath sounds, fair air entry CVS: Normal S1-S2 Abdomen: BS+, Soft, distended -ascites; has fluid thrill present. Not tense. Extremities: Warm well perfused Neuro: Alert and awake. Results Labs CBC and Chem 7: 01/16/22 17:18 01/16/22 17:18 Labs: Laboratory Results - last 24 hr 01/16/22 01/16/22 01/16/22 17:18 17:18 17:18 MCV 89.6 MCH 31.5 MCHC 35.1 RDW 13.9 Plt Count 170 MPV 10.0 Immature Gran % (Auto) Cancelled Neut % (Auto) Cancelled Lymph % (Auto) Cancelled Isabella % (Auto) Cancelled Eos % (Auto) Cancelled Baso % (Auto) Cancelled Lymph # (Auto) Cancelled Isabella # (Auto) Cancelled Eos # (Auto) Cancelled Baso # (Auto) Cancelled Abs Immat Gran (auto) Cancelled Absolute Neuts (auto) Cancelled Absolute Nucleated RBC 0.000 Nucleated RBC % (auto) 0.0 Neutrophils % (Manual) 66 Band Neutrophils % 2 L Lymphocytes % (Manual) 13 L Atypical Lymphs % (Man) 1 Monocytes % (Manual) 8 Eosinophils % (Manual) 4 Basophils % (Manual) 2 Metamyelocytes % 1 Myelocytes % 1 Promyelocytes % 2 Abs Neuts (Manual) 5.8 Lymphocytes # (Manual) 1.1 L Atyp Lymphs # (Manual) 0.1 Monocytes # (Manual) 0.7 Eosinophils # (Manual) 0.3 Basophils # (Manual) 0.2 Metamyelocytes # 0.1 Myelocytes # 0.1 Promyelocytes # 0.2 Smudge Cells PRESENT Toxic Vacuolation PRESENT Platelet Estimate DECREASED Large Platelets PRESENT Giant Platelets PRESENT Plt Morphology Comment NOTED RBC Morphology NORMAL Tear Drop Cells 2+ (3-5) Ovalocytes 1+ (5-14) Cathy Cells 2+ (3-5) Hold Purple Top SEE NOTE PT 11.7 INR 1.0 Anion Gap Estim Creat Clear Calc Estimated GFR Random Glucose Calcium Magnesium Total Bilirubin AST ALT Alkaline Phosphatase Troponin I High Sens B-Natriuretic Peptide Total Protein Albumin Urine Color Urine Appearance Urine pH Ur Specific [place] Urine Protein Urine Glucose (UA) Urine Ketones Urine Blood Urine Nitrite Ur Leukocyte Esterase COVID-19 (JELANI) COVID-19 Clin Com Influenza Type A (RYAN) Influenza Type B (RYAN) Influenza A & B Note 01/16/22 01/16/22 01/16/22 17:18 17:18 17:18 MCV MCH MCHC RDW Plt Count MPV Immature Gran % (Auto) Neut % (Auto) Lymph % (Auto) Isabella % (Auto) Eos % (Auto) Baso % (Auto) Lymph # (Auto) Isabella # (Auto) Eos # (Auto) Baso # (Auto) Abs Immat Gran (auto) Absolute Neuts (auto) Absolute Nucleated RBC Nucleated RBC % (auto) Neutrophils % (Manual) Band Neutrophils % Lymphocytes % (Manual) Atypical Lymphs % (Man) Monocytes % (Manual) Eosinophils % (Manual) Basophils % (Manual) Metamyelocytes % Myelocytes % Promyelocytes % Abs Neuts (Manual) Lymphocytes # (Manual) Atyp Lymphs # (Manual) Monocytes # (Manual) Eosinophils # (Manual) Basophils # (Manual) Metamyelocytes # Myelocytes # Promyelocytes # Smudge Cells Toxic Vacuolation Platelet Estimate Large Platelets Giant Platelets Plt Morphology Comment RBC Morphology Tear Drop Cells Ovalocytes Cathy Cells Hold Purple Top PT INR Anion Gap 10 L Estim Creat Clear Calc 55.0 Estimated GFR 43 Random Glucose 127 H Calcium 8.6 D Magnesium 2.2 Total Bilirubin 0.8 AST 72 H ALT 40 Alkaline Phosphatase 194 H Troponin I High Sens 13.7 D B-Natriuretic Peptide 53 Total Protein 6.5 Albumin 2.4 L Urine Color Urine Appearance Urine pH Ur Specific [place] Urine Protein Urine Glucose (UA) Urine Ketones Urine Blood Urine Nitrite Ur Leukocyte Esterase COVID-19 (JELANI) COVID-19 Clin Com Influenza Type A (RYAN) Negative Influenza Type B (RYAN) Negative Influenza A & B Note See Note 01/16/22 01/16/22 17:18 17:18 MCV MCH MCHC RDW Plt Count MPV Immature Gran % (Auto) Neut % (Auto) Lymph % (Auto) Isabella % (Auto) Eos % (Auto) Baso % (Auto) Lymph # (Auto) Isabella # (Auto) Eos # (Auto) Baso # (Auto) Abs Immat Gran (auto) Absolute Neuts (auto) Absolute Nucleated RBC Nucleated RBC % (auto) Neutrophils % (Manual) Band Neutrophils % Lymphocytes % (Manual) Atypical Lymphs % (Man) Monocytes % (Manual) Eosinophils % (Manual) Basophils % (Manual) Metamyelocytes % Myelocytes % Promyelocytes % Abs Neuts (Manual) Lymphocytes # (Manual) Atyp Lymphs # (Manual) Monocytes # (Manual) Eosinophils # (Manual) Basophils # (Manual) Metamyelocytes # Myelocytes # Promyelocytes # Smudge Cells Toxic Vacuolation Platelet Estimate Large Platelets Giant Platelets Plt Morphology Comment RBC Morphology Tear Drop Cells Ovalocytes [place] Cells Hold Purple Top PT INR Anion Gap Estim Creat Clear Calc Estimated GFR Random Glucose Calcium Magnesium Total Bilirubin AST ALT Alkaline Phosphatase Troponin I High Sens B-Natriuretic Peptide Total Protein Albumin Urine Color YELLOW Urine Appearance CLEAR Urine pH 6.0 Ur Specific [place] 1.010 Urine Protein NEG Urine Glucose (UA) NEG Urine Ketones NEG Urine Blood NEG Urine Nitrite NEG Ur Leukocyte Esterase NEG COVID-19 (JELANI) Negative COVID-19 Clin Com See Note Influenza Type A (RYAN) Influenza Type B (RYAN) Influenza A & B Note Imaging Radiologist's Impressions: Impressions Chest X-Ray 01/16/22 17:25 IMPRESSION: Unremarkable chest exam. Previously seen left upper lobe patchy opacity has improved. Abdomen/Pelvis CT 01/16/22 18:19 IMPRESSION: 1. Known cirrhotic morphology of the liver. A 3.7 x 2.7 cm subcapsular hypodense lesion in the liver at the junction of hepatic segment 8 and 5 is again noted, without significant interval change compared to previous CT of 11/29/2021. Findings is highly concerning for hepatocellular carcinoma. Mild faint hypoattenuation within the hepatic segment 4A subcapsular region is not clearly seen on the previous CT of 11/29/2021, a nonspecific finding. 2. Moderate volume ascites. 3. No evidence of abnormal bowel dilatation or bowel obstruction. 4. Several bilateral small nonobstructing renal calculi. Fleischner guidelines were followed. Assessment and Plan (1) Ascites: Status: Acute (2) Hyponatremia: Status: Acute Plan 66-year-old male with a past medical history of liver cirrhosis/ hepatitis-C / a malignant liver mass/ ascites status post therapeutic paracentesis on last Monday ( receives biweekly therapeutic tap); history of asthma, hypertension, hypothyroidism, bradycardia; presented to the hospital today with a chief complaint of shortness of breath. Shortness of breath: Likely in the setting of worsening ascites. patient status post therapeutic paracentesis in the ER. Ascites: Patient had recent paracentesis with 9 L taken out on last Monday. Today in the ER patient had therapeutic paracentesis status post 5 L removal; planned for another 2 L removal. Patient diuretics continued Hyponatremia: Patient's sodium levels on presentation noted to be 124. Patient has not been following fluid restriction. Will keep the patient on fluid restriction of 1200 cc per day. Nephrology consult History of hypothyroidism: Continue home levothyroxine . Patient had recent TSH 51- levothyroxine dose increased to 225 mcg In December 2021. Repeat TSH levels. History of bradycardia: Monitor on telemetry DVT prophylaxis: Subcu heparin Code status: Full code Quality Stroke Does the patient have a stroke diagnosis?: No VTE Prior VTE?: No VTE Risk Level:: Medical - moderate - high VTE Device Contraindication: Treatment Not Indicated VTE Drug Contraindication: N/A - Med Ordered
--- NOTE | 2022-01-16 20:32 | PHA.MEDREC ---
Pharmacy Consult ? Medication Reconciliation Pharmacy has completed the medication reconciliation. Confirmed medications with patient's daughter. Reports he no longer takes cetirizine. Sherron Soni, PharmD
[2022-01-16 20:41] LABS: MN% 88.6 %; PMN% 11.4 %; WBC Peritoneal Fluid 0.119 X10*3/uL
[2022-01-16 21:01] LABS: Thyroid Stimulating Hormone 11.29 uIU/mL (0.32-4.0)
[2022-01-16 21:07] LABS: RBC Peritoneal Fluid < 0.002 X10*6/uL
[2022-01-16 21:41] LABS: Lactic Acid 1.4 mmol/L (0.5-2.0)
[2022-01-16 21:51] LABS: Lymphocyte Peritoneal Fl 50 %
[2022-01-16 21:52] LABS: BF Shift QC OK YES; Monocytes Peritoneal Fl 35 %; Neutrophils Peritoneal Fluid 6 %
[2022-01-16] MEDS: cefTRIAXone sodium 2 GM in 0.9 % Sodium Chloride 50 ML IV (22:11)
[2022-01-16] MEDS: Lactulose 20 GM/30 ML SOLUTION 30 GM PO (22:25)
--- NOTE | 2022-01-16 22:25 | PC.NURSE ---
amtibiotic started late due to needed blood cultures.
[2022-01-16] MEDS: Lidocaine HCl 2 % MPF 5 ML VIAL SUBCUT ×2 (23:19)
--- NOTE | 2022-01-16 23:20 | PC.NURSE ---
stated to hold BP medication and heparin.
[2022-01-17] MEDS: 0.9 % Sodium Chloride Flush 3 ML SYRINGE IVFLUSH ×2 (01:00→09:29)
--- NOTE | 2022-01-17 03:15 | PC.NURSE ---
pt resting in bed, denies pain. pt given a antelmo iris.
[2022-01-17 04:00] VITALS: BP 113/77; PULSE 55; RESP 16; TEMP 36.9; O2SAT 98
[2022-01-17 06:17] VITALS: BP 121/84; PULSE 55; RESP 16; O2SAT 99
[2022-01-17] MEDS: Omeprazole 20 MG CAPSULE.DR PO (06:43)
[2022-01-17] MEDS: Heparin Sodium,Porcine 5,000 UNIT/ML VIAL 5000 UNIT SUBCUT ×2 (06:43→14:25)
[2022-01-17 09:05] LABS: Anion Gap 9 (12-20); Blood Urea Nitrogen 33 mg/dL (9-16); Calcium 9.2 mg/dL (8.4-10.2); Carbon Dioxide 25 mmol/L (22-29); Chloride 100 mmol/L (96-108); Creatinine Clr Calc Pharmacy 57.8; Estimated Glomerular Filt Rate 46; Glucose Random 104 mg/dL (60-115); Potassium 3.9 mmol/L (3.3-5.1); Sodium 130 mmol/L (135-145)
[2022-01-17] MEDS: Lactulose 20 GM/30 ML SOLUTION 30 GM PO (09:28)
[2022-01-17] MEDS: Loratadine 10 MG TABLET PO (09:28)
[2022-01-17] MEDS: Levothyroxine Sodium 75 MCG TABLET 225 MCG PO (09:28)
[2022-01-17] MEDS: Spironolactone 25 MG TABLET 100 MG PO (09:28)
[2022-01-17] MEDS: Propranolol HCL 10 MG TABLET PO (09:29)
--- NOTE | 2022-01-17 09:36 | PC.NURSE ---
Pt is alert and oriented. Ambulatory with slow steady gait. Abd distended. Breathing is unlabored and even, 100% on room air. Sinus lesley on tele. Speaking full sentences.
--- NOTE | 2022-01-17 11:25 | PM.CNNEP ---
History of Present Illness Reason for Consult Consult date: 01/17/22 Chief Complaint Chief complaint: SOB History of Present Illness Narrative: 66-year-old male with a past medical history of liver cirrhosis/ hepatitis-C / a malignant liver mass/ ascites status post therapeutic paracentesis on last Monday ( receives biweekly therapeutic tap); history of asthma, hypertension, hypothyroidism, bradycardia; presented to the hospital today with a chief complaint of shortness of breath.?Denies any chest pain , palpitations, fever chills cough, nausea vomiting or diarrhea.?On labs he was noted to have hyponatremia ( patient has not been complaint with water restriction at home.); ER team did therapeutic paracentesis status post 5 L taken out.?Admitted for further management. Nephrology was consulted to assist in his clinical care during his current hospital stay Review of Systems Review of Systems Yes all other systems are reviewed and are negative Comments: Ascites PMFSH Past Medical History Medical History Allergic rhinitis Anemia Anemia Asthma Cirrhosis Constipation GERD (gastroesophageal reflux disease) H/O ETOH abuse Hepatitis C Hepatitis C History of alcohol abuse History of kidney stones HTN (hypertension) Hypothyroid Left inguinal hernia Liver mass Family History Family History Other No known health problems Surgical History Surgical History History of esophagogastroduodenoscopy (EGD) Hx of colonoscopy No history of previous surgery Social History Social History Household Members: Family Housing: House Do you presently have visiting nurse or other home services: No Alcohol intake: never Patient Tobacco Use Status: Never used Tobacco Substance Use Type: Marijuana Advance Directives: No Advance Directives Information Provided: No Advance Directives Date on File: 11/04/21 service: No Current occupational status: unemployed Meds Allergies Allergy/AdvReac Type Severity Reaction Status Date / Time No Known Allergies Allergy Verified 01/16/22 17:07 [No Known Allergies*] Active Medications: Current Medications Acetaminophen (Acetaminophen 325 Mg Tablet) 650 mg PO Q6H PRN PRN Reason: Pain, Mild (Pain Scale 1-3) Albuterol Sulfate (Albuterol Sulfate 90 Mcg 8 Gm Inhaler) 2 puff INHALE QID PRN PRN Reason: Wheezing Heparin Sodium (Porcine) (Heparin Sodium,Porcine 5,000 Unit/Ml Vial) 5,000 unit SUBCUT Q8H [facility] Last Admin: 01/17/22 06:43 Dose: 5,000 unit Documented by: Lactulose (Lactulose 20 Gm/30 Ml Solution) 30 gm PO TID [facility] Last Admin: 01/17/22 09:28 Dose: 30 gm Documented by: Levothyroxine Sodium (Levothyroxine Sodium 75 Mcg Tablet) 225 mcg PO DAILY [facility] Last Admin: 01/17/22 09:28 Dose: 225 mcg Documented by: Loratadine (Loratadine 10 Mg Tablet) 10 mg PO DAILY [facility] Last Admin: 01/17/22 09:28 Dose: 10 mg Documented by: Melatonin (Melatonin 3 Mg Tablet) 6 mg PO BEDTIME PRN PRN Reason: Insomnia Omeprazole (Omeprazole 20 Mg Capsule.) 20 mg PO DAILY@0630 [facility] Last Admin: 01/17/22 06:43 Dose: 20 mg Documented by: Pharmacy Consult (Consult Rx Perform Med Rec) 1 each MISCELLANE ONCE PRN PRN Reason: Consult order Propranolol HCl (Propranolol Hcl 10 Mg Tablet) 10 mg PO BID [facility]; Protocol Last Admin: 01/17/22 09:29 Dose: 10 mg Documented by: Senna (Sennosides 8.6 Mg Tablet) 17.2 mg PO BEDTIME PRN PRN Reason: Constipation Simethicone (Simethicone 80 Mg Tab.Chew) 160 mg PO BID PRN PRN Reason: gas Sodium Chloride (0.9 % Sodium Chloride Flush 3 Ml Syringe) 3 ml IVFLUSH QSHIFT [facility] Last Admin: 01/17/22 09:29 Dose: 3 ml Documented by: Spironolactone (Spironolactone 25 Mg Tablet) 100 mg PO DAILY [facility]; Protocol Last Admin: 01/17/22 09:28 Dose: 100 mg Documented by: Home Medications Medication Instructions Recorded Confirmed Last Taken Type albuterol sulfate 90 mcg/actuation 2 puff INHALATION QID PRN 09/22/20 01/16/22 01/16/22 History aerosol inhaler (ProAir HFA) omeprazole 20 mg capsule,delayed 20 mg PO DAILY@0630 cap 09/22/20 01/16/22 01/16/22 History release lactulose 10 gram/15 mL oral 45 ml PO TID 12/16/21 01/16/22 01/16/22 History solution spironolactone 100 mg tablet 100 mg PO DAILY 12/24/21 01/16/22 01/16/22 History propranolol 10 mg tablet 10 mg PO BID 01/16/22 01/16/22 01/16/22 History simethicone 125 mg chewable tablet 1 tab PO BID PRN 01/16/22 01/16/22 01/16/22 History Physical Exam Vital Signs: Last Vital Signs Temp 98.4 F 01/17/22 04:00 Pulse 55 01/17/22 06:17 Resp 16 01/17/22 06:17 BP 121/84 01/17/22 06:17 Pulse Ox 99 01/17/22 06:17 BMI result Body Mass Index 32.1 Const General: no acute distress Eyes EOM: EOMs intact bilaterally Resp Auscultation: diminished lung sounds Cardio Rate: regular rate GI Other: Soft, Ascites + Neuro General: moves all extremities Results Lab Results Result Diagrams: 01/16/22 17:18 01/17/22 08:43 Lab results: Chemistry 01/16/22 01/17/22 17:18 08:43 Sodium 124 L 130 L Potassium 4.4 3.9 Carbon Dioxide 21 L 25 BUN 38 H 33 H Creatinine 1.62 H 1.54 H Calcium 8.6 D 9.2 D Hematology 01/16/22 17:18 WBC 8.6 Hgb 11.8 L Plt Count 170 Urinalysis 01/16/22 17:18 Urine Color YELLOW Urine Appearance CLEAR Urine pH 6.0 Ur Specific [place] 1.010 Urine Protein NEG Urine Glucose (UA) NEG Urine Ketones NEG Urine Blood NEG Urine Nitrite NEG Ur Leukocyte Esterase NEG Assessment and Plan (1) Acute hyponatremia: Status: Acute Plan Has Hypervolemic Hyponatremia Fluid restriction; 2 Gram Na restriction C/W lasix 40 mg daily & Spironolactone 100 mg daily Has CKD - Likely has HRS 2 Serum creatinine close to baseline Continue with rest of current supportive management Procedures Date of Service Date of Service: 01/17/22
--- NOTE | 2022-01-17 11:28 | PM.DS ---
DS: Providers Provider Date of Service: 01/17/22 Date of admission: 01/16/22 20:08 Primary care physician: Shayy Sears MD Consults: 01/16/22 20:07 Consult to Nephrology Routine Consulting Provider: Seamus Navarro Reason for consultation: hyponatremia DS: Diagnosis Discharge Diagnosis (1) Ascites: Status: Acute (2) Hyponatremia: Status: Acute DS: Summary Hospital Course Hospital Course: from intiial hpi: Chief Complaint:? shortness of breath ?66-year-old male with a past medical history of liver cirrhosis/ hepatitis-C / a malignant liver mass/ ascites status post therapeutic paracentesis on last Monday ( receives biweekly therapeutic tap); history of asthma, hypertension, hypothyroidism, bradycardia; presented to the hospital today with a chief complaint of shortness of breath.? Patient reported that over the past few days he has been having shortness of breath which has been gradually worsening.? Denies any chest pain or palpitations.? Denies any fever chills cough.? Denies any nausea vomiting or diarrhea.? Mentions his abdomen has been gradually is a swelling of since last therapeutic tap.? Review of all other systems is negative except mentioned above ER course: Per ER team patient exam is normal; shortness of breath is presumed to be secondary to the worsening arthritis.? On labs noted to have hyponatremia-reported patient has not been complaint with water restriction at home. ER team did therapeutic paracentesis status post 5 L taken out.? Plan to take another 2lits. given albumin.? Admitted for further managem hospital course: Patient was admitted for shortness of breath due to symptomatic ascites. His shortness of breath resolved after therapeutic paracentesis with 5 L taken off, ascitic fluid was negative for SBP. Patient also noted to have hyponatremia of 124. He is put on fluid restriction, his sodium at discharge is 130. He will continue fluid restriction. Time Spent with Patient Time attestation: Total time spent providing and/or coordinating discharge services: Discharge coordination time: Greater than 30 minutes Quality: Safe Use of Opioids Does Pt have an Active Cancer Diagnosis on the Problem List?: Yes Opioid Measure Date for [facility] Report: 12/18/21 Opioid Measure Time for [facility] Report: 11:29 Quality: Stroke Does the patient have a stroke diagnosis?: No Physical Exam Vital Signs: Vital Signs: Last Vital Signs Temp 98.4 F 01/17/22 04:00 Pulse 55 01/17/22 06:17 Resp 16 01/17/22 06:17 BP 121/84 01/17/22 06:17 Pulse Ox 99 01/17/22 06:17 BMI result Body Mass Index 32.1 General: AO X 3, no acute distress Resp: CTA bilateral, no accessory muscles used CVS: S1,S2,RRR GI: soft, non tender, mildly distended Neuro: motor grossly intact, alert Psych: appropriate affect, appropriate insight DS: Data Data Completed and Pending Completed studies during hospitalization [Text1]: Procedures Drainage of Peritoneal Cavity, Percutaneous Approach (12/23/21) Labs on day of discharge: Laboratory Results - last 24 hr 01/16/22 01/16/22 01/16/22 17:18 17:18 17:18 WBC 8.6 RBC 3.75 L Hgb 11.8 L Hct 33.6 L MCV 89.6 MCH 31.5 MCHC 35.1 RDW 13.9 Plt Count 170 MPV 10.0 Immature Gran % (Auto) Cancelled Neut % (Auto) Cancelled Lymph % (Auto) Cancelled [place] % (Auto) Cancelled Eos % (Auto) Cancelled Baso % (Auto) Cancelled Lymph # (Auto) Cancelled [place] # (Auto) Cancelled Eos # (Auto) Cancelled Baso # (Auto) Cancelled Abs Immat Gran (auto) Cancelled Absolute Neuts (auto) Cancelled Absolute Nucleated RBC 0.000 Nucleated RBC % (auto) 0.0 Neutrophils % (Manual) 66 Band Neutrophils % 2 L Lymphocytes % (Manual) 13 L Atypical Lymphs % (Man) 1 Monocytes % (Manual) 8 Eosinophils % (Manual) 4 Basophils % (Manual) 2 Metamyelocytes % 1 Myelocytes % 1 Promyelocytes % 2 Abs Neuts (Manual) 5.8 Lymphocytes # (Manual) 1.1 L Atyp Lymphs # (Manual) 0.1 Monocytes # (Manual) 0.7 Eosinophils # (Manual) 0.3 Basophils # (Manual) 0.2 Metamyelocytes # 0.1 Myelocytes # 0.1 Promyelocytes # 0.2 Smudge Cells PRESENT Toxic Vacuolation PRESENT Platelet Estimate DECREASED Large Platelets PRESENT Giant Platelets PRESENT Plt Morphology Comment NOTED RBC Morphology NORMAL Tear Drop Cells 2+ (3-5) Ovalocytes 1+ (5-14) Cathy Cells 2+ (3-5) Hold Purple Top SEE NOTE PT 11.7 INR 1.0 Sodium Potassium Chloride Carbon Dioxide Anion Gap BUN Creatinine Estim Creat Clear Calc Estimated GFR Random Glucose Lactic Acid Calcium Magnesium Total Bilirubin AST ALT Alkaline Phosphatase Troponin I High Sens B-Natriuretic Peptide Total Protein Albumin TSH Urine Color Urine Appearance Urine pH Ur Specific [place] Urine Protein Urine Glucose (UA) Urine Ketones Urine Blood Urine Nitrite Ur Leukocyte Esterase Peritoneal WBC Peritoneal RBC Periton Neutrophils Periton Lymphocytes Peritoneal Monocytes COVID-19 (JELANI) COVID-19 Clin Com Influenza Type A (RYAN) Influenza Type B (RYAN) Influenza A & B Note 01/16/22 01/16/22 01/16/22 17:18 17:18 17:18 WBC RBC Hgb Hct MCV MCH MCHC RDW Plt Count MPV Immature Gran % (Auto) Neut % (Auto) Lymph % (Auto) [place] % (Auto) Eos % (Auto) Baso % (Auto) Lymph # (Auto) [place] # (Auto) Eos # (Auto) Baso # (Auto) Abs Immat Gran (auto) Absolute Neuts (auto) Absolute Nucleated RBC Nucleated RBC % (auto) Neutrophils % (Manual) Band Neutrophils % Lymphocytes % (Manual) Atypical Lymphs % (Man) Monocytes % (Manual) Eosinophils % (Manual) Basophils % (Manual) Metamyelocytes % Myelocytes % Promyelocytes % Abs Neuts (Manual) Lymphocytes # (Manual) Atyp Lymphs # (Manual) Monocytes # (Manual) Eosinophils # (Manual) Basophils # (Manual) Metamyelocytes # Myelocytes # Promyelocytes # Smudge Cells Toxic Vacuolation Platelet Estimate Large Platelets Giant Platelets Plt Morphology Comment RBC Morphology Tear Drop Cells Ovalocytes Cathy Cells Hold Purple Top PT INR Sodium 124 L Potassium 4.4 Chloride 97 Carbon Dioxide 21 L Anion Gap 10 L BUN 38 H Creatinine 1.62 H Estim Creat Clear Calc 55.0 Estimated GFR 43 Random Glucose 127 H Lactic Acid Calcium 8.6 D Magnesium 2.2 Total Bilirubin 0.8 AST 72 H ALT 40 Alkaline Phosphatase 194 H Troponin I High Sens 13.7 D B-Natriuretic Peptide 53 Total Protein 6.5 Albumin 2.4 L TSH 11.29 H Urine Color Urine Appearance Urine pH Ur Specific [place] Urine Protein Urine Glucose (UA) Urine Ketones Urine Blood Urine Nitrite Ur Leukocyte Esterase Peritoneal WBC Peritoneal RBC Periton Neutrophils Periton Lymphocytes Peritoneal Monocytes COVID-19 (JELANI) COVID-19 Clin Com Influenza Type A (RYAN) Negative Influenza Type B (RYAN) Negative Influenza A & B Note See Note 01/16/22 01/16/22 01/16/22 17:18 17:18 20:13 WBC RBC Hgb Hct MCV MCH MCHC RDW Plt Count MPV Immature Gran % (Auto) Neut % (Auto) Lymph % (Auto) [place] % (Auto) Eos % (Auto) Baso % (Auto) Lymph # (Auto) [place] # (Auto) Eos # (Auto) Baso # (Auto) Abs Immat Gran (auto) Absolute Neuts (auto) Absolute Nucleated RBC Nucleated RBC % (auto) Neutrophils % (Manual) Band Neutrophils % Lymphocytes % (Manual) Atypical Lymphs % (Man) Monocytes % (Manual) Eosinophils % (Manual) Basophils % (Manual) Metamyelocytes % Myelocytes % Promyelocytes % Abs Neuts (Manual) Lymphocytes # (Manual) Atyp Lymphs # (Manual) Monocytes # (Manual) Eosinophils # (Manual) Basophils # (Manual) Metamyelocytes # Myelocytes # Promyelocytes # Smudge Cells Toxic Vacuolation Platelet Estimate Large Platelets Giant Platelets Plt Morphology Comment RBC Morphology Tear Drop Cells Ovalocytes Cathy Cells Hold Purple Top PT INR Sodium Potassium Chloride Carbon Dioxide Anion Gap BUN Creatinine Estim Creat Clear Calc Estimated GFR Random Glucose Lactic Acid Calcium Magnesium Total Bilirubin AST ALT Alkaline Phosphatase Troponin I High Sens B-Natriuretic Peptide Total Protein Albumin TSH Urine Color YELLOW Urine Appearance CLEAR Urine pH 6.0 Ur Specific [place] 1.010 Urine Protein NEG Urine Glucose (UA) NEG Urine Ketones NEG Urine Blood NEG Urine Nitrite NEG Ur Leukocyte Esterase NEG Peritoneal WBC 0.119 Peritoneal RBC < 0.002 Periton Neutrophils 6 Periton Lymphocytes 50 Peritoneal Monocytes 35 COVID-19 (JELANI) Negative COVID-19 Clin Com See Note Influenza Type A (RYAN) Influenza Type B (RYAN) Influenza A & B Note 01/16/22 01/17/22 21:12 08:43 WBC RBC Hgb Hct MCV MCH MCHC RDW Plt Count MPV Immature Gran % (Auto) Neut % (Auto) Lymph % (Auto) [place] % (Auto) Eos % (Auto) Baso % (Auto) Lymph # (Auto) [place] # (Auto) Eos # (Auto) Baso # (Auto) Abs Immat Gran (auto) Absolute Neuts (auto) Absolute Nucleated RBC Nucleated RBC % (auto) Neutrophils % (Manual) Band Neutrophils % Lymphocytes % (Manual) Atypical Lymphs % (Man) Monocytes % (Manual) Eosinophils % (Manual) Basophils % (Manual) Metamyelocytes % Myelocytes % Promyelocytes % Abs Neuts (Manual) Lymphocytes # (Manual) Atyp Lymphs # (Manual) Monocytes # (Manual) Eosinophils # (Manual) Basophils # (Manual) Metamyelocytes # Myelocytes # Promyelocytes # Smudge Cells Toxic Vacuolation Platelet Estimate Large Platelets Giant Platelets Plt Morphology Comment RBC Morphology Tear Drop Cells Ovalocytes Cathy Cells Hold Purple Top PT INR Sodium 130 L Potassium 3.9 Chloride 100 Carbon Dioxide 25 Anion Gap 9 L BUN 33 H Creatinine 1.54 H Estim Creat Clear Calc 57.8 Estimated GFR 46 Random Glucose 104 Lactic Acid 1.4 Calcium 9.2 D Magnesium Total Bilirubin AST ALT Alkaline Phosphatase Troponin I High Sens B-Natriuretic Peptide Total Protein Albumin TSH Urine Color Urine Appearance Urine pH Ur Specific [place] Urine Protein Urine Glucose (UA) Urine Ketones Urine Blood Urine Nitrite Ur Leukocyte Esterase Peritoneal WBC Peritoneal RBC Periton Neutrophils Periton Lymphocytes Peritoneal Monocytes COVID-19 (JELANI) COVID-19 Clin Com Influenza Type A (RYAN) Influenza Type B (RYAN) Influenza A & B Note Preliminary micro results at discharge 01/16/22 20:13 Anaerobic Culture - Preliminary Ascites Fluid No growth to date. Body Fluid Culture - Preliminary No growth to date. Discharge Plan Discharge Patient Disposition: Home, Self-Care Discharge Diagnosis: hyponatremia Referrals: Shayy Sears MD [Primary Care Provider] - 1 Week Discharge Medications: Continued furosemide [Lasix] 40 mg tablet 40 mg PO DAILY Qty: 20 0RF Hold Instructions: Resume on 12/27/21. lactulose 10 gram/15 mL solution 45 ml PO TID 0RF spironolactone 100 mg Tablet 100 mg PO DAILY 0RF levothyroxine [Synthroid] 75 mcg tablet 225 mcg PO DAILY 30 Days Qty: 90 0RF simethicone 125 mg tablet,chewable 1 tab PO BID PRN (Reason: gas) 0RF propranolol 10 mg tablet 10 mg PO BID 0RF omeprazole 20 mg capsule,delayed release(DR/EC) 20 mg PO DAILY@0630 0RF albuterol sulfate [ProAir HFA] 90 mcg/actuation HFA aerosol inhaler 2 puff inhalation QID PRN (Reason: Wheezing) 0RF Diet: advance to usual diet Activity on Discharge: As tolerated Stand Alone Forms: Patient Portal Discharge page Care Plan Goals: recovery Health Concerns: HCC, asictes, hyponatremia Plan of Treatment: fluid restrict, follow up GI/oncology Assessment: see above
--- NOTE | 2022-01-17 14:18 | MHC.CM.PN ---
Addendum entered by Gwen Tafoya 01/17/22 14:24: Pt will d/c to home with existing services today: Dtr to transport: pt has cell at bedside and will call when ready Original Note: Met with pt to discuss d/c planning: pt resides alone but has 36 hours of compensated [employer] care provided by his dtr Sasha. She assists with ADL's, meal prep and transportation. Pt also has community case management provided by [facility]. He has a walker, and adaptive ADL equipment. HCP on file, Mary x2: D/C plan is for a return to home with existing services: Dtr to transport.
[2022-01-17 15:09] VITALS: BP 105/47; PULSE 55; RESP 16; O2SAT 100
== END 2022-01-17 15:08 | disposition home or self-care (01) ==
LOC: HO.ED 17:31 → HO.EDOVER 20:18
PROVIDERS: Physician Assistant Medical; Admitting Provider Hospitalist; Emergency Provider Internal Medicine; PCP General Practice; Visit Provider Internal Medicine
DX: K74.60 Unspecified cirrhosis of liver (principal); K76.7 Hepatorenal syndrome; E87.1 Hypo-osmolality and hyponatremia; N17.9 Acute kidney failure, unspecified; R18.8 Other ascites; B94.2 Sequelae of viral hepatitis; N18.9 Chronic kidney disease, unspecified; E03.9 Hypothyroidism, unspecified; Z20.822 Contact with and (suspected) exposure to COVID-19; Z85.05 Personal history of malignant neoplasm of liver; Z79.890 Hormone replacement therapy; Z79.899 Other long term (current) drug therapy
CPT/HCPCS: 36415; 71046; 74176; 80048; 80053; 81003; 83605; 83735; 83880; 84443; 84484; 85007; 85027; 85610; 87040; 87070; 87073; 87205; 87502; 87635; 89051; 93005; 96365; 96366; 96367; 96375; 99285; 99291; J0696; J2405; P9047

== ENCOUNTER 2022-01-21 09:31 | Day surgery (SDC) | payer MEDICAID, SELFPAY ==
--- NOTE | ~2022-01-21 | US_ITS ---
PROCEDURE: ULTRASOUND-GUIDED PARACENTESIS CLINICAL INFORMATION: Ascites and cirrhosis. COMPARISON: Ultrasound-guided paracentesis 01/14/2022. TECHNIQUE: Following explaining ultrasound-guided paracentesis procedure, benefits and risk, a written consent was obtained. Patient was placed supine on ultrasound stretcher and preliminary ultrasound imaging was obtained. An optimal site was selected, marked, cleaned and draped in usual manner. 1% lidocaine was injected at puncture site. Through a small skin incision a 5 Citizen Of [place] The Other [place] catheter was advanced into the peritoneal space. After observing fluid return, stylet was withdrawn and catheter connected to vacuum bottle via connecting cannula. After obtaining all fluid and observing no more fluid return, catheter was withdrawn and complete hemostasis achieved at puncture site. Patient tolerated procedure extremely well. Sterile dressing applied postprocedure. FINDINGS: On preliminary ultrasound imaging there is moderate amount of free fluid with echogenic debris within. Approximately 4.9 L of fluid was drained from the right lower quadrant. US/US paracentesis abd w/image IMPRESSION: Successful ultrasound-guided paracentesis performed without immediate complication. No fluid was sent to lab.
[2022-01-21 09:52] VITALS: BP 144/83; PULSE 72; RESP 18; TEMP 37.6; O2SAT 100; BMI 31.5
[2022-01-21 10:13] LABS: MANUAL DIFF FLAG NO
[2022-01-21 10:16] LABS: Basophils Absolute Auto 0.1 X10*3/uL (0.0-0.2); Basophils Percent Auto 1.8 % (0-2); Eosinophils Absolute Auto 0.4 X10*3/uL (0.0-0.4); Eosinophils Percent Auto 5.3 % (0-4); Hematocrit 33.4 % (42.0-52.0); Hemoglobin 11.3 g/dl (14.0-18.0); Imm Gran Pct Auto 1.5 % (0.0-0.4); Lymphocytes Absolute Auto 1.2 X10*3/uL (1.2-4.9); Lymphocytes Percent Auto 17.2 % (20-40); Mean Corpuscular HGB Conc 33.8 g/dl (31.0-36.0); Mean Corpuscular Volume 91.8 fL (80.0-98.0); Mean Platelet Volume 9.8 fL (9.4-12.4); Monocytes Absolute Auto 1.2 X10*3/uL (0.1-1.2); Monocytes Percent Auto 17.8 % (2-11); Neutrophils Absolute Auto 3.8 x10*3/uL (2.0-8.3); Neutrophils Percent Auto 56.4 % (45-73); Platelet Count 122 X10*3/uL (160-400); Red Blood Count 3.64 X10*6/uL (4.60-5.80); Red Cell Distribution Width 14.2 % (11.0-16.0); White Blood Count 6.7 X10*3/uL (4.8-10.8)
[2022-01-21 10:23] LABS: INTERNATIONAL NORM RATIO 1.1 (0.9-1.1); Prothrombin Time 12.1 SEC (9.9-13.0)
[2022-01-21 10:25] LABS: Partial Thromboplastin Time 36.8 SEC (24.1-38.0)
[2022-01-21] MEDS: Lidocaine HCl 1 % MPF 5 ML VIAL 4 ML SUBCUT (11:57)
[2022-01-21 12:01] VITALS: BP 118/60; PULSE 66; RESP 17; TEMP 36.8; O2SAT 100
[2022-01-21 12:16] VITALS: BP 135/79; PULSE 64; RESP 17; O2SAT 100
[2022-01-21 12:46] VITALS: BP 126/75; PULSE 68; RESP 17; O2SAT 100
[2022-01-21 13:18] VITALS: BP 130/74; PULSE 63; RESP 17; O2SAT 100
== END 2022-01-21 13:37 | disposition home or self-care (01) ==
PROVIDERS: Radiology Diagnostic Radiology; PCP General Practice; Visit Provider Internal Medicine Gastroenterology
DX: R18.8 Other ascites (principal); K74.60 Unspecified cirrhosis of liver; R16.0 Hepatomegaly, not elsewhere classified; F10.11 Alcohol abuse, in remission; D64.9 Anemia, unspecified; B19.20 Unspecified viral hepatitis C without hepatic coma; I10 Essential (primary) hypertension; E03.9 Hypothyroidism, unspecified; J45.909 Unspecified asthma, uncomplicated; F12.90 Cannabis use, unspecified, uncomplicated; Z79.899 Other long term (current) drug therapy
CPT/HCPCS: 36415; 49083; 85025; 85610; 85730; P9047

== ENCOUNTER 2022-01-28 09:21 | Day surgery (SDC) | payer MEDICAID, SELFPAY ==
--- NOTE | ~2022-01-28 | US_ITS ---
PROCEDURE: ULTRASOUND-GUIDED PARACENTESIS CLINICAL INFORMATION: Ascites. COMPARISON: None TECHNIQUE: Following explaining ultrasound-guided paracentesis procedure, benefits and risk, a written consent was obtained. Patient was placed supine on ultrasound stretcher and preliminary ultrasound imaging was obtained through the abdomen. An optimal site along the left lower quadrant selected and marked. The marked site was cleaned and draped in usual sterile manner. 1% lidocaine was injected at puncture site. Through a small skin incision a 5 Citizen Of [place] catheter was advanced into the peritoneal space. After observing fluid return, stylet was withdrawn and catheter connected to vacuum bottle via connecting cannula. After obtaining all fluid and observing normal fluid return, catheter was withdrawn and complete hemostasis achieved at puncture site. Sterile dressing applied postprocedure. Patient tolerated procedure extremely well. FINDINGS: On preliminary ultrasound imaging there is [id number] ascites slightly more localized to the left side. Approximately 10.5 L of cloudy yellowish fluid was drained. None of this fluid was sent to lab. US/US paracentesis abd w/image IMPRESSION: Successful therapeutic ultrasound-guided paracentesis performed through the left lower quadrant.
[2022-01-28 09:46] VITALS: BMI 31.5
[2022-01-28 12:00] VITALS: BP 108/85; PULSE 62; RESP 16; TEMP 37; O2SAT 100
[2022-01-28 12:15] VITALS: BP 127/73; PULSE 63; RESP 16; O2SAT 100
[2022-01-28 12:30] VITALS: BP 133/71; PULSE 66; RESP 16; O2SAT 100
[2022-01-28 13:00] VITALS: BP 125/73; PULSE 65; RESP 16; O2SAT 100
[2022-01-28 13:30] VITALS: BP 141/78; PULSE 64; RESP 16; O2SAT 100
[2022-01-28 13:55] VITALS: BP 130/69; PULSE 62; RESP 16; TEMP 36.4; O2SAT 100
[2022-01-28] MEDS: Lidocaine HCl 1 % MPF 5 ML VIAL SUBCUT (14:01)
== END 2022-01-28 14:05 ==
LOC: HO.SSS 09:21
PROVIDERS: Radiology Diagnostic Radiology; PCP General Practice; Visit Provider Internal Medicine Gastroenterology
DX: R18.8 Other ascites (principal); K74.60 Unspecified cirrhosis of liver; B19.20 Unspecified viral hepatitis C without hepatic coma; F10.11 Alcohol abuse, in remission; J45.909 Unspecified asthma, uncomplicated; I10 Essential (primary) hypertension; D64.9 Anemia, unspecified; Z79.899 Other long term (current) drug therapy; F12.90 Cannabis use, unspecified, uncomplicated
CPT/HCPCS: 49083; P9047

== ENCOUNTER 2022-02-04 08:24 | Day surgery (SDC) | payer MEDICAID, SELFPAY ==
--- NOTE | ~2022-02-04 | US_ITS ---
PROCEDURE: US-GUIDED PARACENTESIS CLINICAL INFORMATION: Ascites. COMPARISON: None. TECHNIQUE: Following explaining ultrasound-guided paracentesis procedure, benefits and risk, a written consent was obtained. Patient was placed supine on ultrasound stretcher and preliminary ultrasound imaging was obtained. An optimal site was selected along the right lower quadrant and marked on the skin. The marked area was cleaned and draped in usual sterile manner. 1% lidocaine was injected at puncture site. Through a small skin incision a 5 [place] needle was advanced through the skin incision into the peritoneal space. After observing fluid return, stylet was withdrawn and catheter connected to vacuum bottle via connecting cannula. After obtaining all fluid and observing normal fluid return, catheter was withdrawn and complete hemostasis achieved at puncture site. Sterile Band-Aid applied postprocedure. Patient tolerated procedure extremely well. Patient was monitored by IR nursing during the entire exam. FINDINGS: On preliminary ultrasound imaging there is a large amount of free fluid seen. Approximately 11 L of clear yellowish fluid was drained. None of this fluid was sent to lab. US/US paracentesis abd w/image IMPRESSION: Successful therapeutic paracentesis performed without immediate complications.
[2022-02-04 08:59] VITALS: BMI 31.5
[2022-02-04] MEDS: Lidocaine HCl 1 % MPF 5 ML VIAL SUBCUT (10:39)
[2022-02-04 12:10] VITALS: BP 138/77; PULSE 72; RESP 24; TEMP 37.2; O2SAT 99
[2022-02-04 12:25] VITALS: BP 142/84; PULSE 73; RESP 20; O2SAT 99
[2022-02-04 12:40] VITALS: BP 140/81; PULSE 73; RESP 20; O2SAT 99
[2022-02-04 12:43] VITALS: BMI 31.5
[2022-02-04 12:55] VITALS: BP 148/90; PULSE 76; RESP 20; O2SAT 99
[2022-02-04 13:10] VITALS: BP 140/89; PULSE 78; RESP 20; O2SAT 99
[2022-02-04 13:25] VITALS: BP 140/89; PULSE 82; RESP 20; TEMP 37.1; O2SAT 99
== END 2022-02-04 13:30 | disposition home or self-care (01) ==
PROVIDERS: Radiology Diagnostic Radiology; PCP General Practice; Visit Provider Internal Medicine Gastroenterology
DX: R18.8 Other ascites (principal); K74.60 Unspecified cirrhosis of liver; B18.2 Chronic viral hepatitis C; R16.0 Hepatomegaly, not elsewhere classified; F10.11 Alcohol abuse, in remission
CPT/HCPCS: 49083; P9047

== ENCOUNTER 2022-02-11 11:46 | Day surgery (SDC) | payer MEDICAID, SELFPAY ==
--- NOTE | ~2022-02-11 | US_ITS ---
EXAMINATION: US GUIDED PARACENTESIS CLINICAL INFORMATION: Ascites COMPARISON: Previous exams, most recent 02/04/2022. TECHNIQUE: Procedure and risks and benefits including bleeding, infection and low blood pressure were discussed with the patient and informed consent was obtained. The right lower quadrant was prepped and draped in the usual sterile fashion. The skin and soft tissues were anesthetized with 1% lidocaine plain. Using ultrasound guidance and a 5-[place] Rapid Centesis catheter, access to the ascitic fluid was obtained. 5 L of slightly serosanguineous fluid was removed. No diagnostic specimen was sent. FINDINGS: There is a large amount of ascites. US/US paracentesis abd w/image IMPRESSION: Ultrasound-guided paracentesis.
[2022-02-11 12:16] VITALS: BMI 31.5
[2022-02-11 12:26] LABS: Hemoglobin 11.4 g/dl (14.0-18.0); Mean Corpuscular HGB Conc 33.5 g/dl (31.0-36.0); Mean Corpuscular Hemoglobin 31.1 pg (27.0-33.0); Mean Corpuscular Volume 92.9 fL (80.0-98.0); Mean Platelet Volume 9.6 fL (9.4-12.4); Platelet Count 121 X10*3/uL (160-400); Red Blood Count 3.66 X10*6/uL (4.60-5.80); Red Cell Distribution Width 14.5 % (11.0-16.0); White Blood Count 11.2 X10*3/uL (4.8-10.8)
[2022-02-11 12:32] LABS: INTERNATIONAL NORM RATIO 1.1 (0.9-1.1); Prothrombin Time 12.5 SEC (9.9-13.0)
[2022-02-11 12:34] LABS: Partial Thromboplastin Time 33.2 SEC (24.1-38.0)
[2022-02-11 13:03] LABS: Basophils Abs Manual 0.3 X10*3/uL (0.0-0.2); Basophils Percent Manual 3 % (0-2); Eosinophils Absolute Manual 0.7 X10*3/uL (0.0-0.4); Eosinophils Percent Manual 6 % (0-4)
[2022-02-11 13:04] LABS: Band Neutrophils Percent 0 % (3-5); Lymphocytes Absolute Manual 1.3 X10*3/uL (1.2-4.9); Lymphocytes Percent Manual 12 % (20-40); Monocytes Absolute Manual 1.6 X10*3/uL (0.1-1.2); Monocytes Percent Manual 14 % (2-11)
[2022-02-11 13:05] LABS: Neutrophils Absolute Manual 7.3 X10*3/uL (2.0-8.3); Neutrophils Percent Manual 65 % (45-73)
[2022-02-11 13:06] LABS: Platelet Estimate SLIGHTLY DECREASED (NORMAL); Tear Drop Cells 1+ (0-2) /OIF
[2022-02-11 13:07] LABS: Platelet Morphology Comment NORMAL; RBC Morphology NOTED
[2022-02-11 13:08] LABS: Burr Cells 1+ (0-2) /OIF; Toxic Vacuolation PRESENT
[2022-02-11 13:52] VITALS: BP 120/47; PULSE 55; RESP 16; TEMP 36.4; O2SAT 100
[2022-02-11 14:07] VITALS: BP 121/52; PULSE 54; RESP 18; O2SAT 100
--- NOTE | 2022-02-11 14:07 | P.RADPN_ITS ---
RADIOLOGY Narrative Narrative: paracentesis performed using 5 fr catheter. 5L slightly serosanguinous fluid re moved. No specimen sent.
--- NOTE | 2022-02-11 14:07 | HO.RADPN ---
RADIOLOGY Narrative Narrative: paracentesis performed using 5 fr catheter. 5L slightly serosanguinous fluid removed. No specimen sent.
[2022-02-11 14:22] VITALS: BP 120/69; PULSE 56; RESP 21; O2SAT 100
[2022-02-11 14:37] VITALS: BP 118/64; PULSE 57; RESP 20; O2SAT 100
[2022-02-11 14:52] VITALS: BP 135/78; PULSE 57; RESP 19; TEMP 36.1; O2SAT 100
== END 2022-02-11 15:00 | disposition home or self-care (01) ==
PROVIDERS: Radiology Diagnostic Radiology; PCP General Practice; Visit Provider Internal Medicine Gastroenterology
DX: R18.8 Other ascites (principal); K74.60 Unspecified cirrhosis of liver; B19.20 Unspecified viral hepatitis C without hepatic coma; K76.9 Liver disease, unspecified; K21.9 Gastro-esophageal reflux disease without esophagitis; J45.909 Unspecified asthma, uncomplicated; D64.9 Anemia, unspecified
CPT/HCPCS: 36415; 49083; 85007; 85027; 85610; 85730

== ENCOUNTER 2022-02-18 10:07 | Day surgery (SDC) | payer MEDICAID, SELFPAY ==
--- NOTE | ~2022-02-18 | US_ITS ---
EXAMINATION: ULTRASOUND-GUIDED PARACENTESIS CLINICAL INFORMATION: Ascites COMPARISON: Previous exam most recent 02/11/2022 TECHNIQUE: Procedure and risks and benefits including bleeding, infection and low blood pressure were discussed with the patient and consent was obtained. The left lower quadrant was prepped and draped in the usual sterile fashion. The skin and soft tissues were anesthetized percent lidocaine plain. Using ultrasound guidance and a 5 [place]ic rapid centesis catheter, access to the ascitic fluid was obtained. 8.9 L of clear yellow fluid was removed. No diagnostic was sent. The patient received 50 g of intravenous albumin during the procedure. FINDINGS: There is a large amount of ascites. US/US paracentesis abd w/image IMPRESSION: Ultrasound-guided paracentesis.
[2022-02-18 10:37] VITALS: BMI 31.5
--- NOTE | 2022-02-18 11:12 | P.RADPN_ITS ---
RADIOLOGY Narrative Narrative: LLQ paracentesis using 5 fr angiocath. 8L clear yellow fluid removed.
[2022-02-18 12:05] VITALS: BP 108/49; PULSE 57; RESP 16; TEMP 36.7; O2SAT 100
[2022-02-18] MEDS: Lidocaine HCl 1 % MPF 5 ML VIAL SUBCUT (12:05)
[2022-02-18 12:20] VITALS: BP 116/65; PULSE 60; RESP 17; O2SAT 100
[2022-02-18 12:35] VITALS: BP 116/65; PULSE 64; RESP 18; O2SAT 100
[2022-02-18 12:50] VITALS: BP 99/66; PULSE 64; RESP 18; TEMP 36.8; O2SAT 100
[2022-02-18 13:01] VITALS: BP 92/41; PULSE 70; RESP 18; TEMP 36.8; O2SAT 100
== END 2022-02-18 13:09 | disposition home or self-care (01) ==
PROVIDERS: Radiology Diagnostic Radiology; PCP General Practice; Visit Provider Internal Medicine Gastroenterology
DX: R18.8 Other ascites (principal); K74.60 Unspecified cirrhosis of liver; B19.20 Unspecified viral hepatitis C without hepatic coma; K76.9 Liver disease, unspecified; F10.11 Alcohol abuse, in remission
CPT/HCPCS: 49083; P9047

== ENCOUNTER 2022-02-25 09:35 | Day surgery (SDC) | payer MEDICAID, SELFPAY ==
--- NOTE | 2022-02-18 11:12 | HO.RADPN ---
RADIOLOGY Narrative Narrative: LLQ paracentesis using 5 fr angiocath. 8L clear yellow fluid removed.
[2022-02-25] VITALS (8 sets, daily range): BP systolic 129–139; BP diastolic 74–83; PULSE 60–64; RESP 16–21; TEMP 36.5–36.8; O2SAT 97–100; BMI 31.5
--- NOTE | ~2022-02-25 | US_ITS ---
EXAMINATION: ULTRASOUND PARACENTESIS. CLINICAL INFORMATION: Cirrhosis. COMPARISON: None TECHNIQUE: Following explaining ultrasound-guided paracentesis procedure, benefits and risk, a written consent was obtained. Patient was placed supine on ultrasound stretcher and preliminary CT imaging was obtained. An optimal site was selected along the right lower quadrant and marked. The marked site was cleaned and draped in usual sterile manner with 2% chlorhexidine solution. Through a small skin incision a 5 [place] Yueh catheter was advanced into the peritoneal space. After observing fluid return the stylet was withdrawn and connected to vacuum bottle via connecting cannula. After obtaining all fluid and observing no more fluid return, the catheter was withdrawn and complete hemostasis achieved at puncture site. Sterile dressing applied postprocedure. FINDINGS: There is a moderate amount of free fluid in the pelvis. Approximately 9.0 L of clear yellowish fluid drained from the right lower quadrant. None of this fluid was sent to lab. US/US paracentesis abd w/image IMPRESSION: Successful ultrasound-guided paracentesis performed.
[2022-02-25] MEDS: Lidocaine HCl 1 % MPF 5 ML VIAL SUBCUT (12:21)
== END 2022-02-25 14:10 | disposition home or self-care (01) ==
LOC: HO.SSS 09:35
PROVIDERS: Radiology Diagnostic Radiology; PCP General Practice; Visit Provider Internal Medicine Gastroenterology
DX: R18.8 Other ascites (principal); K74.60 Unspecified cirrhosis of liver; R16.0 Hepatomegaly, not elsewhere classified; B19.20 Unspecified viral hepatitis C without hepatic coma; K21.9 Gastro-esophageal reflux disease without esophagitis; I10 Essential (primary) hypertension; F10.21 Alcohol dependence, in remission; F12.90 Cannabis use, unspecified, uncomplicated; Z79.899 Other long term (current) drug therapy
CPT/HCPCS: 49083

== ENCOUNTER 2022-03-04 07:38 | Day surgery (SDC) | payer MEDICAID, SELFPAY ==
--- NOTE | ~2022-03-04 | US_ITS ---
EXAMINATION: PARACENTESIS CLINICAL INFORMATION: Ascites COMPARISON: February 25, 2022 TECHNIQUE: Ultrasound-guided paracentesis FINDINGS: Informed consent was obtained from the patient prior to the procedure. During this process, the procedure and potential alternatives were explained, along with the intended outcome and benefits. The risks of the procedure, as well as the risk of not doing the procedure, were discussed. The patient was given the opportunity to ask questions regarding the procedure and appeared competent to make medical decisions. A signed consent form which documents this discussion was placed in the medical record. Using ultrasound guidance and sterile technique a 5 [place] Yueh needle was directed into the lower peritoneal cavity on the left. A total of 8.2 L of clear yellow fluid were removed. Patient tolerated procedure without difficulty. Albumin was given during the study with 50 g total given intravenously. US/US paracentesis abd w/image IMPRESSION: Paracentesis with removal of 8.2 L of clear yellow fluid.
[2022-03-04 06:35] VITALS: BMI 31.5
[2022-03-04 08:01] VITALS: BP 141/78; PULSE 73; RESP 18; TEMP 36.3; O2SAT 98
[2022-03-04 10:05] VITALS: BP 119/80; PULSE 61; RESP 16; TEMP 36.2; O2SAT 100
[2022-03-04 10:20] VITALS: BP 128/74; PULSE 62; RESP 16; O2SAT 100
[2022-03-04 10:35] VITALS: BP 110/69; PULSE 60; RESP 16; O2SAT 100
[2022-03-04 11:05] VITALS: BP 114/50; PULSE 65; RESP 18; TEMP 36.3; O2SAT 100
== END 2022-03-04 11:39 | disposition home or self-care (01) ==
PROVIDERS: PCP General Practice; Visit Provider Radiology Diagnostic Radiology
DX: R18.8 Other ascites (principal); K74.60 Unspecified cirrhosis of liver; B19.20 Unspecified viral hepatitis C without hepatic coma; F10.11 Alcohol abuse, in remission; I10 Essential (primary) hypertension; F12.90 Cannabis use, unspecified, uncomplicated
CPT/HCPCS: 49083; P9047

== ENCOUNTER 2022-03-11 09:32 | Day surgery (SDC) | payer MEDICAID, SELFPAY ==
--- NOTE | ~2022-03-11 | US_ITS ---
EXAMINATION: US GUIDED PARACENTESIS ABDOMEN WITH IMAGE CLINICAL INFORMATION: Cirrhosis with ascites. COMPARISON: None TECHNIQUE: Following explaining the ultrasound-guided paracentesis procedure, and the benefits and risks, a written consent was obtained. The patient was placed supine on the ultrasound stretcher and preliminary ultrasound imaging was obtained. An optimal site was selected along the left lower quadrant and marked. The marked site was cleaned and draped in the usual sterile manner. 1% lidocaine was injected at the puncture site. Through a small skin incision, a 5 [place] [facility] catheter was advanced into the peritoneal space. After observing fluid return, the stylet was withdrawn and the catheter connected to a vacuum bottle via a connecting cannula. After obtaining all fluid and observing normal fluid return, the catheter was withdrawn and complete hemostasis was achieved at the puncture site. A sterile dressing was applied post procedure. The patient tolerated the procedure extremely well. FINDINGS: There is a large amount of ascites on preliminary ultrasound imaging. Approximately 10.6 liters of yellow-colored, clear fluid was drained from the left lower quadrant. None of this fluid was sent to the lab. IV 25 grams of albumin was given during the exam due to the high volume of drainage. US/US paracentesis abd w/image IMPRESSION: Successful ultrasound-guided paracentesis without immediate complications.
[2022-03-11 10:25] VITALS: BMI 31.5
[2022-03-11] MEDS: Lidocaine HCl 1 % MPF 5 ML VIAL SUBCUT (11:44)
[2022-03-11 11:45] VITALS: BP 113/71; PULSE 53; RESP 16; TEMP 36.6; O2SAT 100
[2022-03-11 12:15] VITALS: BP 106/70; PULSE 52; RESP 17; O2SAT 100
[2022-03-11 12:45] VITALS: BP 126/64; PULSE 53; RESP 18; O2SAT 100
[2022-03-11 13:01] VITALS: BP 120/72; PULSE 54; RESP 16; TEMP 36.6; O2SAT 100
== END 2022-03-11 13:03 | disposition home or self-care (01) ==
PROVIDERS: PCP General Practice; Visit Provider Radiology Diagnostic Radiology
DX: R18.8 Other ascites (principal); K74.60 Unspecified cirrhosis of liver; B19.20 Unspecified viral hepatitis C without hepatic coma; F10.11 Alcohol abuse, in remission; I10 Essential (primary) hypertension; R16.0 Hepatomegaly, not elsewhere classified; E03.9 Hypothyroidism, unspecified
CPT/HCPCS: 49083; P9047

== ENCOUNTER 2022-03-16 16:57 | Inpatient (IN) | payer MEDICAID, SELFPAY ==
--- NOTE | ~2022-03-16 | US_ITS ---
EXAMINATION: ULTRASOUND-GUIDED PARACENTESIS CLINICAL INFORMATION: Ascites COMPARISON: Previous exams most recent 03/11/2022 TECHNIQUE: Procedure and risks and benefits including bleeding infection and low blood pressure were discussed with the patient and informed consent was obtained. The right lower quadrant was prepped and draped in the usual sterile fashion. The skin and soft tissues were anesthetized with 1% lidocaine plain. Using ultrasound guidance and a 5 [place] rapid centesis catheter, access to the ascitic fluid was obtained. 9.8 L of clear yellow fluid was removed. No diagnostic specimen was sent. FINDINGS: There is a large amount of ascites. US/US paracentesis abd w/image IMPRESSION: Ultrasound-guided paracentesis.
--- NOTE | ~2022-03-16 | XR_ITS ---
EXAMINATION: XR CHEST CLINICAL INFORMATION: Shortness of breath COMPARISON: Chest x-ray 11/16/2021 TECHNIQUE: Frontal view of the chest was obtained. FINDINGS: The lungs are clear. No airspace consolidation, pleural effusion, or pneumothorax. The cardiomediastinal silhouette is within normal limits. No acute osseous injury. XR/XR chest 1V IMPRESSION: No acute pulmonary process.
[2022-03-16 17:10] VITALS: BP 151/90; PULSE 64; O2SAT 100; BMI 34.3
[2022-03-16 17:14] VITALS: BP 138/85; PULSE 64; RESP 18; TEMP 36.9; O2SAT 99
--- NOTE | 2022-03-16 17:16 | ECG_ITS ---
Test Reason : SOB Blood Pressure : / mmHG Vent. Rate : 066 BPM Atrial Rate : 066 BPM P-R Int : 168 ms QRS Dur : 090 ms QT Int : 476 ms P-R-T Axes : 064 -42 034 degrees QTc Int : 499 ms Normal sinus rhythm Left axis deviation Prolonged QT Abnormal ECG When compared with ECG of 16-JAN-2022 17:00, Criteria for Septal infarct are no longer Present Referred By: Chloe Baron Electronically Signed By:MICHAEL HUYNH MD
--- NOTE | 2022-03-16 17:25 | ED.GENADULT ---
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 He denies any hematemesis is experiencing some mild shortness of breath although he is attributing this to the size of his abdomen. Otherwise he denies fevers or chills. Related Data Home Medications Medication Instructions Recorded Confirmed albuterol sulfate 90 mcg/actuation 2 puff inhalation QID PRN Wheezing 09/22/20 03/04/22 aerosol inhaler (ProAir HFA) omeprazole 20 mg capsule,delayed 20 mg PO DAILY@0630 09/22/20 03/04/22 release lactulose 10 gram/15 mL oral 45 ml PO TID 12/16/21 03/04/22 solution spironolactone 100 mg tablet 100 mg PO DAILY 12/24/21 03/04/22 propranolol 10 mg tablet 10 mg PO BID 01/16/22 03/04/22 simethicone 125 mg chewable tablet 1 tab PO BID PRN gas 01/16/22 03/04/22 Previous Rx's Medication Instructions Recorded furosemide 40 mg tablet (Lasix) 40 mg PO DAILY #20 tabs 08/26/21 levothyroxine 75 mcg tablet 225 mcg PO DAILY 30 days #90 tabs 12/25/21 (Synthroid) Allergies Allergy/AdvReac Type Severity Reaction Status Date / Time No Known Allergies Allergy Verified 01/28/22 09:47 [No Known Allergies*] Review of Systems Review of Systems: Pertinent positives and negatives as stated in HPI 10 point review of systems is otherwise negative. [facility] Past Medical History Source: nursing notes reviewed Medical History Allergic rhinitis Anemia Anemia Asthma Cirrhosis Constipation GERD (gastroesophageal reflux disease) H/O ETOH abuse Hepatitis C Hepatitis C History of alcohol abuse History of kidney stones HTN (hypertension) Hypothyroid Left inguinal hernia Liver mass Surgical History History of esophagogastroduodenoscopy (EGD) Hx of colonoscopy No history of previous surgery Family History Family History Other No known health problems Social History Social History Household Members: Family Housing: House Do you presently have visiting nurse or other home services: No Alcohol intake: never Patient Tobacco Use Status: Never used Tobacco Substance Use Type: Marijuana Advance Directives: No Advance Directives Information Provided: No Advance Directives Date on File: 11/04/21 service: No Current occupational status: unemployed and disabled Physical Exam ED Vital Signs: Vital Signs - 24 hr 03/16/22 17:14 03/16/22 20:25 Temperature 98.5 F 97.9 F Pulse Rate 64 75 Respiratory Rate 18 19 Blood Pressure 138/85 150/89 H Pulse Oximetry 99 99 Oxygen Delivery Method Room Air Room Air BMI result Body Mass Index 34.3 VITAL SIGNS: Reviewed. GENERAL: Well developed, well nourished, in no acute distress. HEAD: Normocephalic/atraumatic EYES: PERRLA, EOMI EARS: Ext canals without abnormality OROPHARYNX: no oral lesions noted, posterior pharynx clear LUNGS: Normal breath sounds. No adventitious sounds or accessory muscle use. SpO2<99> CARDIOVASCULAR: Regular rate and rhythm without noted murmurs, no JVD or lower extremity edema. ABDOMEN: Soft, non-tender, distended but not taut or firm, reducible umbilical hernia YARELI: No skin tags or lesions, rectal vault with melena stool, good rectal tone MUSCULOSKELETAL: No tenderness, deformities, or effusions noted on gross inspection. EXTREMITIES: No cyanosis, clubbing or edema. SKIN: Inspection of the skin reveals no rashes NEUROLOGIC: Alert and oriented x 4. Strength and sensation to light touch were grossly intact x 4, no noted asterixis. Course Course Course Narrative: 66-year-old male with history and clinical presentation consistent with possible GI bleed, although abdomen is distended it is not taut nor is there presence of pain. Patient is oxygenating well and not tachypneic. Review of all investigations significant for melena, patient is otherwise hemodynamically stable, abdomen is soft although it is distended, he has been typed and screened and I discussed the case with gastroenterology who recommends admission but agrees that patient does not need transfusion at this time. I discussed the case with the inpatient hospitalist who accepts admission. Reevaluation(s) Reevaluation #1: Paged GI Time: 07:41 Medical Decision Making Lab Data Result diagrams: 03/16/22 18:44 03/16/22 18:44 Labs: Lab Results 03/16/22 03/16/22 03/16/22 Range/Units 18:35 18:35 18:44 WBC (4.8-10.8) X10*3/uL RBC (4.60-5.80) X10*6/uL Hgb (14.0-18.0) g/dl Hct (42.0-52.0) % MCV (80.0-98.0) fL MCH (27.0-33.0) pg MCHC (31.0-36.0) g/dl RDW (11.0-16.0) % Plt Count (160-400) X10*3/uL MPV (9.4-12.4) fL Immature Gran % (Auto) (0.0-0.4) % Neut % (Auto) (45-73) % Lymph % (Auto) (20-40) % [place] % (Auto) (2-11) % Eos % (Auto) (0-4) % Baso % (Auto) (0-2) % Lymph # (Auto) (1.2-4.9) X10*3/uL [place] # (Auto) (0.1-1.2) X10*3/uL Eos # (Auto) (0.0-0.4) X10*3/uL Baso # (Auto) (0.0-0.2) X10*3/uL Abs Immat Gran (auto) (0.00-0.03) X10*3/uL Absolute Neuts (auto) (2.0-8.3) x10*3/uL Absolute Nucleated RBC (0.0-0.012) X10*3/uL Nucleated RBC % (auto) (0.0-0.2) /100WBC PT (10.0-13.1) SEC INR (0.9-1.1) VBG pH (7.32-7.43) VBG pCO2 mmHg VBG pO2 mmHg VBG HCO3 (22-26) mmol/L VBG O2 Saturation % VBG Base Excess Ammonia (13-55) umol/L Troponin I High Sens (<3.5-35.0) ng/L B-Natriuretic Peptide 25 (<100) pg/mL Stool Occult Blood POSITIVE (NEGATIVE) COVID-19 (JELANI) Negative (Negative) COVID-19 Clin Com See Note Blood Type Antibody Screen 03/16/22 03/16/22 03/16/22 Range/Units 18:44 18:44 18:44 WBC 10.0 (4.8-10.8) X10*3/uL RBC 3.41 L (4.60-5.80) X10*6/uL Hgb 10.8 L (14.0-18.0) g/dl Hct 31.2 L (42.0-52.0) % MCV 91.5 (80.0-98.0) fL MCH 31.7 (27.0-33.0) pg MCHC 34.6 (31.0-36.0) g/dl RDW 14.3 (11.0-16.0) % Plt Count 160 D (160-400) X10*3/uL MPV 10.5 (9.4-12.4) fL Immature Gran % (Auto) 1.4 H (0.0-0.4) % Neut % (Auto) 66.9 (45-73) % Lymph % (Auto) 17.1 L (20-40) % [place] % (Auto) 9.2 (2-11) % Eos % (Auto) 3.9 (0-4) % Baso % (Auto) 1.5 (0-2) % Lymph # (Auto) 1.7 (1.2-4.9) X10*3/uL [place] # (Auto) 0.9 (0.1-1.2) X10*3/uL Eos # (Auto) 0.4 (0.0-0.4) X10*3/uL Baso # (Auto) 0.2 (0.0-0.2) X10*3/uL Abs Immat Gran (auto) 0.14 H (0.00-0.03) X10*3/uL Absolute Neuts (auto) 6.7 (2.0-8.3) x10*3/uL Absolute Nucleated RBC 0.000 (0.0-0.012) X10*3/uL Nucleated RBC % (auto) 0.0 (0.0-0.2) /100WBC PT 11.7 (10.0-13.1) SEC INR 1.0 (0.9-1.1) VBG pH (7.32-7.43) VBG pCO2 mmHg VBG pO2 mmHg VBG HCO3 (22-26) mmol/L VBG O2 Saturation % VBG Base Excess Ammonia (13-55) umol/L Troponin I High Sens 6.9 (<3.5-35.0) ng/L B-Natriuretic Peptide (<100) pg/mL Stool Occult Blood (NEGATIVE) COVID-19 (JELANI) (Negative) COVID-19 Clin Com Blood Type Antibody Screen 03/16/22 03/16/22 03/16/22 Range/Units 18:44 18:50 18:57 WBC (4.8-10.8) X10*3/uL RBC (4.60-5.80) X10*6/uL Hgb (14.0-18.0) g/dl Hct (42.0-52.0) % MCV (80.0-98.0) fL MCH (27.0-33.0) pg MCHC (31.0-36.0) g/dl RDW (11.0-16.0) % Plt Count (160-400) X10*3/uL MPV (9.4-12.4) fL Immature Gran % (Auto) (0.0-0.4) % Neut % (Auto) (45-73) % Lymph % (Auto) (20-40) % [place] % (Auto) (2-11) % Eos % (Auto) (0-4) % Baso % (Auto) (0-2) % Lymph # (Auto) (1.2-4.9) X10*3/uL [place] # (Auto) (0.1-1.2) X10*3/uL Eos # (Auto) (0.0-0.4) X10*3/uL Baso # (Auto) (0.0-0.2) X10*3/uL Abs Immat Gran (auto) (0.00-0.03) X10*3/uL Absolute Neuts (auto) (2.0-8.3) x10*3/uL Absolute Nucleated RBC (0.0-0.012) X10*3/uL Nucleated RBC % (auto) (0.0-0.2) /100WBC PT (10.0-13.1) SEC INR (0.9-1.1) VBG pH 7.43 (7.32-7.43) VBG pCO2 33 mmHg VBG pO2 31 mmHg VBG HCO3 22 (22-26) mmol/L VBG O2 Saturation 41.0 % VBG Base Excess TNP Ammonia 30 (13-55) umol/L Troponin I High Sens (<3.5-35.0) ng/L B-Natriuretic Peptide (<100) pg/mL Stool Occult Blood (NEGATIVE) COVID-19 (JELANI) (Negative) COVID-19 Clin Com Blood Type A Negative Antibody Screen NEGATIVE ECG Data Attestation: I personally reviewed and interpreted this ECG as follows: Prior ECG tracings: available for review Interpretation: SR, HR-66, no STEMI, [place]/QRS a within normal limits, mildly prolonged [id number] Discharge Plan Discharge Clinical Impression: GI bleed, Liver mass, Abdominal ascites, Breath shortness, Cirrhosis of liver Patient Disposition: Admitted As Inpatient
[2022-03-16 18:51] LABS: MANUAL DIFF FLAG NO
[2022-03-16 18:53] LABS: Basophils Absolute Auto 0.2 X10*3/uL (0.0-0.2); Basophils Percent Auto 1.5 % (0-2); Eosinophils Absolute Auto 0.4 X10*3/uL (0.0-0.4); Eosinophils Percent Auto 3.9 % (0-4); Hematocrit 31.2 % (42.0-52.0); Hemoglobin 10.8 g/dl (14.0-18.0); Imm Gran Abs Auto 0.14 X10*3/uL (0.00-0.03); Imm Gran Pct Auto 1.4 % (0.0-0.4); Lymphocytes Absolute Auto 1.7 X10*3/uL (1.2-4.9); Lymphocytes Percent Auto 17.1 % (20-40); Mean Corpuscular HGB Conc 34.6 g/dl (31.0-36.0); Mean Corpuscular Hemoglobin 31.7 pg (27.0-33.0); Mean Corpuscular Volume 91.5 fL (80.0-98.0); Mean Platelet Volume 10.5 fL (9.4-12.4); Monocytes Absolute Auto 0.9 X10*3/uL (0.1-1.2); Monocytes Percent Auto 9.2 % (2-11); Neutrophils Absolute Auto 6.7 x10*3/uL (2.0-8.3); Neutrophils Percent Auto 66.9 % (45-73); Platelet Count 160 X10*3/uL (160-400); Red Blood Count 3.41 X10*6/uL (4.60-5.80); Red Cell Distribution Width 14.3 % (11.0-16.0)
[2022-03-16 18:54] LABS: Venous Blood Gas Refer to POC result
[2022-03-16 18:55] LABS: OBS Int Ctl Valid YES; OBS1 POSITIVE (NEGATIVE)
[2022-03-16 18:55] LABS: VBG HCO3 22 mmol/L (22-26); VBG pCO2 33 mmHg; VBG pH 7.43 (7.32-7.43); VBG pO2 31 mmHg
[2022-03-16] MEDS: Pantoprazole Sodium 40 MG/10 ML VIAL 80 MG IVPUSH (18:58)
[2022-03-16 19:10] LABS: Ammonia 30 umol/L (13-55)
[2022-03-16 19:13] LABS: Prothrombin Time 11.7 SEC (10.0-13.1)
[2022-03-16 19:21] LABS: B Type Natriuretic Peptide 25 pg/mL (<100); Troponin-I High Sensitivity 6.9 ng/L (<3.5-35.0)
[2022-03-16 19:23] LABS: COVID-19 Test Negative (Negative); IDNOW Serial# 08D9AD1C
[2022-03-16 20:25] VITALS: BP 150/89; PULSE 75; RESP 19; TEMP 36.6; O2SAT 99
[2022-03-16 20:37] LABS: Appearance Urine CLEAR; Color Urine YELLOW; Glucose Urine UA NEG (NEG); Leukocyte Esterase Urine NEG (NEG); Nitrite Urine NEG (NEG); Specific Gravity - Urine 1.025 (1.005-1.025); Urine Blood NEG (NEG); Urine Ketones NEG (NEG); Urine Protein NEG (NEG-TRACE)
--- NOTE | 2022-03-16 21:16 | PM.IMHP ---
History of Present Illness Date of Service: 03/16/22 Chief Complaint: dizziness Polish-speaking, history is obtained with the help of core piler This is a 66-year-old male with past medical history of liver cirrhosis secondary to alcohol abuse as well as hepatitis-C, hypothyroidism, HTN, asthma, chronic anemia, HLD who presents to the hospital with complaints of dizziness vomiting as well as pressure in the abdomen. Patient reports that his symptoms started about 2 days ago. Patient reports no abdominal pain, no fever, reports 3 episodes of vomiting this morning, otherwise no diarrhea constipation, on further questioning patient does report melena for the past 2 days, reports no blood in the vomit. He has no headache, no change in vision, no chest pain, no urinary symptoms and no lower extremity edema Cherri. Patient reports that he receives paracentesis every Monday and he has no increased abdominal distension more than usual. On arrival to the ED patient hemodynamically stable with no significant abnormal vitals Labs are significant for WBC count of 10.0, hemoglobin of 10.8, hematocrit of 31.2 which is almost at his baseline, sodium of 130, BUN of 32, creatinine of 1.41 choose around his baseline, total bili of 1.5, AST of 67, alk-phos of 128, UA negative, stool occult blood positive Chest x-ray shows no acute pulmonary process Patient will be admitted for further management Review of Systems Review of Systems: Yes all other systems are reviewed and are negative [facility] Medical History Allergic rhinitis Anemia Anemia Asthma Cirrhosis Constipation GERD (gastroesophageal reflux disease) H/O ETOH abuse Hepatitis C Hepatitis C History of alcohol abuse History of kidney stones HTN (hypertension) Hypothyroid Left inguinal hernia Liver mass Family History Other No known health problems Surgical History History of esophagogastroduodenoscopy (EGD) Hx of colonoscopy No history of previous surgery Social History Household Members: Family Housing: House Do you presently have visiting nurse or other home services: No Alcohol intake: never Patient Tobacco Use Status: Never used Tobacco Substance Use Type: Marijuana Advance Directives: No Advance Directives Information Provided: No Advance Directives Date on File: 11/04/21 service: No Current occupational status: unemployed and disabled Meds Allergies Allergy/AdvReac Type Severity Reaction Status Date / Time No Known Allergies Allergy Verified 01/28/22 09:47 [No Known Allergies*] Home Medications Medication Instructions Recorded Confirmed Last Taken Type albuterol sulfate 90 mcg/actuation 2 puff inhalation QID PRN Wheezing 09/22/20 03/16/22 01/16/22 History aerosol inhaler (ProAir HFA) omeprazole 20 mg capsule,delayed 20 mg PO DAILY@0630 09/22/20 03/16/22 01/16/22 History release lactulose 10 gram/15 mL oral 45 ml PO TID 12/16/21 03/16/22 03/15/22 History solution spironolactone 100 mg tablet 100 mg PO DAILY 12/24/21 03/16/22 03/15/22 History propranolol 10 mg tablet 10 mg PO BID 01/16/22 03/16/22 03/15/22 History levothyroxine 75 mcg tablet 225 mcg PO DAILY@0600 03/16/22 03/16/22 03/15/22 History (Synthroid) Physical Exam Vital Signs and Narrative: Vital Signs: Last Vital Signs Temp 97.9 F 03/16/22 20:25 Pulse 75 03/16/22 20:25 Resp 19 03/16/22 20:25 BP 150/89 H 03/16/22 20:25 Pulse Ox 99 03/16/22 20:25 O2 Del Method 03/16/22 20:25 BMI result Body Mass Index 34.3 Const: General: cooperative and no acute distress Orientation/consciousness: patient oriented x3 Eyes: General: appearance normal, both eyes and all related structures Pupils: Equal, round and reactive pupils present Resp: Effort & Inspection: normal respiratory effort Auscultation: clear to auscultation bilaterally Cardio: Rate: regular rate Rhythm: regular rhythm GI: Other: Distended abdomen, no tenderness, no rebound or guarding Palpation (GI): Soft to palpation Auscultation: normal bowel sounds Skin: General skin exam: no rashes or lesions noted Neuro: General: patient oriented x3 Cranial nerves: Yes Equal, round and reactive pupils present Cognition (Neuro): normal cognition Extrem: General: Yes normal to inspection and Yes no pedal edema Results Labs CBC and Chem 7: 03/17/22 04:44 03/17/22 04:44 Labs: Laboratory Results - last 24 hr 03/16/22 03/16/22 03/16/22 18:35 18:35 18:44 MCV MCH MCHC RDW Plt Count MPV Immature Gran % (Auto) Neut % (Auto) Lymph % (Auto) [place] % (Auto) Eos % (Auto) Baso % (Auto) Lymph # (Auto) [place] # (Auto) Eos # (Auto) Baso # (Auto) Abs Immat Gran (auto) Absolute Neuts (auto) Absolute Nucleated RBC Nucleated RBC % (auto) PT INR VBG pH VBG pCO2 VBG pO2 VBG HCO3 VBG O2 Saturation VBG Base Excess Ammonia Troponin I High Sens B-Natriuretic Peptide 25 Urine Color Urine Appearance Urine pH Ur Specific [place] Urine Protein Urine Glucose (UA) Urine Ketones Urine Blood Urine Nitrite Ur Leukocyte Esterase Stool Occult Blood POSITIVE COVID-19 (JELANI) Negative COVID-19 Clin Com See Note Blood Type Antibody Screen 03/16/22 03/16/22 03/16/22 18:44 18:44 18:44 MCV 91.5 MCH 31.7 MCHC 34.6 RDW 14.3 Plt Count 160 D MPV 10.5 Immature Gran % (Auto) 1.4 H Neut % (Auto) 66.9 Lymph % (Auto) 17.1 L [place] % (Auto) 9.2 Eos % (Auto) 3.9 Baso % (Auto) 1.5 Lymph # (Auto) 1.7 [place] # (Auto) 0.9 Eos # (Auto) 0.4 Baso # (Auto) 0.2 Abs Immat Gran (auto) 0.14 H Absolute Neuts (auto) 6.7 Absolute Nucleated RBC 0.000 Nucleated RBC % (auto) 0.0 PT 11.7 INR 1.0 VBG pH VBG pCO2 VBG pO2 VBG HCO3 VBG O2 Saturation VBG Base Excess Ammonia Troponin I High Sens 6.9 B-Natriuretic Peptide Urine Color Urine Appearance Urine pH Ur Specific [place] Urine Protein Urine Glucose (UA) Urine Ketones Urine Blood Urine Nitrite Ur Leukocyte Esterase Stool Occult Blood COVID-19 (JELANI) COVID-19 Clin Com Blood Type Antibody Screen 03/16/22 03/16/22 03/16/22 18:44 18:50 18:57 MCV MCH MCHC RDW Plt Count MPV Immature Gran % (Auto) Neut % (Auto) Lymph % (Auto) [place] % (Auto) Eos % (Auto) Baso % (Auto) Lymph # (Auto) [place] # (Auto) Eos # (Auto) Baso # (Auto) Abs Immat Gran (auto) Absolute Neuts (auto) Absolute Nucleated RBC Nucleated RBC % (auto) PT INR VBG pH 7.43 VBG pCO2 33 VBG pO2 31 VBG HCO3 22 VBG O2 Saturation 41.0 VBG Base Excess TNP Ammonia 30 Troponin I High Sens B-Natriuretic Peptide Urine Color Urine Appearance Urine pH Ur Specific [place] Urine Protein Urine Glucose (UA) Urine Ketones Urine Blood Urine Nitrite Ur Leukocyte Esterase Stool Occult Blood COVID-19 (JELANI) COVID-19 Clin Com Blood Type A Negative Antibody Screen NEGATIVE 03/16/22 20:27 MCV MCH MCHC RDW Plt Count MPV Immature Gran % (Auto) Neut % (Auto) Lymph % (Auto) [place] % (Auto) Eos % (Auto) Baso % (Auto) Lymph # (Auto) [place] # (Auto) Eos # (Auto) Baso # (Auto) Abs Immat Gran (auto) Absolute Neuts (auto) Absolute Nucleated RBC Nucleated RBC % (auto) PT INR VBG pH VBG pCO2 VBG pO2 VBG HCO3 VBG O2 Saturation VBG Base Excess Ammonia Troponin I High Sens B-Natriuretic Peptide Urine Color YELLOW Urine Appearance CLEAR Urine pH 6.0 Ur Specific [place] 1.025 Urine Protein NEG Urine Glucose (UA) NEG Urine Ketones NEG Urine Blood NEG Urine Nitrite NEG Ur Leukocyte Esterase NEG Stool Occult Blood COVID-19 (JELANI) COVID-19 Clin Com Blood Type Antibody Screen Imaging Radiologist's Impressions: Impressions Chest X-Ray 03/16/22 17:30 IMPRESSION: No acute pulmonary process. Assessment and Plan (1) GI bleed: Status: Acute (2) Dizziness: Status: Acute Plan 66-year-old male with past medical history of liver cirrhosis presents to the hospital with dizziness as well as melena found to have positive occult stool # GI bleed - likely upper - stable hemoglobin - positive stool occult blood - will consult GI - keep NPO - will start on for lactic ceftriaxone in the setting of his history of liver cirrhosis - follow H&H # dizziness - likely secondary to GI bleed - hemoglobin stable - monitor # liver cirrhosis - stable - follow LFTs - continue furosemide on spironolactone as well as propranolol # hypertension - stable - continue home medications # hypothyroidism - continue levothyroxine DVT prophylaxis: SCDs Given the GI bleed as well as need for further evaluation, patient will require minimum 2 night hospital stay in the setting of his other comorbidities for further management and monitoring. pt will dop poorly op Quality Stroke Does the patient have a stroke diagnosis?: No VTE Prior VTE?: No VTE Risk Level:: Medical - moderate - high VTE Device Contraindication: N/A - Device Ordered VTE Drug Contraindication: Treatment Not Indicated
--- NOTE | 2022-03-16 21:36 | PHA.MEDREC ---
Pharmacy Consult ? Medication Reconciliation Pharmacy has completed the medication reconciliation. Pt with medications at bedside.
[2022-03-16 21:43] LABS: Alanine Aminotransferase 37 U/L (0-40); Albumin Level 2.8 g/dL (3.5-5.0); Alkaline Phosphatase 128 U/L (39-117); Anion Gap 10 (12-20); Aspartate Amino Transferase 67 U/L (5-37); Bilirubin Total 1.5 mg/dL (0.0-1.0); Blood Urea Nitrogen 32 mg/dL (9-16); Calcium 8.9 mg/dL (8.4-10.2); Carbon Dioxide 23 mmol/L (22-29); Chloride 102 mmol/L (96-108); Creatinine Clr Calc Pharmacy 65.7; Estimated Glomerular Filt Rate 51; Glucose Random 125 mg/dL (60-115); Potassium 4.6 mmol/L (3.3-5.1); Sodium 130 mmol/L (135-145); Total Protein 6.4 g/dL (6.5-8.0)
[2022-03-16] MEDS: cefTRIAXone sodium 1 GM in 0.9 % Sodium Chloride 50 ML IV (22:13)
[2022-03-16 23:16] VITALS: BP 139/91; PULSE 74; RESP 23; O2SAT 94
[2022-03-17] VITALS (7 sets, daily range): BP systolic 116–143; BP diastolic 64–90; PULSE 54–73; RESP 16–20; TEMP 36.2–36.6; O2SAT 94–100
[2022-03-17] MEDS: 0.9 % Sodium Chloride Flush 3 ML SYRINGE IVFLUSH ×3 (01:35→16:52)
[2022-03-17 04:49] LABS: Basophils Absolute Auto 0.1 X10*3/uL (0.0-0.2); Basophils Percent Auto 1.4 % (0-2); Eosinophils Absolute Auto 0.4 X10*3/uL (0.0-0.4); Eosinophils Percent Auto 4.3 % (0-4); Hematocrit 28.2 % (42.0-52.0); Hemoglobin 9.8 g/dl (14.0-18.0); Imm Gran Abs Auto 0.12 X10*3/uL (0.00-0.03); Imm Gran Pct Auto 1.2 % (0.0-0.4); Lymphocytes Absolute Auto 1.6 X10*3/uL (1.2-4.9); Lymphocytes Percent Auto 15.8 % (20-40); MANUAL DIFF FLAG NO; Mean Corpuscular HGB Conc 34.8 g/dl (31.0-36.0); Mean Corpuscular Hemoglobin 31.8 pg (27.0-33.0); Mean Corpuscular Volume 91.6 fL (80.0-98.0); Mean Platelet Volume 10.2 fL (9.4-12.4); Monocytes Percent Auto 9.8 % (2-11); Neutrophils Absolute Auto 6.6 x10*3/uL (2.0-8.3); Neutrophils Percent Auto 67.5 % (45-73); Platelet Count 139 X10*3/uL (160-400); Red Blood Count 3.08 X10*6/uL (4.60-5.80); Red Cell Distribution Width 14.5 % (11.0-16.0); White Blood Count 9.8 X10*3/uL (4.8-10.8)
[2022-03-17 05:07] LABS: Anion Gap 11 (12-20); Blood Urea Nitrogen 34 mg/dL (9-16); Calcium 8.5 mg/dL (8.4-10.2); Carbon Dioxide 20 mmol/L (22-29); Chloride 102 mmol/L (96-108); Creatinine Clr Calc Pharmacy 69.7; Estimated Glomerular Filt Rate 55; Glucose Random 116 mg/dL (60-115); Potassium 4.7 mmol/L (3.3-5.1); Sodium 128 mmol/L (135-145)
[2022-03-17] MEDS: Pantoprazole Sodium 40 MG/10 ML VIAL IVPUSH ×2 (06:36→16:50)
--- NOTE | 2022-03-17 08:32 | P.CNGI_ITS ---
History of Present Illness Data of Consult Service Date: 03/17/22 Requesting physician: Josue Vazquez Primary Care Provider: Shayy Sears MD HPI Reason for consult: melena 66-year-old male with past medical history of liver cirrhosis secondary to alcohol abuse as well as hepatitis-C complicated by HCC, hypothyroidism, HTN, asthma, chronic anemia, HLD who I am asked to see for possible melena. Patient is well known to me and sees me for his Cirrhosis, currently on the transplant list for liver transplant eval, due to HCC with locoregional therapy already administered earlier this year, also gets frequent paracentesis due to ascites. he now presents with 1d hx of non bloody emesis with nausea and black appearing stool x 1 occasion with dizziness. He denies abdominal pain, no headache, no change in vision, no chest pain, no urinary symptoms and no lower extremity edema. he also denies fever. this morning his nausea has improved and no further vomiting. No further black s tools. No further dizziness. Not taking nsaids, aspirin or blood thinners. LABS: WBC count of 10.0, hemoglobin of 10.8, which is slightly below baseline of around 11-12 g/dl, sodium of 130, BUN of 32, creatinine of 1.41 choose around his baseline, total bili of 1.5, AST of 67, alk-phos of 128, UA negative, stool occult blood positive Chest x-ray was neg for pneumonia etc. Review of Systems Review of Systems: Constitutional : No Weight loss, No Fever, No Chills ENT/Mouth : No sore throat, No Rhinorrhea Eyes: No Swelling, No Redness Cardiovascular : No Chest Pain, No SOB, No Edema Respiratory : No Cough, No Sputum, No Wheezing Gastrointestinal : see HPI Genitourinary : NO Dysuria, No Urinary Frequency, No Hematuria, No Urgency Musculoskeletal : No joint pain, No Myalgias, No Joint Swelling Skin : No Skin Lesions, No rash Neuro : + Weakness, No Numbness, + Dizziness, No Headache Psych : No Anxiety/Panic, No Depression Heme/Lymph: No Bruising, No Lymphadenopathy Endocrine : No Polyuria, No Polydipsia All other systems reviewed and are negative. [facility] Past Medical History Medical History Allergic rhinitis Anemia Anemia Asthma Cirrhosis Constipation GERD (gastroesophageal reflux disease) H/O ETOH abuse Hepatitis C Hepatitis C History of alcohol abuse History of kidney stones HTN (hypertension) Hypothyroid Left inguinal hernia Liver mass Family History Family History Other No known health problems Pertinent family history: No Fh of liver cancer Surgical History Surgical History History of esophagogastroduodenoscopy (EGD) Hx of colonoscopy No history of previous surgery Social History Social History Household Members: Family Housing: House Do you presently have visiting nurse or other home services: No Alcohol intake: never Patient Tobacco Use Status: Never used Tobacco Substance Use Type: Marijuana Advance Directives: No Advance Directives Information Provided: No Advance Directives Date on File: 11/04/21 service: No Current occupational status: unemployed and disabled Meds Allergies Allergy/AdvReac Type Severity Reaction Status Date / Time No Known Allergies Allergy Verified 01/28/22 09:47 [No Known Allergies*] Active Medications: Current Medications Acetaminophen (Acetaminophen 325 Mg Tablet) 650 mg PO Q6H PRN PRN Reason: Pain, Mild (Pain Scale 1-3) Docusate Sodium (Docusate Sodium 100 Mg Capsule) 100 mg PO DAILY PRN PRN Reason: Constipation Ceftriaxone Sodium 1 gm/ (Sodium Chloride) 50 mls @ 100 mls/hr IV Q24H [facility] Last Infusion: 03/17/22 03:50 Dose: Infused Ondansetron HCl (Ondansetron Hcl 4 Mg/2 Ml Vial) 4 mg IVPUSH Q8H PRN PRN Reason: Nausea and Vomiting Pantoprazole Sodium (Pantoprazole Sodium 40 Mg/10 Ml Vial) 40 mg IVPUSH BID@0630,1630 [facility] Last Admin: 03/17/22 06:36 Dose: 40 mg Sodium Chloride (0.9 % Sodium Chloride Flush 3 Ml Syringe) 3 ml IVFLUSH QSHIFT [facility] Last Admin: 03/17/22 01:35 Dose: 3 ml Home Medications Medication Instructions Recorded Confirmed Last Taken Type albuterol sulfate 90 mcg/actuation 2 puff inhalation QID PRN Wheezing 09/22/20 03/16/22 01/16/22 History aerosol inhaler (ProAir HFA) omeprazole 20 mg capsule,delayed 20 mg PO DAILY@0630 09/22/20 03/16/22 01/16/22 History release lactulose 10 gram/15 mL oral 45 ml PO TID 12/16/21 03/16/22 03/15/22 History solution spironolactone 100 mg tablet 100 mg PO DAILY 12/24/21 03/16/22 03/15/22 History propranolol 10 mg tablet 10 mg PO BID 01/16/22 03/16/22 03/15/22 History levothyroxine 75 mcg tablet 225 mcg PO DAILY@0600 03/16/22 03/16/22 03/15/22 History (Synthroid) Physical Exam Vital Signs: Vital Signs: Last Vital Signs Temp 97.9 F 03/16/22 20:25 Pulse 74 03/16/22 23:16 Resp 23 H 03/16/22 23:16 BP 139/91 H 03/16/22 23:16 Pulse Ox 94 03/16/22 23:16 O2 Del Method 03/16/22 23:16 BMI result Body Mass Index 34.3 Const: General: cooperative and no acute distress Orientation/consciousness: patient oriented x3 Eyes: General: appearance normal, both eyes and all related structures Pupils: Equal, round and reactive pupils present Resp: Effort & Inspection: normal respiratory effort Auscultation: clear to auscultation bilaterally Cardio: Rate: regular rate Rhythm: regular rhythm GI: Other: Distended abdomen, no tenderness, no rebound or guarding Palpation (GI): Soft to palpation Percussion: Yes dullness to percussion Auscultation: normal bowel sounds Skin: General skin exam: no rashes or lesions noted Neuro: General: patient oriented x3 Cranial nerves: Yes Equal, round and reactive pupils present Cognition (Neuro): normal cognition Extrem: General: Yes normal to inspection and Yes no pedal edema Psych: Appearance: grossly normal Results Labs CBC & Chem 7: 03/17/22 04:44 03/17/22 04:44 Labs: Short CBC 03/16/22 03/17/22 Range/Units 18:44 04:44 WBC 10.0 9.8 (4.8-10.8) X10*3/uL Hgb 10.8 L 9.8 L (14.0-18.0) g/dl Hct 31.2 L 28.2 L (42.0-52.0) % Plt Count 160 D 139 L (160-400) X10*3/uL BMP 03/16/22 03/17/22 21:19 04:44 Sodium 130 L 128 L Potassium 4.6 4.7 Chloride 102 102 Carbon Dioxide 23 20 L BUN 32 H 34 H Creatinine 1.40 1.32 Calcium 8.9 8.5 Liver Function 03/16/22 Range/Units 21:19 Total Bilirubin 1.5 H (0.0-1.0) mg/dL AST 67 H (5-37) U/L ALT 37 (0-40) U/L Alkaline Phosphatase 128 H D (39-117) U/L Albumin 2.8 L (3.5-5.0) g/dL Urine 03/16/22 Range/Units 20:27 Urine Color YELLOW Urine Appearance CLEAR Urine pH 6.0 (5.0-8.0) Ur Specific [place] 1.025 (1.005-1.025) Urine Protein NEG (NEG-TRACE) MG/DL Urine Glucose (UA) NEG (NEG) MG/DL Assessment and Plan (1) GI bleed: Status: Acute Plan 1/ Acute on chronic anemia with reported melenic type stool, may have eileen loza tear, vs esophageal varices or peptic ulcer. Right now he feels back to baseline and has good appetite. PLAN: 1/ EGD today 2/ agree with antibiotics, PPI for the meantime Procedures Date of Service Date of Service: 03/17/22
--- NOTE | 2022-03-17 10:55 | PC.NURSE ---
pt off unit to SSS at this time
--- NOTE | 2022-03-17 11:37 | MHC.SHP ---
Pre-Procedural Eval Section A Date of Service: 03/17/22 The patient is an INPATIENT: Yes The History & Physical has been completed within 30 days and I have reviewed it.: Yes Section B Chief Complaint: Gi bleed Allergies: Allergies Allergy/AdvReac Type Severity Reaction Status Date / Time No Known Allergies Allergy Verified 01/28/22 09:47 [No Known Allergies*] Plan Diagnosis/Plan: Unchanged I have reviewed the history and physical and performed a pertinent physical examination on my patient. No changes have occurred unless specified.
--- NOTE | 2022-03-17 11:37 | W.PM.OPN ---
Operative Note Operative Note Date of Service: 03/17/22 Narrative: Procedure Description: EGD Indication: melena Anesthesia: MAC FLEXIBLE TRANSORAL UPPER GASTROINTESTINAL ENDOSCOPY UPPER ENDOSCOPY Consent: Indications for the procedure and potential complications of bleeding, perforation, reaction to medications and missed diagnosis were discussed with the patient and informed consent was obtained. Instrument: Olympus GIF H 190 J mid size upper endoscope Monitoring: Vital signs and clinical assessment, continuous EKG monitoring, Pulse oximetry, Carbon Dioxide monitoring and blood pressure monitoring were done throughout the procedure. Procedure: The patient was placed in the left lateral decubitis position and pre-procedure medications were administered and a bite block was placed. The endoscope was inserted into the mouth and advanced under direct vision to the third part of duodenum. A careful inspection was made as the upper endoscope was withdrawn including a retroflexed examination of the proximal stomach; Findings and interventions are described below. Findings: Larynx:normal Esophagus: GE junction at 38 cm, diaphragm hiatus at 38 cm, x 2 columns of variceal cords seen with red kohli, at around 30 cm one cord had a white nipple sign suggestive of recent bleeding. A band ligator was used and 3 bands were deployed with good collapse and occlusion of the variceal vords Stomach: Patchy gastric erythema and nodularit, mosaic pattern consistent with portal hypertensive gastropathy . Grade 2 flap valve on retroflexed examination of the cardia. Duodenum: Normal bulb and descending duodenum, Intervention: Variceal banding Impression/Findings: esophgeal varices s/p banding portal hypertensive gastropathy PLAN: allow clears today cont on octreotide drip for 72 hrs in total cont with PPi e.g pantoprazole 40 mg and carafate 1 g QID for 2 weeks to prevent post banding ulceration and bleeding cont antibiotics for SBP prophylaxis for total of 5-7 days on d/c can consider carvedilol instead of propranolol to reduce portal pressures commence low dose statin e.g simvastatin 20 mg daily, can reduce portal pressures
--- NOTE | 2022-03-17 12:13 | HO.ANESPROP2 ---
COUNT INCLUDES THE [facility] Active Problems Active Problems: All Active Problems (Updated 03/17/22 @ 06:35 by Josue Vazquez MD) Dizziness (Acute) GI bleed (Acute) Liver mass (Acute) Abdominal ascites (Acute) Breath shortness (Acute) Cirrhosis of liver (Acute) Acute hyponatremia (Acute) LEVI (acute kidney injury) (Acute) Abdominal ascites (Acute) Hyponatremia (Acute) Ascites (Acute) Pneumonia (Acute) LEVI (acute kidney injury) (Acute) Bradycardia (Acute) HTN (hypertension), benign (Acute) High cholesterol (Acute) Cardiac arrhythmia (Acute) Asthma (Acute) Hypothyroid (Acute) Liver mass (Acute) Left inguinal hernia (Acute) Past Medical History Medical History Allergic rhinitis Anemia Anemia Asthma Cirrhosis Constipation GERD (gastroesophageal reflux disease) H/O ETOH abuse Hepatitis C Hepatitis C History of alcohol abuse History of kidney stones HTN (hypertension) Hypothyroid Left inguinal hernia Liver mass Functional capacity: independent ambulation Family History Family History Other No known health problems Family history of problems with anesthesia: No Surgical History Surgical History History of esophagogastroduodenoscopy (EGD) Hx of colonoscopy No history of previous surgery History of Problems with Anesthesia: No Social History Social History Household Members: Family Housing: House Do you presently have visiting nurse or other home services: No Alcohol intake: never Patient Tobacco Use Status: Never used Tobacco Substance Use Type: Marijuana Advance Directives: No Advance Directives Information Provided: No Advance Directives Date on File: 11/04/21 service: No Current occupational status: unemployed and disabled Meds Allergies Allergy/AdvReac Type Severity Reaction Status Date / Time No Known Allergies Allergy Verified 01/28/22 09:47 [No Known Allergies*] Active Medications: Current Medications Acetaminophen (Acetaminophen 325 Mg Tablet) 650 mg PO Q6H PRN PRN Reason: Pain, Mild (Pain Scale 1-3) Docusate Sodium (Docusate Sodium 100 Mg Capsule) 100 mg PO DAILY PRN PRN Reason: Constipation Ceftriaxone Sodium 1 gm/ (Sodium Chloride) 50 mls @ 100 mls/hr IV Q24H [facility] Last Infusion: 03/17/22 03:50 Dose: Infused Ondansetron HCl (Ondansetron Hcl 4 Mg/2 Ml Vial) 4 mg IVPUSH Q8H PRN PRN Reason: Nausea and Vomiting Pantoprazole Sodium (Pantoprazole Sodium 40 Mg/10 Ml Vial) 40 mg IVPUSH BID@0630,1630 [facility] Last Admin: 03/17/22 06:36 Dose: 40 mg Sodium Chloride (0.9 % Sodium Chloride Flush 3 Ml Syringe) 3 ml IVFLUSH QSHIFT [facility] Last Admin: 03/17/22 09:21 Dose: 3 ml Home Medications Medication Instructions Recorded Confirmed Last Taken Type albuterol sulfate 90 mcg/actuation 2 puff inhalation QID PRN Wheezing 09/22/20 03/16/22 01/16/22 History aerosol inhaler (ProAir HFA) omeprazole 20 mg capsule,delayed 20 mg PO DAILY@0630 09/22/20 03/16/22 01/16/22 History release lactulose 10 gram/15 mL oral 45 ml PO TID 12/16/21 03/16/22 03/15/22 History solution spironolactone 100 mg tablet 100 mg PO DAILY 12/24/21 03/16/22 03/15/22 History propranolol 10 mg tablet 10 mg PO BID 01/16/22 03/16/22 03/15/22 History levothyroxine 75 mcg tablet 225 mcg PO DAILY@0600 03/16/22 03/16/22 03/15/22 History (Synthroid) Exam Exam Date and Time: March 17, 2022 1213 Height,Weight and Vital Signs: Height 5 ft 10 in Weight 108.6 kg Last Vital Signs Temp 97.8 F 03/17/22 09:23 Pulse 67 03/17/22 09:23 Resp 16 03/17/22 09:23 BP 131/82 03/17/22 09:23 Pulse Ox 100 03/17/22 09:23 O2 Del Method 03/17/22 09:23 Pertinent Lab Results Pertinent Lab Results: Laboratory Tests 03/16/22 03/16/22 03/16/22 18:35 18:35 18:44 WBC RBC Hgb Hct MCV MCH MCHC RDW Plt Count MPV Immature Gran % (Auto) Neut % (Auto) Lymph % (Auto) [place] % (Auto) Eos % (Auto) Baso % (Auto) Lymph # (Auto) [place] # (Auto) Eos # (Auto) Baso # (Auto) Abs Immat Gran (auto) Absolute Neuts (auto) Absolute Nucleated RBC Nucleated RBC % (auto) PT INR VBG pH VBG pCO2 VBG pO2 VBG HCO3 VBG O2 Saturation VBG Base Excess Sodium Potassium Chloride Carbon Dioxide Anion Gap BUN Creatinine Estim Creat Clear Calc Estimated GFR Random Glucose Calcium Total Bilirubin AST ALT Alkaline Phosphatase Ammonia Troponin I High Sens B-Natriuretic Peptide 25 Total Protein Albumin Urine Color Urine Appearance Urine pH Ur Specific [place] Urine Protein Urine Glucose (UA) Urine Ketones Urine Blood Urine Nitrite Ur Leukocyte Esterase Stool Occult Blood POSITIVE COVID-19 (JELANI) Negative COVID-19 Clin Com See Note Blood Type Antibody Screen 03/16/22 03/16/22 03/16/22 18:44 18:44 18:44 WBC 10.0 RBC 3.41 L Hgb 10.8 L Hct 31.2 L MCV 91.5 MCH 31.7 MCHC 34.6 RDW 14.3 Plt Count 160 D MPV 10.5 Immature Gran % (Auto) 1.4 H Neut % (Auto) 66.9 Lymph % (Auto) 17.1 L [place] % (Auto) 9.2 Eos % (Auto) 3.9 Baso % (Auto) 1.5 Lymph # (Auto) 1.7 [place] # (Auto) 0.9 Eos # (Auto) 0.4 Baso # (Auto) 0.2 Abs Immat Gran (auto) 0.14 H Absolute Neuts (auto) 6.7 Absolute Nucleated RBC 0.000 Nucleated RBC % (auto) 0.0 PT 11.7 INR 1.0 VBG pH VBG pCO2 VBG pO2 VBG HCO3 VBG O2 Saturation VBG Base Excess Sodium Potassium Chloride Carbon Dioxide Anion Gap BUN Creatinine Estim Creat Clear Calc Estimated GFR Random Glucose Calcium Total Bilirubin AST ALT Alkaline Phosphatase Ammonia Troponin I High Sens 6.9 B-Natriuretic Peptide Total Protein Albumin Urine Color Urine Appearance Urine pH Ur Specific [place] Urine Protein Urine Glucose (UA) Urine Ketones Urine Blood Urine Nitrite Ur Leukocyte Esterase Stool Occult Blood COVID-19 (JELANI) COVID-19 [employer] Com Blood Type Antibody Screen 03/16/22 03/16/2222 18:44 18:50 18:57 WBC RBC Hgb Hct MCV MCH MCHC RDW Plt Count MPV Immature Gran % (Auto) Neut % (Auto) Lymph % (Auto) [place] % (Auto) Eos % (Auto) Baso % (Auto) Lymph # (Auto) [place] # (Auto) Eos # (Auto) Baso # (Auto) Abs Immat Gran (auto) Absolute Neuts (auto) Absolute Nucleated RBC Nucleated RBC % (auto) PT INR VBG pH 7.43 VBG pCO2 33 VBG pO2 31 VBG HCO3 22 VBG O2 Saturation 41.0 VBG Base Excess TNP Sodium Potassium Chloride Carbon Dioxide Anion Gap BUN Creatinine Estim Creat Clear Calc Estimated GFR Random Glucose Calcium Total Bilirubin AST ALT Alkaline Phosphatase Ammonia 30 Troponin I High Sens B-Natriuretic Peptide Total Protein Albumin Urine Color Urine Appearance Urine pH Ur Specific [place] Urine Protein Urine Glucose (UA) Urine Ketones Urine Blood Urine Nitrite Ur Leukocyte Esterase Stool Occult Blood COVID-19 (JELANI) COVID-19 Clin Com Blood Type A Negative Antibody Screen NEGATIVE 03/16/22 03/16/22 03/17/22 20:27 21:19 04:44 WBC 9.8 RBC 3.08 L Hgb 9.8 L Hct 28.2 L MCV 91.6 MCH 31.8 MCHC 34.8 RDW 14.5 Plt Count 139 L MPV 10.2 Immature Gran % (Auto) 1.2 H Neut % (Auto) 67.5 Lymph % (Auto) 15.8 L [place] % (Auto) 9.8 Eos % (Auto) 4.3 H Baso % (Auto) 1.4 Lymph # (Auto) 1.6 [place] # (Auto) 1.0 Eos # (Auto) 0.4 Baso # (Auto) 0.1 Abs Immat Gran (auto) 0.12 H Absolute Neuts (auto) 6.6 Absolute Nucleated RBC 0.000 Nucleated RBC % (auto) 0.0 PT INR VBG pH VBG pCO2 VBG pO2 VBG HCO3 VBG O2 Saturation VBG Base Excess Sodium 130 L Potassium 4.6 Chloride 102 Carbon Dioxide 23 Anion Gap 10 L BUN 32 H Creatinine 1.40 Estim Creat Clear Calc 65.7 Estimated GFR 51 Random Glucose 125 H Calcium 8.9 Total Bilirubin 1.5 H AST 67 H ALT 37 Alkaline Phosphatase 128 H D Ammonia Troponin I High Sens B-Natriuretic Peptide Total Protein 6.4 L Albumin 2.8 L Urine Color YELLOW Urine Appearance CLEAR Urine pH 6.0 Ur Specific [place] 1.025 Urine Protein NEG Urine Glucose (UA) NEG Urine Ketones NEG Urine Blood NEG Urine Nitrite NEG Ur Leukocyte Esterase NEG Stool Occult Blood COVID-19 (JELANI) COVID-19 [facility] Blood Type Antibody Screen 03/17/22 04:44 WBC RBC Hgb Hct MCV MCH MCHC RDW Plt Count MPV Immature Gran % (Auto) Neut % (Auto) Lymph % (Auto) [place] % (Auto) Eos % (Auto) Baso % (Auto) Lymph # (Auto) [place] # (Auto) Eos # (Auto) Baso # (Auto) Abs Immat Gran (auto) Absolute Neuts (auto) Absolute Nucleated RBC Nucleated RBC % (auto) PT INR VBG pH VBG pCO2 VBG pO2 VBG HCO3 VBG O2 Saturation VBG Base Excess Sodium 128 L Potassium 4.7 Chloride 102 Carbon Dioxide 20 L Anion Gap 11 L BUN 34 H Creatinine 1.32 Estim Creat Clear Calc 69.7 Estimated GFR 55 Random Glucose 116 H Calcium 8.5 Total Bilirubin AST ALT Alkaline Phosphatase Ammonia Troponin I High Sens B-Natriuretic Peptide Total Protein Albumin Urine Color Urine Appearance Urine pH Ur Specific [place] Urine Protein Urine Glucose (UA) Urine Ketones Urine Blood Urine Nitrite Ur Leukocyte Esterase Stool Occult Blood COVID-19 (JELANI) COVID-19 [facility] Blood Type Antibody Screen Airway Heart: RRR Lungs: CTA Assessment and Plan Final Anesthetic Review Family History of Problems with Anesthesia: No History of Problems with Anesthesia: No ASA Class: III and Emergency Final Preanesthetic Review: No Changes in Pt Med Stat, Meds/Allgs Chart Reviewed and Consent Obtained/Reviewed Patient Risk: Intermediate Procedure Risk: Low Anesthetic Plan Anesthetic Plan: MAC: Disposition: Standard PACU
--- NOTE | 2022-03-17 15:00 | P.PNIM_ITS ---
Subjective Subjective Date of Service: 03/17/22 Interval History: Seen and examined this morning Follow-up for GI bleeding Dizziness resolved No further bleeding this morning Seen by GI, plan for endoscopy Review of Systems Review of Systems: Yes all other systems are reviewed and are negative Constitutional Constitutional: Denies chills and Denies fever(s) ENT Ears, Nose, Mouth, and Throat: Denies dizziness Cardiovascular Cardiovascular: Denies chest pain, Denies palpitations and Denies dyspnea Respiratory Respiratory: Denies cough and Denies dyspnea Gastrointestinal Gastrointestinal: Denies abdominal pain, Denies nausea and Denies vomiting Neurologic Neurologic: Denies dizziness Endocrine Endocrine: Denies palpitations Physical Exam Vital Signs: Vital Signs: Last Vital Signs Temp 98 F 03/17/22 14:00 Pulse 66 03/17/22 14:00 Resp 20 03/17/22 14:00 BP 137/86 03/17/22 14:00 Pulse Ox 100 03/17/22 14:00 O2 Del Method 03/17/22 14:00 BMI result Body Mass Index 34.3 Const: General: cooperative, comfortable, alert and awake Nutritional Appearance: average body habitus Orientation/consciousness: patient oriented x3 Resp: Effort & Inspection: normal respiratory effort and able to speak in complete sentences Cardio: Rate: regular rate Heart sounds: S1 normal heart sound present and S2 normal heart sound present GI: Other: ascites Inspection: Yes distended Palpation (GI): Soft to palpation and nontender Neuro: General: patient oriented x3 Extrem: Other: able to move all 4 extremities spontaneously Objective Data Active Medications Acetaminophen (Acetaminophen 325 Mg Tablet) 650 mg PO Q6H PRN PRN Reason: Pain, Mild (Pain Scale 1-3) Docusate Sodium (Docusate Sodium 100 Mg Capsule) 100 mg PO DAILY PRN PRN Reason: Constipation Ceftriaxone Sodium 1 gm/ (Sodium Chloride) 50 mls @ 100 mls/hr IV Q24H [facility] Last Infusion: 03/17/22 03:50 Dose: 0 mls/hr Documented By: COLLIN Ondansetron HCl (Ondansetron Hcl 4 Mg/2 Ml Vial) 4 mg IVPUSH Q8H PRN PRN Reason: Nausea and Vomiting Pantoprazole Sodium (Pantoprazole Sodium 40 Mg/10 Ml Vial) 40 mg IVPUSH BID@0630,1630 [facility] Last Admin: 03/17/22 06:36 Dose: 40 mg Documented By: COLLIN Sodium Chloride (0.9 % Sodium Chloride Flush 3 Ml Syringe) 3 ml IVFLUSH QSHIFT [facility] Last Admin: 03/17/22 09:21 Dose: 3 ml Documented By: JAMES Labs CBC & Chem 7: 03/17/22 04:44 03/17/22 04:44 Labs: Laboratory Results - last 24 hr 03/16/22 03/16/22 03/16/22 18:35 18:35 18:44 MCV MCH MCHC RDW Plt Count MPV Immature Gran % (Auto) Neut % (Auto) Lymph % (Auto) [place] % (Auto) Eos % (Auto) Baso % (Auto) Lymph # (Auto) [place] # (Auto) Eos # (Auto) Baso # (Auto) Abs Immat Gran (auto) Absolute Neuts (auto) Absolute Nucleated RBC Nucleated RBC % (auto) PT INR VBG pH VBG pCO2 VBG pO2 VBG HCO3 VBG O2 Saturation VBG Base Excess Anion Gap Estim Creat Clear Calc Estimated GFR Random Glucose Calcium Total Bilirubin AST ALT Alkaline Phosphatase Ammonia Troponin I High Sens B-Natriuretic Peptide 25 Total Protein Albumin Urine Color Urine Appearance Urine pH Ur Specific [place] Urine Protein Urine Glucose (UA) Urine Ketones Urine Blood Urine Nitrite Ur Leukocyte Esterase Stool Occult Blood POSITIVE COVID-19 (JELANI) Negative COVID-19 Clin Com See Note Blood Type Antibody Screen 03/16/22 03/16/22 03/16/22 18:44 18:44 18:44 MCV 91.5 MCH 31.7 MCHC 34.6 RDW 14.3 Plt Count 160 D MPV 10.5 Immature Gran % (Auto) 1.4 H Neut % (Auto) 66.9 Lymph % (Auto) 17.1 L [place] % (Auto) 9.2 Eos % (Auto) 3.9 Baso % (Auto) 1.5 Lymph # (Auto) 1.7 [place] # (Auto) 0.9 Eos # (Auto) 0.4 Baso # (Auto) 0.2 Abs Immat Gran (auto) 0.14 H Absolute Neuts (auto) 6.7 Absolute Nucleated RBC 0.000 Nucleated RBC % (auto) 0.0 PT 11.7 INR 1.0 VBG pH VBG pCO2 VBG pO2 VBG HCO3 VBG O2 Saturation VBG Base Excess Anion Gap Estim Creat Clear Calc Estimated GFR Random Glucose Calcium Total Bilirubin AST ALT Alkaline Phosphatase Ammonia Troponin I High Sens 6.9 B-Natriuretic Peptide Total Protein Albumin Urine Color Urine Appearance Urine pH Ur Specific [place] Urine Protein Urine Glucose (UA) Urine Ketones Urine Blood Urine Nitrite Ur Leukocyte Esterase Stool Occult Blood COVID-19 (JELANI) COVID-19 [facility] Com Blood Type Antibody Screen 03/16/22 03/16/22 03/16/22 18:44 18:50 18:57 MCV MCH MCHC RDW Plt Count MPV Immature Gran % (Auto) Neut % (Auto) Lymph % (Auto) [place] % (Auto) Eos % (Auto) Baso % (Auto) Lymph # (Auto) [place] # (Auto) Eos # (Auto) Baso # (Auto) Abs Immat Gran (auto) Absolute Neuts (auto) Absolute Nucleated RBC Nucleated RBC % (auto) PT INR VBG pH 7.43 VBG pCO2 33 VBG pO2 31 VBG HCO3 22 VBG O2 Saturation 41.0 VBG Base Excess TNP Anion Gap Estim Creat Clear Calc Estimated GFR Random Glucose Calcium Total Bilirubin AST ALT Alkaline Phosphatase Ammonia 30 Troponin I High Sens B-Natriuretic Peptide Total Protein Albumin Urine Color Urine Appearance Urine pH Ur Specific [place] Urine Protein Urine Glucose (UA) Urine Ketones Urine Blood Urine Nitrite Ur Leukocyte Esterase Stool Occult Blood COVID-19 (JELANI) COVID-19 [facility] Com Blood Type A Negative Antibody Screen NEGATIVE 03/16/22 03/16/22 03/17/22 20:27 21:19 04:44 MCV 91.6 MCH 31.8 MCHC 34.8 RDW 14.5 Plt Count 139 L MPV 10.2 Immature Gran % (Auto) 1.2 H Neut % (Auto) 67.5 Lymph % (Auto) 15.8 L [place] % (Auto) 9.8 Eos % (Auto) 4.3 H Baso % (Auto) 1.4 Lymph # (Auto) 1.6 [place] # (Auto) 1.0 Eos # (Auto) 0.4 Baso # (Auto) 0.1 Abs Immat Gran (auto) 0.12 H Absolute Neuts (auto) 6.6 Absolute Nucleated RBC 0.000 Nucleated RBC % (auto) 0.0 PT INR VBG pH VBG pCO2 VBG pO2 VBG HCO3 VBG O2 Saturation VBG Base Excess Anion Gap 10 L Estim Creat Clear Calc 65.7 Estimated GFR 51 Random Glucose 125 H Calcium 8.9 Total Bilirubin 1.5 H AST 67 H ALT 37 Alkaline Phosphatase 128 H D Ammonia Troponin I High Sens B-Natriuretic Peptide Total Protein 6.4 L Albumin 2.8 L Urine Color YELLOW Urine Appearance CLEAR Urine pH 6.0 Ur Specific [place] 1.025 Urine Protein NEG Urine Glucose (UA) NEG Urine Ketones NEG Urine Blood NEG Urine Nitrite NEG Ur Leukocyte Esterase NEG Stool Occult Blood COVID-19 (JELANI) COVID-19 [email or web address] Blood Type Antibody Screen 03/17/22 04:44 MCV MCH MCHC RDW Plt Count MPV Immature Gran % (Auto) Neut % (Auto) Lymph % (Auto) [place] % (Auto) Eos % (Auto) Baso % (Auto) Lymph # (Auto) [place] # (Auto) Eos # (Auto) Baso # (Auto) Abs Immat Gran (auto) Absolute Neuts (auto) Absolute Nucleated RBC Nucleated RBC % (auto) PT INR VBG pH VBG pCO2 VBG pO2 VBG HCO3 VBG O2 Saturation VBG Base Excess Anion Gap 11 L Estim Creat Clear Calc 69.7 Estimated GFR 55 Random Glucose 116 H Calcium 8.5 Total Bilirubin AST ALT Alkaline Phosphatase Ammonia Troponin I High Sens B-Natriuretic Peptide Total Protein Albumin Urine Color Urine Appearance Urine pH Ur Specific [place] Urine Protein Urine Glucose (UA) Urine Ketones Urine Blood Urine Nitrite Ur Leukocyte Esterase Stool Occult Blood COVID-19 (JELANI) COVID-19 [email or web address] Blood Type Antibody Screen Assessment and Plan (1) GI bleed: Status: Acute Plan 66-year-old male with past medical history of liver cirrhosis presents to the hospital with dizziness as well as melena found to have positive occult stool Acute upper GI bleed seen by GI, s/p EGD with esophageal varices s/p banding - advance to clears - continue PPI - octreotide drip for 72 hours - Carafate q.i.d. for 2 weeks - on discharge GI recommends simvastatin 20 mg daily and possible change to carvedilol from propanolol to reduce portal pressure - SBP prophylaxis with antibiotics for 5-7 days - continue ceftriaxone - follow H&H Hyponatremia Chronic, related to liver disease dizziness resolved liver cirrhosis - continue furosemide on spironolactone as well as propranolol hypertension - stable - continue home medications Thrombocytopenia Chronic. Secondary to liver disease hypothyroidism - continue levothyroxine DVT prophylaxis: SCDs Attending-Dr. Soto Given the GI bleed as well as need for further evaluation, patient will require minimum 2 night hospital stay in the setting of his other comorbidities for further management and monitoring. pt will dop poorly op Quality Stroke Does the patient have a stroke diagnosis?: No VTE Prior VTE?: No VTE Risk Level:: Medical - moderate - high VTE Device Contraindication: N/A - Device Ordered VTE Drug Contraindication: Treatment Not Indicated
[2022-03-17] MEDS: Octreotide Acetate 500 MCG in 0.9 % Sodium Chloride 500 ML 50.1 MCG IVCONT (16:50)
[2022-03-17] MEDS: Sucralfate 1 GM TABLET PO ×2 (16:50→21:48)
[2022-03-17] MEDS: Lactulose 20 GM/30 ML SOLUTION 30 GM PO (20:46)
[2022-03-17] MEDS: Propranolol HCL 10 MG TABLET PO (20:46)
[2022-03-17] MEDS: cefTRIAXone sodium 1 GM in 0.9 % Sodium Chloride 50 ML IV (21:09)
[2022-03-18] VITALS (7 sets, daily range): BP systolic 96–146; BP diastolic 53–83; PULSE 49–54; RESP 14–18; TEMP 36.3–37.1; O2SAT 100
[2022-03-18] MEDS: Octreotide Acetate 500 MCG in 0.9 % Sodium Chloride 500 ML 50.1 MCG IVCONT ×2 (02:43→13:11)
[2022-03-18] MEDS: Acetaminophen 325 MG TABLET 650 MG PO (02:45)
[2022-03-18] MEDS: Pantoprazole Sodium 40 MG/10 ML VIAL IVPUSH ×2 (06:00→15:54)
[2022-03-18] MEDS: Levothyroxine Sodium 75 MCG TABLET 225 MCG PO (06:00)
[2022-03-18 06:58] LABS: Hematocrit 26.2 % (42.0-52.0); Hemoglobin 8.9 g/dl (14.0-18.0); Mean Corpuscular Hemoglobin 31.6 pg (27.0-33.0); Mean Corpuscular Volume 92.9 fL (80.0-98.0); Mean Platelet Volume 10.8 fL (9.4-12.4); Platelet Count 143 X10*3/uL (160-400); Red Blood Count 2.82 X10*6/uL (4.60-5.80); Red Cell Distribution Width 14.5 % (11.0-16.0); White Blood Count 8.3 X10*3/uL (4.8-10.8)
[2022-03-18 07:21] LABS: Anion Gap 10 (12-20); Blood Urea Nitrogen 36 mg/dL (9-16); Calcium 8.1 mg/dL (8.4-10.2); Carbon Dioxide 19 mmol/L (22-29); Chloride 104 mmol/L (96-108); Creatinine Clr Calc Pharmacy 57.5; Estimated Glomerular Filt Rate 44; Glucose Random 110 mg/dL (60-115); Potassium 4.5 mmol/L (3.3-5.1); Sodium 128 mmol/L (135-145)
[2022-03-18] MEDS: Sucralfate 1 GM TABLET PO ×4 (08:09→21:08)
[2022-03-18] MEDS: 0.9 % Sodium Chloride Flush 3 ML SYRINGE IVFLUSH ×2 (08:09→14:42)
[2022-03-18] MEDS: Spironolactone 25 MG TABLET 100 MG PO (08:09)
[2022-03-18] MEDS: Furosemide 40 MG TABLET PO (08:09)
[2022-03-18] MEDS: Propranolol HCL 10 MG TABLET PO (08:09)
--- NOTE | 2022-03-18 09:13 | MHC.CM.PN ---
Addendum entered by Marybel Gómez 03/18/22 09:21: PATIENT REPORTS THAT HE DOES LIVE WITH HIS DAUGHTER, WHO WILL PROVIDE TRANSPORT HOME. HE DOES NOT HAVE ANY VNA SERVICES, AND DENIES ANY NEED FOR VNA Original Note: PATIENT NOT YET ON UNIT PER REVIEW OF RECENT VISIT, PATIENT HAS SERVICES WITH [facility] AND HIS DAUGHTER IS HIS LABORATORY ADMINISTRATIVE DIRECTOR. LABORATORY ADMINISTRATIVE DIRECTOR PROVIDES ASSIST WITH DAILY ADLS AND TRANSPORT CASE MANAGEMENT NAME WRITTEN ON WHITE BOARD FOLLOWING FOR ANY ADDITIONAL DC NEEDS. HCP ON FILE AND VERIFIED. COVID VACCINATED
--- NOTE | 2022-03-18 09:36 | HO.PM.IMPN ---
Subjective Subjective Date of Service: 03/18/22 Interval History: Seen and examined this morning Follow-up for GI bleed No bleeding overnight No dizziness. Reports feeling well. Review of Systems Review of Systems: Yes all other systems are reviewed and are negative Constitutional Constitutional: Denies chills and Denies fever(s) Cardiovascular Cardiovascular: Denies chest pain, Denies palpitations and Denies dyspnea Respiratory Respiratory: Denies cough and Denies dyspnea Gastrointestinal Gastrointestinal: Denies abdominal pain, Denies nausea and Denies vomiting Endocrine Endocrine: Denies palpitations Physical Exam Vital Signs: Vital Signs: Last Vital Signs Temp 98.8 F 03/18/22 07:23 Pulse 52 03/18/22 07:23 Resp 16 03/18/22 07:23 BP 146/83 H 03/18/22 07:23 Pulse Ox 100 03/18/22 07:23 O2 Del Method 03/18/22 08:00 BMI result Body Mass Index 34.3 Const: General: cooperative, comfortable, no acute distress, alert and awake Nutritional Appearance: average body habitus Orientation/consciousness: patient oriented x3 Resp: Effort & Inspection: normal respiratory effort and able to speak in complete sentences Auscultation: clear to auscultation bilaterally Cardio: Rate: regular rate Heart sounds: S1 normal heart sound present and S2 normal heart sound present GI: Other: softly distended; large ascites present Neuro: General: patient oriented x3 and CN's II-XI intact bilaterally Extrem: Other: no leg edema Objective Data Active Medications Acetaminophen (Acetaminophen 325 Mg Tablet) 650 mg PO Q6H PRN PRN Reason: Pain, Mild (Pain Scale 1-3) Last Admin: 03/18/22 02:45 Dose: 650 mg Documented By: MICHAEL Albuterol Sulfate (Albuterol Sulfate 90 Mcg 8 Gm Inhaler) 2 puff INHALE QID PRN PRN Reason: Wheezing Docusate Sodium (Docusate Sodium 100 Mg Capsule) 100 mg PO DAILY PRN PRN Reason: Constipation Furosemide (Furosemide 40 Mg Tablet) 40 mg PO DAILY [facility]; Protocol Last Admin: 03/18/22 08:09 Dose: 40 mg Documented By: COTEMA Ceftriaxone Sodium 1 gm/ (Sodium Chloride) 50 mls @ 100 mls/hr IV Q24H [facility] Last Infusion: 03/17/22 21:52 Dose: 0 mls/hr Documented By: MICHAEL Octreotide Acetate 500 mcg/ (Sodium Chloride) 501 mls @ 50.1 mls/hr IVCONT .Q10H [facility] Stop: 03/20/22 14:59 Last Admin: 03/18/22 02:43 Dose: 50 mcg/hr, 50.1 mls/hr Documented By: MICHAEL Lactulose (Lactulose 20 Gm/30 Ml Solution) 30 gm PO TID [facility] Last Admin: 03/18/22 08:09 Dose: Not Given Documented By: MILLER Non-Admin Reason: Patient Refused Levothyroxine Sodium (Levothyroxine Sodium 75 Mcg Tablet) 225 mcg PO DAILY@0600 [facility] Last Admin: 03/18/22 06:00 Dose: 225 mcg Documented By: MICHAEL Ondansetron HCl (Ondansetron Hcl 4 Mg/2 Ml Vial) 4 mg IVPUSH Q8H PRN PRN Reason: Nausea and Vomiting Pantoprazole Sodium (Pantoprazole Sodium 40 Mg/10 Ml Vial) 40 mg IVPUSH BID@0630,1630 [facility] Last Admin: 03/18/22 06:00 Dose: 40 mg Documented By: MICHAEL Propranolol HCl (Propranolol Hcl 10 Mg Tablet) 10 mg PO BID [facility]; Protocol Last Admin: 03/18/22 08:09 Dose: 10 mg Documented By: MILLER Sodium Chloride (0.9 % Sodium Chloride Flush 3 Ml Syringe) 3 ml IVFLUSH QSHIFT [facility] Last Admin: 03/18/22 08:09 Dose: 3 ml Documented By: MILLER Spironolactone (Spironolactone 25 Mg Tablet) 100 mg PO DAILY [facility]; Protocol Last Admin: 03/18/22 08:09 Dose: 100 mg Documented By: MILLER Sucralfate (Sucralfate 1 Gm Tablet) 1 gm PO QIDACHS [facility] Last Admin: 03/18/22 08:09 Dose: 1 gm Documented By: MILLER Labs CBC & Chem 7: 03/18/22 06:11 03/18/22 06:11 Labs: Laboratory Results - last 24 hr 03/18/22 03/18/22 06:11 06:11 MCV 92.9 MCH 31.6 MCHC 34.0 RDW 14.5 Plt Count 143 L MPV 10.8 Absolute Nucleated RBC 0.000 Nucleated RBC % (auto) 0.0 Anion Gap 10 L Estim Creat Clear Calc 57.5 Estimated GFR 44 Random Glucose 110 Calcium 8.1 L Microbiology Microbiology Results: Microbiology 03/16/22 22:04 Blood Culture - Preliminary Blood - Venous No growth after 24 hours. 03/16/22 22:04 Blood Culture - Preliminary Blood - Venous No growth after 24 hours. Assessment and Plan (1) GI bleed: Status: Acute Plan 66-year-old male with past medical history of liver cirrhosis presents to the hospital with dizziness as well as melena found to have positive occult stool Acute upper GI bleed seen by GI, s/p EGD 03/17 with esophageal varices s/p banding - advance to clears - continue PPI - octreotide drip for 72 hours - Carafate q.i.d. for 2 weeks - on discharge GI recommends simvastatin 20 mg daily and possible change to carvedilol from propanolol to reduce portal pressure - SBP prophylaxis with antibiotics for 5-7 days - continue ceftriaxone - H&H drifting down slightly, follow CBC Hyponatremia Chronic, related to liver disease CKD3 creatinine trending up today; creatinine seems to fluctuate, still within baseline range follow BMP dizziness resolved liver cirrhosis with ascites h/o etoh abuse, HCV, HCC gets weekly paracentesis - continue furosemide, spironolactone, propranolol - therapeutic paracentesis hypertension - stable - continue home medications Thrombocytopenia Chronic. Secondary to liver disease hypothyroidism - continue levothyroxine DVT prophylaxis: SCDs Attending-Dr. Soto Patient requires ongoing inpatient hospitalization secondary to need for octreotide Quality Stroke Does the patient have a stroke diagnosis?: No VTE Prior VTE?: No VTE Risk Level:: Medical - moderate - high VTE Device Contraindication: N/A - Device Ordered VTE Drug Contraindication: Treatment Not Indicated
--- NOTE | 2022-03-18 09:38 | HO.POSTANES ---
Post Anesthesia Evaluation Post Anesthesia Evaluation Vital Signs: Vital Signs Temp Pulse Resp BP Pulse Ox O2 Del Method 03/18/22 08:00 T-Piece 03/18/22 07:23 98.8 F 52 16 146/83 H 100 Room Air 03/17/22 23:45 97.2 F 54 18 132/64 100 Room Air Anesthesia: Monitored Mental Status: Awake Pain Control: Satisfactory Nausea/Vomiting: None Hydration: Adequate Anesthesia-Related Issues: No Anes. Related Issues
[2022-03-18] MEDS: Lidocaine HCl 1 % MPF 5 ML VIAL SUBCUT (12:33)
--- NOTE | 2022-03-18 12:45 | HO.RADPN ---
RADIOLOGY Narrative Narrative: RLQ paracentesis using 5 fr catheter. 10L clear yellow fluid removed. No speciimen sent.
[2022-03-18] MEDS: Albumin Human 25 % 100 ML IV ×2 (14:38→15:54)
[2022-03-18] MEDS: cefTRIAXone sodium 1 GM in 0.9 % Sodium Chloride 50 ML IV (21:08)
--- NOTE | 2022-03-19 01:55 | PC.NURSE ---
Pt had SYS BP on the 90s and HR low 50s, pt presents no other symptoms Dr. Vazquez was made aware, Propranolol was held as per .
[2022-03-19] MEDS: Octreotide Acetate 500 MCG in 0.9 % Sodium Chloride 500 ML 50.1 MCG IVCONT ×3 (02:16→23:43)
[2022-03-19 03:59] VITALS: BP 110/62; PULSE 66; RESP 18; TEMP 36.2; O2SAT 100
[2022-03-19] MEDS: Pantoprazole Sodium 40 MG/10 ML VIAL IVPUSH ×2 (05:35→16:34)
[2022-03-19] MEDS: Levothyroxine Sodium 75 MCG TABLET 225 MCG PO (05:35)
[2022-03-19 06:37] LABS: Hematocrit 24.1 % (42.0-52.0); Hemoglobin 8.2 g/dl (14.0-18.0); Mean Corpuscular Hemoglobin 31.5 pg (27.0-33.0); Mean Corpuscular Volume 92.7 fL (80.0-98.0); Mean Platelet Volume 10.9 fL (9.4-12.4); Platelet Count 105 X10*3/uL (160-400); Red Cell Distribution Width 14.7 % (11.0-16.0); White Blood Count 5.8 X10*3/uL (4.8-10.8)
[2022-03-19 07:16] LABS: Anion Gap 7 (12-20); Blood Urea Nitrogen 30 mg/dL (9-16); Calcium 7.8 mg/dL (8.4-10.2); Carbon Dioxide 23 mmol/L (22-29); Chloride 104 mmol/L (96-108); Creatinine Clr Calc Pharmacy 64.8; Estimated Glomerular Filt Rate 50; Glucose Random 97 mg/dL (60-115); Potassium 3.8 mmol/L (3.3-5.1); Sodium 130 mmol/L (135-145)
[2022-03-19 08:00] VITALS: BP 116/70; PULSE 54; RESP 16; TEMP 36.7; O2SAT 100
[2022-03-19] MEDS: Propranolol HCL 10 MG TABLET PO ×2 (08:44→20:30)
[2022-03-19] MEDS: Furosemide 40 MG TABLET PO (08:44)
[2022-03-19] MEDS: Spironolactone 25 MG TABLET 100 MG PO (08:44)
[2022-03-19] MEDS: Sucralfate 1 GM TABLET PO ×4 (08:44→20:31)
--- NOTE | 2022-03-19 10:39 | P.PNIM_ITS ---
Subjective Subjective Date of Service: 03/19/22 Interval History: Seen and examined this morning Follow-up for GI bleed No melena, H/H trending down slightly s/p paracentesis yesterday, abdomen less distended, no abdominal pain Review of Systems Review of Systems: Yes all other systems are reviewed and are negative Constitutional Constitutional: Denies chills and Denies fever(s) Cardiovascular Cardiovascular: Denies chest pain, Denies palpitations and Denies dyspnea Respiratory Respiratory: Denies cough and Denies dyspnea Gastrointestinal Gastrointestinal: Denies abdominal pain, Denies nausea and Denies vomiting Endocrine Endocrine: Denies palpitations Physical Exam Vital Signs: Vital Signs: Last Vital Signs Temp 98.1 F 03/19/22 08:00 Pulse 54 03/19/22 08:00 Resp 16 03/19/22 08:00 BP 116/70 03/19/22 08:00 Pulse Ox 100 03/19/22 08:00 O2 Del Method 03/19/22 08:00 BMI result Body Mass Index 34.3 Const: General: cooperative, comfortable, no acute distress, alert and awake Nutritional Appearance: average body habitus Orientation/consciousness: patient oriented x3 Resp: Effort & Inspection: normal respiratory effort and able to speak in complete sentences Auscultation: clear to auscultation bilaterally Cardio: Rate: regular rate Heart sounds: S1 normal heart sound present and S2 normal heart sound present GI: Other: softly distended Inspection: Yes distended Palpation (GI): Soft to palpation and nontender Neuro: General: patient oriented x3 and CN's II-XI intact bilaterally Extrem: Other: no leg edema Objective Data Active Medications Acetaminophen (Acetaminophen 325 Mg Tablet) 650 mg PO Q6H PRN PRN Reason: Pain, Mild (Pain Scale 1-3) Last Admin: 03/18/22 02:45 Dose: 650 mg Documented By: MICHAEL Albuterol Sulfate (Albuterol Sulfate 90 Mcg 8 Gm Inhaler) 2 puff INHALE QID PRN PRN Reason: Wheezing Docusate Sodium (Docusate Sodium 100 Mg Capsule) 100 mg PO DAILY PRN PRN Reason: Constipation Furosemide (Furosemide 40 Mg Tablet) 40 mg PO DAILY [facility]; Protocol Last Admin: 03/19/22 08:44 Dose: 40 mg Documented By: COTEMA Ceftriaxone Sodium 1 gm/ (Sodium Chloride) 50 mls @ 100 mls/hr IV Q24H [facility] Last Infusion: 03/18/22 21:47 Dose: 0 mls/hr Documented By: YULISA Octreotide Acetate 500 mcg/ (Sodium Chloride) 501 mls @ 50.1 mls/hr IVCONT .Q10H [facility] Stop: 03/20/22 14:59 Last Admin: 03/19/22 02:16 Dose: 50 mcg/hr, 50.1 mls/hr Documented By: YULISA Lactulose (Lactulose 20 Gm/30 Ml Solution) 30 gm PO TID [facility] Last Admin: 03/19/22 08:40 Dose: Not Given Documented By: COTABBE Non-Admin Reason: Patient Refused Levothyroxine Sodium (Levothyroxine Sodium 75 Mcg Tablet) 225 mcg PO DAILY@0600 [facility] Last Admin: 03/19/22 05:35 Dose: 225 mcg Documented By: YULISA Ondansetron HCl (Ondansetron Hcl 4 Mg/2 Ml Vial) 4 mg IVPUSH Q8H PRN PRN Reason: Nausea and Vomiting Pantoprazole Sodium (Pantoprazole Sodium 40 Mg/10 Ml Vial) 40 mg IVPUSH BID@0630,1630 [facility] Last Admin: 03/19/22 05:35 Dose: 40 mg Documented By: YULISA Propranolol HCl (Propranolol Hcl 10 Mg Tablet) 10 mg PO BID [facility]; Protocol Last Admin: 03/19/22 08:44 Dose: 10 mg Documented By: MILLER Sodium Chloride (0.9 % Sodium Chloride Flush 3 Ml Syringe) 3 ml IVFLUSH QSHIFT [facility] Last Admin: 03/19/22 08:40 Dose: Not Given Documented By: COTEMA Non-Admin Reason: IV Running Spironolactone (Spironolactone 25 Mg Tablet) 100 mg PO DAILY [facility]; Protocol Last Admin: 03/19/22 08:44 Dose: 100 mg Documented By: MILLER Sucralfate (Sucralfate 1 Gm Tablet) 1 gm PO QIDACHS [facility] Last Admin: 03/19/22 08:44 Dose: 1 gm Documented By: MILLER Labs CBC & Chem 7: 03/19/22 05:32 03/19/22 05:32 Labs: Laboratory Results - last 24 hr 03/19/22 03/19/22 05:32 05:32 MCV 92.7 MCH 31.5 MCHC 34.0 RDW 14.7 Plt Count 105 L D MPV 10.9 Absolute Nucleated RBC 0.000 Nucleated RBC % (auto) 0.0 Anion Gap 7 L Estim Creat Clear Calc 64.8 Estimated GFR 50 Random Glucose 97 Calcium 7.8 L Microbiology Microbiology Results: Microbiology 03/16/22 22:04 Blood Culture - Preliminary Blood - Venous No growth after 48 hours. 03/16/22 22:04 Blood Culture - Preliminary Blood - Venous No growth after 48 hours. Assessment and Plan (1) GI bleed: Status: Acute Plan 66-year-old male with past medical history of liver cirrhosis presents to the hospital with dizziness as well as melena found to have positive occult stool Acute upper GI bleed seen by GI, s/p EGD 03/17 with esophageal varices s/p banding tolerating diet - continue PPI - octreotide drip for 72 hours - Carafate q.i.d. for 2 weeks - on discharge GI recommends simvastatin 20 mg daily and possible change to carvedilol from propanolol to reduce portal pressure - SBP prophylaxis with antibiotics for 5-7 days - continue ceftriaxone - H&H drifting down slightly, follow CBC Hyponatremia Chronic, related to liver disease CKD3 creatinine seems to fluctuate, still within baseline range follow BMP dizziness resolved liver cirrhosis with ascites h/o etoh abuse, HCV, HCC gets weekly paracentesis - continue furosemide, spironolactone, propranolol - s/p therapeutic paracentesis with removal of 9.8L hypertension BP stable - continue home medications Thrombocytopenia Chronic. Secondary to liver disease hypothyroidism - continue levothyroxine DVT prophylaxis: SCDs Attending-Dr. Soto Patient requires ongoing inpatient hospitalization secondary to need for octreotide drip, close monitoring of H/H Quality Stroke Does the patient have a stroke diagnosis?: No VTE Prior VTE?: No VTE Risk Level:: Medical - moderate - high VTE Device Contraindication: N/A - Device Ordered VTE Drug Contraindication: Treatment Not Indicated
[2022-03-19 12:00] VITALS: BP 109/64; PULSE 54; RESP 18; TEMP 36.3; O2SAT 100
[2022-03-19 15:09] VITALS: BP 92/54; PULSE 60; RESP 17; TEMP 36.1; O2SAT 100
[2022-03-19] MEDS: Sodium Ferric Gluconat/Sucrose 125 MG in 0.9 % Sodium Chloride 100 ML 100 MG IV (16:34)
[2022-03-19 19:38] VITALS: BP 95/55; PULSE 60; RESP 18; TEMP 36.7; O2SAT 100
[2022-03-19] MEDS: cefTRIAXone sodium 1 GM in 0.9 % Sodium Chloride 50 ML IV (20:34)
[2022-03-19 23:43] VITALS: BP 108/64; PULSE 56; RESP 18; TEMP 37.1; O2SAT 98
[2022-03-20 03:51] VITALS: BP 95/49; PULSE 52; RESP 18; TEMP 36.3; O2SAT 97
[2022-03-20] MEDS: Levothyroxine Sodium 75 MCG TABLET 225 MCG PO (05:42)
[2022-03-20] MEDS: Pantoprazole Sodium 40 MG/10 ML VIAL IVPUSH (05:42)
[2022-03-20 07:44] VITALS: BP 101/61; PULSE 51; RESP 18; TEMP 36.2; O2SAT 100
[2022-03-20 08:26] LABS: Hematocrit 26.8 % (42.0-52.0); Mean Corpuscular HGB Conc 33.6 g/dl (31.0-36.0); Mean Corpuscular Hemoglobin 31.6 pg (27.0-33.0); Mean Platelet Volume 10.6 fL (9.4-12.4); Platelet Count 120 X10*3/uL (160-400); Red Blood Count 2.85 X10*6/uL (4.60-5.80); Red Cell Distribution Width 15.2 % (11.0-16.0); White Blood Count 7.5 X10*3/uL (4.8-10.8)
[2022-03-20] MEDS: Propranolol HCL 10 MG TABLET PO (08:31)
[2022-03-20] MEDS: Spironolactone 25 MG TABLET 100 MG PO (08:31)
[2022-03-20] MEDS: Sucralfate 1 GM TABLET PO ×2 (08:31→11:25)
[2022-03-20] MEDS: Lactulose 20 GM/30 ML SOLUTION 30 GM PO (08:31)
[2022-03-20] MEDS: Furosemide 40 MG TABLET PO (08:31)
[2022-03-20] MEDS: Sodium Ferric Gluconat/Sucrose 125 MG in 0.9 % Sodium Chloride 100 ML 100 MG IV (08:41)
--- NOTE | 2022-03-20 10:08 | PM.DS ---
DS: Providers Provider Date of Service: 03/20/22 Date of admission: 03/16/22 21:13 Date of discharge: 03/20/22 Primary care physician: Shayy Sears MD Consults: 03/16/22 21:11 Consult to Gastroenterology Routine Consulting Provider: Luis F Ahuja Reason for consultation: Gi bleed Has provider been notified: Yes Attending physician on discharge: Kip Soto Discharging clinician: Lesley Gracia DS: Diagnosis Discharge Diagnosis (1) GI bleed: Status: Acute DS: Summary Hospital Course Hospital Course: From H&P on day of admission This is a 66-year-old male with past medical history of liver cirrhosis secondary to alcohol abuse as well as hepatitis-C, hypothyroidism, HTN, asthma, chronic anemia, HLD who presents to the hospital with complaints of dizziness vomiting as well as pressure in the abdomen.? Patient reports that his symptoms started about 2 days ago.? Patient reports no abdominal pain, no fever, reports 3 episodes of vomiting this morning, otherwise no diarrhea constipation, on further questioning patient does report melena for the past 2 days, reports no blood in the vomit. He has no headache, no change in vision, no chest pain, no urinary symptoms and no lower extremity edema Cherri.? Patient reports that he receives paracentesis every Monday and he has no increased abdominal distension more than usual. On arrival to the ED patient hemodynamically stable with no significant abnormal vitals Labs are significant for WBC count of 10.0, hemoglobin of 10.8, hematocrit of 31.2 which is almost at his baseline, sodium of 130, BUN of 32, creatinine of 1.41 choose around his baseline, total bili of 1.5, AST of 67, alk-phos of 128, UA negative, stool occult blood positive Chest x-ray shows no acute pulmonary process Patient will be admitted for further management Discharge diet Acute upper GI bleeding secondary to esophageal varices status post banding Dizziness, secondary to GI bleeding. Resolved Liver cirrhosis with ascites status post large volume paracentesis Thrombocytopenia. Chronic Hyponatremia. Chronic CKD. Chronic Hospital course by problem: Acute upper GI bleed seen by GI, s/p EGD 03/17 with esophageal varices s/p banding. Diet was advanced and he is tolerating a regular diet. His IV PPI was transitioned to oral PPI. He was continued on octreotide drip and started on Carafate. He was continued on SBP prophylaxis per GI recommendation. He was treated with 2 doses of IV iron and his H/H has remained stable. Hyponatremia. Chronic, related to liver disease. Has remained around 130 CKD3. creatinine seems to fluctuate, still within baseline range dizziness. Likely secondary to GI bleeding. Dizziness has resolved. liver cirrhosis with ascites. related to h/o etoh abuse, HCV, HCC. gets weekly paracentesis at baseline. He was continued on furosemide, spironolactone, propranolol. He underwent therapeutic paracentesis on 03/19 as scheduled with removal of 9.8L Thrombocytopenia. Chronic and secondary to underlying liver disease. Time Spent with Patient Time attestation: Total time spent providing and/or coordinating discharge services: Discharge coordination time: Greater than 30 minutes Quality: Safe Use of Opioids Does Pt have an Active Cancer Diagnosis on the Problem List?: No Quality: Stroke Does the patient have a stroke diagnosis?: No Physical Exam Vital Signs: Vital Signs: Last Vital Signs Temp 97.1 F 03/20/22 07:44 Pulse 51 03/20/22 07:44 Resp 18 03/20/22 07:44 BP 101/61 03/20/22 07:44 Pulse Ox 100 03/20/22 07:44 O2 Del Method 03/20/22 07:44 BMI result Body Mass Index 34.3 DS: Data Data Completed and Pending Completed studies during hospitalization [Text1]: Procedures Drainage of Peritoneal Cavity, Percutaneous Approach (01/16/22) Labs on day of discharge: Laboratory Results - last 24 hr 03/20/22 07:40 WBC 7.5 RBC 2.85 L Hgb 9.0 L Hct 26.8 L MCV 94.0 MCH 31.6 MCHC 33.6 RDW 15.2 Plt Count 120 L MPV 10.6 Absolute Nucleated RBC 0.000 Nucleated RBC % (auto) 0.0 Preliminary micro results at discharge 03/16/22 22:04 Blood Culture - Preliminary Blood - Venous No growth after 48 hours. 03/16/22 22:04 Blood Culture - Preliminary Blood - Venous No growth after 48 hours. Discharge Plan Discharge Patient Disposition: Home, Self-Care Discharge Diagnosis: Acute GI bleed secondary to esophageal varices cirrhosis with abdominal ascites hyponatremia Referrals: Luis F Ahuja MD [Physician] - 1 Week Shayy Sears MD [Primary Care Provider] - 1 Week Discharge Medications: New pantoprazole 40 mg tablet,delayed release (DR/EC) 40 mg PO DAILY 30 Days Qty: 30 0RF sucralfate [Carafate] 1 gram tablet 1 g PO QID 14 Days Qty: 56 0RF simvastatin 20 mg tablet 20 mg PO BEDTIME 30 Days Qty: 30 0RF cefuroxime axetil 250 mg tablet 250 mg PO BID 2 Days Qty: 4 0RF Continued furosemide [Lasix] 40 mg tablet 40 mg PO DAILY Qty: 20 0RF Hold Instructions: Resume on 12/27/21. lactulose 10 gram/15 mL solution 45 ml PO TID spironolactone 100 mg Tablet 100 mg PO DAILY propranolol 10 mg tablet 10 mg PO BID levothyroxine [Synthroid] 75 mcg tablet 225 mcg PO DAILY@0600 albuterol sulfate [ProAir HFA] 90 mcg/actuation HFA aerosol inhaler 2 puff inhalation QID PRN (Reason: Wheezing) Discontinued omeprazole 20 mg capsule,delayed release(DR/EC) 20 mg PO DAILY@0630 Discharge Orders: Discharge Order (Routine); Ordered 03/20/22 Ordered By: Lesley Gracia Activity on Discharge: As tolerated Stand Alone Forms: Patient Portal Discharge page Other Ambulatory Orders: Complete Blood Count no Diff (Routine) Timeframe: 1 Week Facility: [facility] - Location: Laboratory Ordered By: Lesley Gracia Care Plan Goals: See below Health Concerns: GI bleeding secondary to esophageal varices status post banding Liver cirrhosis with ascites status post large volume paracentesis Chronic hyponatremia Plan of Treatment: Complete course of antibiotics as prescribed Start taking pantoprazole, stop taking omeprazole Take sucralfate as prescribed for 2 weeks start taking simvastatin Call to schedule follow-up appointment with Gastroenterology Repeat CBC next week Call to schedule follow up with PCP - LFTs may need to be recheck as you have been started on a statin Continue other baseline medications as prescribed Assessment: See discharge summary Discharge Date/Time: 03/20/22 12:01
--- NOTE | 2022-03-20 11:08 | MHC.CM.PN ---
PT WILL DC HOME TODAY WITH NO SERVICES DAUGHTER TO TRANSPORT
== END 2022-03-20 12:01 | disposition home or self-care (01) | DRG 280 ==
LOC: HO.ED 20:43 → HO.EDOVER 21:31 → HO.S3 03-17 13:48
PROVIDERS: Internal Medicine Gastroenterology; Radiology Diagnostic Radiology; Admitting Provider Internal Medicine; Emergency Provider Student in an Organized Health Care Education/Training Program; PCP General Practice; Visit Provider Physician Assistant Medical
PROC: 0DJ08ZZ Inspection of Upper Intestinal Tract, Via Natural or Artificial Opening Endoscopic (ICD-10-PCS; CPT 43235; principal; 2022-03-17 12:40)
DX: K70.31 Alcoholic cirrhosis of liver with ascites (principal); I85.11 Secondary esophageal varices with bleeding; C22.0 Liver cell carcinoma; K76.6 Portal hypertension; E87.1 Hypo-osmolality and hyponatremia; D63.1 Anemia in chronic kidney disease; B19.20 Unspecified viral hepatitis C without hepatic coma; D69.59 Other secondary thrombocytopenia; E03.9 Hypothyroidism, unspecified; I12.9 Hypertensive chronic kidney disease with stage 1 through stage 4 chronic kidney disease, or unspecified chronic kidney disease; N18.30 Chronic kidney disease, stage 3 unspecified; K31.89 Other diseases of stomach and duodenum; Z20.822 Contact with and (suspected) exposure to COVID-19; Z87.442 Personal history of urinary calculi; Z79.890 Hormone replacement therapy; Z79.899 Other long term (current) drug therapy
CPT/HCPCS: 36415; 49083; 71045; 80048; 80053; 81003; 82140; 82272; 82803; 83880; 84484; 85025; 85027; 85610; 86850; 86900; 86901; 87040; 87635; 93005; 96374; 99285; J0696; J2354; J2916; P9047

== ENCOUNTER 2022-03-25 09:30 | Day surgery (SDC) | payer MEDICAID, SELFPAY ==
[2022-03-25] VITALS (7 sets, daily range): BP systolic 105–155; BP diastolic 53–84; PULSE 56–72; RESP 16; O2SAT 100; BMI 31.5
--- NOTE | ~2022-03-25 | US_ITS ---
EXAMINATION: ULTRASOUND-GUIDED PARACENTESIS CLINICAL INFORMATION: Ascites. COMPARISON: Therapeutic ultrasound-guided paracentesis 03/18/2022. TECHNIQUE: Following explaining ultrasound-guided paracentesis procedure, benefits and risks, a written consent was obtained. Patient was placed supine on ultrasound stretcher and preliminary ultrasound imaging was obtained. An optimal site was selected along the right abdomen and marked. Marked site was cleaned and draped in usual sterile manner. 1% lidocaine was injected at puncture site. Through a small skin incision a 5 [employer] catheter was advanced into the peritoneal space. After observing fluid return, stylet was withdrawn and catheter connected to vacuum bottle via connecting cannula. After obtaining all fluid and observing normal fluid remaining, catheter was withdrawn and complete hemostasis achieved at puncture site. Sterile dressing applied postprocedure. Patient tolerated procedure extremely well. FINDINGS: On preliminary ultrasound imaging there is a large amount of ascites noted. Approximately 10 L of clear yellowish fluid was removed with none of the fluid sent to lab. US/US paracentesis abd w/image IMPRESSION: Successful ultrasound-guided therapeutic paracentesis performed. Previously 9.8 L of fluid was drained on 03/18/2021.
[2022-03-25 10:08] LABS: MANUAL DIFF FLAG NO
[2022-03-25 10:11] LABS: Basophils Absolute Auto 0.1 X10*3/uL (0.0-0.2); Basophils Percent Auto 1.4 % (0-2); Eosinophils Absolute Auto 0.5 X10*3/uL (0.0-0.4); Eosinophils Percent Auto 6.2 % (0-4); Hematocrit 26.2 % (42.0-52.0); Imm Gran Abs Auto 0.22 X10*3/uL (0.00-0.03); Imm Gran Pct Auto 2.8 % (0.0-0.4); Lymphocytes Absolute Auto 1.1 X10*3/uL (1.2-4.9); Lymphocytes Percent Auto 14.4 % (20-40); Mean Corpuscular HGB Conc 34.4 g/dl (31.0-36.0); Mean Corpuscular Hemoglobin 32.1 pg (27.0-33.0); Mean Corpuscular Volume 93.6 fL (80.0-98.0); Mean Platelet Volume 10.2 fL (9.4-12.4); Monocytes Absolute Auto 1.2 X10*3/uL (0.1-1.2); Neutrophils Absolute Auto 4.7 x10*3/uL (2.0-8.3); Neutrophils Percent Auto 60.2 % (45-73); Platelet Count 135 X10*3/uL (160-400); White Blood Count 7.8 X10*3/uL (4.8-10.8)
[2022-03-25 10:23] LABS: Anion Gap 10 (12-20); Carbon Dioxide 24 mmol/L (22-29); Chloride 99 mmol/L (96-108); Potassium 3.8 mmol/L (3.3-5.1); Sodium 129 mmol/L (135-145)
[2022-03-25 10:37] LABS: INTERNATIONAL NORM RATIO 1.2 (0.9-1.1); Prothrombin Time 13.3 SEC (10.0-13.1)
[2022-03-25 10:40] LABS: Partial Thromboplastin Time 35.6 SEC (24.1-38.0)
[2022-03-25] MEDS: Lidocaine HCl 1 % MPF 5 ML VIAL SUBCUT (12:09)
== END 2022-03-25 15:05 | disposition home or self-care (01) ==
PROVIDERS: Radiology Diagnostic Radiology; PCP General Practice; Visit Provider Internal Medicine Gastroenterology
DX: R18.8 Other ascites (principal); K74.60 Unspecified cirrhosis of liver; B19.20 Unspecified viral hepatitis C without hepatic coma; F10.11 Alcohol abuse, in remission; F12.90 Cannabis use, unspecified, uncomplicated
CPT/HCPCS: 36415; 49083; 80051; 85025; 85610; 85730

== ENCOUNTER 2022-03-29 09:52 | Outpatient (REF) | payer MEDICAID, SELFPAY ==
--- NOTE | ~2022-03-29 | CT_ITS ---
EXAMINATION: CT ABDOMEN WITHOUT AND WITH CONTRAST CLINICAL INFORMATION: Cirrhosis. Hepatocellular carcinoma ? COMPARISON: None. TECHNIQUE: Contiguous axial thin section helical images of the abdomen were performed before and after the administration of oral contrast and 85 mL of Omnipaque 350 intravenous contrast. The data set was reformatted in the coronal and sagittal planes and reviewed on an independent workstation. This CT examination was performed using dose optimization techniques as appropriate, variously including the following: *Automated exposure control *Adjustment of mA and/or kV according to patient size (this includes techniques or standardized protocols for targeted exams where dose is matched to indication/reason for exam; i.e. extremities or head) *Use of iterative reconstruction technique DLP: 1633 mGy-cm FINDINGS: LUNG BASES: The lung bases are clear. There is no pericardial or pleural effusion. LIVER, GALLBLADDER, AND BILIARY TREE: The liver is small shrunken and lobulated with diffuse perihepatic fluid collection. There are 2 well-visualized lesions. There is a 4.0 x 2.6 cm lesion along the liver surface between the segment 5 and segment 8. Same lesion previously measured 2.7 x 3.7 cm. The lesion has central slight hyperdensity and remains hypodense throughout all the 4 phases without any central or peripheral enhancement. There is a 2nd lesion better visualized on the present exam measuring 3.8 x 2.9 cm on axial slice 20/4. Previously it measured 2.5 cm and lies in segment 4A. It has similar characteristics of central slight high density and peripheral hypodensity on all 4 phases of the liver. No peripheral or central enhancement is seen. There is a 1.1 cm central hypodensity in the left hepatic lobe axial image 17/4, similar to previous study. No new lesions are seen. There is no intrahepatic ductal dilatation. CBD is normal caliber. The gallbladder is unremarkable. PANCREAS: Unremarkable. SPLEEN: Small and unremarkable. ADRENAL GLANDS AND KIDNEYS: Unremarkable. Both kidneys are normal size, shape and symmetry. There is no radiopaque renal calculi or hydronephrosis. Previously visualized radiopaque calculi lower left kidney and upper to mid left kidney are not distantly visualized. There are punctate 1 mm radiopaque densities in the upper and midpole of the right kidney. There is no hydronephrosis. No perinephric stranding. There is a 5 mm cortical cyst in the lower pole of the right kidney on coronal image 80/11. BOWEL LOOPS: There is moderate stool and gas seen throughout the colon without any significant distention. The small bowel loops are normal caliber. The appendix is not well seen. LYMPH NODES: Normal. VASCULAR: Unremarkable. BONES: Unremarkable. CT/CT abdomen wo/w con IMPRESSION: Cirrhotic-appearing liver without any intrahepatic or extrahepatic ductal dilatation. There are 2 subcapsular lesions. The first lesion is well visualized and unchanged previous study. The 2nd lesion is distinctly visualized on the present exam and was subtle on the previous study. Both the lesions appear identical on all 4 phases. No definite enhancement seen in the early or late arterial phase or the portal venous phase. They are not typical enhancing lesions for hepatocellular carcinoma, however slow-growing atypical hepatocellular carcinoma is not excluded. MR of the liver with contrast could be helpful in further evaluation . There is a 3rd hypodensity in the left hepatic lobe, stable. Diffuse ascites. Fleischner guidelines were followed.
[2022-03-29] MEDS: iohexoL 350 MG/ML 75 ML INFUS..BTL 85 ML IV (11:00)
== END 2022-03-29 09:53 | disposition home or self-care (01) ==
LOC: HO.CT 09:52
PROVIDERS: PCP General Practice; Visit Provider Nurse Practitioner
DX: C22.0 Liver cell carcinoma (principal)
CPT/HCPCS: 74170; Q9967

== ENCOUNTER 2022-04-01 09:28 | Day surgery (SDC) | payer MEDICAID, SELFPAY ==
[2022-04-01] VITALS (7 sets, daily range): BP systolic 100–123; BP diastolic 43–65; PULSE 59–66; RESP 16–20; TEMP 36.3–36.6; O2SAT 100; BMI 31.5
--- NOTE | ~2022-04-01 | US_ITS ---
EXAMINATION: ULTRASOUND-GUIDED PARACENTESIS CLINICAL INFORMATION: Ascites. COMPARISON: Ultrasound-guided paracentesis 03/25/2022, 03/18/2022. TECHNIQUE: Following explaining ultrasound-guided paracentesis procedure, benefits and risk, a written consent was obtained. Patient was placed supine on ultrasound stretcher and preliminary ultrasound imaging was obtained through 4 quadrants. An optimal site was selected along the left lower quadrant and marked. The marked site was cleaned and draped in the usual sterile manner. 1% lidocaine was injected at the puncture site. Through a small skin incision a 5-[employer] catheter was advanced into the peritoneal space. After observing fluid return, stylet was withdrawn and catheter connected to a vacuum bottle via connecting cannula. After obtaining all fluid and observing normal fluid return, the catheter was withdrawn and complete hemostasis was achieved at the puncture site. A sterile dressing was applied postprocedure. The patient tolerated the procedure extremely well. FINDINGS: On preliminary imaging there is a large amount of fluid seen in the abdomen most localized in the left upper and lower quadrants. Approximately 10.3 L of cloudy whitish fluid was drained from the left lower quadrant. None of this fluid was sent to the lab. US/US paracentesis abd w/image IMPRESSION: Successful ultrasound-guided therapeutic paracentesis was performed with 10.3 L of fluid drained from the left lower quadrant.
[2022-04-01] MEDS: Lidocaine HCl 1 % MPF 5 ML VIAL SUBCUT (12:47)
== END 2022-04-01 14:26 | disposition home or self-care (01) ==
PROVIDERS: Radiology Diagnostic Radiology; PCP General Practice; Visit Provider Internal Medicine Gastroenterology
DX: R18.8 Other ascites (principal); K74.60 Unspecified cirrhosis of liver; B19.20 Unspecified viral hepatitis C without hepatic coma; F10.11 Alcohol abuse, in remission; F12.90 Cannabis use, unspecified, uncomplicated
CPT/HCPCS: 49083; P9047

== ENCOUNTER 2022-04-06 10:56 | Day surgery (SDC) | payer MEDICAID, SELFPAY ==
--- NOTE | 2022-04-05 11:01 | P.CONAN_ITS ---
Documented by User: Ada Fonseca NP 04/05/22 11:05 HPI - Anesthesia Eval Consult details Narrative: 66yo M for Upper Endoscopy cirrhosis, last paracentesis 04/01/22 [facility] Active Problems Active Problems: All Active Problems (Updated 03/28/22 @ 00:02 by Josie Garcia) GI bleed (Acute) Abdominal ascites (Acute) Acute hyponatremia (Acute) LEVI (acute kidney injury) (Acute) Abdominal ascites (Acute) Hyponatremia (Acute) Ascites (Acute) Pneumonia (Acute) LEVI (acute kidney injury) (Acute) Bradycardia (Acute) HTN (hypertension), benign (Acute) High cholesterol (Acute) Cardiac arrhythmia (Acute) Asthma (Acute) Hypothyroid (Acute) Liver mass (Acute) Left inguinal hernia (Acute) Past Medical History Medical History Allergic rhinitis Anemia Anemia Asthma Cirrhosis Constipation GERD (gastroesophageal reflux disease) H/O ETOH abuse Hepatitis C Hepatitis C History of alcohol abuse History of kidney stones HTN (hypertension) Hypothyroid Left inguinal hernia Liver mass Family History Family History Other No known health problems Family history of problems with anesthesia: No Surgical History Surgical History History of esophagogastroduodenoscopy (EGD) Hx of colonoscopy No history of previous surgery History of Problems with Anesthesia: No Social History Social History Household Members: Family Housing: Apartment Do you presently have visiting nurse or other home services: Yes ([employer]) Alcohol intake: never Patient Tobacco Use Status: Never used Tobacco Use of substances other than those prescribed or required for medical reasons: Yes Substance Use Type: Marijuana Substance Use Frequency: Daily Are you DNR?: No Advance Directives: No Advance Directives Information Provided: Yes Advance Directives Date on File: 11/04/21 service: No Current occupational status: unemployed and disabled Meds Allergies Allergy/AdvReac Type Severity Reaction Status Date / Time No Known Allergies Allergy Verified 03/17/22 15:23 [No Known Allergies*] Home Medications Medication Instructions Recorded Confirmed Last Taken Type albuterol sulfate 90 mcg/actuation 2 puff inhalation QID PRN Wheezing 09/22/20 03/16/22 04/06/22 09:00 History aerosol inhaler (ProAir HFA) lactulose 10 gram/15 mL oral 45 ml PO TID 12/16/21 03/16/22 03/15/22 History solution spironolactone 100 mg tablet 100 mg PO DAILY 12/24/21 03/16/22 03/15/22 History propranolol 10 mg tablet 10 mg PO BID 01/16/22 03/16/22 03/15/22 History levothyroxine 75 mcg tablet 225 mcg PO DAILY@0600 03/16/22 03/16/22 03/15/22 History (Synthroid) Exam Exam Date and Time: April 05, 2022 1101 Pertinent Lab Results Pertinent Lab Results: Laboratory Tests 03/16/22 03/19/22 03/25/22 21:19 05:32 10:05 WBC 7.8 Hgb 9.0 L Hct 26.2 L Plt Count 135 L PT INR APTT BUN 30 H Creatinine 1.42 H Total Bilirubin 1.5 H AST 67 H ALT 37 Alkaline Phosphatase 128 H D Total Protein 6.4 L Albumin 2.8 L 03/25/22 10:05 WBC Hgb Hct Plt Count PT 13.3 H INR 1.2 H APTT 35.6 BUN Creatinine Total Bilirubin AST ALT Alkaline Phosphatase Total Protein Albumin Narrative Narrative: US paracentesis abd w/image 04/01/22 IMPRESSION: Successful ultrasound-guided therapeutic paracentesis was performed with 10.3 L of fluid drained from the left lower quadrant.? EKG 03/2022 Vent. Rate : 066 BPM ? ? Atrial Rate : 066 BPM ?? P-R Int : 168 ms? QRS Dur : 090 ms ? ? QT Int : 476 ms ? ? ? P-R-T Axes : 064 -42 034 degrees ?? QTc Int : 499 ms ? Normal sinus rhythm Left axis deviation Prolonged QT Abnormal ECG When compared with ECG of 16-JAN-2022 17:00, Criteria for Septal infarct are no longer Present Assessment and Plan Assessment Anesthesia Assessment: Chart Reviewed Final Anesthetic Review Family History of Problems with Anesthesia: No History of Problems with Anesthesia: No Documented by User: Sue Gomez MD 04/06/22 12:16 [facility] Past Medical History Medical History Allergic rhinitis Anemia Anemia Asthma Cirrhosis Constipation GERD (gastroesophageal reflux disease) H/O ETOH abuse Hepatitis C Hepatitis C History of alcohol abuse History of kidney stones HTN (hypertension) Hypothyroid Left inguinal hernia Liver mass Family History Family History Other No known health problems Surgical History Surgical History History of esophagogastroduodenoscopy (EGD) Hx of colonoscopy No history of previous surgery Social History Social History Household Members: Family Housing: Apartment Do you presently have visiting nurse or other home services: Yes ([employer]) Alcohol intake: never Patient Tobacco Use Status: Never used Tobacco Use of substances other than those prescribed or required for medical reasons: Yes Substance Use Type: Marijuana Substance Use Frequency: Daily Are you DNR?: No Advance Directives: No Advance Directives Information Provided: Yes Advance Directives Date on File: 11/04/21 service: No Current occupational status: unemployed and disabled Meds Allergies Allergy/AdvReac Type Severity Reaction Status Date / Time No Known Allergies Allergy Verified 03/17/22 15:23 [No Known Allergies*] Home Medications Medication Instructions Recorded Confirmed Last Taken Type albuterol sulfate 90 mcg/actuation 2 puff inhalation QID PRN Wheezing 09/22/20 03/16/22 04/06/22 09:00 History aerosol inhaler (ProAir HFA) lactulose 10 gram/15 mL oral 45 ml PO TID 12/16/21 03/16/22 03/15/22 History solution spironolactone 100 mg tablet 100 mg PO DAILY 12/24/21 03/16/22 03/15/22 History propranolol 10 mg tablet 10 mg PO BID 01/16/22 03/16/22 03/15/22 History levothyroxine 75 mcg tablet 225 mcg PO DAILY@0600 03/16/22 03/16/22 03/15/22 History (Synthroid) Exam Airway Mallampati Class: II TM Dist: >3cm Neck ROM: Full Heart: rrr Lungs: cta Assessment and Plan Assessment Anesthesia Assessment: Anesthesia Plan Discussed Final Anesthetic Review NPO: Yes ASA Class: III (Last paracentesis Monday, pt feels at baseline today) Final Preanesthetic Review: No Changes in Pt Med Stat, Meds/Allgs Chart Reviewed and Consent Obtained/Reviewed Patient Risk: Intermediate Procedure Risk: Intermediate Anesthetic Plan Anesthetic Plan: MAC: Disposition: Standard PACU
[2022-04-06 11:05] VITALS: BMI 31.5
[2022-04-06] MEDS: Lactated Ringers 1,000 ML 50 ML IVCONT (11:53)
[2022-04-06 11:54] VITALS: BP 157/93; PULSE 74; RESP 18; TEMP 36.7; O2SAT 100
--- NOTE | 2022-04-06 12:08 | MHC.SHP ---
Pre-Procedural Eval Section A Date of Service: 04/06/22 Section B Chief Complaint: cirrhosis and varices Relevant Family History (Specify if Yes): No Relevant Social History: None Present Medications: see Short Stay Collaborative assessment Medical History: Significant History (Allergic rhinitis Anemia Anemia Asthma Cirrhosis Constipation GERD (gastroesophageal reflux disease) H/O ETOH abuse Hepatitis C Hepatitis C History of alcohol abuse History of kidney stones HTN (hypertension) Hypothyroid Left inguinal hernia Liver mass) History of Previous Operations: Relevant previous surgery/procedure and date(s) (History of esophagogastroduodenoscopy (EGD) Hx of colonoscopy No history of previous surgery) Allergies: Allergies Allergy/AdvReac Type Severity Reaction Status Date / Time No Known Allergies Allergy Verified 03/17/22 15:23 [No Known Allergies*] Review of Systems Sugical H&P ROS: Negative: Constitution, Cardiovascular, Respiratory, Neurological, Psychiatric, Hem-Onc, Allergic/Immunologic, Gastrointestinal, Genitourinary, Musculoskeletal, Integumentary, Endocrine and Eyes/Ears/Nose/Throat Exam Surgical H&P Exam: Normal: HEENT, Normal: Heart, Normal: Lungs, Normal: Extremities, Normal: Skin and Normal: Neurological and Significant Findings: Abdomen (ascites) Exam Comment: slightly gaunt Plan Diagnosis/Plan: Unchanged I have reviewed the history and physical and performed a pertinent physical examination on my patient. No changes have occurred unless specified.
--- NOTE | 2022-04-06 12:24 | W.PM.OPN ---
Operative Note Operative Note Date of Service: 04/06/22 Narrative: Procedure Description: EGD Indication: hx of varices and banding, surveillance Anesthesia: MAC FLEXIBLE TRANSORAL UPPER GASTROINTESTINAL ENDOSCOPY UPPER ENDOSCOPY Consent: Indications for the procedure and potential complications of bleeding, perforation, reaction to medications and missed diagnosis were discussed with the patient and informed consent was obtained. Instrument: Olympus GIF H 190 J mid size upper endoscope Monitoring: Vital signs and clinical assessment, continuous EKG monitoring, Pulse oximetry, Carbon Dioxide monitoring and blood pressure monitoring were done throughout the procedure. Procedure: The patient was placed in the left lateral decubitis position and pre-procedure medications were administered and a bite block was placed. The endoscope was inserted into the mouth and advanced under direct vision to the third part of duodenum. A careful inspection was made as the upper endoscope was withdrawn including a retroflexed examination of the proximal stomach; Findings and interventions are described below. Findings: Larynx:normal Esophagus: GE junction at 38? cm, diaphragm hiatus at 38 cm, x 2 columns of variceal cords seen with red kohli, grade I. A band ligator was used and 2 bands were deployed with good collapse and occlusion of the variceal vords Stomach: Patchy gastric erythema and nodularity, mosaic pattern consistent with portal hypertensive gastropathy . Grade 2 flap valve on retroflexed examination of the cardia. Duodenum: portal hypertensive duodenopathy Intervention: Variceal banding Impression/Findings: esophgeal varices s/p banding portal hypertensive gastropathy PLAN: allow clears today and advance diet tomorrow cont with PPi e.g pantoprazole 40 mg and carafate 1 g QID for 2 weeks to prevent post banding ulceration and bleeding
[2022-04-06 12:55] VITALS: BP 109/67; PULSE 67; RESP 16; TEMP 36.8; O2SAT 99
[2022-04-06 13:10] VITALS: BP 115/84; PULSE 73; RESP 18; TEMP 36.8; O2SAT 98
[2022-04-06 13:46] LABS: Anion Gap 14 (12-20); Carbon Dioxide 23 mmol/L (22-29); Chloride 99 mmol/L (96-108); Potassium 3.5 mmol/L (3.3-5.1); Sodium 132 mmol/L (135-145)
== END 2022-04-06 14:07 | disposition home or self-care (01) ==
PROVIDERS: Nurse Practitioner; PCP General Practice; Visit Provider Internal Medicine Gastroenterology
PROC: 0DJ08ZZ Inspection of Upper Intestinal Tract, Via Natural or Artificial Opening Endoscopic (ICD-10-PCS; CPT 43235; principal; 2022-04-06 12:30)
DX: K74.60 Unspecified cirrhosis of liver (principal); I85.01 Esophageal varices with bleeding; R18.8 Other ascites; F10.10 Alcohol abuse, uncomplicated; K76.6 Portal hypertension; K31.89 Other diseases of stomach and duodenum; K21.9 Gastro-esophageal reflux disease without esophagitis; K44.9 Diaphragmatic hernia without obstruction or gangrene; I10 Essential (primary) hypertension; Z79.899 Other long term (current) drug therapy
CPT/HCPCS: 43244; 36415; 80051

== ENCOUNTER 2022-04-08 09:33 | Day surgery (SDC) | payer MEDICAID, SELFPAY ==
[2022-04-08] VITALS (7 sets, daily range): BP systolic 102–123; BP diastolic 51–72; PULSE 54–61; RESP 16; TEMP 36.2; O2SAT 98–100; BMI 31.5
--- NOTE | ~2022-04-08 | US_ITS ---
EXAMINATION: ULTRASOUND-GUIDED PARACENTESIS CLINICAL INFORMATION: Ascites. COMPARISON: Ultrasound-guided paracentesis 04/01/2022. TECHNIQUE: Following explaining ultrasound-guided paracentesis procedure, benefits and risks, a written consent was obtained. Preliminary ultrasound imaging was obtained through 4 quadrants and optimal site was selected along the right lower quadrant and marked on the skin. Marked site was cleaned in a usual sterile manner with chlorhexidine solution and sterile drape. 1% lidocaine was injected puncture site. Through a small skin incision a 5 [employer] catheter was advanced into the peritoneal space. After observing fluid return the stylet was withdrawn and catheter connected to vacuum bottle via connecting cannula. After obtaining all fluid and observing normal fluid remaining, catheter was withdrawn and complete hemostasis achieved at puncture site. Sterile Band-Aid applied postprocedure. Patient tolerated procedure extremely well. FINDINGS: On preliminary ultrasound imaging there is a large amount of ascites in all 4 quadrants most prominent in the right lower quadrant. Approximately 7.8 L of clear yellowish fluid was removed without immediate compilations. No fluid was sent for lab evaluation. US/US paracentesis abd w/image IMPRESSION: Successful ultrasound-guided therapeutic paracentesis performed.
[2022-04-08 10:31] LABS: MANUAL DIFF FLAG NO
[2022-04-08 10:36] LABS: Basophils Absolute Auto 0.1 X10*3/uL (0.0-0.2); Basophils Percent Auto 1.9 % (0-2); Eosinophils Absolute Auto 0.7 X10*3/uL (0.0-0.4); Eosinophils Percent Auto 9.6 % (0-4); Hematocrit 27.7 % (42.0-52.0); Hemoglobin 9.3 g/dl (14.0-18.0); Imm Gran Abs Auto 0.15 X10*3/uL (0.00-0.03); Imm Gran Pct Auto 2.2 % (0.0-0.4); Lymphocytes Absolute Auto 1.1 X10*3/uL (1.2-4.9); Lymphocytes Percent Auto 15.2 % (20-40); Mean Corpuscular HGB Conc 33.6 g/dl (31.0-36.0); Mean Corpuscular Hemoglobin 31.3 pg (27.0-33.0); Mean Corpuscular Volume 93.3 fL (80.0-98.0); Mean Platelet Volume 9.6 fL (9.4-12.4); Monocytes Absolute Auto 1.1 X10*3/uL (0.1-1.2); Monocytes Percent Auto 15.2 % (2-11); Neutrophils Absolute Auto 3.9 x10*3/uL (2.0-8.3); Neutrophils Percent Auto 55.9 % (45-73); Platelet Count 127 X10*3/uL (160-400); Red Blood Count 2.97 X10*6/uL (4.60-5.80); Red Cell Distribution Width 14.3 % (11.0-16.0)
[2022-04-08 10:42] LABS: Glucose, Whole Blood 98 mg/dL (60-115)
[2022-04-08 10:43] LABS: Prothrombin Time 11.7 SEC (10.0-13.1)
[2022-04-08 10:46] LABS: Partial Thromboplastin Time 34.5 SEC (26.0-36.4)
[2022-04-08] MEDS: Lidocaine HCl 1 % MPF 5 ML VIAL 4 ML SUBCUT (11:07)
== END 2022-04-08 14:01 | disposition home or self-care (01) ==
PROVIDERS: Radiology Diagnostic Radiology; PCP General Practice; Visit Provider Radiology Diagnostic Radiology
DX: R18.8 Other ascites (principal); K74.60 Unspecified cirrhosis of liver; F10.10 Alcohol abuse, uncomplicated; B19.20 Unspecified viral hepatitis C without hepatic coma; E87.1 Hypo-osmolality and hyponatremia; D64.9 Anemia, unspecified; I10 Essential (primary) hypertension; R00.1 Bradycardia, unspecified; Z79.899 Other long term (current) drug therapy
CPT/HCPCS: 36415; 49083; 82947; 85025; 85610; 85730; P9047

== ENCOUNTER 2022-04-15 09:25 | Day surgery (SDC) | payer MEDICAID, SELFPAY ==
--- NOTE | ~2022-04-15 | US_ITS ---
EXAMINATION: ULTRASOUND-GUIDED PARACENTESIS CLINICAL INFORMATION: Ascites COMPARISON: Previous exams most recent April 08 TECHNIQUE: Procedure and risks and benefits including bleeding, infection and low blood pressure were discussed with the patient and informed consent was obtained. The right lower quadrant was prepped and draped in the usual sterile fashion. The skin and soft tissues were anesthetized with 1% lidocaine plain. Using ultrasound guidance and a 5 Italian rapid centesis catheter, access to the ascitic fluid was obtained. 9.3 L of clear yellow fluid was removed. No diagnostic specimen was sent. Patient received 50 g of intravenous Albumin. FINDINGS: There is a large amount of ascites. US/US paracentesis abd w/image IMPRESSION: Ultrasound-guided paracentesis.
[2022-04-15 09:49] VITALS: BMI 32.0
[2022-04-15 11:26] VITALS: BP 112/58; PULSE 63; RESP 20; TEMP 36.4; O2SAT 100
[2022-04-15] MEDS: Lidocaine HCl 1 % 20 ML VIAL SUBCUT (11:26)
[2022-04-15 11:40] VITALS: BP 108/63; PULSE 83; RESP 20; O2SAT 100
[2022-04-15 11:55] VITALS: BP 111/66; PULSE 61; RESP 20; O2SAT 100
[2022-04-15 12:10] VITALS: BP 105/64; PULSE 64; RESP 20; O2SAT 100
[2022-04-15 12:25] VITALS: BP 104/68; PULSE 63; RESP 16; TEMP 36.8; O2SAT 100
== END 2022-04-15 12:32 | disposition home or self-care (01) ==
PROVIDERS: PCP General Practice; Visit Provider Radiology Diagnostic Radiology
DX: R18.8 Other ascites (principal); K74.60 Unspecified cirrhosis of liver; B19.20 Unspecified viral hepatitis C without hepatic coma; F10.10 Alcohol abuse, uncomplicated
CPT/HCPCS: 49083; C1729; P9047

== ENCOUNTER 2022-04-19 11:35 | Outpatient (REF) | payer MEDICAID, SELFPAY ==
[2022-04-19 11:54] LABS: MANUAL DIFF FLAG NO
[2022-04-19 12:27] LABS: Basophils Absolute Auto 0.1 X10*3/uL (0.0-0.2); Basophils Percent Auto 1.7 % (0-2); Eosinophils Absolute Auto 0.7 X10*3/uL (0.0-0.4); Eosinophils Percent Auto 11.4 % (0-4); Hematocrit 31.7 % (42.0-52.0); Hemoglobin 10.3 g/dl (14.0-18.0); Imm Gran Abs Auto 0.04 X10*3/uL (0.00-0.03); Imm Gran Pct Auto 0.7 % (0.0-0.4); Lymphocytes Absolute Auto 0.8 X10*3/uL (1.2-4.9); Lymphocytes Percent Auto 14.1 % (20-40); Mean Corpuscular HGB Conc 32.5 g/dl (31.0-36.0); Mean Corpuscular Hemoglobin 31.3 pg (27.0-33.0); Mean Corpuscular Volume 96.4 fL (80.0-98.0); Mean Platelet Volume 10.2 fL (9.4-12.4); Monocytes Absolute Auto 0.6 X10*3/uL (0.1-1.2); Monocytes Percent Auto 10.5 % (2-11); Neutrophils Absolute Auto 3.6 x10*3/uL (2.0-8.3); Neutrophils Percent Auto 61.6 % (45-73); Platelet Count 135 X10*3/uL (160-400); Red Blood Count 3.29 X10*6/uL (4.60-5.80); Red Cell Distribution Width 14.1 % (11.0-16.0); White Blood Count 5.9 X10*3/uL (4.8-10.8)
[2022-04-19 12:31] LABS: Prothrombin Time 11.5 SEC (10.0-13.1)
[2022-04-19 12:57] LABS: Alanine Aminotransferase 32 U/L (0-40); Alkaline Phosphatase 125 U/L (39-117); Anion Gap 13 (12-20); Aspartate Amino Transferase 61 U/L (5-37); Blood Urea Nitrogen 20 mg/dL (9-16); Calcium 8.5 mg/dL (8.4-10.2); Carbon Dioxide 23 mmol/L (22-29); Chloride 100 mmol/L (96-108); Estimated Glomerular Filt Rate > 60; Glucose Random 184 mg/dL (60-115); Potassium 4.2 mmol/L (3.3-5.1); Sodium 132 mmol/L (135-145); Total Protein 6.6 g/dL (6.5-8.0)
== END 2022-04-19 11:36 | disposition home or self-care (01) ==
LOC: HO.LAB 11:35
PROVIDERS: PCP General Practice; Visit Provider Internal Medicine
DX: C22.0 Liver cell carcinoma (principal)
CPT/HCPCS: 36415; 80053; 85025; 85610

== ENCOUNTER 2022-04-22 09:28 | Day surgery (SDC) | payer MEDICAID, SELFPAY ==
--- NOTE | ~2022-04-22 | US_ITS ---
PROCEDURE: US-GUIDED PARACENTESIS ABDOMEN WITH IMAGE CLINICAL INFORMATION: Ascites. COMPARISON: Numerous but most recent being 04/15/2022. TECHNIQUE: Ultrasound-guided paracentesis. PROCEDURE/FINDINGS: Informed consent was obtained from the patient prior to the procedure. During this process, the procedure and potential alternatives were explained, along with the intended outcome and benefits. The risks of the procedure, as well as the risk of not doing the procedure, were discussed. The patient was given the opportunity to ask questions regarding the procedure and appeared competent to make medical decisions. A signed consent form which documents this discussion was placed in the medical record. Using sterile technique and ultrasound guidance, a 5-Lithuanian Yueh needle was placed into the right lower quadrant peritoneal space. A total of 8.9 L of clear yellow fluid were removed. After drainage, there was noted to be a small amount of ascites remaining. However, patient was not symptomatic and drainage of the fluid would mean a second puncture. The needle was flushed to ensure patency with no significant return with changes in positioning of the patient and needle. IMAGES: 7. US/US paracentesis abd w/image IMPRESSION: Paracentesis with removal of 8.9 L of clear yellow fluid.
[2022-04-22 09:51] VITALS: BMI 31.8
[2022-04-22] MEDS: Lidocaine HCl 1 % MPF 5 ML VIAL 4 ML SUBCUT (13:07)
[2022-04-22 13:10] VITALS: BP 105/62; PULSE 55; RESP 14; TEMP 36.9; O2SAT 100
[2022-04-22 13:25] VITALS: BP 129/73; PULSE 58; RESP 18; TEMP 36.4; O2SAT 99
== END 2022-04-22 13:40 | disposition home or self-care (01) ==
PROVIDERS: PCP General Practice; Visit Provider Radiology Diagnostic Radiology
DX: R18.8 Other ascites (principal); K74.60 Unspecified cirrhosis of liver; B19.20 Unspecified viral hepatitis C without hepatic coma; F12.90 Cannabis use, unspecified, uncomplicated
CPT/HCPCS: 49083; P9047

== ENCOUNTER 2022-04-29 09:22 | Day surgery (SDC) | payer MEDICAID, SELFPAY ==
--- NOTE | ~2022-04-29 | US_ITS ---
PROCEDURE: ULTRASOUND-GUIDED PARACENTESIS CLINICAL INFORMATION: Ascites. COMPARISON: None TECHNIQUE: Procedure and risks and benefits including bleeding, infection and low blood pressure were discussed with the patient and informed consent was obtained. The left lower quadrant was prepped and draped in the usual sterile fashion. The skin and soft tissues were anesthetized with 1% lidocaine plain. Using ultrasound guidance and a 5 Samoan catheter, access to the ascitic fluid was obtained. 12.4 L of clear yellow fluid was removed. No diagnostic specimen was sent. The patient received 2 bottles of intravenous albumin during the procedure. FINDINGS: There is a large amount of ascites. US/US paracentesis abd w/image IMPRESSION: Ultrasound-guided paracentesis.
[2022-04-29 09:50] VITALS: BMI 32.1
--- NOTE | 2022-04-29 11:55 | HO.RADPN ---
RADIOLOGY Narrative Narrative: LLQ paracentesis using 5 fr catheter. L clear yellow fluid removed. 2 bottles albumin given.
[2022-04-29 12:40] VITALS: BP 116/63; PULSE 64; RESP 20; TEMP 36.6; O2SAT 100
[2022-04-29] MEDS: Lidocaine HCl 1 % MPF 5 ML VIAL 4 ML SUBCUT (12:42)
[2022-04-29 12:55] VITALS: BP 120/72; PULSE 66; RESP 17; O2SAT 100
[2022-04-29 13:10] VITALS: BP 129/69; PULSE 72; RESP 16; O2SAT 100
[2022-04-29 13:25] VITALS: BP 113/72; PULSE 67; RESP 21; O2SAT 100
[2022-04-29 13:40] VITALS: BP 112/67; PULSE 72; RESP 16; TEMP 36.2; O2SAT 100
== END 2022-04-29 14:00 | disposition home or self-care (01) ==
PROVIDERS: PCP General Practice; Visit Provider Radiology Diagnostic Radiology
DX: R18.8 Other ascites (principal); K74.60 Unspecified cirrhosis of liver; K76.6 Portal hypertension; R16.0 Hepatomegaly, not elsewhere classified; F10.11 Alcohol abuse, in remission; B19.20 Unspecified viral hepatitis C without hepatic coma; F12.90 Cannabis use, unspecified, uncomplicated
CPT/HCPCS: 49083; P9047

== ENCOUNTER 2022-05-06 12:31 | Day surgery (SDC) | payer MEDICAID, SELFPAY ==
--- NOTE | ~2022-05-06 | US_ITS ---
EXAMINATION: ULTRASOUND-GUIDED PARACENTESIS CLINICAL INFORMATION: Ascites COMPARISON: Previous exams most recent 04/29/2022 TECHNIQUE: Procedure and risks and benefits including bleeding, infection and low blood pressure were discussed with the patient and informed consent was obtained. Left lower quadrant was prepped and draped in the usual sterile fashion. The skin and soft tissues were anesthetized with 1% lidocaine plain. Using ultrasound guidance and a 5 Tajik catheter, access to the ascitic fluid was obtained. 8.8 L of dark yellow fluid was removed. No diagnostic specimen was sent. Patient received 2 bottles of intravenous albumin. FINDINGS: There is a large amount of ascites. US/US paracentesis abd w/image IMPRESSION: Ultrasound-guided paracentesis.
[2022-05-06 13:44] VITALS: BP 138/85; PULSE 67; RESP 16; TEMP 36.3; O2SAT 98; BMI 31.5
--- NOTE | 2022-05-06 15:31 | HO.RADPN ---
RADIOLOGY Narrative Narrative: LLQ paracentesis performed using 5 fr catheter. 10 L clear yellow fluid removed. No specimen sent.
[2022-05-06 15:40] VITALS: BP 136/74; PULSE 66; RESP 16; TEMP 36.7; O2SAT 100
[2022-05-06] MEDS: Lidocaine HCl 1 % MPF 5 ML VIAL 4 ML SUBCUT (15:43)
[2022-05-06] MEDS: Albumin Human 25 % 100 ML IV ×2 (16:00→16:45)
[2022-05-06 16:10] VITALS: BP 132/68; PULSE 72; RESP 16; O2SAT 100
[2022-05-06 16:40] VITALS: BP 128/70; PULSE 73; RESP 18; TEMP 36.4; O2SAT 100
== END 2022-05-06 17:04 | disposition home or self-care (01) ==
PROVIDERS: Radiology Diagnostic Radiology; PCP General Practice; Visit Provider Internal Medicine Gastroenterology
DX: R18.8 Other ascites (principal); K76.6 Portal hypertension; K74.60 Unspecified cirrhosis of liver; F10.11 Alcohol abuse, in remission
CPT/HCPCS: 49083; P9047

== ENCOUNTER 2022-05-13 13:07 | Day surgery (SDC) | payer MEDICAID, SELFPAY ==
--- NOTE | ~2022-05-13 | US_ITS ---
EXAMINATION: ULTRASOUND-GUIDED PARACENTESIS CLINICAL INFORMATION: Ascites. COMPARISON: None TECHNIQUE: Following explaining ultrasound-guided paracentesis procedure, benefits and risks, a written consent was obtained. Patient was placed supine and preliminary ultrasound imaging was obtained through the abdomen. An optimal site was selected along the right lower quadrant and marked on the skin. The marked area was cleaned and draped in usual sterile manner. 1% lidocaine was injected at puncture site. Through a small skin incision a 5 Kyrgyz Yueh catheter was advanced into the peritoneal space. After observing fluid return, stylet was withdrawn and catheter connected to vacuum bottle via connecting cannula. After obtaining all fluid and observing no more fluid return, the catheter was withdrawn and complete hemostasis achieved at puncture site. Simple dressing was applied at the puncture site. Patient tolerated procedure extremely well. FINDINGS: On preliminary ultrasound imaging there is a large amount of ascites. Approximately 10.9 L of cloudy yellowish fluid was drained from the right lower quadrant. None of this fluid was sent to lab. US/US paracentesis abd w/image IMPRESSION: Successful ultrasound-guided paracentesis performed without immediate complications.
[2022-05-13 14:34] VITALS: BMI 31.5
[2022-05-13 15:32] VITALS: BP 122/68; PULSE 60; RESP 18; TEMP 36.9; O2SAT 100
[2022-05-13] MEDS: Lidocaine HCl 1 % MPF 5 ML VIAL 4 ML SUBCUT (15:38)
[2022-05-13 15:47] VITALS: BP 133/78; PULSE 77; RESP 18; O2SAT 100
[2022-05-13 16:02] VITALS: BP 136/84; PULSE 75; RESP 18; O2SAT 100
[2022-05-13 16:32] VITALS: BP 138/84; PULSE 64; RESP 18; O2SAT 100
[2022-05-13 17:02] VITALS: BP 118/70; PULSE 62; RESP 18; TEMP 36.9; O2SAT 100
== END 2022-05-13 17:18 | disposition home or self-care (01) ==
PROVIDERS: PCP General Practice; Visit Provider Radiology Diagnostic Radiology
DX: R18.8 Other ascites (principal)
CPT/HCPCS: 49083

== ENCOUNTER 2022-05-20 11:30 | Day surgery (SDC) | payer MEDICAID, SELFPAY ==
--- NOTE | ~2022-05-20 | US_ITS ---
EXAMINATION: ULTRASOUND-GUIDED PARACENTESIS CLINICAL INFORMATION: Ascites COMPARISON: May 13, 2022 TECHNIQUE: Ultrasound-guided paracentesis FINDINGS: Informed consent was obtained from the patient prior to the procedure. During this process, the procedure and potential alternatives were explained, along with the intended outcome and benefits. The risks of the procedure, as well as the risk of not doing the procedure, were discussed. The patient was given the opportunity to ask questions regarding the procedure and appeared competent to make medical decisions. A signed consent form which documents this discussion was placed in the medical record. Using sterile technique and ultrasound guidance a needle approach for paracentesis was noted within the right lower quadrant which is away from the inferior epigastric vessels. A 5 Hebrew Yueh needle was directed into the peritoneal cavity and a total of 10.3 L of clear talha fluid was drained. Patient tolerated procedure without difficulty. US/US paracentesis abd w/image IMPRESSION: Paracentesis with removal of 10.3 L of talha fluid.
[2022-05-20 11:46] LABS: MANUAL DIFF FLAG NO
[2022-05-20 11:48] LABS: Basophils Absolute Auto 0.1 X10*3/uL (0.0-0.2); Basophils Percent Auto 1.9 % (0-2); Eosinophils Absolute Auto 0.5 X10*3/uL (0.0-0.4); Eosinophils Percent Auto 7.9 % (0-4); Hematocrit 34.6 % (42.0-52.0); Hemoglobin 11.3 g/dl (14.0-18.0); Imm Gran Pct Auto 1.5 % (0.0-0.4); Lymphocytes Percent Auto 14.3 % (20-40); Mean Corpuscular HGB Conc 32.7 g/dl (31.0-36.0); Mean Corpuscular Hemoglobin 29.9 pg (27.0-33.0); Mean Corpuscular Volume 91.5 fL (80.0-98.0); Mean Platelet Volume 10.1 fL (9.4-12.4); Monocytes Absolute Auto 0.8 X10*3/uL (0.1-1.2); Monocytes Percent Auto 12.4 % (2-11); Neutrophils Absolute Auto 4.2 x10*3/uL (2.0-8.3); Platelet Count 152 X10*3/uL (160-400); Red Blood Count 3.78 X10*6/uL (4.60-5.80); White Blood Count 6.7 X10*3/uL (4.8-10.8)
[2022-05-20 11:54] LABS: Prothrombin Time 11.6 SEC (10.0-13.1)
[2022-05-20 11:57] LABS: Partial Thromboplastin Time 34.1 SEC (26.0-36.4)
[2022-05-20 12:13] VITALS: BP 123/89; PULSE 73; RESP 18; TEMP 36.1; O2SAT 96; BMI 31.5
[2022-05-20 12:21] LABS: Glucose, Whole Blood 133 mg/dL (60-115)
[2022-05-20 14:50] VITALS: BP 131/61; PULSE 62; RESP 16; TEMP 36.2; O2SAT 100
[2022-05-20] MEDS: Lidocaine HCl 1 % MPF 5 ML VIAL SUBCUT (14:51)
[2022-05-20 15:05] VITALS: BP 127/62; PULSE 60; RESP 16; O2SAT 100
[2022-05-20 15:13] VITALS: BP 130/72; PULSE 62; RESP 16; TEMP 36.2; O2SAT 100
== END 2022-05-20 15:17 | disposition home or self-care (01) ==
PROVIDERS: Radiology Diagnostic Radiology; PCP General Practice; Visit Provider Internal Medicine Gastroenterology
DX: R18.8 Other ascites (principal)
CPT/HCPCS: 36415; 49083; 82947; 85025; 85610; 85730

== ENCOUNTER 2022-05-27 12:00 | Day surgery (SDC) | payer MEDICAID, SELFPAY ==
--- NOTE | ~2022-05-27 | US_ITS ---
EXAMINATION: ULTRASOUND-GUIDED PARACENTESIS CLINICAL INFORMATION: Ascites. COMPARISON: 07/20/2022. TECHNIQUE: Ultrasound-guided paracentesis. FINDINGS: Informed consent was obtained from the patient prior to the procedure. During this process, the procedure and potential alternatives were explained, along with the intended outcome and benefits. The risks of the procedure, as well as the risk of not doing the procedure, were discussed. The patient was given the opportunity to ask questions regarding the procedure and appeared competent to make medical decisions. A signed consent form which documents this discussion was placed in the medical record. Using sterile technique and ultrasound guidance a 5 Slovak Yueh needle was directed into the right lower quadrant and a total of 9.9 L of clear yellow fluid was drained. No significant fluid was identified post drainage. US/US paracentesis abd w/image IMPRESSION: Paracentesis with removal of 9.9 L of clear yellow fluid.
[2022-05-27 09:55] VITALS: BMI 31.8
[2022-05-27] MEDS: Lidocaine HCl 1 % MPF 5 ML VIAL 4 ML SUBCUT (12:10)
[2022-05-27 12:48] VITALS: BP 123/74; PULSE 75; RESP 20; TEMP 36.9; O2SAT 99
[2022-05-27 13:03] VITALS: BP 121/73; PULSE 79; RESP 19; O2SAT 99
[2022-05-27 13:18] VITALS: BP 138/84; PULSE 85; RESP 21; TEMP 36.6; O2SAT 100
== END 2022-05-27 13:29 | disposition home or self-care (01) ==
PROVIDERS: PCP General Practice; Visit Provider Radiology Diagnostic Radiology
DX: R18.8 Other ascites (principal); K74.60 Unspecified cirrhosis of liver; B19.20 Unspecified viral hepatitis C without hepatic coma; I10 Essential (primary) hypertension; F10.11 Alcohol abuse, in remission; Z79.899 Other long term (current) drug therapy
CPT/HCPCS: 49083

== ENCOUNTER 2022-06-03 09:35 | Day surgery (SDC) | payer MEDICAID, SELFPAY ==
--- NOTE | ~2022-06-03 | US_ITS ---
EXAMINATION: ULTRASOUND-GUIDED PARACENTESIS CLINICAL INFORMATION: Ascites COMPARISON: None TECHNIQUE: Procedure and risks and benefits including bleeding, infection and low blood pressure were discussed with the patient and informed consent was obtained. The right lower quadrant was prepped and draped in the usual sterile fashion. Using ultrasound guidance and a 5 Setswana rapid centesis catheter, access to the ascitic fluid was obtained. 14.9 L of clear yellow fluid was removed. No diagnostic assessment was sent. Patient received 3 bottles of albumin during the procedure. FINDINGS: There is a large amount of ascites. US/US paracentesis abd w/image IMPRESSION: Ultrasound-guided paracentesis.
[2022-06-03 10:28] VITALS: BMI 31.8
--- NOTE | 2022-06-03 12:49 | HO.RADPN ---
RADIOLOGY Narrative Narrative: RLQ paracentesis performed . Large volume clear ascitic fluid removed. Albumin given. No specimen sent.
[2022-06-03 14:00] VITALS: BP 101/59; PULSE 70; RESP 21; TEMP 36.9; O2SAT 100
[2022-06-03] MEDS: Lidocaine HCl 1 % MPF 5 ML VIAL 10 ML SUBCUT (14:01)
[2022-06-03 14:15] VITALS: BP 103/51; PULSE 74; RESP 20; O2SAT 100
[2022-06-03 14:30] VITALS: BP 114/64; PULSE 82; RESP 20; O2SAT 100
[2022-06-03 14:45] VITALS: BP 114/62; PULSE 77; RESP 20
[2022-06-03 15:00] VITALS: BP 108/62; PULSE 77; RESP 21; TEMP 37.1; O2SAT 100
== END 2022-06-03 15:10 | disposition home or self-care (01) ==
PROVIDERS: Radiology Diagnostic Radiology; PCP General Practice; Visit Provider Internal Medicine Gastroenterology
DX: R18.8 Other ascites (principal)
CPT/HCPCS: 49083; P9047

== ENCOUNTER 2022-06-10 09:36 | Day surgery (SDC) | payer MEDICAID, SELFPAY ==
--- NOTE | ~2022-06-10 | US_ITS ---
EXAMINATION: ULTRASOUND-GUIDED PARACENTESIS CLINICAL INFORMATION: Ascites COMPARISON: Previous exam most recent 06/03/2022 TECHNIQUE: The right lower quadrant was prepped and draped in the usual sterile fashion. The skin and soft tissues were anesthetized with 1% lidocaine plain. Using ultrasound guidance and a 5 Yoruba rapid centesis catheter, access to the ascitic fluid was obtained. 12.2 L of clear yellow fluid was removed. No diagnostic specimen was sent. Patient received 3 bottles of 25 g of albumin during the procedure. FINDINGS: There is a large amount of ascites. US/US paracentesis abd w/image IMPRESSION: Ultrasound-guided paracentesis.
[2022-06-10 10:17] VITALS: BMI 31.8
--- NOTE | 2022-06-10 11:32 | HO.RADPN ---
RADIOLOGY Narrative Narrative: RLQ paracentesis performed using 5 fr catheter. Large volume clear fluid removed. No specimen sent. Albumin given.
[2022-06-10] MEDS: Lidocaine HCl 1 % MPF 5 ML VIAL 10 ML SUBCUT (12:20)
[2022-06-10 12:37] VITALS: BP 104/61; PULSE 64; RESP 18; TEMP 36.9; O2SAT 100
[2022-06-10 12:52] VITALS: BP 97/57; PULSE 66; RESP 18; O2SAT 100
[2022-06-10 13:07] VITALS: BP 111/63; PULSE 68; RESP 18; O2SAT 100
[2022-06-10 13:22] VITALS: BP 114/68; PULSE 66; RESP 18; O2SAT 100
[2022-06-10 13:37] VITALS: BP 109/62; PULSE 68; RESP 18; TEMP 36.7; O2SAT 100
== END 2022-06-10 13:43 | disposition home or self-care (01) ==
PROVIDERS: Radiology Diagnostic Radiology; PCP General Practice; Visit Provider Internal Medicine Gastroenterology
DX: R18.8 Other ascites (principal); K74.60 Unspecified cirrhosis of liver; K76.6 Portal hypertension; B19.20 Unspecified viral hepatitis C without hepatic coma; C22.0 Liver cell carcinoma; E03.9 Hypothyroidism, unspecified; I10 Essential (primary) hypertension; J45.909 Unspecified asthma, uncomplicated; D64.9 Anemia, unspecified; Z79.899 Other long term (current) drug therapy
CPT/HCPCS: 49083; C1729; P9047

== ENCOUNTER 2022-06-17 09:23 | Day surgery (SDC) | payer MEDICAID, SELFPAY ==
--- NOTE | ~2022-06-17 | US_ITS ---
EXAMINATION: ULTRASOUND-GUIDED PARACENTESIS. CLINICAL INFORMATION: Ascites. COMPARISON: Ultrasound-guided paracentesis 06/10/2022. TECHNIQUE: Following explaining ultrasound-guided paracentesis procedure, benefits and risks, a written consent was obtained. Patient was placed supine on ultrasound stretcher and preliminary ultrasound imaging was obtained. An optimal site was selected along the right lower quadrant and marked on the skin. The marked site was cleaned and draped in the usual sterile manner. 1% lidocaine was injected at the puncture site. Through a small skin incision a 5 Serbian Glad [employer] Have You[employer] catheter was advanced into the peritoneal space. After observing fluid return the stylet was withdrawn and catheter connected to vacuum bottle via connecting cannula. A 2nd puncture was performed slightly more anterior as the catheter was cut within the bowel loops. After obtaining all fluid and observing normal fluid return, catheter was withdrawn and complete and hemostasis was achieved at puncture site. Sterile dressing applied postprocedure. Patient tolerated the procedure extremely well. FINDINGS: There is large amount of free fluid in the abdomen. Approximately 11.8 L of yellowish cloudy fluid was drained from the right lower quadrant. Serum albumin was administered IV during the exam. US/US paracentesis abd w/image IMPRESSION: Successful ultrasound-guided therapeutic paracentesis performed.
[2022-06-17 09:41] VITALS: BMI 32.0
--- NOTE | 2022-06-17 10:05 | PC.NURSE ---
Patient arrived to [facility] stating that there was a new bulge in his belly. Pt stated area appeared this morning and was bleeding a lot . Area assessed. Large bulge present on lower mid abdomen (appearing to be a hernia). No bleeding or drainage present. All VS WNL. Patient denies pain. Picture of site sent to Dr. Ahuja and Dr. Lizarraga via [place] [facility]. Per them area is okay and due to abdominal increased pressure and portal HTN . To proceed with paracentesis this morning. No new orders at this time.
[2022-06-17] MEDS: Lidocaine HCl 1 % MPF 5 ML VIAL 10 ML SUBCUT (12:52)
[2022-06-17 14:20] VITALS: BP 124/64; PULSE 59; RESP 17; TEMP 36.7; O2SAT 100
[2022-06-17 14:35] VITALS: BP 129/64; PULSE 63; RESP 16; O2SAT 100
[2022-06-17 14:50] VITALS: BP 129/75; PULSE 63; RESP 16; TEMP 36.8; O2SAT 100
== END 2022-06-17 15:02 | disposition home or self-care (01) ==
PROVIDERS: Radiology Diagnostic Radiology; PCP General Practice; Visit Provider Internal Medicine Gastroenterology
DX: R18.8 Other ascites (principal); K74.60 Unspecified cirrhosis of liver; F12.90 Cannabis use, unspecified, uncomplicated
CPT/HCPCS: 49083; P9047

== ENCOUNTER 2022-06-24 09:27 | Day surgery (SDC) | payer MEDICAID, SELFPAY ==
--- NOTE | ~2022-06-24 | US_ITS ---
EXAMINATION: ULTRASOUND-GUIDED PARACENTESIS CLINICAL INFORMATION: Ascites. COMPARISON: 06/17/2022 and 06/10/2022. TECHNIQUE: Ultrasound-guided paracentesis. FINDINGS: Informed consent was obtained from the patient prior to the procedure. During this process, the procedure and potential alternatives were explained, along with the intended outcome and benefits. The risks of the procedure, as well as the risk of not doing the procedure, were discussed. The patient was given the opportunity to ask questions regarding the procedure and appeared competent to make medical decisions. A signed consent form which documents this discussion was placed in the medical record. Using sterile technique and ultrasound guidance and a 5-[place] Yueh catheter was placed in the right lower quadrant of the peritoneal cavity after checking for positioning of the inferior epigastric vessels. A total of 10.7 L of clear yellow fluid was removed. 75 g of albumin were given intravenously for the procedure. Patient tolerated procedure without difficulty. US/US paracentesis abd w/image IMPRESSION: Paracentesis with removal of 10.7 L of clear yellow fluid.
[2022-06-24 10:36] LABS: MANUAL DIFF FLAG NO
[2022-06-24 10:46] LABS: Basophils Absolute Auto 0.2 X10*3/uL (0.0-0.2); Basophils Percent Auto 2.3 % (0-2); Eosinophils Absolute Auto 0.6 X10*3/uL (0.0-0.4); Eosinophils Percent Auto 8.7 % (0-4); Hematocrit 31.1 % (42.0-52.0); Hemoglobin 10.5 g/dl (14.0-18.0); Imm Gran Abs Auto 0.06 X10*3/uL (0.00-0.03); Imm Gran Pct Auto 0.9 % (0.0-0.4); Lymphocytes Percent Auto 15.3 % (20-40); Mean Corpuscular HGB Conc 33.8 g/dl (31.0-36.0); Mean Corpuscular Hemoglobin 30.4 pg (27.0-33.0); Mean Corpuscular Volume 90.1 fL (80.0-98.0); Mean Platelet Volume 9.9 fL (9.4-12.4); Monocytes Absolute Auto 0.9 X10*3/uL (0.1-1.2); Monocytes Percent Auto 13.3 % (2-11); Neutrophils Absolute Auto 3.8 x10*3/uL (2.0-8.3); Neutrophils Percent Auto 59.5 % (45-73); Platelet Count 137 X10*3/uL (160-400); Red Blood Count 3.45 X10*6/uL (4.60-5.80); Red Cell Distribution Width 15.5 % (11.0-16.0); White Blood Count 6.5 X10*3/uL (4.8-10.8)
[2022-06-24 10:55] LABS: Prothrombin Time 11.5 SEC (10.0-13.1)
[2022-06-24 10:58] LABS: Partial Thromboplastin Time 33.9 SEC (26.0-36.4)
[2022-06-24 11:13] VITALS: BMI 32.0
[2022-06-24 11:17] VITALS: BP 134/78; PULSE 69; RESP 20; TEMP 36.8; O2SAT 99
[2022-06-24] MEDS: Lidocaine HCl 1 % 20 ML VIAL 10 ML SUBCUT (12:56)
[2022-06-24 13:00] VITALS: BP 111/66; PULSE 62; RESP 20; TEMP 36.9; O2SAT 100
[2022-06-24 13:15] VITALS: BP 121/71; PULSE 68; RESP 20; O2SAT 100
[2022-06-24 13:30] VITALS: BP 112/56; PULSE 70; RESP 18; O2SAT 100
[2022-06-24 13:45] VITALS: BP 111/57; PULSE 70; RESP 18; O2SAT 100
[2022-06-24 14:00] VITALS: BP 102/60; PULSE 72; RESP 18; TEMP 36.9; O2SAT 100
== END 2022-06-24 14:08 | disposition home or self-care (01) ==
PROVIDERS: Radiology Diagnostic Radiology; PCP General Practice; Visit Provider Internal Medicine Gastroenterology
DX: R18.8 Other ascites (principal); K74.60 Unspecified cirrhosis of liver; K21.9 Gastro-esophageal reflux disease without esophagitis; I10 Essential (primary) hypertension; B19.20 Unspecified viral hepatitis C without hepatic coma; D64.9 Anemia, unspecified; F12.90 Cannabis use, unspecified, uncomplicated
CPT/HCPCS: 36415; 49083; 85025; 85610; 85730; P9047

== ENCOUNTER 2022-07-11 11:53 | Day surgery (SDC) | payer MEDICAID, SELFPAY ==
--- NOTE | ~2022-07-11 | US_ITS ---
EXAMINATION: US-GUIDED PARACENTESIS CLINICAL INFORMATION: Ascites COMPARISON: Previous exams most recent 06/24/2022 TECHNIQUE: Procedure and risks and benefits including bleeding, infection and low blood pressure were discussed with the patient and informed consent was obtained. The left lower quadrant was prepped and draped in the usual sterile fashion. The skin and soft tissues were anesthetized with 1% lidocaine plain. Using ultrasound guidance and a 5 Maltese rapid centesis catheter, access to the ascitic fluid was obtained. 11 L of clear yellow fluid was removed. The patient received intravenous albumin during the procedure. No diagnostic specimen was sent. FINDINGS: There is a large amount of ascites. US/US paracentesis abd w/image IMPRESSION: Ultrasound-guided paracentesis.
[2022-07-11 12:03] VITALS: BMI 31.7
--- NOTE | 2022-07-11 14:51 | HO.RADPN ---
RADIOLOGY Narrative Narrative: LLQ paracentesis using a 5 fr catheter. Large volume clear yellow fluid removed.
[2022-07-11 16:03] VITALS: BP 127/74; PULSE 68; RESP 16; TEMP 37; O2SAT 99
[2022-07-11] MEDS: Lidocaine HCl 1 % MPF 5 ML VIAL 10 ML SUBCUT (16:06)
[2022-07-11 16:17] VITALS: BP 104/61; PULSE 69; RESP 16; O2SAT 100
[2022-07-11 16:32] VITALS: BP 95/53; PULSE 68; RESP 16; O2SAT 100
[2022-07-11 16:45] VITALS: BP 106/59; PULSE 70; RESP 16; O2SAT 100
[2022-07-11 17:00] VITALS: BP 104/62; PULSE 72; RESP 16; TEMP 36.7; O2SAT 100
== END 2022-07-11 17:00 | disposition home or self-care (01) ==
PROVIDERS: Radiology Diagnostic Radiology; PCP General Practice; Visit Provider Internal Medicine Gastroenterology
DX: R18.8 Other ascites (principal); K74.60 Unspecified cirrhosis of liver; R16.0 Hepatomegaly, not elsewhere classified
CPT/HCPCS: 49083; P9047

== ENCOUNTER 2022-07-19 11:37 | Day surgery (SDC) | payer MEDICAID, SELFPAY ==
--- NOTE | ~2022-07-19 | US_ITS ---
EXAMINATION: ULTRASOUND-GUIDED PARACENTESIS CLINICAL INFORMATION: Ascites. COMPARISON: Ultrasound-guided paracentesis 07/11/2022 TECHNIQUE: Following explaining ultrasound-guided paracentesis procedure, benefits and risk, a written consent was obtained. Patient was placed supine on ultrasound stretcher and preliminary ultrasound imaging was obtained of the abdomen. An optimal site was selected along the right mid quadrant laterally and marked by a marker. The marked site was cleaned and draped in the usual sterile manner. 1% lidocaine was injected puncture site. Through a small skin incision a 5 Croatian [employer]seh catheter was advanced into the peritoneal space. After observing fluid return, stylet was withdrawn and catheter connected to vacuum bottle via connecting cannula. After obtaining all fluid and observing normal fluid return, the catheter was withdrawn and complete hemostasis achieved at puncture site. Sterile dressing applied postprocedure. Patient tolerated procedure extremely well. FINDINGS: On preliminary ultrasound imaging there is a large amount of fluid seen in the abdomen. Approximately 10.5 L of slightly cloudy yellowish fluid was drained from the right lower quadrant. No fluid was sent to lab. On the last trip 11 L of fluid was removed. US/US paracentesis abd w/image IMPRESSION: Successful ultrasound guided therapeutic paracentesis performed.
[2022-07-19 11:55] VITALS: BMI 31.8
[2022-07-19] MEDS: Lidocaine HCl 1 % MPF 5 ML VIAL 10 ML SUBCUT (14:27)
[2022-07-19 14:34] VITALS: BP 137/78; PULSE 68; RESP 17; TEMP 36.8; O2SAT 100
[2022-07-19 14:47] VITALS: BP 129/73; PULSE 79; RESP 17; O2SAT 100
[2022-07-19 15:05] VITALS: BP 128/77; PULSE 64; RESP 20; O2SAT 100
[2022-07-19 15:20] VITALS: BP 136/75; PULSE 68; RESP 20; O2SAT 100
[2022-07-19 15:49] VITALS: BP 126/75; PULSE 69; RESP 20; TEMP 37.3; O2SAT 100
== END 2022-07-19 16:00 | disposition home or self-care (01) ==
PROVIDERS: Radiology Diagnostic Radiology; PCP General Practice; Visit Provider Internal Medicine Gastroenterology
DX: R18.8 Other ascites (principal); K74.60 Unspecified cirrhosis of liver; K21.9 Gastro-esophageal reflux disease without esophagitis; I10 Essential (primary) hypertension; D64.9 Anemia, unspecified; F12.90 Cannabis use, unspecified, uncomplicated
CPT/HCPCS: 49083; P9047

== ENCOUNTER 2022-07-24 06:11 | Inpatient (IN) | payer MEDICAID, SELFPAY ==
[2022-07-24 06:22] VITALS: BP 168/88; PULSE 71; O2SAT 95
[2022-07-24 06:28] VITALS: BP 171/85; PULSE 83; RESP 18; TEMP 36.4; O2SAT 100; BMI 32.9
[2022-07-24 06:46] LABS: Basophils Absolute Auto 0.1 X10*3/uL (0.0-0.2); Basophils Percent Auto 1.2 % (0-2); Eosinophils Absolute Auto 0.9 X10*3/uL (0.0-0.4); Eosinophils Percent Auto 10.2 % (0-4); Hematocrit 32.7 % (42.0-52.0); Hemoglobin 11.2 g/dl (14.0-18.0); Imm Gran Abs Auto 0.34 X10*3/uL (0.00-0.03); Imm Gran Pct Auto 3.7 % (0.0-0.4); Lymphocytes Percent Auto 10.3 % (20-40); Mean Corpuscular HGB Conc 34.3 g/dl (31.0-36.0); Mean Corpuscular Hemoglobin 30.4 pg (27.0-33.0); Mean Corpuscular Volume 88.9 fL (80.0-98.0); Mean Platelet Volume 9.4 fL (9.4-12.4); Monocytes Absolute Auto 0.8 X10*3/uL (0.1-1.2); Monocytes Percent Auto 8.7 % (2-11); Neutrophils Absolute Auto 6.1 x10*3/uL (2.0-8.3); Neutrophils Percent Auto 65.9 % (45-73); Platelet Count 178 X10*3/uL (160-400); Red Blood Count 3.68 X10*6/uL (4.60-5.80); Red Cell Distribution Width 14.6 % (11.0-16.0); White Blood Count 9.2 X10*3/uL (4.8-10.8)
[2022-07-24 06:47] LABS: MANUAL DIFF FLAG NO
[2022-07-24 07:06] LABS: Partial Thromboplastin Time 33.3 SEC (26.0-36.4)
[2022-07-24 07:07] LABS: Alanine Aminotransferase 30 U/L (0-40); Albumin Level 3.3 g/dL (3.5-5.0); Alkaline Phosphatase 148 U/L (39-117); Anion Gap 15 (12-20); Aspartate Amino Transferase 59 U/L (5-37); Bilirubin Total 0.7 mg/dL (0.0-1.0); Blood Urea Nitrogen 50 mg/dL (9-16); Calcium 8.6 mg/dL (8.4-10.2); Carbon Dioxide 20 mmol/L (22-29); Chloride 98 mmol/L (96-108); Estimated Glomerular Filt Rate 26; Glucose Random 165 mg/dL (60-115); Lipase 61 U/L (8-78); Potassium 3.7 mmol/L (3.3-5.1); Sodium 129 mmol/L (135-145); Total Protein 7.2 g/dL (6.5-8.0)
[2022-07-24] MEDS: Lidocaine HCl 1 % 20 ML VIAL INFILTRATI (07:34)
[2022-07-24] MEDS: Albumin Human 25 % 100 ML IV ×2 (07:44→15:55)
[2022-07-24 08:10] LABS: MN% 49.6 %; PMN% 50.4 %; WBC Peritoneal Fluid 0.432 X10*3/uL
[2022-07-24 08:11] LABS: RBC Peritoneal Fluid < 0.002 X10*6/uL
--- NOTE | 2022-07-24 08:16 | PC.NURSE ---
3.3 l drained from abd, pt tolerated well, umbilicus swelling has gone down, sr on monitor, skin wpd,
[2022-07-24 08:38] LABS: Basophils Peritoneal Fl 0 %; Eosinophils Peritoneal Fl 0 %; Lymphocyte Peritoneal Fl 24 %; Monocytes Peritoneal Fl 9 %; Neutrophils Peritoneal Fluid 61 %
[2022-07-24 08:39] LABS: BF Shift QC OK YES; Man Diluent Bkgrd OK YES; Other Peritioneal Fl 6 %
--- NOTE | 2022-07-24 09:35 | ED_ITS ---
HPI - General Adult General Chief complaint: General Medical Stated complaint: POPPED HERNIA Time Seen by Provider: 07/24/22 06:16 Source: patient Mode of arrival: EMS Limitations: no limitations History of Present Illness HPI narrative: 66-year-old male who presents emergency department for evaluation ascites fluid leak from his umbilical area. The patient has a history of abdominal ascites secondary to cirrhosis. Patient states that he gets anywhere from 5-10 L of ascites fluid drained from his abdomen every week. He states that he noted this morning that he was leaking fluid from his umbilical area. The patient has a large umbilicus with thin necrotic appearing skin. He states that he was not ill in any way. He denied fever, chills, abdominal pain, nausea or vomiting. Related Data Home Medications Medication Instructions Recorded Confirmed albuterol sulfate 90 mcg/actuation 2 puff inhalation QID PRN Wheezing 09/22/20 03/16/22 aerosol inhaler (ProAir HFA) lactulose 10 gram/15 mL oral 45 ml PO TID 12/16/21 03/16/22 solution spironolactone 100 mg tablet 100 mg PO DAILY 12/24/21 03/16/22 propranolol 10 mg tablet 10 mg PO BID 01/16/22 03/16/22 levothyroxine 75 mcg tablet 225 mcg PO DAILY@0600 03/16/22 03/16/22 (Synthroid) pantoprazole 40 mg tablet,delayed 40 mg PO DAILY@0630 07/24/22 07/24/22 release Previous Rx's Medication Instructions Recorded furosemide 40 mg tablet (Lasix) 40 mg PO DAILY #20 tabs 08/26/21 simvastatin 20 mg tablet 20 mg PO BEDTIME 30 days #30 tabs 03/20/22 Allergies Allergy/AdvReac Type Severity Reaction Status Date / Time No Known Allergies Allergy Verified 07/19/22 11:55 [No Known Allergies*] Review of Systems Review of Systems: Yes all other systems are reviewed and are negative [facility] Past Medical History [facility] Narrative: Social history: The patient is living in a longterm facility. He denies tobacco, alcohol and drug use. Medical History Allergic rhinitis Anemia Anemia Asthma Cirrhosis Cirrhosis of liver Constipation GERD (gastroesophageal reflux disease) H/O ETOH abuse Hepatitis C Hepatitis C History of alcohol abuse History of kidney stones HTN (hypertension) Hypothyroid Left inguinal hernia Liver mass Liver mass Surgical History History of esophagogastroduodenoscopy (EGD) Hx of colonoscopy No history of previous surgery Family History Family History Other No known health problems Social History Social History Household Members: Family Housing: Apartment Do you presently have visiting nurse or other home services: Yes ([employer]) Alcohol intake: never Patient Tobacco Use Status: Never used Tobacco Substance Use Type: Marijuana Advance Directives: No Advance Directives Information Provided: Yes Advance Directives Date on File: 11/04/21 service: No Current occupational status: unemployed and disabled Physical Exam ED Vital Signs: Vital Signs - 24 hr 07/24/22 06:28 Temperature 97.6 F Pulse Rate 83 Respiratory Rate 18 Blood Pressure 171/85 H Pulse Oximetry 100 Oxygen Delivery Method Room Air BMI result Body Mass Index 32.9 Const General: cooperative and no acute distress Orientation/consciousness: oriented to person and oriented to place Limitations: no limitations HENMT Head: Yes normal to inspection, Yes normocephalic and Yes atraumatic Ears: external ears normal General nose exam: Normal external nose present Face and sinus: Yes normal facial exam Mouth: Normal oral and palatal mucosa present Throat: Yes posterior oropharynx normal Eyes General: appearance normal, both eyes and all related structures Pupils: Equal, round and reactive pupils present Neck Neck: Yes normal visual inspection, Yes no lymphadenopathy, Yes trachea midline and Yes supple Chest Chest palpation & inspection: normal inspection of the chest and normal palpation of entire chest wall Resp Effort & Inspection: normal respiratory effort and able to speak in complete sentences Auscultation: clear to auscultation bilaterally Cardio Rate: regular rate Rhythm: regular rhythm Heart sounds: S1 normal heart sound present, S2 normal heart sound present and no murmurs GI Other: Abdomen is distended secondary to ascites fluid, patient's umbilicus is very large with very thin skin, there is necrosis of the skin is well, there is a 1.0 cm ?burst ? laceration to the right lateral aspect of the umbilicus which is dr aining ascites fluid, the patient's abdomen is diffusely tender. General: Yes no CVA tenderness Back/Spine/Pelvis Back: no CVA tenderness Skin General skin exam: no rashes or lesions noted Neuro General: oriented to person and oriented to place Cranial nerves: Yes CN's II-XII intact bilaterally and Yes Equal, round and reactive pupils present Cognition (Neuro): normal cognition Motor exam (neuro): 5/5 motor strength present throughout Extrem General: Yes normal to inspection Psych Appearance: grossly normal Speech and movement: Normal speech and movement present Affect: normal affect Attitude: cooperative Course Course Course Narrative: 66-year-old male with cirrhosis of the liver and ascites who presents emergency department for evaluation of an ascites leak from his right umbilicus consistent with a ?burst ?laceration caused by his tense ascites and thin umbilical wall skin. I did order laboratory evaluation to include CBC, CMP, lipase, PT/INR, PTT. Given that the patient had a laceration which was draining and his abdomen appeared tense, I placed a catheter in the laceration and drained approximately 3.5 L of ascites the patient's abdomen. The laceration was then closed with 3.0 nylon sutures times 5 sutures. This stop the leak. 0943 Laboratory evaluation: WBC normal 9200. H&H low 11.2 and 32.7-chronic. Sodium low 129-chronic. CO2 low 20. BUN and creatinine elevated 50 and 2.50- above baseline. Ascites fluid WBCs 432, 61 neutrophils, 24 lymphocytes, 9 monocytes-this is elevated. Glucose elevated 165. AST elevated 59. Alk-phos elevated 148. The patient's elevated WBC his ascites fluid is consistent with spontaneous bacterial peritonitis. I did order blood cultures , lactic acid, COVID-19 influenza. Patient will be treated with ceftriaxone 1 g IV. I will discuss admission with the covering hospitalist. 1025: I did discuss patient's presentation with the covering hospitalist, Dr. Esquivel and the patient will be admitted to the hospital service for further management. 1158: The patient is leaking ascites from his umbilical area. I re-evaluated the area that was sutured closed and I do not think that the fluid is coming from this area. The patient has an eschar with necrotic tissue over his umbi lical area and concerned that the fluid is leaking through the eschar. I will discuss this with the covering hospitalist, the patient will probably a surgical consult to see if something can be done about this persistent fluid leak. Medications Administered Discontinued Medications Generic Name Dose Route Start Last Admin Trade Name Deon PRN Reason Stop Dose Admin Albumin Human 100 mls @ 100 mls/hr 07/24/22 06:24 07/24/22 11:13 Kedbumin 25 % IV 07/24/22 07:23 Infused ONCE ONE Infusion Albumin Human 100 mls @ 100 mls/hr 07/24/22 06:34 07/24/22 07:44 Kedbumin 25 % IV 07/24/22 07:33 Not Given ONCE ONE Ceftriaxone Sodium 1 gm/ 50 mls @ 100 mls/hr 07/24/22 09:47 07/24/22 11:15 Sodium Chloride IV 07/24/22 10:16 100 mls/hr ONCE STA Administration Lidocaine HCl 20 ml 07/24/22 06:26 07/24/22 07:35 Lidocaine Hcl 2 % 20 Ml Vial INFILTRATI 07/24/22 06:27 Not Given ONCE ONE Lidocaine HCl 20 ml 07/24/22 07:15 07/24/22 07:34 Lidocaine Hcl 1 % 20 Ml Vial INFILTRATI 07/24/22 07:16 20 ml ONCE ONE Administration Procedures Procedure Narrative Procedure Narrative: Laceration repair: Umbilical ?burst? laceration secondary to tense abdomen caused by ascites The laceration was prepped with Betadine anesthetized 1% lidocaine. The wound was then closed with nylon sutures 3.0. Eight sutures were used. The patient tolerated the procedure well. Medical Decision Making Lab Data Result diagrams: 07/24/22 06:41 07/24/22 06:41 Labs: Lab Results 07/24/22 07/24/22 07/24/22 Range/Units 06:41 06:41 06:41 WBC 9.2 (4.8-10.8) X10*3/uL RBC 3.68 L (4.60-5.80) X10*6/uL Hgb 11.2 L (14.0-18.0) g/dl Hct 32.7 L (42.0-52.0) % MCV 88.9 (80.0-98.0) fL MCH 30.4 (27.0-33.0) pg MCHC 34.3 (31.0-36.0) g/dl RDW 14.6 (11.0-16.0) % Plt Count 178 D (160-400) X10*3/uL MPV 9.4 (9.4-12.4) fL Immature Gran % (Auto) 3.7 H (0.0-0.4) % Neut % (Auto) 65.9 (45-73) % Lymph % (Auto) 10.3 L (20-40) % [place] % (Auto) 8.7 (2-11) % Eos % (Auto) 10.2 H (0-4) % Baso % (Auto) 1.2 (0-2) % Lymph # (Auto) 1.0 L (1.2-4.9) X10*3/uL [place] # (Auto) 0.8 (0.1-1.2) X10*3/uL Eos # (Auto) 0.9 H (0.0-0.4) X10*3/uL Baso # (Auto) 0.1 (0.0-0.2) X10*3/uL Abs Immat Gran (auto) 0.34 H (0.00-0.03) X10*3/uL Absolute Neuts (auto) 6.1 (2.0-8.3) x10*3/uL Absolute Nucleated RBC 0.000 (0.0-0.012) X10*3/uL Nucleated RBC % (auto) 0.0 (0.0-0.2) /100WBC PT 11.2 (10.0-13.1) SEC INR 1.0 (0.9-1.1) APTT 33.3 (26.0-36.4) SEC Sodium 129 L (135-145) mmol/L Potassium 3.7 (3.3-5.1) mmol/L Chloride 98 (96-108) mmol/L Carbon Dioxide 20 L (22-29) mmol/L Anion Gap 15 (12-20) BUN 50 H (9-16) mg/dL Creatinine 2.50 H (0.5-1.4) mg/dL Estim Creat Clear Calc 36.0 Estimated GFR 26 Random Glucose 165 H (60-115) mg/dL Lactic Acid (0.5-2.0) mmol/L Calcium 8.6 (8.4-10.2) mg/dL Total Bilirubin 0.7 (0.0-1.0) mg/dL AST 59 H (5-37) U/L ALT 30 (0-40) U/L Alkaline Phosphatase 148 H (39-117) U/L Total Protein 7.2 (6.5-8.0) g/dL Albumin 3.3 L (3.5-5.0) g/dL Lipase 61 (8-78) U/L Peritoneal WBC X10*3/uL Peritoneal RBC X10*6/uL Periton Neutrophils % Periton Lymphocytes % Peritoneal Monocytes % Peritoneal Eosinophils % Peritoneal Basophils % Peritoneal Other Cells % COVID-19 (JELANI) (Negative) COVID-19 Clin Com Influenza Type A (RYAN) (Negative) Influenza Type B (RYAN) (Negative) Influenza A & B Note 07/24/22 07/24/22 07/24/22 Range/Units 07:59 10:01 10:01 WBC (4.8-10.8) X10*3/uL RBC (4.60-5.80) X10*6/uL Hgb (14.0-18.0) g/dl Hct (42.0-52.0) % MCV (80.0-98.0) fL MCH (27.0-33.0) pg MCHC (31.0-36.0) g/dl RDW (11.0-16.0) % Plt Count (160-400) X10*3/uL MPV (9.4-12.4) fL Immature Gran % (Auto) (0.0-0.4) % Neut % (Auto) (45-73) % Lymph % (Auto) (20-40) % [place] % (Auto) (2-11) % Eos % (Auto) (0-4) % Baso % (Auto) (0-2) % Lymph # (Auto) (1.2-4.9) X10*3/uL [place] # (Auto) (0.1-1.2) X10*3/uL Eos # (Auto) (0.0-0.4) X10*3/uL Baso # (Auto) (0.0-0.2) X10*3/uL Abs Immat Gran (auto) (0.00-0.03) X10*3/uL Absolute Neuts (auto) (2.0-8.3) x10*3/uL Absolute Nucleated RBC (0.0-0.012) X10*3/uL Nucleated RBC % (auto) (0.0-0.2) /100WBC PT (10.0-13.1) SEC INR (0.9-1.1) APTT (26.0-36.4) SEC Sodium (135-145) mmol/L Potassium (3.3-5.1) mmol/L Chloride (96-108) mmol/L Carbon Dioxide (22-29) mmol/L Anion Gap (12-20) BUN (9-16) mg/dL Creatinine (0.5-1.4) mg/dL Estim Creat Clear Calc Estimated GFR Random Glucose (60-115) mg/dL Lactic Acid (0.5-2.0) mmol/L Calcium (8.4-10.2) mg/dL Total Bilirubin (0.0-1.0) mg/dL AST (5-37) U/L ALT (0-40) U/L Alkaline Phosphatase (39-117) U/L Total Protein (6.5-8.0) g/dL Albumin (3.5-5.0) g/dL Lipase (8-78) U/L Peritoneal WBC 0.432 X10*3/uL Peritoneal RBC < 0.002 X10*6/uL Periton Neutrophils 61 % Periton Lymphocytes 24 % Peritoneal Monocytes 9 % Peritoneal Eosinophils 0 % Peritoneal Basophils 0 % Peritoneal Other Cells 6 % COVID-19 (JELANI) Negative (Negative) COVID-19 Clin Com See Note Influenza Type A (RYAN) Negative (Negative) Influenza Type B (RYAN) Negative (Negative) Influenza A & B Note See Note 07/24/22 Range/Units 10:41 WBC (4.8-10.8) X10*3/uL RBC (4.60-5.80) X10*6/uL Hgb (14.0-18.0) g/dl Hct (42.0-52.0) % MCV (80.0-98.0) fL MCH (27.0-33.0) pg MCHC (31.0-36.0) g/dl RDW (11.0-16.0) % Plt Count (160-400) X10*3/uL MPV (9.4-12.4) fL Immature Gran % (Auto) (0.0-0.4) % Neut % (Auto) (45-73) % Lymph % (Auto) (20-40) % [place] % (Auto) (2-11) % Eos % (Auto) (0-4) % Baso % (Auto) (0-2) % Lymph # (Auto) (1.2-4.9) X10*3/uL [place] # (Auto) (0.1-1.2) X10*3/uL Eos # (Auto) (0.0-0.4) X10*3/uL Baso # (Auto) (0.0-0.2) X10*3/uL Abs Immat Gran (auto) (0.00-0.03) X10*3/uL Absolute Neuts (auto) (2.0-8.3) x10*3/uL Absolute Nucleated RBC (0.0-0.012) X10*3/uL Nucleated RBC % (auto) (0.0-0.2) /100WBC PT (10.0-13.1) SEC INR (0.9-1.1) APTT (26.0-36.4) SEC Sodium (135-145) mmol/L Potassium (3.3-5.1) mmol/L Chloride (96-108) mmol/L Carbon Dioxide (22-29) mmol/L Anion Gap (12-20) BUN (9-16) mg/dL Creatinine (0.5-1.4) mg/dL Estim Creat Clear Calc Estimated GFR Random Glucose (60-115) mg/dL Lactic Acid 1.2 (0.5-2.0) mmol/L Calcium (8.4-10.2) mg/dL Total Bilirubin (0.0-1.0) mg/dL AST (5-37) U/L ALT (0-40) U/L Alkaline Phosphatase (39-117) U/L Total Protein (6.5-8.0) g/dL Albumin (3.5-5.0) g/dL Lipase (8-78) U/L Peritoneal WBC X10*3/uL Peritoneal RBC X10*6/uL Periton Neutrophils % Periton Lymphocytes % Peritoneal Monocytes % Peritoneal Eosinophils % Peritoneal Basophils % Peritoneal Other Cells % COVID-19 (JELANI) (Negative) COVID-19 Clin Com Influenza Type A (RYAN) (Negative) Influenza Type B (RYAN) (Negative) Influenza A & B Note Discharge Plan Discharge Clinical Impression: Ascites, SBP (spontaneous bacterial peritonitis), Laceration Patient Disposition: Admitted As Inpatient
[2022-07-24 10:08] LABS: Prothrombin Time 11.2 SEC (10.0-13.1)
[2022-07-24 10:35] LABS: IDNOW Serial# 16C4AD1C; IDNOW Serial# BCCEAD1C; Influenza A Negative (Negative); Influenza B2 Negative (Negative)
[2022-07-24 10:36] LABS: COVID-19 Test Negative (Negative)
--- NOTE | 2022-07-24 10:36 | P.HPHOSP_ITS ---
History of Present Illness Date of Service: 07/24/22 Chief Complaint: Abdominal distention and leaking from umbilicus This is a 66-year-old male with a past medical history of liver cirrhosis secondary to alcohol abuse as well as hepatitis-C, hypothyroidism, HTN, asthma, chronic anemia, HLD, recurrent ascites requiring frequent drainage, prior history of SBP; he is followed at [facility]. He was planned to have paracentesis in 2 days (get paracentesis weekly on Monday), he presents here with abdominal distention and leakage from the umbilicus, he reports no fever or chills, but there is a concern of SBP and has had paracentesis in ED and is feeling better.? Review of Systems Review of Systems: no fever no abdominal pain +abd distention Yes all other systems are reviewed and are negative [facility] Medical History Allergic rhinitis Anemia Anemia Asthma Cirrhosis Cirrhosis of liver Constipation GERD (gastroesophageal reflux disease) H/O ETOH abuse Hepatitis C Hepatitis C History of alcohol abuse History of kidney stones HTN (hypertension) Hypothyroid Left inguinal hernia Liver mass Liver mass Family History Other No known health problems Surgical History History of esophagogastroduodenoscopy (EGD) Hx of colonoscopy No history of previous surgery Social History Household Members: Children Housing: Apartment Do you presently have visiting nurse or other home services: Yes Alcohol intake: never Patient Tobacco Use Status: Never used Tobacco Substance Use Type: Marijuana Advance Directives Date on File: 11/04/21 service: No Current occupational status: unemployed and disabled Meds Allergies Allergy/AdvReac Type Severity Reaction Status Date / Time No Known Allergies Allergy Verified 07/19/22 11:55 [No Known Allergies*] Home Medications Medication Instructions Recorded Confirmed Last Taken Type albuterol sulfate 90 mcg/actuation 2 puff inhalation QID PRN Wheezing 09/22/20 07/24/22 2 Days Ago History aerosol inhaler (ProAir HFA) ~07/22/22 lactulose 10 gram/15 mL oral 45 ml PO QID 12/16/21 07/24/22 2 Days Ago History solution ~07/22/22 spironolactone 100 mg tablet 100 mg PO DAILY 12/24/21 07/24/22 2 Days Ago Hi story ~07/22/22 propranolol 10 mg tablet 10 mg PO BID 01/16/22 07/24/22 2 Days Ago History ~07/22/22 levothyroxine 75 mcg tablet 225 mcg PO DAILY@0600 03/16/22 07/24/22 2 Days Ago History (Synthroid) ~07/22/22 acetaminophen 325 mg tablet 650 mg PO QID PRN Pain 07/24/22 07/24/22 2 Days Ago History (Tylenol) ~07/22/22 pantoprazole 40 mg tablet,delayed 40 mg PO DAILY@0630 07/24/22 07/24/22 2 Days Ago History release ~07/22/22 Physical Exam Vital Signs and Narrative: Vital Signs: Last Vital Signs Temp 97.6 F 07/24/22 06:28 Pulse 83 07/24/22 06:28 Resp 18 07/24/22 06:28 BP 171/85 H 07/24/22 06:28 Pulse Ox 100 07/24/22 06:28 O2 Del Method 07/24/22 06:28 BMI result Body Mass Index 32.9 Const: Other: Constitutional: Alert, in no distress, Mental Status: Oriented to person, place and time. Eyes: Pupils are equal, round and reactive to light. Ear, Nose and Throat: Oropharynx clear, mucous membranes moist. Ears and nose without eformities. Trachea midline. Respiratory: Clear to auscultation. No wheezing, rales or rhonchi. Cardiovascular: S1 S2 regular. No murmurs, rubs or gallops. Gastrointestinal: Abdomen soft, less distention non-distended. Normal bowel sounds.? there is leakage of fluid at the umbilicus Neurologic: Cranial nerves II-XII grossly intact. No focal neurological deficits. Moves all extremities spontaneously.? Skin: No rashes or lesions.? Musculoskeletal: No cyanosis or clubbing. Psychiatric: Normal mood and affect? Results Labs CBC and Chem 7: 07/24/22 06:41 07/24/22 06:41 Labs: Laboratory Results - last 24 hr 11/20/22 11/20/22 11/20/22 06:41 06:41 06:41 MCV 88.9 MCH 30.4 MCHC 34.3 RDW 14.6 Plt Count 178 D MPV 9.4 Immature Gran % (Auto) 3.7 H Neut % (Auto) 65.9 Lymph % (Auto) 10.3 L [place] % (Auto) 8.7 Eos % (Auto) 10.2 H Baso % (Auto) 1.2 Lymph # (Auto) 1.0 L [place] # (Auto) 0.8 Eos # (Auto) 0.9 H Baso # (Auto) 0.1 Abs Immat Gran (auto) 0.34 H Absolute Neuts (auto) 6.1 Absolute Nucleated RBC 0.000 Nucleated RBC % (auto) 0.0 PT 11.2 INR 1.0 APTT 33.3 Anion Gap 15 Estim Creat Clear Calc 36.0 Estimated GFR 26 Random Glucose 165 H Calcium 8.6 Total Bilirubin 0.7 AST 59 H ALT 30 Alkaline Phosphatase 148 H Total Protein 7.2 Albumin 3.3 L Lipase 61 Peritoneal WBC Peritoneal RBC Periton Neutrophils Periton Lymphocytes Peritoneal Monocytes Peritoneal Eosinophils Peritoneal Basophils Peritoneal Other Cells COVID-19 (JELANI) COVID-19 Clin Com Influenza Type A (RYAN) Influenza Type B (RYAN) Influenza A & B Note 07/24/22 07/24/22 07/24/22 07:59 10:01 10:01 MCV MCH MCHC RDW Plt Count MPV Immature Gran % (Auto) Neut % (Auto) Lymph % (Auto) [place] % (Auto) Eos % (Auto) Baso % (Auto) Lymph # (Auto) [place] # (Auto) Eos # (Auto) Baso # (Auto) Abs Immat Gran (auto) Absolute Neuts (auto) Absolute Nucleated RBC Nucleated RBC % (auto) PT INR APTT Anion Gap Estim Creat Clear Calc Estimated GFR Random Glucose Calcium Total Bilirubin AST ALT Alkaline Phosphatase Total Protein Albumin Lipase Peritoneal WBC 0.432 Peritoneal RBC < 0.002 Periton Neutrophils 61 Periton Lymphocytes 24 Peritoneal Monocytes 9 Peritoneal Eosinophils 0 Peritoneal Basophils 0 Peritoneal Other Cells 6 COVID-19 (JELANI) Negative COVID-19 Clin Com See Note Influenza Type A (RYAN) Negative Influenza Type B (RYAN) Negative Influenza A & B Note See Note Assessment and Plan (1) Ascitic fluid: Status: Acute (2) Peritonitis, spontaneous bacterial: Status: Acute (3) LEVI (acute kidney injury): Status: Acute Plan This is a 66-year-old male with past medical history of liver cirrhosis secondary to alcohol abuse as well as hepatitis-C, hypothyroidism, HTN, asthma, chronic anemia, HLD, recurrent ascietes requiring frequent drainage, he was planned to have paracentesis in 2 days, he presents here with abdominal distention and leakage from umbilicus, he reports no fever or chills but there is concern of SBP and has had paracentesis in ED and is feeling better. Ascietes--with leakage from umbilicus, may need further paracenstesis, Surgery and GI consults SBP--Ceftriaxone Hyponatremia, dilutional from fluid overload from ascietes.. monitor LEIV on CKD 2, doubt hepato renal, follow clinically and if worsening renal consult Hypothyroidism--levothyroxine Cirrhosis, ascietes--medical management with Lasix, Aldactone, proprnolol, lactulose to prevent HE HLD--statin Quality Stroke Does the patient have a stroke diagnosis?: No VTE Prior VTE?: No VTE Risk Level:: Medical - low VTE Device Contraindication: Treatment Not Indicated VTE Drug Contraindication: Treatment Not Indicated
[2022-07-24 11:10] LABS: Lactic Acid 1.2 mmol/L (0.5-2.0)
[2022-07-24] MEDS: cefTRIAXone sodium 1 GM in 0.9 % Sodium Chloride 50 ML IV (11:15)
[2022-07-24 11:52] VITALS: BP 119/69; PULSE 61; RESP 18; TEMP 36.4
--- NOTE | 2022-07-24 12:29 | PHA.MEDREC ---
Pharmacy Consult ? Medication Reconciliation Pharmacy has completed the medication reconciliation. Family member (Sasha) confirmed meds over patient's phone with patient. [employer] utilized.
[2022-07-24 13:27] VITALS: BP 131/72; PULSE 66; RESP 20; TEMP 35.9; O2SAT 100
--- NOTE | 2022-07-24 14:05 | PM.CNGS ---
History of Present Illness Consult details Consult date: 07/24/22 Requesting physician: Edilia Esquivel Narrative: The patient is a 66-year-old gentleman in end-stage liver failure who was scheduled to have liver transplant a couple weeks ago and the procedure was never done due to issues with the donor liver. The patient requested I speak with his daughter, Sasha, by telephone. The patient states he is on a transplant list and he his daughter believe Dr. Higgins is the doctor in [place], [place] involved in his care. Patient reports refractory ascites in reviewing the EMR, he has had several paracentesis for 5-10 L. He developed an umbilical hernia and this began draining in the past 24 hours. It was whip stitch in the emergency department and then began leaking shortly after that was done. I was consulted and asked to help direct care. As noted, the patient was scheduled to have a transport several weeks ago. I do not have any of these records available. Review of Systems Review of Systems: Yes all other systems are reviewed and are negative Constitutional: Constitutional: Reports as per [facility] Past Medical History Medical History Allergic rhinitis Anemia Anemia Asthma Cirrhosis Cirrhosis of liver Constipation GERD (gastroesophageal reflux disease) H/O ETOH abuse Hepatitis C Hepatitis C History of alcohol abuse History of kidney stones HTN (hypertension) Hypothyroid Left inguinal hernia Liver mass Liver mass Family History Family History Other No known health problems Surgical History Surgical History History of esophagogastroduodenoscopy (EGD) Hx of colonoscopy No history of previous surgery Social History Social History Household Members: Family Housing: Apartment Do you presently have visiting nurse or other home services: Yes ([employer]) Alcohol intake: never Patient Tobacco Use Status: Never used Tobacco Substance Use Type: Marijuana Advance Directives: No Advance Directives Information Provided: Yes Advance Directives Date on File: 11/04/21 service: No Current occupational status: unemployed and disabled Meds Allergies Allergy/AdvReac Type Severity Reaction Status Date / Time No Known Allergies Allergy Verified 07/19/22 11:55 [No Known Allergies*] Active Medications: Current Medications Melatonin (Melatonin 3 Mg Tablet) 6 mg PO BEDTIME PRN PRN Reason: Insomnia Ondansetron HCl (Ondansetron Hcl 4 Mg/2 Ml Vial) 4 mg IVPUSH Q8H PRN PRN Reason: Nausea and Vomiting Pharmacy Consult (Consult Rx Perform Med Rec) 1 each MISCELLANE ONCE PRN PRN Reason: Consult order Sodium Chloride (0.9 % Sodium Chloride Flush 3 Ml Syringe) 3 ml IVFLUSH [facility] Medications Medication Instructions Recorded Confirmed Last Taken Type albuterol sulfate 90 mcg/actuation 2 puff inhalation QID PRN Wheezing 09/22/20 07/24/22 2 Days Ago History aerosol inhaler (ProAir HFA) ~07/22/22 lactulose 10 gram/15 mL oral 45 ml PO QID 12/16/21 07/24/22 2 Days Ago History solution ~07/22/22 spironolactone 100 mg tablet 100 mg PO DAILY 12/24/21 07/24/22 2 Days Ago History ~07/22/22 propranolol 10 mg tablet 10 mg PO BID 01/16/22 07/24/22 2 Days Ago History ~07/22/22 levothyroxine 75 mcg tablet 225 mcg PO DAILY@0600 03/16/22 07/24/22 2 Days Ago History (Synthroid) ~07/22/22 acetaminophen 325 mg tablet 650 mg PO QID PRN Pain 07/24/22 07/24/22 2 Days Ago History (Tylenol) ~07/22/22 pantoprazole 40 mg tablet,delayed 40 mg PO DAILY@0630 07/24/22 07/24/22 2 Days Ago History release ~07/22/22 Physical Exam Vital Signs: Vital Signs: Last Vital Signs Temp 96.7 F L 07/24/22 13:27 Pulse 66 07/24/22 13:27 Resp 20 07/24/22 13:27 BP 131/72 07/24/22 13:27 Pulse Ox 100 07/24/22 13:27 O2 Del Method 07/24/22 13:27 O2 Flow Rate 2.5 07/24/22 13:27 BMI result Body Mass Index 32.9 The patient is non-toxic & in good spirits The patient is repeatedly asking about food because he is hungry NC/AT, PERRLA, EOMI Mood, affect & judgment all appear appropriate Sclera anicteric conjunctiva pink and moist Oropharynx is clear with no aphthous ulcers, Mallampati class 4, mucous membranes moist Neck is supple with no masses, adenopathy or bruits Thyroid is nontender and free of dominant masses Heart is regular, normal S1-S2 no rubs or murmurs Lungs are clear and equal anteriorly with no audible wheezing, rubs or dullness to percussion Abdomen is tense with a reducible umbilical hernia that has a black eschar. No HSM, rebound, rigidity, guarding, masses or bruits are present. Rectal exam is deferred Skin has good turgor and is free of rashes Extremities free of cyanosis clubbing edema Results Labs Result diagrams: 07/24/22 06:41 07/24/22 06:41 Labs: Abnormal lab results 07/24/22 07/24/22 Range/Units 06:41 06:41 RBC 3.68 L (4.60-5.80) X10*6/uL Hgb 11.2 L (14.0-18.0) g/dl Hct 32.7 L (42.0-52.0) % Immature Gran % (Auto) 3.7 H (0.0-0.4) % Lymph % (Auto) 10.3 L (20-40) % Eos % (Auto) 10.2 H (0-4) % Lymph # (Auto) 1.0 L (1.2-4.9) X10*3/uL Eos # (Auto) 0.9 H (0.0-0.4) X10*3/uL Abs Immat Gran (auto) 0.34 H (0.00-0.03) X10*3/uL Sodium 129 L (135-145) mmol/L Carbon Dioxide 20 L (22-29) mmol/L BUN 50 H (9-16) mg/dL Creatinine 2.50 H (0.5-1.4) mg/dL Random Glucose 165 H (60-115) mg/dL AST 59 H (5-37) U/L Alkaline Phosphatase 148 H (39-117) U/L Albumin 3.3 L (3.5-5.0) g/dL Short CBC 07/24/22 Range/Units 06:41 WBC 9.2 (4.8-10.8) X10*3/uL Hgb 11.2 L (14.0-18.0) g/dl Hct 32.7 L (42.0-52.0) % Plt Count 178 D (160-400) X10*3/uL BMP 07/24/22 06:41 Sodium 129 L Potassium 3.7 Chloride 98 Carbon Dioxide 20 L BUN 50 H Creatinine 2.50 H Calcium 8.6 Liver Function 07/24/22 Range/Units 06:41 Total Bilirubin 0.7 (0.0-1.0) mg/dL AST 59 H (5-37) U/L ALT 30 (0-40) U/L Alkaline Phosphatase 148 H (39-117) U/L Albumin 3.3 L (3.5-5.0) g/dL All other labs normal. Imaging Abdominal ultrasound report/results: report reviewed Additional studies: The patient had 10.5 L paracentesis on 07/19/22 Assessment and Plan (1) Peritonitis, spontaneous bacterial: Status: Acute (2) Ascitic fluid: Status: Acute (3) Abdominal ascites: Status: Acute (4) Ascites: Status: Acute (5) Umbilical hernia: Status: Acute Plan I would recommend communication with the transplant surgeons since the patient has ongoing uncontrolled ascites and now a draining umbilical cutaneous/peritoneal fistula. Any repair will fail in the setting of liver failure, uncontrolled ascites & will likely cause more necrosis. An ileostomy or colostomy bad could be used to help control drainage. Unfortunately, I do not have records and the daughter was unable to provide anything other than the name Dr. Higgins in [place], [place] & isn't sure if he's transplant or hepatology, but she will work on getting information. Recommend continuing dressing changes as needed, communication with transplant and GI here is since they may have information regarding the transplant team in [place], [place]. Would keep NPO while this is sorted out. Procedures Date of Service Date of Service: 07/24/22
[2022-07-24 14:39] VITALS: BP 110/68; PULSE 64; RESP 18; O2SAT 100
--- NOTE | 2022-07-24 15:07 | PC.NURSE ---
@[phone] CALL RECEIVED FROM [facility] OF [facility] REQUESTING A FACE SHEET TO BE FAXED TO [phone]
[2022-07-24] MEDS: 0.9 % Sodium Chloride Flush 3 ML SYRINGE IVFLUSH (15:54)
[2022-07-24 15:59] VITALS: BP 131/65; PULSE 79; RESP 18; TEMP 37.2; O2SAT 100
--- NOTE | 2022-07-24 16:25 | P.DS_ITS ---
DS: Providers Provider Date of Service: 07/24/22 Date of admission: 07/24/22 10:52 Primary care physician: [facility] Consults: 07/24/22 12:32 Consult to General Surgery Routine Consulting Provider: Matthieu Aparicio Reason for consultation: eschar and necrosis of his umbilical area DS: Diagnosis Discharge Diagnosis (1) Ascitic fluid: Status: Inactive (2) Peritonitis, spontaneous bacterial: Status: Inactive (3) LEVI (acute kidney injury): Status: Inactive DS: Summary Hospital Course Hospital Course: Chief Complaint: Abdominal distention and leaking from the umbilicus This is a 66-year-old male with a past medical history of liver cirrhosis secondary to alcohol abuse as well as hepatitis-C, hypothyroidism, HTN, asthma, chronic anemia, HLD, recurrent ascites requiring frequent drainage, prior history of SBP; he is followed at [facility] Hepatology. He was planned to have paracentesis in 2 days (get paracentesis weekly on Monday), he presents here with abdominal distention and leakage from the umbilicus, he reports no fever or chills, but there is a concern of SBP and has had paracentesis in ED and is feeling better.? Hospital course: Ascietes/SBP/Cirrhois The patient with known cirrhosis with recurrent ascites is tapped weekly on Tuesdays; he is followed at [facility] liver service by Dr. Calero and Dr. Ar Vitale and is being considered for a liver transplant; he presented with tense ascites and leakage of ascites fluid at the umbilics. He had paracentesis by ED Doc with 3. 5 liters and fluid analysis (Ascites fluid WBCs 432, 61 neutrophils, 24 lymphocytes, 9 monocytes-this is elevated.? Glucose elevated 165) consistent with SBP and has been treated with Ceftriaxone, blood cultures sent. The patient was evaluated by Dr. Reina, who was considering the application of an ostomy bag to the umbilicus, but following further discussion with the liver team at [facility], the recommended treatment with Albumin 25% Q6 and an arrangement for the patient to be transferred to [facility] for further evaluation, including possible liver transplant pr TIPSS. The phone number at [facility]: [email or web address] [phone] Hyponatremia, dilutional from fluid overload from ascietes.. monitor LEVI on CKD 2, doubt hepatorenal, follow clinically and if worsening renal consult Hypothyroidism--levothyroxine Cirrhosis, ascietes--medical management with Lasix, Aldactone, proprnolol, lactulose to prevent HE HLD--statin Dispo: To [facility] Time Spent with Patient Time attestation: Total time spent providing and/or coordinating discharge services: Discharge coordination time: Greater than 30 minutes Quality: Safe Use of Opioids Does Pt have an Active Cancer Diagnosis on the Problem List?: No Quality: Stroke Does the patient have a stroke diagnosis?: No Physical Exam Vital Signs: Vital Signs: Last Vital Signs Temp 99.0 F 07/24/22 15:59 Pulse 79 07/24/22 15:59 Resp 18 07/24/22 15:59 BP 131/65 07/24/22 15:59 Pulse Ox 100 07/24/22 15:59 O2 Del Method 07/24/22 15:59 O2 Flow Rate 2.5 07/24/22 13:27 BMI result Body Mass Index 32.9 DS: Data Data Completed and Pending Completed studies during hospitalization [Text1]: Procedures Drainage of Peritoneal Cavity, Percutaneous Approach (03/16/22) Occlusion of Esophageal Vein with Extraluminal Device, Via Natural or Artificial Opening Endoscopic (03/16/22) Labs on day of discharge: Laboratory Results - last 24 hr 07/24/22 07/24/22 07/24/22 06:41 06:41 06:41 WBC 9.2 RBC 3.68 L Hgb 11.2 L Hct 32.7 L MCV 88.9 MCH 30.4 MCHC 34.3 RDW 14.6 Plt Count 178 D MPV 9.4 Immature Gran % (Auto) 3.7 H Neut % (Auto) 65.9 Lymph % (Auto) 10.3 L [place] % (Auto) 8.7 Eos % (Auto) 10.2 H Baso % (Auto) 1.2 Lymph # (Auto) 1.0 L [place] # (Auto) 0.8 Eos # (Auto) 0.9 H Baso # (Auto) 0.1 Abs Immat Gran (auto) 0.34 H Absolute Neuts (auto) 6.1 Absolute Nucleated RBC 0.000 Nucleated RBC % (auto) 0.0 PT 11.2 INR 1.0 APTT 33.3 Sodium 129 L Potassium 3.7 Chloride 98 Carbon Dioxide 20 L Anion Gap 15 BUN 50 H Creatinine 2.50 H Estim Creat Clear Calc 36.0 Estimated GFR 26 Random Glucose 165 H Lactic Acid Calcium 8.6 Total Bilirubin 0.7 AST 59 H ALT 30 Alkaline Phosphatase 148 H Total Protein 7.2 Albumin 3.3 L Lipase 61 Peritoneal WBC Peritoneal RBC Periton Neutrophils Periton Lymphocytes Peritoneal Monocytes Peritoneal Eosinophils Peritoneal Basophils Peritoneal Other Cells COVID-19 (JELANI) COVID-19 Clin Com Influenza Type A (RYAN) Influenza Type B (RYAN) Influenza A & B Note 07/24/22 07/24/22 07/24/22 07:59 10:01 10:01 WBC RBC Hgb Hct MCV MCH MCHC RDW Plt Count MPV Immature Gran % (Auto) Neut % (Auto) Lymph % (Auto) [place] % (Auto) Eos % (Auto) Baso % (Auto) Lymph # (Auto) [place] # (Auto) Eos # (Auto) Baso # (Auto) Abs Immat Gran (auto) Absolute Neuts (auto) Absolute Nucleated RBC Nucleated RBC % (auto) PT INR APTT Sodium Potassium Chloride Carbon Dioxide Anion Gap BUN Creatinine Estim Creat Clear Calc Estimated GFR Random Glucose Lactic Acid Calcium Total Bilirubin AST ALT Alkaline Phosphatase Total Protein Albumin Lipase Peritoneal WBC 0.432 Peritoneal RBC < 0.002 Periton Neutrophils 61 Periton Lymphocytes 24 Peritoneal Monocytes 9 Peritoneal Eosinophils 0 Peritoneal Basophils 0 Peritoneal Other Cells 6 COVID-19 (JELANI) Negative COVID-19 Clin Com See Note Influenza Type A (RYAN) Negative Influenza Type B (RYAN) Negative Influenza A & B Note See Note 07/24/22 10:41 WBC RBC Hgb Hct MCV MCH MCHC RDW Plt Count MPV Immature Gran % (Auto) Neut % (Auto) Lymph % (Auto) [place] % (Auto) Eos % (Auto) Baso % (Auto) Lymph # (Auto) [place] # (Auto) Eos # (Auto) Baso # (Auto) Abs Immat Gran (auto) Absolute Neuts (auto) Absolute Nucleated RBC Nucleated RBC % (auto) PT INR APTT Sodium Potassium Chloride Carbon Dioxide Anion Gap BUN Creatinine Estim Creat Clear Calc Estimated GFR Random Glucose Lactic Acid 1.2 Calcium Total Bilirubin AST ALT Alkaline Phosphatase Total Protein Albumin Lipase Peritoneal WBC Peritoneal RBC Periton Neutrophils Periton Lymphocytes Peritoneal Monocytes Peritoneal Eosinophils Peritoneal Basophils Peritoneal Other Cells COVID-19 (JELANI) COVID-19 Clin Com Influenza Type A (RYAN) Influenza Type B (RYAN) Influenza A & B Note Discharge Plan Discharge Anticipated Discharge Date/Time: 07/24/22 16:06 Patient Disposition: Xfer Acute Care Hospital Discharge Diagnosis: SBP, recurrent ascietes, Cirrhosis, renal failure Referrals: [place],[facility] [Primary Care Provider] - 1 Week Discharge Medications: New ceftriaxone 1 gram recon soln 1 g IV DAILY Qty: 10 0RF albumin, human 25 % 25 % parenteral solution 25 g IV Q6H 2 Days Qty: 100 0RF Continued furosemide [Lasix] 40 mg tablet 40 mg PO DAILY Qty: 20 0RF Hold Instructions: Resume on 12/27/21. lactulose 10 gram/15 mL solution 45 ml PO QID spironolactone 100 mg Tablet 100 mg PO DAILY propranolol 10 mg tablet 10 mg PO BID levothyroxine [Synthroid] 75 mcg tablet 225 mcg PO DAILY@0600 pantoprazole 40 mg tablet,delayed release (DR/EC) 40 mg PO DAILY@0630 acetaminophen [Tylenol] 325 mg Tablet 650 mg PO QID PRN (Reason: Pain) albuterol sulfate [ProAir HFA] 90 mcg/actuation HFA aerosol inhaler 2 puff inhalation QID PRN (Reason: Wheezing) No Action (DME) coloplast ostomy bags See Rx Instructions .Route .MEDSUPPLY Qty: 20 1RF Rx Instructions: As directed - apply to abdomen for drainage collection Discharge Orders: Discharge Order (Routine); Ordered 07/24/22 Ordered By: Vamshi Lane Diet: Advance to usual diet Activity on Discharge: As tolerated Stand Alone Forms: Patient Portal Discharge page Care Plan Goals: Ultmately will need liver transplant Health Concerns: Cirrhosis, ascietes, SBP Plan of Treatment: Transfer to [facility] Assessment: as above Discharge Date/Time: 07/24/22 17:27
--- NOTE | 2022-07-24 16:39 | PM.EVENT ---
Event Note Date of Service: 07/24/22 Event Note: Nursing staff told me that the patient's daughter, Sasha, was at the bedside and had questions. I met with her and the patient gave me permission to speak candidly. I reviewed the day's events and that I communicated with both Dr. Higgins and Dr. Calero at [facility] and that he would be transferred [facility] given his need for liver transplant. The patient and daughter's questions seemed to be satisfactorily answered. Ostomy appliance and bag in place.
== END 2022-07-24 17:27 | disposition short-term general hospital (02) | DRG 813 ==
LOC: HO.ED 10:29 → HO.EDOVER 10:57 → HO.S3 14:02
PROVIDERS: Admitting Provider Internal Medicine; Emergency Provider Emergency Medicine Emergency Medical Services; Visit Provider Internal Medicine
DX: T81.31XA Disruption of external operation (surgical) wound, not elsewhere classified, initial encounter (principal); K65.2 Spontaneous bacterial peritonitis; Z76.82 Awaiting organ transplant status; K70.31 Alcoholic cirrhosis of liver with ascites; I96 Gangrene, not elsewhere classified; N17.9 Acute kidney failure, unspecified; K72.90 Hepatic failure, unspecified without coma; E87.1 Hypo-osmolality and hyponatremia; K21.9 Gastro-esophageal reflux disease without esophagitis; I12.9 Hypertensive chronic kidney disease with stage 1 through stage 4 chronic kidney disease, or unspecified chronic kidney disease; N18.2 Chronic kidney disease, stage 2 (mild); E03.9 Hypothyroidism, unspecified; E78.5 Hyperlipidemia, unspecified; J45.909 Unspecified asthma, uncomplicated; B19.20 Unspecified viral hepatitis C without hepatic coma; Z20.822 Contact with and (suspected) exposure to COVID-19; Z79.890 Hormone replacement therapy; Z79.899 Other long term (current) drug therapy
CPT/HCPCS: 36415; 80053; 83605; 83690; 85025; 85610; 85730; 87040; 87070; 87073; 87077; 87186; 87205; 87502; 87635; 89051; 99284; J0696; P9047

== ENCOUNTER → 2022-08-04 11:30 | Day surgery (SDC) | payer MEDICARE, MEDICAID, SELFPAY ==
--- NOTE | ~2022-08-04 | US_ITS ---
EXAMINATION: US ABDOMEN LIMITED CLINICAL INFORMATION: Multiple previous paracenteses were ascites. Patient had TIPS procedure.. COMPARISON: July 19, 2022 and studies dating back to September 24, 2021 TECHNIQUE: Real-time imaging of the right upper quadrant abdominal viscera. FINDINGS: Abdominal ultrasound performed for evaluation prior to paracentesis. No significant ascites is present and paracentesis was not performed. US/US abdomen limited IMPRESSION: No significant ascites present.
[2022-08-04 12:01] VITALS: BMI 30.2
== END ==
PROVIDERS: PCP General Practice; Visit Provider Internal Medicine Gastroenterology
DX: R18.8 Other ascites (principal); Z53.8 Procedure and treatment not carried out for other reasons
CPT/HCPCS: 76705